=== PATIENT | female | born 1950 | race Caucasian/White ===

== ENCOUNTER 2017-12-08 17:03 | Inpatient (IN) ==
[2017-12-08] MEDS ORDERED: *HR* Labetalol 20 MG/4 ML SYRINGE IVP ONE (17:34)
--- NOTE | 2017-12-08 17:38 | Emergency Department Note ---
Disposition Clinical Impression: Hypertensive urgency, Anasarca, Acute kidney injury, Elevated troponin CHF exacerbation Qualifiers: Congestive heart failure type: unspecified Qualified Code(s): I50.9 - Heart failure, unspecified Disposition: Admitted As Inpatient Condition: Good General Adult HPI - General Chief complaint: ED Extremity Problem,Nontraumatic Stated complaint: abd & peripheral swelling Time Seen by Provider: 12/08/17 17:08 Source: patient, family Mode of arrival: private vehicle Limitations: altered mental status, physical limitation Nursing Notes Reviewed: Yes Vital Signs Reviewed: Yes - History of Present Illness HPI Narrative: 67-year-old female history of dementia, poorly controlled hypertension and diabetes who presents to the ER from urgent care due to concern for abdominal swelling. Patient is a poor historian and has baseline dementia which the family reports is currently at her baseline. They report yesterday they noticed some swelling to her lower abdomen on the right. Denies any trauma. States that she used to weigh over 400 pounds and lost the weight on her own and has a lot of extra tissue but the swelling has worsened since yesterday. Also states that they noticed her lower extremities were swollen. They state today she felt short of breath. She has had no headaches, chest pain, nausea vomiting or diarrhea. She was seen at urgent care and sent here for evaluation. She is noted to be hypertensive upon arrival. States this is higher than what she usually runs. No other complaints. Pt Subjective Complaint: Abdominal and peripheral swelling Onset (ago): day(s) Location: abdomen Pain Scale: 0 Improves with: nothing Worsens with: nothing Associated symptoms: Reports: shortness of breath. Denies: confusion, chest pain, fever/chills, headaches, nausea/vomiting Treatments Prior to Arrival: none - Related Data Previous Rx's Medication Instructions Recorded Aspirin 81 mg PO DAILY #90 tab.chew 07/31/16 Atorvastatin [Lipitor] 40 mg PO HS #30 tablet 07/31/16 Isosorbide MONOnitrate (24 HR) 60 mg PO DAILY #60 tab.er.24h 07/31/16 [Imdur] Metformin HCl [Metformin HCl ER] 500 mg PO DAILY #30 [id number] 07/31/16 Metoprolol [Lopressor] 12.5 mg PO BID #60 tablet 07/31/16 Nicotine Patch [Nicoderm] 21 mg TD DAILY #30 patch.td24 07/31/16 Nitroglycerin 0.4 mg SL Q5MIN PRN #15 tab.subl 07/31/16 OxyCODONE Immed Rel [Roxicodone 5 5 mg PO Q4HR PRN #30 tablet 07/31/16 MG] hydrALAZINE [HydrALAZINE] 25 mg PO Q6HR #90 tablet 07/31/16 Allergies Allergy/AdvReac Type Severity Reaction Status Date / Time No Known Allergies Allergy Verified 12/08/17 17:05 All systems ED: reviewed and negative except as stated. Constitutional: Denies: fever Cardiovascular: Denies: chest pain Respiratory: Reports: cough, dyspnea Gastrointestinal: Reports: abdominal pain. Denies: nausea, vomiting, diarrhea Musculoskeletal: Denies: back pain Neurological: Denies: headache Past Medical History - Past Medical History Attestation: Yes The following information was validated with the patient. Source: patient Medical history: Reports: aortic aneurysm, dementia, diabetes, GERD, hypertension, osteoporosis, other Surgical history: Reports: cholecystectomy Psychiatric history: Reports: no psych history - Social History Smoking Status: Never smoker Smokeless Tobacco Status: No Alcohol use: Reports: unknown Drug use: Reports: unknown Physical Exam - General Limitations: altered mental status, physical limitation General appearance: alert, in no apparent distress - Head Head exam: atraumatic, normocephalic - Eye Eye exam: Present: normal appearance - ENT ENT exam: normal exam - Neck Neck exam: Present: normal inspection, full ROM - Chest Chest inspection: Present: normal inspection, symmetric chest wall rise - Respiratory Respiratory exam: Present: normal lung sounds bilaterally - Cardiovascular Cardiovascular exam: Present: regular rate, normal rhythm, normal heart sounds - Abdominal Exam Abdominal exam: Present: soft, tenderness (Patient has mild right lower quadrant tenderness without distention guarding or rigidity), other (Patient has redundant tissue in the lower abdomen.) - Extremities Exam Extremities exam: Present: normal inspection, full ROM - Expanded Upper Extremity Exam Shoulder exam: Present: normal inspection, full ROM Arm exam: Present: normal inspection, full ROM Elbow exam: Present: normal inspection, full ROM Forearm/Wrist exam: Present: normal inspection, full ROM Hand exam: Present: normal inspection, full ROM - Expanded Lower Extremity Exam Hip/Pelvis exam: Present: normal inspection, full ROM Upper leg exam: Present: normal inspection, full ROM Knee exam: Present: normal inspection, full ROM Lower leg exam: Present: normal inspection, full ROM, swelling (Scant lower extremity pitting edema) Ankle exam: Present: normal inspection, full ROM Foot/toe exam: Present: normal inspection, full ROM - Neurological Exam Neurological exam: Present: alert, other (Family reports she is at her baseline. Answers questions appropriate but is confused.) - Skin Skin exam: Present: warm, dry, intact Course Course Narrative: Patient seen and examined. Family hypertensive here. There is documentation of a prior aortic aneurysm however there are no images to review. Given her hypertension we will pursue a CT scan of her head as well as a scan of her abdomen and pelvis. Should this show any abnormality or aneurysm we will likely need to repeat with angiogram. We will also get an EKG, chest x-ray as well as labs including troponin. - Reevaluation(s) Reevaluation #1: Discussed results of imaging and labs with patient. Her blood pressure had improved after 1 dose of labetalol. She is noted to have a BNP over 2000 in the setting of a mild kidney injury. She is also noted to have anasarca on her abdominal CT. We will give her a dose of IV Lasix, Nitropaste and aspirin and admit. Vital Signs Temperature 97.3 F L 12/08/17 17:05 Pulse Rate 96 12/08/17 17:05 Respiratory Rate 18 12/08/17 17:05 Blood Pressure 213/142 12/08/17 17:05 O2 Sat by Pulse Oximetry 97 12/08/17 17:05 Temperature 98.9 F 12/08/17 21:41 Pulse Rate 77 12/08/17 21:01 Respiratory Rate 18 12/08/17 21:41 Blood Pressure 178/101 12/08/17 21:41 O2 Sat by Pulse Oximetry 96 12/08/17 19:29 Oxygen Delivery Oxygen Delivery Room Air Medical Decision Making - MDM Narrative Medical decision making narrative: 67-year-old female presents to the ER due to abdominal swelling as well as hypertension. She has poorly controlled hypertension at baseline. Family reporting she is at her usual mental status baseline. She is alert and answers questions appropriately but is confused intermittently. Noted to have lower extremity edema. EKG without ischemic features. Chest x-ray with cardiomegaly and pulmonary vascular congestion. CT of the head with no acute abnormalities. CT of the abdomen and pelvis with anasarca without acute findings. She is noted to have an elevated BNP, troponin. Patient given 10 mg of labetalol for hypertension with improvement. Also given an aspirin, Nitropaste and 40 mg IV Lasix. Admitted to the hospitalist service for hypertensive urgency, acute CHF exacerbation. - Lab Data Lab results reviewed: Yes I reviewed the patient's lab results. Result diagrams: 12/08/17 17:48 12/08/17 17:48 Lab Results 12/08/17 12/08/17 12/08/17 Range/Units 17:48 17:48 17:48 WBC 7.0 (4.3-11.1) K/mcL RBC 4.87 (3.82-4.97) M/mcL Hgb 13.9 (11.5-15.4) g/dL Hct 41.8 (35.3-44.9) % MCV 85.8 (83.0-100.0) fL MCH 28.5 (28.0-33.3) pg MCHC 33.3 (31.6-35.5) g/dL RDW 14.5 (11.5-14.5) % Plt Count 178 (140-400) K/mcL MPV 10.4 (9.4-12.4) fL Immature Gran % 0.1 (0-4) % Seg Neutrophils % 75.8 % Lymphocytes % 14.8 % Monocytes % 7.3 % Eosinophils % 1.6 % Basophils % 0.4 % Neutrophils # 5.3 (1.6-8.9) K/mcL Lymphocytes # 1.0 (0.6-4.6) K/mcL Monocytes # 0.5 (0.0-1.3) K/mcL Eosinophils # 0.1 (0.0-0.6) K/mcL Basophils # 0.0 (0.0-0.2) K/mcL PT (9.4-12.1) Seconds INR APTT (26.0-36.0) Seconds Sodium 135 L (136-145) mEq/L Potassium 3.7 (3.5-5.1) mEq/L Chloride 106 (98-107) mEq/L Carbon Dioxide 20 L (23-29) mEq/L BUN 27 H (8-23) mg/dL Creatinine 1.47 H (0.60-1.20) mg/dL Est GFR ( Amer) 43 L (> 60) Est GFR (Non-Af Amer) 35 L (> 60) BUN/Creatinine Ratio 18 (6-26) Glucose 271 H (70-105) mg/dL Calculated Osmolality 295 (280-300) Calcium 8.5 L (8.6-10.3) mg/dL Total Bilirubin TNP Direct Bilirubin 0.1 (0.0-0.2) mg/dL Indirect Bilirubin TNP AST 21 (13-39) Units/L ALT 16 (7-52) Units/L Alkaline Phosphatase 101 (34-104) Units/L Troponin I 0.05 H* (< 0.04) ng/mL B-Natriuretic Peptide (Less than 100) pg/mL Serum Total Protein 5.8 L (6.4-8.9) g/dL Albumin 3.2 L (3.5-5.7) g/dL Globulin 2.6 (2.4-3.5) g/dL Albumin/Globulin Ratio 1.2 (1.1-2.2) Lipase 17 (11-82) Units/L Urine Color (Yellow) Urine Clarity (Clear) Urine pH (5.0-8.0) pH Units Ur Specific [place] (1.010-1.025) Urine Protein (Neg-Trace) mg/dL Urine Glucose (UA) (Normal) mg/dL Urine Ketones (Negative) mg/dL Urine Blood (Negative) Urine Nitrite (Negative) Urine Bilirubin (Negative) Urine Urobilinogen (Normal) mg/dL Ur Leukocyte Esterase (Negative) Urine Microscopic RBC (0-3) per hpf Urine Microscopic WBC (0-3) per hpf Ur Squamous Epith Cells (None-Few) per lpf Urine Bacteria (None-Few) per hpf Hyaline Casts (None-Few) per lpf 12/08/17 12/08/17 12/08/17 Range/Units 17:48 17:48 18:12 WBC (4.3-11.1) K/mcL RBC (3.82-4.97) M/mcL Hgb (11.5-15.4) g/dL Hct (35.3-44.9) % MCV (83.0-100.0) fL MCH (28.0-33.3) pg MCHC (31.6-35.5) g/dL RDW (11.5-14.5) % Plt Count (140-400) K/mcL MPV (9.4-12.4) fL Immature Gran % (0-4) % Seg Neutrophils % % Lymphocytes % % Monocytes % % Eosinophils % % Basophils % % Neutrophils # (1.6-8.9) K/mcL Lymphocytes # (0.6-4.6) K/mcL Monocytes # (0.0-1.3) K/mcL Eosinophils # (0.0-0.6) K/mcL Basophils # (0.0-0.2) K/mcL PT 10.2 (9.4-12.1) Seconds INR 1.0 APTT 31.8 (26.0-36.0) Seconds Sodium (136-145) mEq/L Potassium (3.5-5.1) mEq/L Chloride (98-107) mEq/L Carbon Dioxide (23-29) mEq/L BUN (8-23) mg/dL Creatinine (0.60-1.20) mg/dL Est GFR ( Amer) (> 60) Est GFR (Non-Af Amer) (> 60) BUN/Creatinine Ratio (6-26) Glucose (70-105) mg/dL Calculated Osmolality (280-300) Calcium (8.6-10.3) mg/dL Total Bilirubin Direct Bilirubin (0.0-0.2) mg/dL Indirect Bilirubin AST (13-39) Units/L ALT (7-52) Units/L Alkaline Phosphatase (34-104) Units/L Troponin I (< 0.04) ng/mL B-Natriuretic Peptide 2154 H (Less than 100) pg/mL Serum Total Protein (6.4-8.9) g/dL Albumin (3.5-5.7) g/dL Globulin (2.4-3.5) g/dL Albumin/Globulin Ratio (1.1-2.2) Lipase (11-82) Units/L Urine Color Yellow (Yellow) Urine Clarity Clear (Clear) Urine pH 6.5 (5.0-8.0) pH Units Ur Specific [place] 1.021 (1.010-1.025) Urine Protein >=1000 H (Neg-Trace) mg/dL Urine Glucose (UA) 500 H (Normal) mg/dL Urine Ketones Negative (Negative) mg/dL Urine Blood Moderate H (Negative) Urine Nitrite Negative (Negative) Urine Bilirubin Negative (Negative) Urine Urobilinogen Normal (Normal) mg/dL Ur Leukocyte Esterase Negative (Negative) Urine Microscopic RBC 5-15 H (0-3) per hpf Urine Microscopic WBC 0-3 (0-3) per hpf Ur Squamous Epith Cells Many H (None-Few) per lpf Urine Bacteria None Seen (None-Few) per hpf Hyaline Casts Few (None-Few) per lpf - Radiology Data Radiology results reviewed: Yes I reviewed the patient's radiology results. Chest X-Ray 12/08/17 17:33 IMPRESSION: Suspected pulmonary vascular congestion. Bibasilar airspace disease could represent edema. Pneumonia and/or atelectasis could also have this appearance. Correlation is recommended. D/ / Priscilla Beckwith Cha, MD / Priscilla Beckwith Cha, MD Interpreting Provider: Priscilla Beckwith Cha, MD Abdomen/Pelvis CT 12/08/17 17:34 IMPRESSION: No acute abnormality of the abdomen or pelvis. The appendix is not distinctly visualized but no secondary evidence of appendicitis. Moderate to large bilateral pleural effusions, with adjacent compressive atelectasis. Small pericardial effusion. Large amount of body wall edema in the subcutaneous fat. D/ / Carlyle Vega MD / Carlyle Vega MD Interpreting Provider: Carlyle Vega MD Head CT 12/08/17 17:34 IMPRESSION: No acute intracranial abnormality. Wax occludes the external auditory canals, [id number]. D/ / Johnny Balderrama MD / Johnny Balderrama MD Interpreting Provider: Johnny Balderrama MD - EKG Data EKG #1 EKG attestation: Yes I reviewed and interpreted this EKG. EKG results narrative: EKG demonstrates sinus rhythm with PVCs with a rate of 91 bpm. Left axis deviation. Normal intervals. Poor R-wave progression. No gross ST elevations or depressions. No acute ischemic findings. Roxie - Roxie Situation: Demographics, MOA Background: Presenting Complaint, Relevant PMH, Meds, & Allergies Assessment: Vital Signs, Course and respsone to treatment, Exam Concerns, Patient/Family Expectation, Pertinant Lab Results Recommendation: Barrier(s) to disposition, Recommendation based on pending studies, treatments, or consults Roxie Report Given to: Dr. Guillermo Faustin Repor Time: 21:25 Attestation Statement - Attestation Attestation: I examined this patient and my medical decision-making was reviewed with the Resident Physician, Dr. Lopez. I agree with the documented findings, disposition and treatment plan as described except to the extent set forth below. Is a 67-year-old elderly white female with a history of diabetes, hypertension, medication noncompliance, and dementia. Patient's family are here that brought her out of concern for recent history of gradually worsening shortness of breath and abdominal swelling. Patient was seen initially at the urgent care and was reported to have elevated blood pressure as well as ankle and abdominal wall edema and was sent here for further evaluation. Patient denies any form of chest pain pressure or heaviness, no palpitations, does complain of some mild shortness of breath but is having no symptoms of respiratory distress on arrival. Patient denies any history of falls or trauma. Patient denies any abdominal pain by history. No other associated symptoms. She denies any headaches, visual changes, focal neurologic deficits. I agree with patient's physical exam findings as documented. Patient quite hypertensive on arrival. Daughter at bedside states she has been dispensing her medications in that she has been taking her meds as directed and tolerating them well. Patient's EKG does not show any acute ischemia and his sinus rhythm. Patient's chest x-ray shows evidence of congestive heart failure with pleural effusions. Patient's CT of the abdomen and pelvis shows generalized abdominal wall edema as well as pleural effusions in the bases. No other acute abdominal findings were seen. Patient's laboratory values show a KI, with a mild elevated troponin as well as an elevated BNP. Patient was administered aspirin and Lasix and nitroglycerin as well as a dose of labetalol for elevated blood pressure. Patient's mean arterial pressure responded nicely with approximately a 20% drop will hold any further additional medication at this time. Patient will be admitted for CHF, a KI, elevated troponin, an elevated blood pressure. Case was discussed with hospitalist except patient for admission for further evaluation and management.
[2017-12-08 18:01] LABS: Basophils % 0.4 %; Eosinophils # 0.1 K/mcL (0.0-0.6); Eosinophils % 1.6 %; Hematocrit 41.8 % (35.3-44.9); Hemoglobin 13.9 g/dL (11.5-15.4); Immature Granulocytes % 0.1 % (0-4); Lymphocytes % 14.8 %; Mean Corpuscular HGB Conc 33.3 g/dL (31.6-35.5); Mean Corpuscular Hemoglobin 28.5 pg (28.0-33.3); Mean Corpuscular Volume 85.8 fL (83.0-100.0); Mean Platelet Volume 10.4 fL (9.4-12.4); Monocytes # 0.5 K/mcL (0.0-1.3); Monocytes % 7.3 %; Neutrophils # 5.3 K/mcL (1.6-8.9); Platelet Count 178 K/mcL (140-400); Red Blood Count 4.87 M/mcL (3.82-4.97); Red Cell Distribution Width 14.5 % (11.5-14.5); Segmented Neutrophils % 75.8 %
[2017-12-08 18:05] LABS: Prothrombin Time 10.2 Seconds (9.4-12.1)
[2017-12-08 18:08] LABS: Activated Partial Thrombo Time 31.8 Seconds (26.0-36.0)
[2017-12-08 18:23] LABS: Bilirubin,Urine Negative (Negative); Blood,Urine Moderate (Negative); Clarity,Urine Clear (Clear); Color,Urine Yellow (Yellow); Glucose,Urine (UA) 500 mg/dL (Normal); Ketones,Urine Negative (Negative); Leukocyte Esterase,Urine Negative (Negative); Nitrite,Urine Negative (Negative); PH,Urine 6.5 pH Units (5.0-8.0); Protein,Urine >=1000 mg/dL (Neg-Trace); Specific Gravity,Urine 1.021 (1.010-1.025); Urobilinogen,Urine Normal (Normal)
[2017-12-08 18:23] LABS: Lipase 17 Units/L (11-82)
[2017-12-08 18:26] LABS: Bacteria,Urine None Seen per hpf (None-Few); Hyaline Casts,Urine Few per lpf (None-Few); Squamous Epithelial Cell,Urine Many per lpf (None-Few); WBC,Urine 0-3 per hpf (0-3)
[2017-12-08 19:35] LABS: Alanine Aminotransferase 16 Units/L (7-52); Albumin 3.2 g/dL (3.5-5.7); Albumin/Globulin Ratio 1.2 (1.1-2.2); Alkaline Phosphatase 101 Units/L (34-104); Aspartate Amino Transferase 21 Units/L (13-39); BUN/Creatinine Ratio 18 (6-26); Bilirubin,Direct 0.1 mg/dL (0.0-0.2); Blood Urea Nitrogen 27 mg/dL (8-23); Calcium 8.5 mg/dL (8.6-10.3); Carbon Dioxide 20 mEq/L (23-29); Chloride 106 mEq/L (98-107); Globulin 2.6 g/dL (2.4-3.5); Glucose 271 mg/dL (70-105); Osmolality,Calculated 295 (280-300); Potassium 3.7 mEq/L (3.5-5.1); Sodium 135 mEq/L (136-145); Total Protein 5.8 g/dL (6.4-8.9); eGFR For African Americans 43 (> 60); eGFR For Non-African Americans 35 (> 60)
[2017-12-08] MEDS ORDERED: Furosemide 40 MG/4 ML VIAL IVP ONE (20:46)
[2017-12-08] MEDS ORDERED: Nitroglycerin 1 INCH/GM PACKET TP ONE (20:46)
[2017-12-08] MEDS ORDERED: Aspirin 325 MG TABLET PO ONE (20:46)
[2017-12-08] MEDS ORDERED: Dextrose Gel 15 GM/37.5 ML TUBE PO PRN ×2 (21:35)
[2017-12-08] MEDS ORDERED: D5% in Water 1,000 ML IVC PRN (21:35)
[2017-12-08] MEDS ORDERED: *HR* Dextrose 50 % in Water (Syg) 50 ML SYRINGE IVP PRN (21:35)
[2017-12-08] MEDS ORDERED: Naloxone 0.4 MG/ML INJ IVP PRN (21:36)
--- NOTE | 2017-12-08 21:47 | Internal Med History&Physical ---
Date of Encounter: 12/08/17 Time of Encounter: 21:46 Assessment and Plan (1) CHF exacerbation Current visit: Yes Status: Acute check TTE lasix BID check TFT pulse ox monitoring I&Os control BP Qualifiers: Congestive heart failure type: systolic Qualified Code(s): I50.23 - Acute on chronic systolic (congestive) heart failure (2) Hypertensive urgency Current visit: Yes Status: Acute improved with IV prn in the ED. Will try to use IV prn. Try to avoid gtt therapy for now pending BP, may need to adjust home PO med q3h BP overnight to get better trend for now (3) CKD (chronic kidney disease) Current visit: Yes Status: Acute Qualifiers: Chronic kidney disease stage: stage 3 (moderate) Qualified Code(s): N18.3 - Chronic kidney disease, stage 3 (moderate) (4) DMII (diabetes mellitus, type 2) Current visit: Yes Status: Acute hold metformin, ISS for now Qualifiers: Diabetes mellitus complication status: without complication Qualified Code( s): E11.9 - Type 2 diabetes mellitus without complications; Z79.4 - correction ( current) use of insulin; Z79.4 - local company intermodal truck driver (current) use of insulin; Z79.4 - local company intermodal truck driver (current) use of insulin; Z79.4 - local company intermodal truck driver (current) use of insulin (5) HLD (hyperlipidemia) Current visit: Yes Status: Acute Qualifiers: Hyperlipidemia type: mixed hyperlipidemia Qualified Code(s): E78.2 - Mixed hyperlipidemia (6) Dementia Current visit: No Status: Chronic moderate severe fall, wandering risk - RN communication ordered Qualifiers: Dementia type: Alzheimer's disease Dementia behavioral disturbance: without behavioral disturbance Qualified Code(s): G30.8 - Other Alzheimer's disease; F02.80 - Dementia in other diseases classified elsewhere without behavioral disturbance Internal Medicine - H&P: HPI Chief complaint: b/l LE and belly swelling History of present illness: Ms. Decker is a 67 year old female who presents with b/l LE and belly swelling. Found HTN urgency and suspicious for new CHF. Less certain this is HTN crisis. Presents with worsening LE swelling and belly swelling since yesterday per family but suspect this has been ongoing for the last few weeks at least now. Family suspect she has gained 15 lbs since a few months ago. No improving factors. High fall and wandering risk She is moderate-severe dementia and lives with dtr hector [phone]. At baseline she is 1 assist walking for safety and although independent of toileting, feeding, family is cautious to have her kept an eye on. She has a hx of HTB, HLD ,DMII but no known CHF or CAD. Dtr requested full code for now EKG info rate 91 bpm, NSR, PVC CT/CT head/brain wo con IMPRESSION: No acute intracranial abnormality. Wax occludes the external auditory canals, [id number]. CT/CT abd pelvis wo no iv no oral IMPRESSION: No acute abnormality of the abdomen or pelvis. The appendix is not distinctly visualized but no secondary evidence of appendicitis. Moderate to large bilateral pleural effusions, with adjacent compressive atelectasis. Small pericardial effusion. Large amount of body wall edema in the subcutaneous fat. XR/XR chest 1V portable IMPRESSION: Suspected pulmonary vascular congestion. Bibasilar airspace disease could represent edema. Pneumonia and/or atelectasis could also have this appearance. Correlation is recommended. Past Med Surg Social Fam HX - Past Medical History Medical history: aortic aneurysm, dementia, diabetes, GERD, hypertension, osteoporosis, other Psychiatric history: no psych history - Past Surgical History Surgical History: cholecystectomy - Social History Smoking Status: Never smoker Smokeless Tobacco Status: No Alcohol use: unknown Drug use: unknown - Additional Family History Additional family history: HTN Internal Medicine - H&P: Meds Aspirin 81 mg PO DAILY #90 tab.chew 07/31/16 [Rx] Atorvastatin [Lipitor] 40 mg PO HS #30 tablet 07/31/16 [Rx] Isosorbide MONOnitrate (24 HR) [Imdur] 60 mg PO DAILY #60 tab.er.24h 07/31/16 [ Rx] Metformin HCl [Metformin HCl ER] 500 mg PO DAILY #30 [id number] 07/31/16 [Rx] Metoprolol [Lopressor] 12.5 mg PO BID #60 tablet 07/31/16 [Rx] Nicotine Patch [Nicoderm] 21 mg TD DAILY #30 patch.td24 07/31/16 [Rx] Nitroglycerin 0.4 mg SL Q5MIN PRN #15 tab.subl 07/31/16 [Rx] OxyCODONE Immed Rel [Roxicodone 5 MG] 5 mg PO Q4HR PRN #30 tablet 07/31/16 [Rx] hydrALAZINE [HydrALAZINE] 25 mg PO Q6HR #90 tablet 07/31/16 [Rx] 3 Allergy/AdvReac Type Severity Reaction Status Date / Time No Known Allergies Allergy Verified 12/08/17 17:05 All Systems PM: A 10-system review of systems was performed and is negative for pertinent findings except as documented above in the HPI. Review of systems: ROS 14 point review of systems reviewed as best as possible given presentation. Pertinent positive or negative as per HPI or otherwise reviewed as negative - Constitutional Vitals: Temp Pulse Resp BP Pulse Ox 98.9 F 77 18 178/101 96 12/08/17 21:41 12/08/17 21:01 12/08/17 21:41 12/08/17 21:41 12/08/17 19:29 Exam: General - AA x 2 Psych - Appropriate affect/speech. No agitation Eyes - JERRI. Eye lids intact. No scleral icterus Neuro - No gross peripheral or central neuro deficits on inspection Heart - Sinus. RRR. S1 and S2 present. No added HS/murmurs appreciated. No elevated JVD appreciated. Lung - Adequate air entry b/l, No crackles/wheezes appreciated GI - Soft, non-tender. No hepatosplenomegaly/ascites. BS+ - No CVA/suprapubic tenderness or palpable bladder distension Skin - Intact. No rash/petechiae/ecchymosis. +1 b/l edema MSK - Joints with normal ROM. No joint swellings Internal Med - H&P Results - Labs CBC & Chem 7: 12/08/17 17:48 12/08/17 17:48
[2017-12-08] MEDS: Isosorbide MONOnitrate (24 HR) 60 MG TAB.ER.24H PO SCH (22:14)
[2017-12-08] MEDS: hydrALAZINE 25 MG TABLET PO SCH (23:02)
[2017-12-08] MEDS: Insulin LISPRO 300 UNITS/3 ML VIAL SQ SCH (23:02)
[2017-12-09] MEDS: hydrALAZINE 25 MG TABLET PO SCH ×4 (05:50→23:45)
[2017-12-09] MEDS: *HR* Enoxaparin 30 MG/0.3 ML SYRINGE SQ SCH (05:50)
[2017-12-09 06:35] LABS: Basophils % 0.5 %; Eosinophils # 0.2 K/mcL (0.0-0.6); Hematocrit 37.6 % (35.3-44.9); Hemoglobin 12.2 g/dL (11.5-15.4); Immature Granulocytes % 0.4 % (0-4); Lymphocytes # 1.5 K/mcL (0.6-4.6); Lymphocytes % 25.8 %; Mean Corpuscular HGB Conc 32.4 g/dL (31.6-35.5); Mean Corpuscular Hemoglobin 28.4 pg (28.0-33.3); Mean Corpuscular Volume 87.4 fL (83.0-100.0); Mean Platelet Volume 10.5 fL (9.4-12.4); Monocytes # 0.5 K/mcL (0.0-1.3); Monocytes % 9.5 %; Neutrophils # 3.5 K/mcL (1.6-8.9); Platelet Count 186 K/mcL (140-400); Red Cell Distribution Width 14.6 % (11.5-14.5); Segmented Neutrophils % 60.8 %
[2017-12-09 06:54] LABS: Calcium 8.1 mg/dL (8.6-10.3); Magnesium 1.8 mg/dL (1.6-2.6); Potassium 2.9 mEq/L (3.5-5.1)
[2017-12-09 07:12] LABS: Thyroid Stimulating Hormone 5.857 mcIU/mL (0.340-5.600)
[2017-12-09] MEDS: Isosorbide MONOnitrate (24 HR) 60 MG TAB.ER.24H PO SCH (07:48)
[2017-12-09] MEDS: *HR* OxyCODONE Immed Rel 5 MG TABLET PO PRN ×3 (07:49→23:45)
[2017-12-09] MEDS: Furosemide 40 MG/4 ML VIAL IVP SCH ×2 (09:28→17:15)
[2017-12-09] MEDS: Potassium Chloride Elixir 20 MEQ/15 ML UDC PO SCH ×2 (09:28→13:23)
[2017-12-09] MEDS: Insulin LISPRO 300 UNITS/3 ML VIAL SQ SCH ×4 (09:28→21:10)
[2017-12-09] MEDS: Aspirin 81 MG TAB.CHEW PO SCH (09:28)
--- NOTE | 2017-12-09 15:44 | Internal Med Progress Note ---
Date of Encounter: 12/09/17 Time of Encounter: 09:00 - Assessment and plan (1) CHF exacerbation Current Visit: Yes Status: Acute Assessment and plan: Echocardiogram from 2016 showed preserved ejection fraction, mild left ventricular diastolic dysfunction. Current admission with dyspnea, CT abdomen showing anasarca and bilateral pleural effusions. Continue IV Lasix, fluid restriction, urine output monitoring. Check transthoracic echocardiogram. Continue telemetry monitoring , nitrates and beta natalie. Supportive care and supplemental oxygen. Mild troponin leak due to uncontrolled hypertension and acute CHF. Qualifiers: Congestive heart failure type: diastolic Qualified Code(s): I50.33 - Acute on chronic diastolic (congestive) heart failure (2) Hypertensive urgency Current Visit: Yes Status: Acute Assessment and plan: Noted to have uncontrolled hypertension as an outpatient. Blood pressure currently improving. Continue home medication regimen including beta natalie, hydralazine, nitrate. (3) Dementia Current Visit: Yes Status: Chronic Assessment and plan: Fall precautions and supportive care. Qualifiers: Dementia type: Alzheimer's disease Alzheimer's disease onset: unspecified onset Dementia behavioral disturbance: without behavioral disturbance Qualified Code(s): G30.9 - Alzheimer's disease, unspecified; F02.80 - Dementia in other diseases classified elsewhere without behavioral disturbance; F02.80 - Dementia in other diseases classified elsewhere without behavioral disturbance; F02.80 - Dementia in other diseases classified elsewhere without behavioral disturbance (4) Anasarca Current Visit: Yes Status: Acute Assessment and plan: Plan as above. (5) CKD (chronic kidney disease) Current Visit: Yes Status: Chronic Assessment and plan: Serum creatinine likely at baseline. Continue to monitor closely. Qualifiers: Chronic kidney disease stage: stage 3 (moderate) Qualified Code(s): N18.3 - Chronic kidney disease, stage 3 (moderate) (6) DMII (diabetes mellitus, type 2) Current Visit: Yes Status: Chronic Assessment and plan: Continue Accu-Chek blood glucose monitoring with sliding scale insulin. Diabetic diet. Qualifiers: Diabetes mellitus complication status: with kidney complications Diabetes mellitus complication detail: with chronic kidney disease Diabetes mellitus retirement insulin use: without retirement use Chronic kidney disease stage: stage 3 (moderate) Qualified Code(s): E11.22 - Type 2 diabetes mellitus with diabetic chronic kidney disease; N18.3 - Chronic kidney disease, stage 3 ( moderate); N18.3 - Chronic kidney disease, stage 3 (moderate) (7) HLD (hyperlipidemia) Current Visit: Yes Status: Chronic Qualifiers: Hyperlipidemia type: unspecified Qualified Code(s): E78.5 - Hyperlipidemia , unspecified (8) Hypokalemia Current Visit: Yes Status: Acute Assessment and plan: Due to the use of diuretics. Supplement with oral and IV potassium chloride, monitor potassium and magnesium closely. - Subjective Interval history: Patient denies complaints of chest pain or shortness of breath. Cannot provide any history due to memory loss and dementia. Not in distress. - Constitutional Vitals: Temp Pulse Resp BP Pulse Ox 98.0 F 71 16 131/74 96 12/09/17 11:16 12/09/17 11:16 12/09/17 11:16 12/09/17 11:16 12/09/17 11:16 General appearance: Present: A&O X 1. Absent: answers questions appropriately - Respiratory Respiratory exam: Present: decreased breath sounds (at right base), CTAB. Absent: accessory muscle use, rales, rhonchi, wheezes - Cardiovascular Cardiovascular exam: Present: RRR, +S1, +S2. Absent: diastolic murmur, gallop, rubs, systolic murmur - GI/Abdominal GI/Abdominal exam: Present: normal bowel sounds, soft, no peritoneal signs. Absent: distended, tenderness - Extremities Exam Extremities exam: Present: pedal edema, warm, radial pulses palpable and symmetrical. Absent: calf tenderness, cyanotic - Neurological Exam Neurological exam: Present: altered, CN II-XII intact, no focal deficits. Absent: pronater drift, facial droop, speech deficit Internal Medicine: Result - Labs CBC & Chem 7: 12/09/17 05:44 12/09/17 05:44 Labs: Short CBC 12/09/17 Range/Units 05:44 WBC 5.7 (4.3-11.1) K/mcL Hgb 12.2 D (11.5-15.4) g/dL Hct 37.6 (35.3-44.9) % Plt Count 186 (140-400) K/mcL Neutrophils # 3.5 (1.6-8.9) K/mcL BMP 12/09/17 05:44 Sodium 138 Potassium 2.9 L Chloride 106 Carbon Dioxide 26 BUN 26 H Creatinine 1.44 H Glucose 136 H Calcium 8.1 L Cardiac Enzymes 12/09/17 12/09/17 Range/Units 05:44 11:58 Troponin I 0.05 H* 0.04 H* (< 0.04) ng/mL - ABG Interpretation ABG results: PT/INR, D-dimer PT 10.2 Seconds (9.4-12.1) 12/08/17 17:48 Consult Discharge Plan - Plan Referrals: Carol Odom [Primary Care Provider] -
[2017-12-09] MEDS ORDERED: Insulin LISPRO 300 UNITS/3 ML VIAL SQ SCH (21:00)
[2017-12-10 03:42] LABS: Basophils % 0.6 %; Eosinophils # 0.1 K/mcL (0.0-0.6); Eosinophils % 1.8 %; Hematocrit 35.5 % (35.3-44.9); Hemoglobin 11.7 g/dL (11.5-15.4); Immature Granulocytes % 0.3 % (0-4); Lymphocytes # 1.5 K/mcL (0.6-4.6); Lymphocytes % 21.2 %; Mean Corpuscular Hemoglobin 28.5 pg (28.0-33.3); Mean Corpuscular Volume 86.4 fL (83.0-100.0); Mean Platelet Volume 10.4 fL (9.4-12.4); Monocytes # 0.7 K/mcL (0.0-1.3); Neutrophils # 4.7 K/mcL (1.6-8.9); Platelet Count 193 K/mcL (140-400); Red Blood Count 4.11 M/mcL (3.82-4.97); Red Cell Distribution Width 14.7 % (11.5-14.5); Segmented Neutrophils % 66.1 %
[2017-12-10] MEDS: *HR* Enoxaparin 30 MG/0.3 ML SYRINGE SQ SCH (05:39)
[2017-12-10] MEDS: hydrALAZINE 25 MG TABLET PO SCH ×4 (05:39→21:41)
[2017-12-10] MEDS: Isosorbide MONOnitrate (24 HR) 60 MG TAB.ER.24H PO SCH (08:36)
[2017-12-10] MEDS: Aspirin 81 MG TAB.CHEW PO SCH (08:36)
[2017-12-10] MEDS: Furosemide 40 MG/4 ML VIAL IVP SCH (08:36)
[2017-12-10] MEDS: Insulin LISPRO 300 UNITS/3 ML VIAL SQ SCH ×4 (08:36→21:46)
[2017-12-10 10:57] LABS: Magnesium 1.8 mg/dL (1.6-2.6); Potassium 3.7 mEq/L (3.5-5.1)
[2017-12-10] MEDS: *HR* OxyCODONE Immed Rel 5 MG TABLET PO PRN ×2 (12:13→19:02)
--- NOTE | 2017-12-10 16:21 | Internal Med Progress Note ---
Date of Encounter: 12/10/17 Time of Encounter: 11:45 - Assessment and plan (1) CHF exacerbation Current Visit: Yes Status: Acute Assessment and plan: Echocardiogram from 2016 showed preserved ejection fraction, mild left ventricular diastolic dysfunction. Echo currently shows decreased EF at 25-30%, diastolic dysfunction, mild AR, mild-moderate MR; Will change Lasix to PO form due to renal dysfunction, continue fluid restriction, urine output monitoring. Continue telemetry monitoring, nitrates and beta natalie. Supportive care and supplemental oxygen. Mild troponin leak due to uncontrolled hypertension and acute CHF. Will consult Cardiology due to new finding of reduced EF; Qualifiers: Congestive heart failure type: diastolic Qualified Code(s): I50.33 - Acute on chronic diastolic (congestive) heart failure (2) Hypertensive urgency Current Visit: Yes Status: Resolved Assessment and plan: Blood pressure currently is much better controlled. Continue home medications. (3) Dementia Current Visit: Yes Status: Chronic Assessment and plan: Fall precautions and supportive care. Qualifiers: Dementia type: Alzheimer's disease Alzheimer's disease onset: unspecified onset Dementia behavioral disturbance: without behavioral disturbance Qualified Code(s): G30.9 - Alzheimer's disease, unspecified; F02.80 - Dementia in other diseases classified elsewhere without behavioral disturbance; F02.80 - Dementia in other diseases classified elsewhere without behavioral disturbance; F02.80 - Dementia in other diseases classified elsewhere without behavioral disturbance (4) Anasarca Current Visit: Yes Status: Acute Assessment and plan: Plan as above. (5) CKD (chronic kidney disease) Current Visit: Yes Status: Chronic Assessment and plan: Serum creatinine noted to be worsening, likely due to the use of IV Lasix. Will change Lasix to oral form, continue to monitor serum creatinine closely. Qualifiers: Chronic kidney disease stage: stage 3 (moderate) Qualified Code(s): N18.3 - Chronic kidney disease, stage 3 (moderate) (6) DMII (diabetes mellitus, type 2) Current Visit: Yes Status: Chronic Assessment and plan: Continue Accu-Chek blood glucose monitoring with sliding scale insulin. Diabetic diet. Qualifiers: Diabetes mellitus complication status: with kidney complications Diabetes mellitus complication detail: with chronic kidney disease Diabetes mellitus supervisor intermediates insulin use: without intermediate use Chronic kidney disease stage: stage 3 (moderate) Qualified Code(s): E11.22 - Type 2 diabetes mellitus with diabetic chronic kidney disease; N18.3 - Chronic kidney disease, stage 3 ( moderate); N18.3 - Chronic kidney disease, stage 3 (moderate) (7) HLD (hyperlipidemia) Current Visit: Yes Status: Chronic Qualifiers: Hyperlipidemia type: unspecified Qualified Code(s): E78.5 - Hyperlipidemia , unspecified (8) Hypokalemia Current Visit: Yes Status: Resolved - Subjective Interval history: Patient reports not feeling well today, however could not elaborate or speak coherently; confused; Cannot provide any history due to memory loss and dementia. Not in distress. - Constitutional Vitals: Temp Pulse Resp BP Pulse Ox 97.9 F 71 18 151/83 97 12/10/17 11:43 12/10/17 11:43 12/10/17 11:43 12/10/17 11:43 12/10/17 11:43 General appearance: Present: A&O X 1. Absent: answers questions appropriately - Respiratory Respiratory exam: Present: CTAB. Absent: accessory muscle use, rales, rhonchi, wheezes - Cardiovascular Cardiovascular exam: Present: RRR, +S1, +S2. Absent: diastolic murmur, gallop, rubs, systolic murmur - GI/Abdominal GI/Abdominal exam: Present: normal bowel sounds, soft, no peritoneal signs. Absent: distended, tenderness - Extremities Exam Extremities exam: Present: pedal edema, warm, radial pulses palpable and symmetrical. Absent: calf tenderness, cyanotic Internal Medicine: Result - Labs CBC & Chem 7: 12/10/17 03:25 12/10/17 03:25 Labs: Short CBC 12/10/17 Range/Units 03:25 WBC 7.1 (4.3-11.1) K/mcL Hgb 11.7 (11.5-15.4) g/dL Hct 35.5 (35.3-44.9) % Plt Count 193 (140-400) K/mcL Neutrophils # 4.7 (1.6-8.9) K/mcL BMP 12/10/17 03:25 Sodium 133 L Potassium 3.7 D Chloride 103 Carbon Dioxide 24 BUN 32 H Creatinine 1.80 H Glucose 229 H Calcium 8.0 L - ABG Interpretation ABG results: PT/INR, D-dimer PT 10.2 Seconds (9.4-12.1) 12/08/17 17:48 - Impressions Impressions Echocardiogram 12/09/17 13:30 Impressions: LVEF 25-30%. Diastolic dysfunction with elevated filling pressures. Normal right ventricular size with low normal function. Mild aortic regurgitation. Mild-moderate mitral regurgitation. No pulmonary hypertension. Mild pulmonic regurgitation. There is a trivial pericardial effusion present. There is no echocardiographic evidence of tamponade. A pleural effusion is present. Since prior study, 07/26/2016, LV systolic function has declined. Left Ventricular Wall Motion: Rest Echo Findings The apex, apical inferior, mid inferior, basal inferior, apical anterior, mid anterior, basal anterior, apical septal, mid inferior septal, basal inferior septal, apical lateral, mid anterior lateral, basal anterior lateral, mid anterior septal, mid inferior lateral, basal anterior septal and basal inferior lateral oleary were hypokinetic. Findings: Study Quality * Technically adequate exam. ECG Findings * Sinus rhythm with BBB. Left Ventricle * LVEF 25-30%. * Diastolic dysfunction with elevated filling pressures. * Normal LV size and wall thickness. Right Ventricle * Normal right ventricular size with low normal function. Left Atrium * Severely dilated left atrium. Right Atrium * Normal right atrial size. Aortic Valve * No aortic stenosis. * Trileaflet aortic valve. * Mild aortic regurgitation. Mitral Valve * Normal mitral valve structure. * No mitral stenosis. * Mild-moderate mitral regurgitation. Tricuspid Valve * Tricuspid valve not well visualized. * No tricuspid regurgitation. * Estimated RA pressure is 3 mmHg. * Estimated RVSP is 21 mmHg. * No pulmonary hypertension. Pulmonic Valve * Pulmonic valve is not well visualized. * No pulmonic stenosis. * Mild pulmonic regurgitation. Pulmonary Artery * Pulmonary artery not well visualized. Aorta * Ascending aorta not well visualized. * Normally sized aortic root. Pericardium * There is a trivial pericardial effusion present. * There is no echocardiographic evidence of tamponade. Pleural Effusion * A pleural effusion is present. Interatrial Septum * No evidence of PFO by color Doppler. IVC * Normal IVC dimensions and inspiratory collapse. Consult Discharge Plan - Plan Referrals: Carol Odom [Primary Care Provider] -
[2017-12-10] MEDS: Furosemide 40 MG TABLET PO SCH (16:57)
[2017-12-10] MEDS: Insulin DETEMIR 100 UNIT/ML X5UNITS SQ SCH (21:41)
[2017-12-11] MEDS: *HR* Enoxaparin 30 MG/0.3 ML SYRINGE SQ SCH (05:46)
[2017-12-11 07:34] LABS: Calcium 8.2 mg/dL (8.6-10.3); Magnesium 1.9 mg/dL (1.6-2.6); Potassium 3.4 mEq/L (3.5-5.1)
[2017-12-11] MEDS: Furosemide 40 MG TABLET PO SCH ×2 (08:27→16:49)
[2017-12-11] MEDS: Aspirin 81 MG TAB.CHEW PO SCH (08:27)
[2017-12-11] MEDS: Isosorbide MONOnitrate (24 HR) 60 MG TAB.ER.24H PO SCH (08:27)
[2017-12-11] MEDS: hydrALAZINE 25 MG TABLET PO SCH ×4 (08:27→22:17)
[2017-12-11] MEDS: Insulin LISPRO 300 UNITS/3 ML VIAL SQ SCH ×4 (08:27→22:20)
[2017-12-11] MEDS: Insulin DETEMIR 100 UNIT/ML X5UNITS SQ SCH ×2 (08:27→22:20)
[2017-12-11] MEDS: *HR* OxyCODONE Immed Rel 5 MG TABLET PO PRN ×2 (08:30→22:19)
--- NOTE | 2017-12-11 08:48 | Internal Med Progress Note ---
<Elvia Lopez - Last Filed: 12/11/17 13:48> Date of Encounter: 12/11/17 Time of Encounter: 08:35 - Assessment and plan (1) CHF exacerbation Current Visit: Yes Status: Acute Assessment and plan: Echocardiogram from 2016 showed preserved ejection fraction, mild left ventricular diastolic dysfunction. Echo currently shows decreased EF at 25-30%, diastolic dysfunction, mild AR, mild-moderate MR; BNP admission [address] showed b/l pleural effusion cardiology spoke with patient about [facility] but since she is not with full capacity to understand due to dementia this was not scheduled. Will have to speak with her daughter. plan continue Lasix PO continue fluid restriction 2L daily urine output monitoring Continue telemetry monitoring continue BB and imdur Cardiology consulted due to new finding of reduced EF start kelly inhibitor at d/c Qualifiers: Congestive heart failure type: combined Qualified Code(s): I50.43 - Acute on chronic combined systolic (congestive) and diastolic (congestive) heart failure (2) Cardiomyopathy Current Visit: Yes Status: Acute Assessment and plan: Echo currently shows decreased EF at 25-30%, diastolic dysfunction, mild AR, mild-moderate MR; Echocardiogram from 2016 showed preserved ejection fraction, mild left ventricular diastolic dysfunction. Cardiology consultation and following, recommendations are appreciated see plan above Qualifiers: Cardiomyopathy type: unspecified Qualified Code(s): I42.9 - Cardiomyopathy , unspecified (3) Hypertensive urgency Current Visit: Yes Status: Resolved Assessment and plan: Resolved. Blood pressure stable Continue home medications. (4) Dementia Current Visit: Yes Status: Chronic Assessment and plan: Currently lives at home with daughter Fall precautions and supportive care. Consult social work patient may need to go to [facility] for [id number] care due to dementia will talk with daughter when she is present Qualifiers: Dementia type: Alzheimer's disease Alzheimer's disease onset: unspecified onset Dementia behavioral disturbance: without behavioral disturbance Qualified Code(s): G30.9 - Alzheimer's disease, unspecified; F02.80 - Dementia in other diseases classified elsewhere without behavioral disturbance; F02.80 - Dementia in other diseases classified elsewhere without behavioral disturbance; F02.80 - Dementia in other diseases classified elsewhere without behavioral disturbance (5) Anasarca Current Visit: Yes Status: Acute Assessment and plan: Resolved Plan as above. (6) CKD (chronic kidney disease) Current Visit: Yes Status: Chronic Assessment and plan: Serum creatinine improving since change of Lasix from IV to PO continue to monitor serum creatinine closely avoid nephrotoxic agents Qualifiers: Chronic kidney disease stage: stage 3 (moderate) Qualified Code(s): N18.3 - Chronic kidney disease, stage 3 (moderate) (7) DMII (diabetes mellitus, type 2) Current Visit: Yes Status: Chronic Assessment and plan: History of diabetes glucose improving Continue Accu-Check sliding scale insulin. Diabetic diet. Qualifiers: Diabetes mellitus complication status: with kidney complications Diabetes mellitus complication detail: with chronic kidney disease Diabetes mellitus bed bug exterminator insulin use: without bed bug exterminator use Chronic kidney disease stage: stage 3 (moderate) Qualified Code(s): E11.22 - Type 2 diabetes mellitus with diabetic chronic kidney disease; N18.3 - Chronic kidney disease, stage 3 ( moderate); N18.3 - Chronic kidney disease, stage 3 (moderate) (8) HLD (hyperlipidemia) Current Visit: Yes Status: Chronic Assessment and plan: Continuous Statin Qualifiers: Hyperlipidemia type: unspecified Qualified Code(s): E78.5 - Hyperlipidemia , unspecified (9) Hypokalemia Current Visit: Yes Status: Resolved Assessment and plan: Improved. Likely due to the use of diuretics. Supplement as needed monitor potassium and magnesium closely. - Subjective Interval history: Sitting comfortably in bed eating breakfast. She was alert and oriented to person only. She reports continued shortness of breath. She has no other complaints - Constitutional Vitals: Temp Pulse Resp BP Pulse Ox 98.0 F 84 16 178/98 97 12/11/17 07:37 12/11/17 07:37 12/11/17 07:37 12/11/17 07:37 12/11/17 07:37 General appearance: Present: A&O X 1. Absent: answers questions appropriately Exam: Gen.: Vitals noted. No acute distress. AAOx1 (person) HEENT: oropharynx clear, Normocephalic, atraumatic Neck: Supple. No adenopathy. Cardiac: RRR, no murmur, +S1/S2 Pulmonary: decreased breath sounds bilateral bases + rales, no wheezes, rhonchi , equal chest expansion Abdomen: soft, nontender, Bowel sounds noted, no guarding MSK: ROM intact, no joint swelling noted Extremities: + nonpittting BLE edema, nontender calf, no cyanosis or clubbing Neuro: A&Ox1, moves all extremities, no focal deficits Psych: Appropriate mood and behavior Internal Medicine: Result - Labs CBC & Chem 7: 12/10/17 03:25 12/11/17 06:00 Labs: BMP 12/10/17 12/11/17 03:25 06:00 Sodium 133 L 135 L Potassium 3.7 D 3.4 L Chloride 103 101 Carbon Dioxide 24 28 BUN 32 H 32 H Creatinine 1.80 H 1.57 H Glucose 229 H 131 H Calcium 8.0 L 8.2 L - ABG Interpretation ABG results: PT/INR, D-dimer PT 10.2 Seconds (9.4-12.1) 12/08/17 17:48 - Impressions Impressions Echocardiogram 12/09/17 13:30 Impressions: LVEF 25-30%. Diastolic dysfunction with elevated filling pressures. Normal right ventricular size with low normal function. Mild aortic regurgitation. Mild-moderate mitral regurgitation. No pulmonary hypertension. Mild pulmonic regurgitation. There is a trivial pericardial effusion present. There is no echocardiographic evidence of tamponade. A pleural effusion is present. Since prior study, 07/26/2016, LV systolic function has declined. Left Ventricular Wall Motion: Rest Echo Findings The apex, apical inferior, mid inferior, basal inferior, apical anterior, mid anterior, basal anterior, apical septal, mid inferior septal, basal inferior septal, apical lateral, mid anterior lateral, basal anterior lateral, mid anterior septal, mid inferior lateral, basal anterior septal and basal inferior lateral oleary were hypokinetic. Findings: Study Quality * Technically adequate exam. ECG Findings * Sinus rhythm with BBB. Left Ventricle * LVEF 25-30%. * Diastolic dysfunction with elevated filling pressures. * Normal LV size and wall thickness. Right Ventricle * Normal right ventricular size with low normal function. Left Atrium * Severely dilated left atrium. Right Atrium * Normal right atrial size. Aortic Valve * No aortic stenosis. * Trileaflet aortic valve. * Mild aortic regurgitation. Mitral Valve * Normal mitral valve structure. * No mitral stenosis. * Mild-moderate mitral regurgitation. Tricuspid Valve * Tricuspid valve not well visualized. * No tricuspid regurgitation. * Estimated RA pressure is 3 mmHg. * Estimated RVSP is 21 mmHg. * No pulmonary hypertension. Pulmonic Valve * Pulmonic valve is not well visualized. * No pulmonic stenosis. * Mild pulmonic regurgitation. Pulmonary Artery * Pulmonary artery not well visualized. Aorta * Ascending aorta not well visualized. * Normally sized aortic root. Pericardium * There is a trivial pericardial effusion present. * There is no echocardiographic evidence of tamponade. Pleural Effusion * A pleural effusion is present. Interatrial Septum * No evidence of PFO by color Doppler. IVC * Normal IVC dimensions and inspiratory collapse. Consult Discharge Plan - Plan Referrals: Carol Odom [Primary Care Provider] - <Yeiosn Gomez - Last Filed: 12/11/17 15:18> Date of Encounter: 12/11/17 - Constitutional Vitals: Temp Pulse Resp BP Pulse Ox 98.0 F 74 16 150/82 97 12/11/17 11:39 12/11/17 11:39 12/11/17 11:39 12/11/17 11:39 12/11/17 11:39 Internal Medicine: Result - Labs CBC & Chem 7: 12/10/17 03:25 12/11/17 06:00 Labs: BMP 12/11/17 06:00 Sodium 135 L Potassium 3.4 L Chloride 101 Carbon Dioxide 28 BUN 32 H Creatinine 1.57 H Glucose 131 H Calcium 8.2 L - ABG Interpretation ABG results: PT/INR, D-dimer PT 10.2 Seconds (9.4-12.1) 12/08/17 17:48 - Attending Attestation Continue Lasix Cardiology recommendations appreciated regarding possible cardiac catheterization Hypokalemia, replete as needed I examined this patient and my medical decision-making was reviewed with the Resident Physician. I agree with the documented findings, disposition and treatment plan as described except to the extent set forth below.
--- NOTE | 2017-12-11 09:17 | Cardiology Consult Note ---
Date of Encounter: 12/11/17 Time of Encounter: 09:15 Assessment and Plan (1) Cardiomyopathy Current Visit: Yes Status: Acute EF newly reduced--25-30%, global. EF previously 60% 07/2016. ICMP vs NICMP. EKG with mild nonspecific changes. Currently being treated for CHF exacerbation with IV Lasix. On BB--will switch from Lopressor to Toprol XL. No ACEi currently due to diuresis and CKD. Recommend ACEi at d/c if renal function will tolerate. No hx of CAD. Pt with significant dementia, so C was discussed, but pt unable to voice understanding or wishes. Will need to have family discussion regarding goals of care and how aggressive they wish to be, then determine plan. Qualifiers: Cardiomyopathy type: unspecified Qualified Code(s): I42.9 - Cardiomyopathy , unspecified (2) CHF exacerbation Current Visit: Yes Status: Acute As above, EF newly reduced to 25-30% (previously 60%). Diastolic dysfunction as well. Mild-moderate MR. BNP on admission 2153, then 1933. Presented with symptoms of dyspnea, LE and abdominal swelling, reportedly weight increase of 15 lbs. CXR with vascular congestion. ABD CT shows anasarca and moderate-large bilateral pleural effusions. Agree with IV diuresis, IV Lasix 40mg BID. K 3.4--replace. Of note, TSH 5.875--recommend addressing per primary team. Recommend Strict I/Os, Na and fluid restriction, daily weights. Qualifiers: Congestive heart failure type: combined Qualified Code(s): I50.43 - Acute on chronic combined systolic (congestive) and diastolic (congestive) heart failure (3) Elevated troponin Current Visit: Yes Status: Acute Borderline troponins 0.05, 0.05, 0.04 in setting of CHF exacerbation. Suspect demand ischemia. Do not suspect ACS. ASA, Statin, BB. Echo EF reduced 25-30%. (4) Poorly-controlled hypertension Current Visit: Yes Status: Acute Hypertensive urgency on admission--BP 213/142. BP has been fluctuating--170s systolic this AM prior to receiving meds. Continue to monitor and adjust antihypertensives as necessary. Discussion w patient/family: The assessment and plan as outlined above was discussed with the patient and/or family members who expressed understanding and agreement. All questions were answered. Thank you for involving us in the care of your patient. Please call with any questions. I will discuss all the above with Dr. Ornelas and make changes as necessary. History of Present Illness Consult date: 12/11/17 Requesting physician: Elizabeth Higginbotham Consult reason: CHF Chief complaint: edema History of present illness: Ms. Decker is a 67 year old female with PMH of dementia, HTN, HLD, Type 2DM that presented with b/l LE and abdominal swelling. Found to have HTN urgency with BP 213/142 on presentation and symptoms of CHF. Pt has significant dementia , only oriented to person. No family at bedside, but per H&P, family suspected symptoms have been ongoing for the last few weeks. Family suspected she has gained 15 lbs since a few months ago. Pt lives with her daughter Annamaria. BNP was 2154 on admission, 1933 today. Troponins 0.05, 0.05, 0.04. CXR with vascular congestion. CT of abdomen showed anasarca, moderate-large bilateral pleural effusions, small pericardial effusion. Echo resulted--EF was previously 60% 2015, now 25-30%, global hypokinesis, diastolic dysfunction, mild AR, mild- moderate MR, trivial pericardial effusion without evidence of tamponade. Pt denies chest pain, but again is confused and difficult to obtain information. Past Med Surg Social Fam HX - Past Medical History Medical history: aortic aneurysm, dementia, diabetes, GERD, hypertension, osteoporosis, other Psychiatric history: no psych history - Past Surgical History Surgical History: cholecystectomy - Social History Smoking Status: Never smoker Smokeless Tobacco Status: No Alcohol use: unknown Drug use: unknown Medications and Allergies Aspirin 81 mg PO DAILY #90 tab.chew 07/31/16 [Rx] Atorvastatin [Lipitor] 40 mg PO HS #30 tablet 07/31/16 [Rx] Isosorbide MONOnitrate (24 HR) [Imdur] 60 mg PO DAILY #60 tab.er.24h 07/31/16 [ Rx] Metformin HCl [Metformin HCl ER] 500 mg PO DAILY #30 [id number] 07/31/16 [Rx] Metoprolol [Lopressor] 12.5 mg PO BID #60 tablet 07/31/16 [Rx] Nicotine Patch [Nicoderm] 21 mg TD DAILY #30 patch.td24 07/31/16 [Rx] Nitroglycerin 0.4 mg SL Q5MIN PRN #15 tab.subl 07/31/16 [Rx] OxyCODONE Immed Rel [Roxicodone 5 MG] 5 mg PO Q4HR PRN #30 tablet 07/31/16 [Rx] hydrALAZINE [HydrALAZINE] 25 mg PO Q6HR #90 tablet 07/31/16 [Rx] 3 Allergy/AdvReac Type Severity Reaction Status Date / Time No Known Allergies Allergy Verified 12/09/17 13:31 ROS unobtainable: due to mental status All Systems Review: A 10-system review of systems was performed and is negative for pertinent findings except as documented above in the HPI. Physical Examination Vital Signs, Last 4 Hours Temp Pulse Resp BP Pulse Ox 12/11/17 07:37 98.0 F 84 16 178/98 97 Vital Signs Temp Pulse Resp BP Pulse Ox 12/11/17 07:37 98.0 F 84 16 178/98 97 12/11/17 03:31 98.1 F 75 18 156/87 95 12/11/17 00:17 98.0 F 74 18 146/81 96 12/10/17 20:08 98.5 F 87 18 166/98 94 12/10/17 17:11 98 F 77 18 145/84 97 12/10/17 11:43 97.9 F 71 18 151/83 97 Intake and Output 12/10/17 12/11/17 12/11/17 23:59 07:59 15:59 Intake Total 240 / 240 240 / 240 Output Total 200 / 200 800 / 800 0 / 0 Balance 40 / 40 -800 / -800 240 / 240 Intake: Oral 240 / 240 240 / 240 Output: Urine 200 / 200 800 / 800 0 / 0 Other: Meal Dinner Breakfast Percent of Meal Consumed 100% 100% Blood Glucose* 217 141 General: Conversant, No Apparent Distress HEENT: Atraumatic, Normocephaly, Mucus Membranes Moist Neck: Normal carotid pulses Cardiac: Reg Rate and Rhythm, Normal S1 and S2, No Murmur Lungs: Other (diminished) Neuro: Alert and responsive, Other (confused) Abdomen: Soft Skin: No rashes noted on visualized skin Musculoskeletal: No Chest Wall Tenderness Extremities: No Clubbing, No Cyanosis, No Edema, Normal Pulses Results 12/10/17 03:25 12/11/17 06:00 Lab Results 12/10/17 12/11/17 03:25 06:00 Sodium 133 L 135 L Potassium 3.7 D 3.4 L Chloride 103 101 Carbon Dioxide 24 28 BUN 32 H 32 H Creatinine 1.80 H 1.57 H Glucose 229 H 131 H Calcium 8.0 L 8.2 L Magnesium 1.8 1.9 BMP 12/11/17 12/10/17 Range/Units 06:00 03:25 Sodium 135 L 133 L (136-145) mEq/L Potassium 3.4 L 3.7 D (3.5-5.1) mEq/L Chloride 101 103 (98-107) mEq/L Carbon Dioxide 28 24 (23-29) mEq/L BUN 32 H 32 H (8-23) mg/dL Creatinine 1.57 H 1.80 H (0.60-1.20) mg/dL Glucose 131 H 229 H (70-105) mg/dL Calcium 8.2 L 8.0 L (8.6-10.3) mg/dL Active Medications Aspirin (Aspirin) 81 mg PO DAILY ADDIE Stop: 06/10/18 09:01 Last Admin: 12/11/17 08:27 Dose: 81 mg Atorvastatin Calcium (Lipitor) 40 mg PO HS ADDIE Stop: 06/10/18 21:01 Last Admin: 12/10/17 21:40 Dose: 40 mg Dextrose/Water (Dextrose 50% (Syg)) 25 ml IVP AD PRN PRN Reason: Hypoglycemia Stop: 06/09/18 21:36 Enoxaparin Sodium (Lovenox) 30 mg SQ 0600 ADDIE PRN Reason: Protocol Stop: 06/10/18 06:01 Last Admin: 12/11/17 05:46 Dose: 30 mg Furosemide (Lasix) 40 mg PO BIDDIURETIC ADDIE Stop: 06/11/18 17:01 Last Admin: 12/11/17 08:27 Dose: 40 mg Glucagon (Glucagen) 1 mg IM ONCE PRN PRN Reason: Hypoglycemia Stop: 06/09/18 21:36 Glucose (Gluctose) 15 gm PO ONCE PRN PRN Reason: Hypoglycemia Stop: 06/09/18 21:36 Glucose (Gluctose) 30 gm PO ONCE PRN PRN Reason: Hypoglycemia Stop: 06/09/18 21:36 Hydralazine HCl (Hydralazine) 10 mg IVP Q4H PRN PRN Reason: Hypertension Stop: 06/09/18 21:41 Hydralazine HCl (Hydralazine) 25 mg PO QID [facility] Stop: 06/11/18 13:01 Last Admin: 12/11/17 08:27 Dose: 25 mg Dextrose (Dextrose 5%) 1,000 mls @ 100 mls/hr IVC .Q10H PRN PRN Reason: HYPOGLYCEMIA Stop: 06/09/18 21:36 Insulin Detemir (Levemir) 10 unit SQ BID [facility] Stop: 06/11/18 21:01 Last Admin: 12/11/17 08:27 Dose: 10 unit Insulin Human Lispro (Humalog) 0 units SQ TIDAC ADDIE PRN Reason: Protocol Stop: 06/10/18 07:31 Last Admin: 12/11/17 08:27 Dose: 2 units Insulin Human Lispro (Humalog) 0 units SQ HS [facility] PRN Reason: Protocol Stop: 06/09/18 22:43 Last Admin: 12/10/17 21:46 Dose: 2 units Isosorbide Mononitrate (Imdur) 60 mg PO DAILY [facility] Stop: 06/09/18 21:46 Last Admin: 12/11/17 08:27 Dose: 60 mg Metoprolol Tartrate (Lopressor) 12.5 mg PO BID [facility] Stop: 06/10/18 09:01 Last Admin: 12/11/17 08:27 Dose: 12.5 mg Naloxone HCl (Narcan) 0.4 mg IVP Q2MIN PRN PRN Reason: Opioid Reversal Stop: 06/09/18 21:37 Oxycodone HCl (Roxicodone) 5 mg PO Q4HR PRN PRN Reason: Moderate to Severe Pain Stop: 06/09/18 21:36 Last Admin: 12/11/17 08:30 Dose: 5 mg - Imaging and Cardiology Echo: report reviewed - EKG Interpretation EKG results cardiology: personally reviewed, other (12 hr tele AVG HR 77, SR, no significant pauses or arrhythmias.) Consult Discharge Plan - Plan Referrals: Carol Odom [Primary Care Provider] -
[2017-12-11] MEDS ORDERED: Potassium Chloride Elixir 20 MEQ/15 ML UDC PO ONE (10:21)
--- NOTE | 2017-12-11 12:58 | Event Note ---
Date of Encounter: 12/11/17 Time of Encounter: 12:45 Please consider this an attestation to the consultation performed by Keyshawn Denny CNP earlier today. [employer] would not allow me to enter attestation within that consultation. I have personally performed a face to face evaluation on this patient. I have reviewed and agree with the care plan. History and Exam by me shows: Pleasantly demented 67 y/o female. History of dementia, HTN, HLD, and DM II. Admitted with bilateral LE edema, abdominal swelling. CXR with vascular congestion. TTE performed, demonstrated a new CMP, LVEF 25-30%. Unclear if ischemic or non- ischemic. Risk factors for CAD noted. Minimal troponin elevation noted. Agree with goal directed medical therapy, including: BB - changed to Toprol XL. ACEi - being held for now. Cr being monitored. Continue aspirin/statin therapy. Continue lasix. Monitor Cr, daily weights, strict I/Os, 2 L daily fluid restriction, monitor Cr. Called daughter to discuss ischemic evaluation. No answer. Thanks, Aneudy Ornelas DO, FACC
--- NOTE | 2017-12-11 17:14 | Electrocardiograph Report ---
[address] [place], [place] [address] Test Date: 2017-12-08 Pat Name: [facility] Department: [id number] Room: 2A Gender: F Display Coordinator: : 1950 Requested By: Anton Lopez Order Number: [id number] Reading MD: Hari Mendez Measurements Intervals [place] Rate: 91 P: 27 [place]: 151 QRS: -3 QRSD: 97 T: 143 QT: 374 QTc: 423 Interpretive Statements SINUS RHYTHM WITH OCCASIONAL VENTRICULAR PREMATURE COMPLEXES POSSIBLE LEFT ATRIAL ENLARGEMENT ST DEVIATION AND MODERATE T-WAVE ABNORMALITY, CONSIDER LATERAL ISCHEMIA Electronically Signed On 12-11-2017 17:12:42 EST by Hari Mendez
[2017-12-12 04:40] LABS: Calcium 8.2 mg/dL (8.6-10.3); Potassium 3.3 mEq/L (3.5-5.1)
[2017-12-12] MEDS: *HR* Enoxaparin 30 MG/0.3 ML SYRINGE SQ SCH (06:45)
[2017-12-12] MEDS: Aspirin 81 MG TAB.CHEW PO SCH (10:00)
[2017-12-12] MEDS: Metoprolol XL (24 HR) Succ 25 MG TAB.ER.24H PO SCH (10:01)
[2017-12-12] MEDS: Insulin LISPRO 300 UNITS/3 ML VIAL SQ SCH ×4 (10:01→21:37)
[2017-12-12] MEDS: hydrALAZINE 25 MG TABLET PO SCH ×4 (10:01→21:37)
[2017-12-12] MEDS: Furosemide 40 MG TABLET PO SCH (10:01)
[2017-12-12] MEDS: Isosorbide MONOnitrate (24 HR) 60 MG TAB.ER.24H PO SCH (10:01)
[2017-12-12] MEDS: Insulin DETEMIR 100 UNIT/ML X5UNITS SQ SCH ×2 (10:58→21:36)
--- NOTE | 2017-12-12 11:23 | Internal Med Progress Note ---
<Elvia Lopez - Last Filed: 12/12/17 11:20> Date of Encounter: 12/12/17 Time of Encounter: 08:15 - Assessment and plan (1) Cardiomyopathy Current Visit: Yes Status: Acute Assessment and plan: Echo currently shows decreased EF at 25-30%, diastolic dysfunction, mild AR, mild-moderate MR; Echocardiogram from 2016 showed preserved ejection fraction, mild left ventricular diastolic dysfunction. cardiology spoke with patient about [facility] but since she is not with full capacity to understand due to dementia this was not scheduled. Will have to speak with her daughter. Cardiology is currently medically managing new cardiomyopathy. plan continue Lasix PO continue fluid restriction 2L daily urine output monitoring Continue telemetry monitoring continue BB and imdur Cardiology consulted due to new finding of reduced EF start kelly inhibitor at d/c Qualifiers: Cardiomyopathy type: unspecified Qualified Code(s): I42.9 - Cardiomyopathy , unspecified (2) CHF exacerbation Current Visit: Yes Status: Acute Assessment and plan: Echocardiogram from 2016 showed preserved ejection fraction, mild left ventricular diastolic dysfunction. Echo currently shows decreased EF at 25-30%, diastolic dysfunction, mild AR, mild-moderate MR; BNP admission [address] showed b/l pleural effusion plan continue Lasix PO continue fluid restriction 2L daily urine output monitoring Continue telemetry monitoring continue BB and imdur Cardiology consulted due to new finding of reduced EF start kelly inhibitor at d/c Qualifiers: Congestive heart failure type: combined Qualified Code(s): I50.43 - Acute on chronic combined systolic (congestive) and diastolic (congestive) heart failure (3) Hypertensive urgency Current Visit: Yes Status: Resolved Assessment and plan: Resolved. Blood pressure stable Continue home medications. (4) Dementia Current Visit: Yes Status: Chronic Assessment and plan: Currently lives at home with daughter and according to family she has around-the -clock fci Fall precautions and supportive care. will talk with daughter when she is present Qualifiers: Dementia type: Alzheimer's disease Alzheimer's disease onset: unspecified onset Dementia behavioral disturbance: without behavioral disturbance Qualified Code(s): G30.9 - Alzheimer's disease, unspecified; F02.80 - Dementia in other diseases classified elsewhere without behavioral disturbance; F02.80 - Dementia in other diseases classified elsewhere without behavioral disturbance; F02.80 - Dementia in other diseases classified elsewhere without behavioral disturbance (5) Anasarca Current Visit: Yes Status: Acute Assessment and plan: Resolved Plan as above. (6) CKD (chronic kidney disease) Current Visit: Yes Status: Chronic Assessment and plan: Serum creatinine improving since change of Lasix from IV to PO continue to monitor serum creatinine closely avoid nephrotoxic agents monitor DANDY Qualifiers: Chronic kidney disease stage: stage 3 (moderate) Qualified Code(s): N18.3 - Chronic kidney disease, stage 3 (moderate) (7) DMII (diabetes mellitus, type 2) Current Visit: Yes Status: Chronic Assessment and plan: History of diabetes glucose improving Continue Accu-Check sliding scale insulin. Diabetic diet. Qualifiers: Diabetes mellitus complication status: with kidney complications Diabetes mellitus complication detail: with chronic kidney disease Diabetes mellitus half-way insulin use: without regional intermodal truck driver use Chronic kidney disease stage: stage 3 (moderate) Qualified Code(s): E11.22 - Type 2 diabetes mellitus with diabetic chronic kidney disease; N18.3 - Chronic kidney disease, stage 3 ( moderate); N18.3 - Chronic kidney disease, stage 3 (moderate) (8) HLD (hyperlipidemia) Current Visit: Yes Status: Chronic Assessment and plan: Continuous Statin Qualifiers: Hyperlipidemia type: unspecified Qualified Code(s): E78.5 - Hyperlipidemia , unspecified (9) Hypokalemia Current Visit: Yes Status: Resolved Assessment and plan: Improved. Likely due to the use of diuretics. Potassium 3.3 today will supplement Supplement as needed monitor potassium and magnesium closely. (10) DVT prophylaxis Current Visit: Yes Status: Acute Assessment and plan: Lovenox sq - Subjective Interval history: Laying down comfortably in bed. She was alert and oriented to person only. She denies chest pain, shortness of breath, fever, chills. She has no other complaints - Constitutional Vitals: Temp Pulse Resp BP Pulse Ox 97.6 F 77 16 170/86 96 12/12/17 08:01 12/12/17 08:01 12/12/17 08:01 12/12/17 08:01 12/12/17 08:01 General appearance: Present: A&O X 1. Absent: answers questions appropriately Exam: Gen.: Vitals noted. No acute distress. AAOx1 HEENT: oropharynx clear, Normocephalic, atraumatic Neck: Supple. No adenopathy. Cardiac: RRR, no murmur, +S1/S2 Pulmonary: CTA bilaterally, no wheezes, rales or rhonchi, equal chest expansion Abdomen: soft, nontender, Bowel sounds noted, no guarding MSK: ROM intact, no joint swelling noted Extremities: no BLE edema, nontender calf, no cyanosis or clubbing Neuro: A&Ox1, moves all extremities, no focal deficits Psych: Appropriate mood and behavior Internal Medicine: Result - Labs CBC & Chem 7: 12/10/17 03:25 12/12/17 03:05 Labs: BMP 12/12/17 03:05 Sodium 137 Potassium 3.3 L Chloride 101 Carbon Dioxide 30 H BUN 33 H Creatinine 1.61 H Glucose 128 H Calcium 8.2 L - ABG Interpretation ABG results: PT/INR, D-dimer PT 10.2 Seconds (9.4-12.1) 12/08/17 17:48 Consult Discharge Plan - Plan Referrals: Carol Odom [Primary Care Provider] - <Yeison Gomez H - Last Filed: 12/12/17 14:09> Date of Encounter: 12/12/17 - Constitutional Vitals: Temp Pulse Resp BP Pulse Ox 97.8 F 77 16 169/85 96 12/12/17 11:52 12/12/17 11:52 12/12/17 11:52 12/12/17 11:52 12/12/17 11:52 Internal Medicine: Result - Labs CBC & Chem 7: 12/10/17 03:25 12/12/17 03:05 Labs: BMP 12/12/17 03:05 Sodium 137 Potassium 3.3 L Chloride 101 Carbon Dioxide 30 H BUN 33 H Creatinine 1.61 H Glucose 128 H Calcium 8.2 L - ABG Interpretation ABG results: PT/INR, D-dimer PT 10.2 Seconds (9.4-12.1) 12/08/17 17:48 - Attending Attestation Cardiac catheterization in the morning per cardiology I examined this patient and my medical decision-making was reviewed with the Resident Physician. I agree with the documented findings, disposition and treatment plan as described except to the extent set forth below.
--- NOTE | 2017-12-12 13:11 | Cardiology Progress Note ---
Date of Encounter: 12/12/17 Time of Encounter: 13:09 Assessment and Plan (1) Cardiomyopathy Current Visit: Yes Status: Acute EF newly reduced--25-30%, global. EF previously 60% 07/2016. ICMP vs NICMP. EKG with mild nonspecific changes. Was treated with IV Lasix for CHF exacerbation, now on PO Lasix. On BB--switched from Lopressor to Toprol XL. No ACEi currently due to diuresis and CKD. Recommend ACEi at d/c if renal function will tolerate. No hx of CAD. Pt with significant dementia, so LHC was discussed, but pt unable to voice understanding or wishes. Dr. Ornelas had full discussion with daughter Annamaria today, whom pt lives with regarding wishes. They wish to proceed with LHC. R/B/A discussed. Will obtain consent from daughter. Creatinine 1.61 today. Will hold Lasix and plan for LHC tomorrow AM if renal function allows. Qualifiers: Cardiomyopathy type: unspecified Qualified Code(s): I42.9 - Cardiomyopathy , unspecified (2) CHF exacerbation Current Visit: Yes Status: Acute As above, EF newly reduced to 25-30% (previously 60%). Diastolic dysfunction as well. Mild-moderate MR. BNP on admission 2153, then 1933. Presented with symptoms of dyspnea, LE and abdominal swelling, reportedly weight increase of 15 lbs. CXR with vascular congestion. ABD CT shows anasarca and moderate-large bilateral pleural effusions. Now on PO Lasix, appears near euvolemic on exam. Creatinine 1.61 today--hold for possible LHC tomorrow. K 3.3--replace. Of note, TSH 5.875--recommend addressing per primary team. Recommend Strict I/Os, Na and fluid restriction, daily weights. Qualifiers: Congestive heart failure type: combined Qualified Code(s): I50.43 - Acute on chronic combined systolic (congestive) and diastolic (congestive) heart failure (3) Elevated troponin Current Visit: Yes Status: Acute Borderline troponins 0.05, 0.05, 0.04 in setting of CHF exacerbation. Suspect demand ischemia. Do not suspect ACS. ASA, Statin, BB. Echo EF reduced 25-30%. (4) Poorly-controlled hypertension Current Visit: Yes Status: Acute Hypertensive urgency on admission--BP 213/142. BP has been fluctuating--160s systolic at lunch. Will increase Hydralazine. Discussion w patient/family: The assessment and plan as outlined above was discussed with the patient and/or family members who expressed understanding and agreement. All questions were answered. Thank you for involving us in the care of your patient. Please call with any questions. I will discuss all the above with Dr. Ornelas and make changes as necessary. Subjective Principal diagnosis: CMP Interval history: Pt remains alert and oriented to person only. Denies chest pain or dyspnea. Creatinine increased from yesterday--yesterday 1.57, today 1.61. K 3.3, already replaced. Daughter at bedside today. Objective Vital Signs, Last 4 Hours Temp Pulse Resp BP Pulse Ox 12/12/17 11:52 97.8 F 77 16 169/85 96 Vital Signs Temp Pulse Resp BP Pulse Ox 12/12/17 11:52 97.8 F 77 16 169/85 96 12/12/17 08:01 97.6 F 77 16 170/86 96 12/12/17 05:15 97.5 F L 71 16 172/83 96 12/12/17 00:20 98.2 F 68 16 143/80 96 12/11/17 18:54 98.0 F 84 16 160/84 92 12/11/17 16:02 98.0 F 70 16 150/79 97 Intake and Output 12/11/17 12/12/17 12/12/17 23:59 07:59 15:59 Intake Total 0 / 0 Output Total 0 / 0 Balance 0 / 0 Intake: Oral 0 / 0 Output: Urine 0 / 0 Other: Meal NPO Percent of Meal Consumed 0% # Voids 1 Weight 66.315 kg Blood Glucose* 228 99 Patient Weight 12/12/17 23:59 Weight 66.315 kg General: Conversant, No Apparent Distress HEENT: Atraumatic, Normocephaly, Mucus Membranes Moist Neck: No JVD, Normal carotid pulses Cardiac: Reg Rate and Rhythm, Normal S1 and S2, No Murmur Lungs: Normal Breath Sounds, No Wheeze, Rales, Rhonchi Neuro: Alert and responsive, Other (confused) Abdomen: Soft, Non-Tender Skin: No rashes noted on visualized skin Musculoskeletal: No Chest Wall Tenderness Extremities: No Clubbing, No Cyanosis, No Edema, Normal Pulses Results 12/10/17 03:25 12/12/17 03:05 Lab Results 12/12/17 03:05 Sodium 137 Potassium 3.3 L Chloride 101 Carbon Dioxide 30 H BUN 33 H Creatinine 1.61 H Glucose 128 H Calcium 8.2 L BMP 12/12/17 Range/Units 03:05 Sodium 137 (136-145) mEq/L Potassium 3.3 L (3.5-5.1) mEq/L Chloride 101 (98-107) mEq/L Carbon Dioxide 30 H (23-29) mEq/L BUN 33 H (8-23) mg/dL Creatinine 1.61 H (0.60-1.20) mg/dL Glucose 128 H (70-105) mg/dL Calcium 8.2 L (8.6-10.3) mg/dL Active Medications Acetaminophen (Tylenol) 650 mg PO Q6HR PRN PRN Reason: Headache Stop: 06/13/18 12:58 Aspirin (Aspirin) 81 mg PO DAILY ADDIE Stop: 06/10/18 09:01 Last Admin: 12/12/17 10:00 Dose: 81 mg Atorvastatin Calcium (Lipitor) 40 mg PO HS ADDIE Stop: 06/10/18 21:01 Last Admin: 12/11/17 22:17 Dose: 40 mg Dextrose/Water (Dextrose 50% (Syg)) 25 ml IVP AD PRN PRN Reason: Hypoglycemia Stop: 06/09/18 21:36 Enoxaparin Sodium (Lovenox) 30 mg SQ 0600 ADDIE PRN Reason: Protocol Stop: 06/10/18 06:01 Last Admin: 12/12/17 06:45 Dose: 30 mg Furosemide (Lasix) 40 mg PO BIDDIURETIC ADDIE Stop: 06/11/18 17:01 Last Admin: 12/12/17 10:01 Dose: 40 mg Glucagon (Glucagen) 1 mg IM ONCE PRN PRN Reason: Hypoglycemia Stop: 06/09/18 21:36 Glucose (Gluctose) 15 gm PO ONCE PRN PRN Reason: Hypoglycemia Stop: 06/09/18 21:36 Glucose (Gluctose) 30 gm PO ONCE PRN PRN Reason: Hypoglycemia Stop: 06/09/18 21:36 Hydralazine HCl (Hydralazine) 10 mg IVP Q4H PRN PRN Reason: Hypertension Stop: 06/09/18 21:41 Hydralazine HCl (Hydralazine) 25 mg PO QID [facility] Stop: 06/11/18 13:01 Last Admin: 12/12/17 10:01 Dose: 25 mg Dextrose (Dextrose 5%) 1,000 mls @ 100 mls/hr IVC .Q10H PRN PRN Reason: HYPOGLYCEMIA Stop: 06/09/18 21:36 Insulin Detemir (Levemir) 10 unit SQ BID [facility] Stop: 06/11/18 21:01 Last Admin: 12/12/17 10:58 Dose: 10 unit Insulin Human Lispro (Humalog) 0 units SQ TIDAC ADDIE PRN Reason: Protocol Stop: 06/10/18 07:31 Last Admin: 12/12/17 12:15 Dose: Not Given Insulin Human Lispro (Humalog) 0 units SQ HS ADDIE PRN Reason: Protocol Stop: 06/09/18 22:43 Last Admin: 12/11/17 22:20 Dose: 3 units Isosorbide Mononitrate (Imdur) 60 mg PO DAILY [facility] Stop: 06/09/18 21:46 Last Admin: 12/12/17 10:01 Dose: 60 mg Metoprolol Succinate (Toprol Xl) 25 mg PO DAILY [facility] Stop: 06/13/18 09:01 Last Admin: 12/12/17 10:01 Dose: 25 mg Naloxone HCl (Narcan) 0.4 mg IVP Q2MIN PRN PRN Reason: Opioid Reversal Stop: 06/09/18 21:37 Oxycodone HCl (Roxicodone) 5 mg PO Q4HR PRN PRN Reason: Moderate to Severe Pain Stop: 06/09/18 21:36 Last Admin: 12/11/17 22:19 Dose: 5 mg Potassium Chloride (Potassium Chloride) 10 meq PO DAILY [facility] Stop: 06/13/18 09:01 Last Admin: 12/12/17 10:01 Dose: 10 meq - Imaging and Cardiology Echo: report reviewed - EKG Interpretation EKG results cardiology: other (12 hr tele AVG HR 85, SR) Consult Discharge Plan - Plan Referrals: Carol Odom [Primary Care Provider] -
[2017-12-12] MEDS: Acetaminophen 325 MG TABLET PO PRN ×2 (13:23→21:37)
[2017-12-12] MEDS: 0.9 % Sodium Chloride 1,000 ML IVC SCH (17:43)
[2017-12-13] MEDS: *HR* OxyCODONE Immed Rel 5 MG TABLET PO PRN (00:29)
[2017-12-13 03:50] LABS: Basophils % 0.6 %; Eosinophils # 0.1 K/mcL (0.0-0.6); Eosinophils % 1.4 %; Hematocrit 39.3 % (35.3-44.9); Immature Granulocytes % 0.1 % (0-4); Lymphocytes # 1.5 K/mcL (0.6-4.6); Mean Corpuscular HGB Conc 33.1 g/dL (31.6-35.5); Mean Corpuscular Volume 87.5 fL (83.0-100.0); Mean Platelet Volume 10.3 fL (9.4-12.4); Monocytes # 0.8 K/mcL (0.0-1.3); Monocytes % 11.1 %; Neutrophils # 4.6 K/mcL (1.6-8.9); Platelet Count 221 K/mcL (140-400); Red Blood Count 4.49 M/mcL (3.82-4.97); Red Cell Distribution Width 14.9 % (11.5-14.5); Segmented Neutrophils % 65.8 %
[2017-12-13 04:15] LABS: Calcium 8.2 mg/dL (8.6-10.3); Potassium 3.8 mEq/L (3.5-5.1)
[2017-12-13] MEDS: *HR* Enoxaparin 30 MG/0.3 ML SYRINGE SQ SCH (06:04)
[2017-12-13] MEDS: Insulin LISPRO 300 UNITS/3 ML VIAL SQ SCH ×4 (07:32→22:10)
--- NOTE | 2017-12-13 07:54 | Internal Med Progress Note ---
<Elvia Lopez - Last Filed: 12/13/17 08:55> Date of Encounter: 12/13/17 Time of Encounter: 07:51 - Assessment and plan (1) Cardiomyopathy Current Visit: Yes Status: Acute Assessment and plan: New cardiomyopathy Echo currently shows decreased EF at 25-30%, diastolic dysfunction, mild AR, mild-moderate MR; Echocardiogram from 2016 showed preserved ejection fraction, mild left ventricular diastolic dysfunction. Cardiology spoke with patient about LHC but since she is not with full capacity to understand due to dementia they spoke with her daughter who consented for LHC. LHC today plan hold Lasix, until after LHC continue fluid restriction 2L daily urine output monitoring Continue telemetry monitoring continue BB and imdur Cardiology consulted, recommendations appreciated start kelly inhibitor at d/c Qualifiers: Cardiomyopathy type: unspecified Qualified Code(s): I42.9 - Cardiomyopathy , unspecified (2) CHF exacerbation Current Visit: Yes Status: Acute Assessment and plan: Echocardiogram from 2016 showed preserved ejection fraction, mild left ventricular diastolic dysfunction. Echo currently shows decreased EF at 25-30%, diastolic dysfunction, mild AR, mild-moderate MR; BNP admission [address] showed b/l pleural effusion plan hold Lasix until after LHC continue fluid restriction 2L daily urine output monitoring Continue telemetry monitoring continue BB and imdur Cardiology consulted due to new finding of reduced EF start kelly inhibitor at d/c Qualifiers: Congestive heart failure type: combined Qualified Code(s): I50.43 - Acute on chronic combined systolic (congestive) and diastolic (congestive) heart failure (3) Hypertensive urgency Current Visit: Yes Status: Resolved Assessment and plan: Resolved. Blood pressure stable Continue home medications. (4) Dementia Current Visit: Yes Status: Chronic Assessment and plan: Currently lives at home with daughter and according to family she has around-the -clock [facility] precautions and supportive care. will talk with daughter when she is present Qualifiers: Dementia type: Alzheimer's disease Alzheimer's disease onset: unspecified onset Dementia behavioral disturbance: without behavioral disturbance Qualified Code(s): G30.9 - Alzheimer's disease, unspecified; F02.80 - Dementia in other diseases classified elsewhere without behavioral disturbance; F02.80 - Dementia in other diseases classified elsewhere without behavioral disturbance; F02.80 - Dementia in other diseases classified elsewhere without behavioral disturbance (5) Anasarca Current Visit: Yes Status: Acute Assessment and plan: Resolved Plan as above. (6) CKD (chronic kidney disease) Current Visit: Yes Status: Chronic Assessment and plan: Serum creatinine improving since change of Lasix from IV to PO continue to monitor serum creatinine closely avoid nephrotoxic agents monitor DANDY Qualifiers: Chronic kidney disease stage: stage 3 (moderate) Qualified Code(s): N18.3 - Chronic kidney disease, stage 3 (moderate) (7) DMII (diabetes mellitus, type 2) Current Visit: Yes Status: Chronic Assessment and plan: History of diabetes glucose improving Continue Accu-Check sliding scale insulin. Diabetic diet. Qualifiers: Diabetes mellitus complication status: with kidney complications Diabetes mellitus complication detail: with chronic kidney disease Diabetes mellitus care home insulin use: without salvage determiner use Chronic kidney disease stage: stage 3 (moderate) Qualified Code(s): E11.22 - Type 2 diabetes mellitus with diabetic chronic kidney disease; N18.3 - Chronic kidney disease, stage 3 ( moderate); N18.3 - Chronic kidney disease, stage 3 (moderate) (8) HLD (hyperlipidemia) Current Visit: Yes Status: Chronic Assessment and plan: Continuous Statin Qualifiers: Hyperlipidemia type: unspecified Qualified Code(s): E78.5 - Hyperlipidemia , unspecified (9) Hypokalemia Current Visit: Yes Status: Resolved Assessment and plan: Improved. Likely due to the use of diuretics. Potassium 3.8 today Supplement as needed monitor potassium and magnesium closely. (10) DVT prophylaxis Current Visit: Yes Status: Acute Assessment and plan: Lovenox sq (11) Hypothyroidism Current Visit: Yes Status: Acute Assessment and plan: Elevated TSH 5.8 order levothyroxine 25 mg Qualifiers: Hypothyroidism type: unspecified Qualified Code(s): E03.9 - Hypothyroidism , unspecified - Subjective Interval history: Laying down comfortably in bed. She was alert and oriented to person only. She denies shortness of breath, fever, chills, nausea, vomiting. She has no other complaints - Constitutional Vitals: Temp Pulse Resp BP Pulse Ox 98.0 F 77 17 164/79 94 12/13/17 06:32 12/13/17 06:32 12/13/17 06:32 12/13/17 06:32 12/13/17 06:32 General appearance: Present: A&O X 1. Absent: answers questions appropriately Exam: Gen.: Vitals noted. No acute distress. AAOx1 HEENT: oropharynx clear, Normocephalic, atraumatic Neck: Supple. No adenopathy. Cardiac: RRR, no murmur, +S1/S2 Pulmonary: CTA bilaterally, no wheezes, rales or rhonchi, equal chest expansion Abdomen: soft, nontender, Bowel sounds noted, no guarding Extremities: no BLE edema, nontender calf, no cyanosis or clubbing Neuro: A&Ox1, moves all extremities, no focal deficits Internal Medicine: Result - Labs CBC & Chem 7: 12/13/17 03:35 12/13/17 03:35 Labs: Short CBC 12/13/17 Range/Units 03:35 WBC 7.0 (4.3-11.1) K/mcL Hgb 13.0 (11.5-15.4) g/dL Hct 39.3 (35.3-44.9) % Plt Count 221 (140-400) K/mcL Neutrophils # 4.6 (1.6-8.9) K/mcL BMP 12/13/17 03:35 Sodium 137 Potassium 3.8 Chloride 104 Carbon Dioxide 25 BUN 31 H Creatinine 1.51 H Glucose 89 Calcium 8.2 L - ABG Interpretation ABG results: PT/INR, D-dimer PT 10.2 Seconds (9.4-12.1) 12/08/17 17:48 Consult Discharge Plan - Plan Referrals: Carol Odom [Primary Care Provider] - <Yeison Gomez H - Last Filed: 12/13/17 10:34> Date of Encounter: 12/13/17 - Constitutional Vitals: Temp Pulse Resp BP Pulse Ox 98.0 F 77 17 164/79 94 12/13/17 06:32 12/13/17 06:32 12/13/17 06:32 12/13/17 06:32 12/13/17 06:32 Internal Medicine: Result - Labs CBC & Chem 7: 12/13/17 03:35 12/13/17 03:35 Labs: Short CBC 12/13/17 Range/Units 03:35 WBC 7.0 (4.3-11.1) K/mcL Hgb 13.0 (11.5-15.4) g/dL Hct 39.3 (35.3-44.9) % Plt Count 221 (140-400) K/mcL Neutrophils # 4.6 (1.6-8.9) K/mcL BMP 12/13/17 03:35 Sodium 137 Potassium 3.8 Chloride 104 Carbon Dioxide 25 BUN 31 H Creatinine 1.51 H Glucose 89 Calcium 8.2 L - ABG Interpretation ABG results: PT/INR, D-dimer PT 10.5 Seconds (9.4-12.1) 12/13/17 09:40 - Attending Attestation cardiac catheterization recommended by cardiology PT/OT I examined this patient and my medical decision-making was reviewed with the Resident Physician. I agree with the documented findings, disposition and treatment plan as described except to the extent set forth below.
[2017-12-13 10:09] LABS: Prothrombin Time 10.5 Seconds (9.4-12.1)
[2017-12-13] MEDS ORDERED: 0.9 % Sodium Chloride 1,000 ML ONE (10:28)
[2017-12-13] MEDS ORDERED: *HR* Heparin 10,000 UNIT/10 ML VIAL ONE (10:28)
[2017-12-13] MEDS ORDERED: Heparin 1,000 UNITS/500 mL 500 ML ONE (10:28)
--- NOTE | 2017-12-13 10:32 | Event Note ---
Date of Encounter: 12/13/17 Time of Encounter: 10:00 - Cardiology Event Note Seen and examined. Signed consent (daughter--POA) completed yesterday 12/12/17 for [facility] with possible PCI. SCr 1.51 today, improved from yesterday. Baseline appears to be 1.4-1.5. IVF at 60 mL/hr. Patient is alert to self only upon exam. Further recommendations to follow.
[2017-12-13] MEDS ORDERED: Nitroglycerin 1,000 MCG/10 ML VIAL IV ONE (12:11)
--- NOTE | 2017-12-13 12:19 | Pre-Sedation Evaluation ---
Pre-sedation evaluation - Pre-sedation checklist Date of procedure: 12/13/17 Procedure: left heart cath Recent Vitals: Last Vital Signs Temp 98.0 F 12/13/17 06:32 Pulse 77 12/13/17 06:32 Resp 17 12/13/17 06:32 BP 164/79 12/13/17 06:32 Pulse Ox 94 12/13/17 06:32 H&P (including ROS) documented in medical record: Yes Previous reaction to sedatives/anesthetics: No Dietary Status: NPO after Midnight Airway Assessment: Patient can open mouth completely, TMJ function normal Dentition: No loose teeth or bridges Possible difficult airway: No ASA Classification *see protocol: CLASS III-Severe systemic disease Plan of Care: Pt appropriate candidate for procedure/moderate/conscious sedation , Risks/benefits of procedure/sedation discussed w/ patient/family, If not NPO; Risk of intake outweiged by necessity to perform procedure
[2017-12-13] MEDS ORDERED: *HR* Midazolam HCl 2 MG/2 ML VIAL ONE (12:25)
[2017-12-13] MEDS ORDERED: ISOVUE-370 200 ML INFUS..BTL IV ONE ×2 (12:30→13:02)
[2017-12-13] MEDS ORDERED: *HR* Bivalirudin 250 MG VIAL IVC ONE (12:45)
[2017-12-13] MEDS: hydrALAZINE 25 MG TABLET PO SCH ×4 (12:53→22:14)
[2017-12-13] MEDS: Insulin DETEMIR 100 UNIT/ML X5UNITS SQ SCH ×2 (12:57→22:15)
[2017-12-13] MEDS ORDERED: *HR* Ticagrelor 90 MG TABLET ONE (13:22)
[2017-12-13] MEDS ORDERED: *HR* Morphine 2 MG/ML SYRINGE ONE (15:32)
[2017-12-13] MEDS: 0.9 % Sodium Chloride 1,000 ML IVC SCH ×2 (16:10→16:55)
[2017-12-13] MEDS: Aspirin 81 MG TAB.CHEW PO SCH (16:48)
[2017-12-13] MEDS: Isosorbide MONOnitrate (24 HR) 60 MG TAB.ER.24H PO SCH (16:48)
[2017-12-13] MEDS: Metoprolol XL (24 HR) Succ 25 MG TAB.ER.24H PO SCH (16:48)
--- NOTE | 2017-12-13 16:52 | Invasive Diagnostic Lab Proc ---
Name: Rosi Decker Date of Study: 12/13/2017 Date: 1950 Ht: 61.8in Medical Record#: [id number] Age: 67 Wt: 150.36lb Gender: Female BSA: 1.69 Order #: [id number] BMI: 27.67 Physicians Procedure Physician: Corbin Bonilla DO Referring MD: Referring MD: Staff Name Position Time In Francisco Whitehead RT (R) Monitor 10:44 AM VenturaYulissa RT (R) Scrub 10:44 AM Angy Fish RN Summer Intern 10:44 AM Clarita Rae RT (R) Monitor 12:25 PM Anthony Haas RN Summer Intern 12:26 PM Daisha Valencia RT Scrub 12:26 PM Indications Indication Cardiomyopathy Procedures Performed Procedure L HRT ARTERY/VENTRICLE ANGIO PRQ CARD LORI STENT W/ANGIO 1 VSL PRQ CARD STENT W/ANGIO ADDL Pre-Procedure Checklist Informed consent is complete signed and on chart. H&P is on chart. ID band is on and ID verified with patient. Patient NPO for procedure The procedure was described for the patient and questions were answered. ECG is on chart. Plan of Care Patient will tolerate the procedure without complications. Adequate level of comfort will be maintained. Hemodynamics will remain stable Patient will recover from procedure without complications. Respiratory function will be maintained. Cardiac rhythm will remain stable. Patient temperature will be maintained. Patient and/or family have verbalized understanding of the procedure. Patient Education Chief Complaint/Reason for Test: Cardiac Cath Developmental Category: Geriatric (65+ years) Developmentally Appropriate for Age: Yes Learning Barriers: None Education Needs: Procedure Education Method: Verbal Information Taught: Cardiac Cath Educational Evaluation: Able to repeat information Intravenous Access Time IV Size Location DC'd Fluid/Drip Rate Units RN 10:48 AM 22g 1" Patent On Arrival Lt Arm 0.9NaCl 25 ml/hr Angy Fish RN Allergies No Known Allergies Vital Signs Time BP (mmHg) HR (bpm) O2 Sat. RR (bpm) LOC 10:47 AM / % 5 = Fully awake and oriented or at pre-proc level 12:30 PM / % 5 = Fully awake and oriented or at pre-proc level 12:30 PM / % 4 = Oriented but drowsy 12:24 PM 178 / 107 85 97 % 19 12:29 PM 174 / 105 87 96 % 19 12:34 PM 170 / 99 73 100 % 17 12:39 PM 157 / 98 74 100 % 18 12:43 PM 170 / 96 80 100 % 22 12:49 PM 170 / 96 77 100 % 17 12:54 PM 174 / 102 79 100 % 12:59 PM 158 / 97 82 99 % 01:04 PM 177 / 104 81 100 % 01:09 PM 168 / 95 79 99 % 01:14 PM 182 / 106 84 100 % 20 01:45 PM 185 / 107 85 97 % 16 5 = Fully awake and oriented or at pre-proc level 02:00 PM 186 / 106 84 98 % 16 5 = Fully awake and oriented or at pre-proc level 02:15 PM 187 / 111 85 98 % 16 5 = Fully awake and oriented or at pre-proc level 02:30 PM 186 / 108 84 97 % 16 5 = Fully awake and oriented or at pre-proc level 03:15 PM 181 / 104 % 5 = Fully awake and oriented or at pre-proc level 03:20 PM 195 / 115 % 5 = Fully awake and oriented or at pre-proc level 03:25 PM 185 / 163 % 5 = Fully awake and oriented or at pre-proc level 03:43 PM 141 / 88 90 % 5 = Fully awake and oriented or at pre-proc level 03:50 PM 133 / 83 85 % 5 = Fully awake and oriented or at pre-proc level 03:52 PM 141 / 89 88 % 5 = Fully awake and oriented or at pre-proc level 03:54 PM 151 / 100 85 98 % 5 = Fully awake and oriented or at pre-proc level 04:00 PM 145 / 82 79 % 5 = Fully awake and oriented or at pre-proc level 04:06 PM 149 / 89 79 % 5 = Fully awake and oriented or at pre-proc level 04:13 PM 139 / 97 81 98 % 5 = Fully awake and oriented or at pre-proc level 04:28 PM 161 / 93 78 99 % 5 = Fully awake and oriented or at pre-proc level Procedural Medications Time Medication Dose Units Method Given By 12:27 PM Versed 1 mg Intravenous Clarita Rae RT (R) 12:28 PM Oxygen 2 L/min nasal cannula Anthony Haas RN 12:30 PM Lidocaine 2% 10 ml Subcutaneous Corbin Bonilla DO 12:47 PM Angiomax 0.75mg/kg bolus: 10.5 ml Intravenous Anthony Haas RN 12:47 PM Angiomax 1.75mg/kg/hr: 24.5 ml Intravenous Anhtony Haas RN 12:56 PM Nitroglycerin 200 mcg Intracoronary Corbin Bonilla DO 01:05 PM Nitroglycerin 200 mcg Intracoronary Corbin Bonilla DO 01:12 PM Brilinta 180 mg Orally Anthony Haas RN 01:12 PM Angiomax 1.75mg/kg/hr: ml Dc'd Anthony Haas RN 03:38 PM Morphine 2 mg Intravenous Amber Garcia RN ASA Classification: CLASS III- Severe systemic disease (i.e. prior AMI, diabetes with vascular complications, morbid obesity) Gerardo Score Preprocedure Postprocedure Activity 2- Moves 4 extremities sustained head lift Activity Circulation 2- SBP +/= 20 points of pre-anesthetic level Circulation Consciousness 2- Awake and alert oriented x 3 Consciousness O2 Saturation 2- Able to maintain O2 satruation of 92% on room air O2 Saturation Respiratory 2- Able to deep breathe and cough well Respiratory Total Score 10 Total Score Contrast Agent: Isovue Diagnostic Contrast: 205 ml Total Contrast: 205 ml Fluoro Dose: 1279 mGy Procedure Log Time Note Enter By 10:44 AM Francisco Whitehead RT (R) Position: Monitor Time in: 10:44 [email or web address] 10:44 AM Yulissa Whitehead RT (R) Position: Scrub Time in: 10:44 [email or web address] 10:44 AM Angy Fish RN Position: Summer Intern Time in: 10:44 [email or web address] 10:44 AM Patient charges- Angio tray pack, Navilyst 3mm J, Pulse Oximetry and ACIST tubing and transducer [email or web address] 10:47 AM Pt arrived to labor standards director 2 at 10:47 [email or web address] 10:47 AM Case Delayed No [email or web address] 10:47 AM Time: 10:47 Patient comfortable and pain free: Yes [email or web address] 10:47 AM Time: 10:47LOC: 5 = Fully awake and oriented or at pre-proc level [email or web address] 10:51 AM Physician arrived 10:51 [email or web address] 10:51 AM Meet and greet completed [email or web address] 10:51 AM Sign in performed according to hospital policy. [email or web address] 10:51 AM CathStat 10:51 AM Procedure start 10:51 [email or web address] 10:51 AM ASA Class CLASS III- Severe systemic disease (i.e. prior AMI, diabetes with vascular complications, morbid obesity) [email or web address] 10:52 AM Pt removed from the table for a STEMI from the ED [facility] PM Vitals capture started with the following parameters, Patient=Adult, Interval=5 min, Initial Fqlewtfh=582 mmHg, Deflation Rate=5 mmHg, Cuff placed on Right Arm 12:24 PM HR=85 bpm, UDMS=405/107 mmhg, SpO2=97.0 %, Resp=19 B/min, Comment=NSR 12:25 PM Pt brought back to labor standards director 2 at 12:25 [facility] 12: PM Clarita Rae RT (R) Position: Monitor Time in: 12:[place] 12: PM Anthony Haas RN Position: Summer Intern Time in: 12:[facility] 12: PM Daisha Valencia Position: Scrub Time in: 12:[facility] 12: PM Case Delayed Prior emergency case [facility] 12: PM Time: 12: Versed 1 mg Intravenous Given by Clarita Rae RT (R) [facility] 12: PM Time: 12:28 Oxygen on at 2 L/min per nasal cannula by Anthony Haas RN [facility] 12:29 PM HR=87 bpm, DWWY=699/105 mmhg, SpO2=96.0 %, Resp=19 B/min, Comment=NSR 12:29 PM Time out performed according to hospital policy [facility] 12:30 PM Time: 12:30 10 ml Lidocaine 2% to right groin Subcutaneous Given by Corbin Bonilla DO [facility] 12:30 PM Time: 12:30 Patient comfortable and pain free: Yes [facility] 12:30 PM Time: 12:30LOC: 5 = Fully awake and oriented or at pre-proc level [facility] 12:32 PM Clinical Presentation: Unstable angina [facility] 12:33 PM Pressure channel 1 zeroed. 12:34 PM HR=73 bpm, WYMH=173/99 mmhg, BzZ7=644.0 %, Resp=17 B/min, Comment=NSR 12:35 PM Micro-Introducer Kit utilized for sheath placement [facility] 12:36 PM unable to advance wire successfully [facility] 12:36 PM Access obtained by percutaneous puncture. 6Fr 10cm Terumo Wheeler sheath placed in right Femoral artery. [id number] dspellman 12:37 PM 5Fr FR 4 catheter inserted over the wire DNC dspellman 12:37 PM 0.035 145cm Navilyst 3mmJ wire [id number] dspellman 12:37 PM RCA angiography performed in multiple views. [email or web address] 12:38 PM Recorded Pressure: Ao, HR=73, Condition=Condition 1 (Aorta) Ao 172/85/120 12:38 PM Recorded Pressure: Ao, HR=76, Condition=Condition 1 (Aorta) Ao 158/77/112 12:38 PM Recorded Pressure: LV, HR=77, Condition=Condition 1 (Left Ventricle) LV 167/6/10 12:39 PM HR=74 bpm, CIMO=190/98 mmhg, IvR7=283.0 %, Resp=18 B/min, Comment=NSR 12:39 PM Recorded Pressure: LV, Ao, HR=75, Condition=Condition 1 (Left Ventricle) LV 169/4/12, (Aorta) Ao 175/82/120 12:39 PM Catheter removed dspell 12:39 PM Catheter selectively placed in left ventricle dspellman 12:39 PM Bolus angiogram of left Ventricle complete: 10 ml/sec for a total of 12 mls dspellman 12:40 PM 5Fr FL 4 catheter inserted over the wire [facility] dspell 12:40 PM LCA angiography performed in multiple views. [email or web address] 12:40 PM Recorded Pressure: Ao, HR=77, Condition=Condition 1 (Aorta) Ao 163/78/116 12:41 PM Recorded Pressure: Ao, HR=75, Condition=Condition 1 (Aorta) Ao 165/78/112 12:42 PM Recorded Pressure: Ao, HR=77, Condition=Condition 1 (Aorta) Ao 173/81/119 12:43 PM Catheter removed dspell 12:43 PM HR=80 bpm, FCUM=062/96 mmhg, OvR1=349.0 %, Resp=22 B/min, Comment=NSR 12:44 PM PCI Status Urgent dspell 12:44 PM PCI Indication: PCI for high risk Non-STEMI or unstable angina dspellman 12:45 PM Time: 12:30LOC: 4 = Oriented but drowsy dspellman 12:45 PM Time: 12:30 Patient comfortable and pain free: No [email or web address] 12:45 PM PCI lesion in Mid LAD. Pre Stenosis: 80 Pre ARMAAN Flow: 3: Complete and Brisk Flow/Perfusion dspellman 12:47 PM Mid/Distal Left Anterior Descending Coronary Artery and diagonal branches with 90% stenosis. If graft is supplying this area, 0 % stenosis dspell 12:47 PM Time: 12:47 Angiomax 0.75mg/kg bolus: 10.5 ml Intravenous Given by Anthony Haas RN Dominguez pump [email or web address] 12:48 PM Time: 12:47 Angiomax 1.75mg/kg/hr: 24.5 ml Intravenous Given by Anthony Haas RN Dominguez pump dspellman 12:48 PM 6Fr XB LAD 3.5 Cordis guide catheter was used to cannulate the PCI vessel successfully. reused? No dspellman 12:48 PM .014 ChoICE PT Extra Support 300cm guide wire across target lesion- successful. reused? No DIAG dspellman 12:49 PM HR=77 bpm, ZCZV=499/96 mmhg, EjB9=636.0 %, Resp=17 B/min, Comment=NSR 12:49 PM Inflation device was opened. dspellman 12:50 PM .014 ChoICE PT Extra Support 300cm guide wire across target lesion- successful. reused? No LAD dspellman 12:53 PM Lesion found in 1st Diagonal. Pre Stenosis: 90 Pre ARMAAN Flow: 2: Partial Flow/Perfusion (> 1 but < 3) dspellman 12:54 PM HR=79 bpm, PQYG=135/102 mmhg, CqO8=644.0 %, Comment=NSR 12:54 PM 3.0mm x 24mm Synergy drug-eluting stent across target lesion- successful Lot #[id number] dspellman 12:55 PM Stent deployed @ 14 diamond for 18 seconds dspellman 12:55 PM Stent delivery system removed intact. dspell 12:56 PM Time: 12:56 Nitroglycerin 200 mcg Intracoronary Given by Corbin Bonilla DO dspellman 12:56 PM Recorded Pressure: Ao, HR=81, Condition=Condition 1 (Aorta) Ao 178/89/126 12:57 PM PCI lesion in 1st Diagonal. [email or web address] 12:58 PM 2.25mm x 8mm Synergy drug-eluting stent across target lesion- successful Lot #[id number] [email or web address] gap 12:59 PM HR=82 bpm, IQBY=529/97 mmhg, SpO2=99.0 %, Comment=NSR 01:00 PM Stent deployed @ 18 diamond for 16 seconds dspell 01:03 PM 3.0 mm x 15 mm Emerge Monorail balloon across target lesion- successful. reused? No LAD dspell 01:04 PM Balloon inflated @ 3 diamond for 12 seconds LAD dspell 01:04 PM Stent balloon reinflated @ 3 diamond for 12 seconds DIAG dspell 01:04 PM HR=81 bpm, LJLY=261/104 mmhg, LeC1=441.0 %, Comment=NSR 01:05 PM Stent delivery system removed intact. dspell 01:05 PM Balloon catheter removed intact. ell 01:05 PM Time: 13:05 Nitroglycerin 200 mcg Intracoronary Given by Corbin Bonilla DO dspell 01:06 PM Recorded Pressure: Ao, HR=84, Condition=Condition 1 (Aorta) Ao 164/83/117 01:06 PM Guide wires removed intact. dspell 01:07 PM Bolus angiogram of right Femoral complete: 4 ml/sec for a total of 7 mls dspell 01:08 PM Procedure completed at 13:08 dspell 01:09 PM HR=79 bpm, OQRE=976/95 mmhg, SpO2=99.0 %, Comment=NSR 01:12 PM Time: 13:12 Brilinta 180 mg Orally Given by Anthony Haas RN [facility] 01:13 PM Time: 13:12 Angiomax 1.75mg/kg/hr: ml Dc'd Given by Anthony Haas RN Dominguez pump dspell 01:14 PM HR=84 bpm, QVTG=028/106 mmhg, BvF1=205.0 %, Resp=20 B/min, Comment=NSR 01:17 PM Did you address ARMAAN flow and Dominance? Yes [facility] PM Sign out completed: Radiation Dose 1279.14 mGy Fluoro Time: 8.0 Isovue 370 - 200ml contrast 205 ml given by Corbin Bonilla DO. Complications: NoneCardiac Rehab Consult needed: NoConfirmed administered medications: Yes [facility] PM Isovue 370 - 200ml,2 Bottle(s) used. dspell:18 PM Sheath left in place to be pulled on floor/holding areaV+Pad dsp 01:18 PM Estimated Blood Loss: less than 20cc dsp:18 PM Post ECG NSR dsp:18 PM Post Blood Pressure 168/95 dsp 01:18 PM Vitals capture stopped. 01:19 PM 13:19 Post Pulses Bilateral DP & PT 1+ dsp:19 PM Information taught Cardiac Cath and PCI ell:20 PM Education needs Procedure, Disease Process, and Responsibilities of Patient in Care dsp:20 PM Learning barriers :Cognitive dsp:20 PM Education Methods Verbal dsp:20 PM Education evaluation Able to repeat information dsp:21 PM Site status No bleeding/hematoma - Rt Groin as reported by Corbin Bonilla DO at 13:21 dsp:21 PM Opsite applied dsp:21 PM Report given to Norah SAUNDERS Pt taken to Holding room Room #3. 13:21 dsp:24 PM Delay to floor Bed availability dsp:24 PM Patient out of room: 13:24 dsp 01:24 PM Family placed in consult room. dsp:24 PM Complications: None :24 PM Fluoro Time: 8 :24 PM Isovue 370 - 200ml contrast 205 ml given by Corbin Bonilla DO. 01:24 PM Radiation Dose 1279.14 mGy 02:34 PM lópez catheter inserted tsites 03:29 PM Arterial sheath pulled using manual compression and V+ Pad for 18 minutes by Daisha Valencia RT [email or web address] 03:29 PM Site status No bleeding/hematoma - Rt Groin as reported by Daisha Valencia RT at 15:29 [email or web address] 03:29 PM Opsite applied [email or web address] 03:38 PM Time: 15:38 Morphine 2 mg Intravenous Given by Amber Garcia RNoatecynthia 03:38 PM pt having significant back pain, 2mg morphine ordered by scoatecynthia 03:43 PM Report given to Karissa SAUNDERS Pt taken to 2A Room #33. 15:42 [email or web address] 03:45 PM before moving patient to , Yulissa Sites checked the site one more time and found a very large hematoma. scoates 03:45 PM before moving patient to 2a, Yulissa Sites checked the site one more time and found a very large hematoma. scoates 03:55 PM fem stop applied at 20 above patients systolic blood pressure scoates 04:[address] Bonilla aware of hematma scoates 04:01 PM fem stop applied scoates 04:11 PM fem stop gradually being decreased, scoates 04:17 PM continuing to remove air from fem stop scoates 04:25 PM at bedside assessing patient and the site scoates 04:29 PM pt taken to 2A, site is good, no hematoma at this time. fem stop removed scoates Complications Complication None None Hemodynamics Pressures Site Systolic/A Wave Diastolic/V Wave Mean AO 172 85 120 AO 158 77 112 LV 167 6 10 LV 169 4 12 AO 175 82 120 AO 163 78 116 AO 165 78 112 AO 173 81 119 AO 178 89 126 AO 164 83 117 Post Procedure Information Blood Pressure: 168/95 mmHg Rhythm: NSR Post procedural instructions were given Closure Device Time Device Success/Fail 12/13/2017 3:37:00 PM Manual Compression Successful Site Checks Time Location Status Staff Sheath In? Note 01:21 PM Rt Groin No bleeding/hematoma Corbin Bonilla DO Yes 01:45 PM Rt Groin No bleeding/ No Hematoma Sites, Yulissa RT (R) Yes 02:00 PM Rt Groin No bleeding/ No Hematoma Sites, Yulissa RT (R) Yes 02:15 PM Rt Groin No bleeding/ No Hematoma Sites, Yulissa RT (R) Yes 02:30 PM Rt Groin No bleeding/ No Hematoma Sites, Yulissa RT (R) Yes 03:29 PM Rt Groin No bleeding/hematoma Daisha Valencia RT 03:40 PM Rt Groin No bleeding/ No Hematoma RadhaAmber RN 03:45 PM Rt Groin Hematoma Romeo, Amber SAUNDERS 04:00 PM Rt Groin Hematoma Radha, Amber SAUNDERS fem stop in place 04:15 PM Rt Groin No bleeding/ No Hematoma Radha, Amber SAUNDERS fem stop in place 04:08 PM Pulses Time Site Pre-Procedure Post-Procedure Note 12/13/2017 10:48:00 AM Bilateral DP & PT 1+ 1:19:00 PM Bilateral DP & PT 1+ 12/13/2017 1:45:00 PM Bilateral DP & PT 1+ 12/13/2017 2:00:00 PM Bilateral DP & PT 1+ 12/13/2017 2:15:00 PM Bilateral DP & PT 1+ 12/13/2017 2:30:00 PM Bilateral DP & PT 1+ 12/13/2017 3:43:00 PM Bilateral DP & PT 1+ 12/13/2017 4:00:00 PM Bilateral DP & PT 1+ 12/13/2017 4:06:00 PM Bilateral DP & PT 1+ 12/13/2017 4:10:00 PM Bilateral DP & PT 1+ 12/13/2017 4:16:00 PM Bilateral DP & PT 1+ 12/13/2017 4:20:00 PM Bilateral DP & PT 1+ 12/13/2017 4:25:00 PM Bilateral DP & PT 1+ Updated by Anthony Haas RN on 12/13/2017 4:43:21 PM electronically signed on 12/13/2017 4:43:51 PM with status of Final
[2017-12-14] MEDS: 0.9 % Sodium Chloride 1,000 ML IVC SCH (03:08)
[2017-12-14] MEDS: *HR* Enoxaparin 30 MG/0.3 ML SYRINGE SQ SCH (05:51)
[2017-12-14] MEDS ORDERED: Levothyroxine 25 MCG TABLET PO SCH (06:30)
[2017-12-14] MEDS: Insulin LISPRO 300 UNITS/3 ML VIAL SQ SCH ×2 (08:10→14:23)
[2017-12-14 08:40] LABS: Calcium 7.9 mg/dL (8.6-10.3)
--- NOTE | 2017-12-14 08:45 | Discharge Summary ---
<Elvia Lopez - Last Filed: 12/14/17 08:35> Date of Encounter: 12/14/17 Time of Encounter: 08:35 - Discharge Diagnosis (1) CHF exacerbation Priority: Primary Status: Acute Qualifiers: Congestive heart failure type: combined Qualified Code(s): I50.43 - Acute on chronic combined systolic (congestive) and diastolic (congestive) heart failure (2) Cardiomyopathy Priority: Secondary Status: Acute Qualifiers: Cardiomyopathy type: unspecified Qualified Code(s): I42.9 - Cardiomyopathy , unspecified (3) Hypertensive urgency Priority: Secondary Status: Resolved (4) Dementia Priority: Secondary Status: Chronic Qualifiers: Dementia type: Alzheimer's disease Alzheimer's disease onset: unspecified onset Dementia behavioral disturbance: without behavioral disturbance Qualified Code(s): G30.9 - Alzheimer's disease, unspecified; F02.80 - Dementia in other diseases classified elsewhere without behavioral disturbance; F02.80 - Dementia in other diseases classified elsewhere without behavioral disturbance; F02.80 - Dementia in other diseases classified elsewhere without behavioral disturbance (5) Anasarca Priority: Secondary Status: Acute (6) CKD (chronic kidney disease) Priority: Secondary Status: Chronic Qualifiers: Chronic kidney disease stage: stage 3 (moderate) Qualified Code(s): N18.3 - Chronic kidney disease, stage 3 (moderate) (7) DMII (diabetes mellitus, type 2) Priority: Secondary Status: Chronic Qualifiers: Diabetes mellitus complication status: with kidney complications Diabetes mellitus complication detail: with chronic kidney disease Diabetes mellitus fci insulin use: without fci use Chronic kidney disease stage: stage 3 (moderate) Qualified Code(s): E11.22 - Type 2 diabetes mellitus with diabetic chronic kidney disease; N18.3 - Chronic kidney disease, stage 3 ( moderate); N18.3 - Chronic kidney disease, stage 3 (moderate) (8) HLD (hyperlipidemia) Priority: Secondary Status: Chronic Qualifiers: Hyperlipidemia type: unspecified Qualified Code(s): E78.5 - Hyperlipidemia , unspecified (9) Hypokalemia Priority: Secondary Status: Resolved (10) DVT prophylaxis Priority: Secondary Status: Acute (11) Hypothyroidism Priority: Secondary Status: Acute Qualifiers: Hypothyroidism type: unspecified Qualified Code(s): E03.9 - Hypothyroidism , unspecified - Discharge Medications Prescriptions: Clopidogrel [Plavix] 75 mg PO DAILY #30 tablet Furosemide [Lasix] 20 mg PO DAILY #30 tablet Levothyroxine [Synthroid] 25 mcg PO DAILY@0630 #30 tablet Lisinopril [Zestril] 5 mg PO DAILY #30 tablet Metoprolol XL (24 HR) Succ [Toprol Xl] 25 mg PO DAILY #30 tab.er.24h Home Medications: Aspirin 81 mg PO DAILY #90 tab.chew 07/31/16 [Rx] Atorvastatin [Lipitor] 40 mg PO HS #30 tablet 07/31/16 [Rx] Isosorbide MONOnitrate (24 HR) [Imdur] 60 mg PO DAILY #60 tab.er.24h 07/31/16 [ Rx] Metformin HCl [Metformin HCl ER] 500 mg PO DAILY #30 [id number] 07/31/16 [Rx] Nicotine Patch [Nicoderm] 21 mg TD DAILY #30 patch.td24 07/31/16 [Rx] Nitroglycerin 0.4 mg SL Q5MIN PRN #15 tab.subl 07/31/16 [Rx] OxyCODONE Immed Rel [Roxicodone 5 MG] 5 mg PO Q4HR PRN #30 tablet 07/31/16 [Rx] hydrALAZINE [HydrALAZINE] 25 mg PO Q6HR #90 tablet 07/31/16 [Rx] Clopidogrel [Plavix] 75 mg PO DAILY #30 tablet 12/14/17 [Rx] Furosemide [Lasix] 20 mg PO DAILY #30 tablet 12/14/17 [Rx] Levothyroxine [Synthroid] 25 mcg PO DAILY@0630 #30 tablet 12/14/17 [Rx] Lisinopril [Zestril] 5 mg PO DAILY #30 tablet 12/14/17 [Rx] Metoprolol XL (24 HR) Succ [Toprol Xl] 25 mg PO DAILY #30 tab.er.24h 12/14/17 [ Rx] Allergies/Adverse Reactions: 3 Allergy/AdvReac Type Severity Reaction Status Date / Time No Known Allergies Allergy Verified 12/09/17 13:31 Procedures/tests Complete & Pending: Procedures Performed prior 72 hours Category Date Time Status CL Cardiac Catheterization [CL] Routine Charge Master Specialist 12/13/17 10:25 Completed Date of admission: 12/08/17 21:45 Primary care physician: Carol Ely Consults: 12/10/17 16:41 Consult to Cardiology [CONS] Routine Comment: Consulting Provider: Bong Corrales Reason for Consult: Acute CHF, Echo shows new decrease in EF 25-30% Call Completed: Yes 12/13/17 10:32 Consult to Occupational Therapy [CONS] Routine Comment: Evaluate, develop and implement POC Reason for Consult: eval Consult to Physical Therapy [CONS] Routine Comment: Evaluate, develop and implement POC Reason for Consult: eval Consult to Director Medical Surgical [CONS] Routine Reason for SW Consult: eval Discharging clinician: Yeison Gomez Anticipated date of discharge: 12/14/17 - Patient Status Disposition: Home, Self-Care Condition: Good Functional capacity at discharge: uses cane/walker Overall status at discharge: patient is back to baseline - Discharge Instructions Instructions: Metoprolol (By mouth), Lisinopril (By mouth), Furosemide (By mouth), Levothyroxine (By mouth), Clopidogrel (By mouth), Heart Failure (DC), Chronic Hypertension (DC) Follow Up With: Keyshawn Denny, [employer] [Advanced Practice Nurse] - (Cardiology will call patient.) Carol Odom [Primary Care Provider] - 12/24/17 10:15 am Additional Instructions: start taking plavix along with other home meds. Take toprol instead of lopressor. Start lisinipril follow up with cardiology and PCP in a week or 2 follow up with PCP on hypothyroidism and we started levothyroxine for you to continue home return should she develop chest pain, SOB, fever, chill - Diet and Activity Activity: ambulate only with your walker, as per physical therapy, resume usual activities as tolerated Diet: diabetic diet Hospital course: Ms. Decker is a 67 year old female with PMH of HTB, HLD ,DMII but no known CHF or CAD who presents with b/l LE and belly swelling. Found HTN urgency and suspicious for new CHF. Less certain this is HTN crisis. Presents with worsening LE swelling and belly swelling since yesterday per family but suspect this has been ongoing for the last few weeks at least now. Family suspect she has gained 15 lbs since a few months ago. No improving factors. High fall and wandering risk. She is moderate-severe dementia and lives with dtr hector [phone]. At baseline she is 1 assist walking for safety and although independent of toileting, feeding, family is cautious to have her kept an eye on. EKG without ischemic features. Chest x-ray with cardiomegaly and pulmonary vascular congestion. CT of the head with no acute abnormalities. CT of the abdomen and pelvis with anasarca without acute findings. She is noted to have an elevated BNP, troponin. She was then admitted and home medications continued along with IV lasix. Echo currently shows decreased EF at 25-30%, diastolic dysfunction, mild AR, mild-moderate MR. Echocardiogram from 2016 showed preserved ejection fraction, mild left ventricular diastolic dysfunction. Due to new cardiomyopathy Cardiology was consulted and received consent from POA who is daughter due to patient's dementia for [facility]. LHC demonstrated severe 2 vessel CAD , moderate-severe EF 30% that was resolved with drug eluting stent. She was started on plavix and toprol. Daughter insisted on patient to go home with her since she is a former home health aid and will provide 04/06 care to patient. Upon d/c she denied chest pain, shortness of breathe, fever, chills. She is to follow up with cardiology outpatient. - Time Spent with Patient Total time spent providing and/or coordinating discharge services: Greater than 30 minutes - Constitutional Vitals: Temp Pulse Resp BP Pulse Ox 97.8 F 74 16 158/79 97 12/14/17 06:29 12/14/17 06:29 12/14/17 06:29 12/14/17 06:29 12/14/17 06:29 General appearance: Present: A&O X 1. Absent: answers questions appropriately Exam: Gen.: Vitals noted. No acute distress. AAOx1 HEENT:, oropharynx clear, Normocephalic, atraumatic Neck: Supple. No adenopathy. Cardiac: RRR, no murmur, +S1/S2 Pulmonary: CTA bilaterally, no wheezes, rales or rhonchi, equal chest expansion Abdomen: soft, nontender, Bowel sounds noted, no guarding Extremities: no BLE edema, nontender calf, no cyanosis or clubbing Neuro: A&Ox1, moves all extremities, no focal deficits <Yeison Gomez - Last Filed: 12/14/17 10:12> Date of Encounter: 12/14/17 Procedures/tests Complete & Pending: Procedures Performed prior 72 hours Category Date Time Status CL Cardiac Catheterization [CL] Routine Charge Master Specialist 12/13/17 10:25 Completed Date of admission: 12/08/17 21:45 Primary care physician: Carol Ely Consults: 12/10/17 16:41 Consult to Cardiology [CONS] Routine Comment: Consulting Provider: Cardiology [place] Reason for Consult: Acute CHF, Echo shows new decrease in EF 25-30% Call Completed: Yes 12/13/17 10:32 Consult to Occupational Therapy [CONS] Routine Comment: Evaluate, develop and implement POC Reason for Consult: eval Consult to Physical Therapy [CONS] Routine Comment: Evaluate, develop and implement POC Reason for Consult: eval Consult to Director Medical Surgical [CONS] Routine Reason for SW Consult: eval Hospital course: Ms. Decker is a 67 year old female - Time Spent with Patient Total time spent providing and/or coordinating discharge services: - Constitutional Vitals: Temp Pulse Resp BP Pulse Ox 97.5 F L 76 18 161/78 95 12/14/17 10:08 12/14/17 10:08 12/14/17 10:08 12/14/17 10:08 12/14/17 10:08 - Attending Attestation Acute combined systolic and diastolic CHF exacerbation/ischemic cardiomyopathy 2 vessel CAD EF newly reduced--25-30%, [facility] 12/13/17: s/p successful PTCA/LORI to mLAD and prox diag 1, otherwise no significant occlusive CAD. Time spent on this discharge 40 minutes I examined this patient and my medical decision-making was reviewed with the Resident Physician. I agree with the documented findings, disposition and treatment plan as described except to the extent set forth below.
--- NOTE | 2017-12-14 08:58 | Physician Discharge Referral ---
Home Health/Hosp Referral Info Transfer to: Home Health Provider in Charge Post Discharge: PCP - Diagnosis (1) CHF exacerbation Status: Acute (2) Cardiomyopathy Status: Acute (3) Hypertensive urgency Status: Resolved (4) Dementia Status: Chronic (5) Anasarca Status: Acute (6) CKD (chronic kidney disease) Status: Chronic (7) DMII (diabetes mellitus, type 2) Status: Chronic (8) HLD (hyperlipidemia) Status: Chronic (9) Hypokalemia Status: Resolved (10) DVT prophylaxis Status: Acute (11) Hypothyroidism Status: Acute - Respiratory Orders None Smoking Cessation: Smoking cessation has been advised. For more information, call the [place] Tobacco Quit Line at 5-976-XBSE-NOW. - Diet/Nutrition Diet/Nutrition Orders: Regular - Activity Activity Orders: Walker - Services Needed Following services are medically necessary services: Physical Therapy, Occupational Therapy - Transfer Medications Prescriptions: Clopidogrel [Plavix] 75 mg PO DAILY #30 tablet Levothyroxine [Synthroid] 25 mcg PO DAILY@0630 #30 tablet Lisinopril [Zestril] 5 mg PO DAILY #30 tablet Metoprolol XL (24 HR) Succ [Toprol Xl] 25 mg PO DAILY #30 tab.er.24h Home Medications: Aspirin 81 mg PO DAILY #90 tab.chew 07/31/16 [Rx] Atorvastatin [Lipitor] 40 mg PO HS #30 tablet 07/31/16 [Rx] Isosorbide MONOnitrate (24 HR) [Imdur] 60 mg PO DAILY #60 tab.er.24h 07/31/16 [ Rx] Metformin HCl [Metformin HCl ER] 500 mg PO DAILY #30 [id number] 07/31/16 [Rx] Nicotine Patch [Nicoderm] 21 mg TD DAILY #30 patch.td24 07/31/16 [Rx] Nitroglycerin 0.4 mg SL Q5MIN PRN #15 tab.subl 07/31/16 [Rx] OxyCODONE Immed Rel [Roxicodone 5 MG] 5 mg PO Q4HR PRN #30 tablet 07/31/16 [Rx] hydrALAZINE [HydrALAZINE] 25 mg PO Q6HR #90 tablet 07/31/16 [Rx] Clopidogrel [Plavix] 75 mg PO DAILY #30 tablet 12/14/17 [Rx] Levothyroxine [Synthroid] 25 mcg PO DAILY@0630 #30 tablet 12/14/17 [Rx] Lisinopril [Zestril] 5 mg PO DAILY #30 tablet 12/14/17 [Rx] Metoprolol XL (24 HR) Succ [Toprol Xl] 25 mg PO DAILY #30 tab.er.24h 12/14/17 [ Rx] Allergies/Adverse Reactions: 3 Allergy/AdvReac Type Severity Reaction Status Date / Time No Known Allergies Allergy Verified 12/09/17 13:31 Certification: Further, I certify that my clinical findings support that this patient is homebound (i.e. absences from home require considerable and taxing effort and are for medical reasons or confucianist services or infrequently or short duration when for other reasons) because: she requires assistance in movement. Homebound Reason: Patient requires assistance of a person or device to safely leave home Attestation: My signature below is to certify that this patient is under my care and that I, or nurse practitioner, or a physician's assignment desk assistant working with me, has a face-to -face encounter with this patient. Dr. Lopez
--- NOTE | 2017-12-14 09:37 | Cardiology Progress Note ---
Date of Encounter: 12/14/17 Time of Encounter: 08:30 Assessment and Plan (1) Cardiomyopathy Current Visit: Yes Status: Acute EF newly reduced--25-30%, global. EF previously 60% 07/2016. Suspect ischemic in etiology. EKG with mild nonspecific changes. Was treated with IV Lasix for CHF exacerbation, now on PO Lasix. [facility] 12/13/17: s/p successful PTCA/LORI to mLAD and prox diag 1, otherwise no significant occlusive CAD. Post PCI discharge instruction discussed. Recommend uninterrupted DAPT (asa + plavix) for at least 1 year. Continue statin, betablocker, nitrates. Recommend ACEi at d/c if renal function will tolerate. Cardiac rehab consult. No further inpt. recommendations, Cardiology will sign-off, will coordinate appt in the outpatient setting. Qualifiers: Cardiomyopathy type: ischemic Qualified Code(s): I25.5 - Ischemic cardiomyopathy (2) CHF exacerbation Current Visit: Yes Status: Acute As above, EF newly reduced to 25-30% (previously 60%). Diastolic dysfunction as well. Mild-moderate MR. BNP on admission 2153, then 1933. Presented with symptoms of dyspnea, LE and abdominal swelling, reportedly weight increase of 15 lbs. CXR with vascular congestion. ABD CT shows anasarca and moderate-large bilateral pleural effusions. Now on PO Lasix, appears near euvolemic on exam. SCr stable s/p [facility]. Of note, TSH 5.875--recommend addressing per primary team. CHF teaching provided, will need emphasized given dementia. Na/fluid restriction diet. Daily weights, strict I&Os. Qualifiers: Congestive heart failure type: combined Qualified Code(s): I50.43 - Acute on chronic combined systolic (congestive) and diastolic (congestive) heart failure (3) Elevated troponin Current Visit: Yes Status: Acute Borderline troponins 0.05, 0.05, 0.04 in setting of CHF exacerbation. Suspect demand ischemia. Do not suspect ACS. ASA, Statin, BB. Echo EF reduced 25-30%. s/p PCI to mLAD and diag. (4) Poorly-controlled hypertension Current Visit: Yes Status: Acute Hypertensive urgency on admission--BP 213/142. BP stable. Discussion w patient/family: The assessment and plan as outlined above was discussed with the patient and/or family members who expressed understanding and agreement. All questions were answered. Thank you for involving us in the care of your patient. Please call with any questions. The patient was discussed and reviewed with Dr. Hari Mendez, Cardiology will sign-off. Subjective Principal diagnosis: CMP Interval history: Seen and examined. Alert to self only (baseline). Complaints of right groin tenderness, otherwise no other symptoms. Objective Vital Signs, Last 4 Hours Temp Pulse Resp BP Pulse Ox 12/14/17 06:29 97.8 F 74 16 158/79 97 General: Conversant, Other (alert to self only. ) HEENT: Atraumatic, Normocephaly Cardiac: Reg Rate and Rhythm, Normal S1 and S2 Lungs: Normal Breath Sounds Neuro: Alert and responsive (to self only. ) Abdomen: Soft Skin: No rashes noted on visualized skin Musculoskeletal: No Chest Wall Tenderness Extremities: Other (mild BLE edema. ) Other: right groin: dressing clean, dry and intact. Large amount of (soft) ecchymosis at site. +2 DP/PT pulses. Results 12/13/17 03:35 12/14/17 07:10 Lab Results 12/13/17 12/14/17 09:40 07:10 INR 1.0 Sodium 135 L Potassium 4.0 Chloride 105 Carbon Dioxide 23 BUN 27 H Creatinine 1.32 H Glucose 65 L Calcium 7.9 L Active Medications Acetaminophen (Tylenol) 650 mg PO Q6HR PRN PRN Reason: Headache Stop: 06/13/18 12:58 Last Admin: 12/12/17 21:37 Dose: 650 mg Aspirin (Aspirin) 81 mg PO DAILY ADDIE Stop: 06/10/18 09:01 Last Admin: 12/14/17 09:42 Dose: 81 mg Atorvastatin Calcium (Lipitor) 40 mg PO HS ADDIE Stop: 06/10/18 21:01 Last Admin: 12/13/17 22:15 Dose: 40 mg Clopidogrel Bisulfate (Plavix) 75 mg PO DAILY ADDIE Stop: 06/16/18 09:01 Dextrose/Water (Dextrose 50% (Syg)) 25 ml IVP AD PRN PRN Reason: Hypoglycemia Stop: 06/09/18 21:36 Enoxaparin Sodium (Lovenox) 30 mg SQ 0600 ADDIE PRN Reason: Protocol Stop: 06/10/18 06:01 Last Admin: 12/14/17 05:51 Dose: 30 mg Furosemide (Lasix) 40 mg PO BIDDIURETIC [facility] Stop: 06/11/18 17:01 Last Admin: 12/12/17 10:01 Dose: 40 mg Glucagon (Glucagen) 1 mg IM ONCE PRN PRN Reason: Hypoglycemia Stop: 06/09/18 21:36 Glucose (Gluctose) 15 gm PO ONCE PRN PRN Reason: Hypoglycemia Stop: 06/09/18 21:36 Glucose (Gluctose) 30 gm PO ONCE PRN PRN Reason: Hypoglycemia Stop: 06/09/18 21:36 Hydralazine HCl (Hydralazine) 10 mg IVP Q4H PRN PRN Reason: Hypertension Stop: 06/09/18 21:41 Hydralazine HCl (Hydralazine) 50 mg PO QID [facility] Stop: 06/13/18 17:01 Last Admin: 12/14/17 09:41 Dose: 50 mg Dextrose (Dextrose 5%) 1,000 mls @ 100 mls/hr IVC .Q10H PRN PRN Reason: HYPOGLYCEMIA Stop: 06/09/18 21:36 Insulin Detemir (Levemir) 10 unit SQ BID [facility] Stop: 06/11/18 21:01 Last Admin: 12/14/17 09:41 Dose: 10 unit Insulin Human Lispro (Humalog) 0 units SQ TIDAC [facility] PRN Reason: Protocol Stop: 06/10/18 07:31 Last Admin: 12/14/17 08:10 Dose: Not Given Insulin Human Lispro (Humalog) 0 units SQ HS [facility] PRN Reason: Protocol Stop: 06/09/18 22:43 Last Admin: 12/13/17 22:10 Dose: Not Given Isosorbide Mononitrate (Imdur) 60 mg PO DAILY [facility] Stop: 06/09/18 21:46 Last Admin: 12/14/17 09:42 Dose: 60 mg Levothyroxine Sodium (Synthroid) 25 mcg PO DAILY@0630 [facility] Stop: 06/15/18 06:31 Last Admin: 12/14/17 05:51 Dose: 25 mcg Metoprolol Succinate (Toprol Xl) 25 mg PO DAILY [facility] Stop: 06/13/18 09:01 Last Admin: 12/14/17 09:42 Dose: 25 mg Naloxone HCl (Narcan) 0.4 mg IVP Q2MIN PRN PRN Reason: Opioid Reversal Stop: 06/09/18 21:37 Oxycodone HCl (Roxicodone) 5 mg PO Q4HR PRN PRN Reason: Moderate to Severe Pain Stop: 06/09/18 21:36 Last Admin: 12/13/17 00:29 Dose: 5 mg Potassium Chloride (Potassium Chloride) 10 meq PO DAILY ADDIE Stop: 06/13/18 09:01 Last Admin: 12/14/17 09:42 Dose: 10 meq - Imaging and Cardiology Echo: report reviewed Cardiac cath: report reviewed Other Results: 12 hour tele: avg HR=75 - EKG Interpretation EKG results cardiology: personally reviewed Consult Discharge Plan - Plan Instructions: Metoprolol (By mouth), Lisinopril (By mouth), Furosemide (By mouth), Levothyroxine (By mouth), Clopidogrel (By mouth), Heart Failure (DC), Chronic Hypertension (DC) Additional Instructions: start taking plavix along with other home meds. Take toprol instead of lopressor. Start lisinipril follow up with cardiology and PCP in a week or 2 follow up with PCP on hypothyroidism and we started levothyroxine for you to continue home return should she develop chest pain, SOB, fever, chill Referrals: Keyshawn Denny, BUILDING ADMIN [Advanced Practice Nurse] - (Cardiology will call patient.) Carol Odom [Primary Care Provider] - 12/24/17 10:15 am Prescriptions: Clopidogrel [Plavix] 75 mg PO DAILY #30 tablet Furosemide [Lasix] 20 mg PO DAILY #30 tablet Levothyroxine [Synthroid] 25 mcg PO DAILY@0630 #30 tablet Lisinopril [Zestril] 5 mg PO DAILY #30 tablet Metoprolol XL (24 HR) Succ [Toprol Xl] 25 mg PO DAILY #30 tab.er.24h
[2017-12-14] MEDS: Insulin DETEMIR 100 UNIT/ML X5UNITS SQ SCH (09:41)
[2017-12-14] MEDS: hydrALAZINE 25 MG TABLET PO SCH ×2 (09:41→14:29)
[2017-12-14] MEDS: Isosorbide MONOnitrate (24 HR) 60 MG TAB.ER.24H PO SCH (09:42)
[2017-12-14] MEDS: Metoprolol XL (24 HR) Succ 25 MG TAB.ER.24H PO SCH (09:42)
[2017-12-14] MEDS: Aspirin 81 MG TAB.CHEW PO SCH (09:42)
[2017-12-14 10:10] VITALS: BP 161/78
== END 2017-12-14 15:29 | disposition home or self-care (01) | DRG 246 ==
LOC: 2ANU 17:03 → EMEROO 17:03 → 2ANU 21:45 → SUATTDRO 21:45
PROVIDERS: ADMIT Internal Medicine Hematology & Oncology; ATTEND Internal Medicine

== ENCOUNTER 2018-03-05 14:21 | Inpatient (IN) ==
--- NOTE | 2018-03-05 14:49 | Emergency Department Note ---
Disposition Clinical Impression: JEREMIE (acute kidney injury), Elevated troponin I measurement, Poorly controlled type 2 diabetes mellitus, Acute kidney injury superimposed on CKD CHF exacerbation Qualifiers: Heart failure type: diastolic Qualified Code(s): I50.33 - Acute on chronic diastolic (congestive) heart failure Disposition: Admitted As Inpatient Condition: Good Time of Disposition: 16:00 General Adult HPI - General Chief complaint: ED Weakness Stated complaint: CRUZ, cough Time Seen by Provider: 03/05/18 14:35 Source: patient, family Limitations: altered mental status Nursing Notes Reviewed: Yes Vital Signs Reviewed: Yes - History of Present Illness HPI Narrative: Mr. Decker is a very pleasant 67-year-old female with a past history of dementia , hypertension, hyperlipidemia, ischemic cardiomyopathy, diastolic congestive heart failure, hypothyroidism, aortic aneurysm and type 2 diabetes presents to the [facility] emergency department with a chief complaint of nonpresent cough and shortness of breath for 4 days duration. Patient is currently living with her daughter is taking care of all her medications and ADLs at this time. Patient is very hard of hearing and is a poor historian. Much of this history of present illness was developed from EMR and the daughter present. Her daughter states that she has been progressively more confused the last several days and has refused to ambulate, eat and drink any fluids. Patient is taking all her medications at this time. She is complaining of worsening lower extremity swelling as well as "belly swelling ". Patient has no tobacco or alcohol abuse. Her shortness of breath is not exertional. Patient was last seen here at the [facility] back in late November to early December after she was having hypertensive urgency, CHF exacerbation and new cardiomyopathy. Patient had echocardiogram at that time demonstrating diastolic dysfunction with an EF of 20-25%. Patient underwent successful drug-eluting stent to the mid LAD as well as proximal diagonal. She denies any active chest pain, palpitations, fevers, abdominal pain, nausea, vomiting. No other complaints at this time. Pain Scale: 0 - Related Data Home Medications Medication Instructions Recorded Confirmed Levothyroxine [Synthroid] 25 mcg PO 0630 03/05/18 03/05/18 Previous Rx's Medication Instructions Recorded Aspirin 81 mg PO DAILY #90 tab.chew 07/31/16 Atorvastatin [Lipitor] 40 mg PO HS #30 tablet 07/31/16 Isosorbide MONOnitrate (24 HR) 60 mg PO DAILY #60 tab.er.24h 07/31/16 [Imdur] Metformin HCl [Metformin HCl ER] 500 mg PO DAILY #30 [id number] 07/31/16 Nitroglycerin 0.4 mg SL Q5MIN PRN #15 tab.subl 07/31/16 hydrALAZINE [HydrALAZINE] 25 mg PO Q6HR #90 tablet 07/31/16 Clopidogrel [Plavix] 75 mg PO DAILY #30 tablet 12/14/17 Furosemide [Lasix] 20 mg PO DAILY #30 tablet 12/14/17 Lisinopril [Zestril] 5 mg PO DAILY #30 tablet 12/14/17 Metoprolol XL (24 HR) Succ [Toprol 25 mg PO DAILY #30 tab.er.24h 12/14/17 Xl] Allergies Allergy/AdvReac Type Severity Reaction Status Date / Time No Known Allergies Allergy Verified 03/05/18 16:07 Review of Systems: As Per HPI Past Medical History - Past Medical History Medical history: Reports: aortic aneurysm, dementia, diabetes, GERD, hypertension, osteoporosis, other Surgical history: Reports: cholecystectomy Psychiatric history: Reports: no psych history - Social History Smoking Status: Never smoker Smokeless Tobacco Status: No Alcohol use: Reports: unknown Drug use: Reports: unknown Physical Exam CONSTITUTIONAL: Very hard of hearing, oriented X3 in no apparent distress HEAD: Normocephalic; atraumatic. EYES: EOMI, no scleral icterus, no drainage, no conjunctival injection Oropharynx: pink/moist RESP: NRD without use of accessory musculature, bibasilar rales CARD: Regular rhythm, without murmurs, rubs, or gallop ABD: Anasarca present SKIN: normal appearance, no pallor/diaphoresis,mottling,jaundice,cyanosis EXT: DP/Rad pulses 2+ and symmetrical; 1+ pitting edema to the left lower extremity; no tenderness to palpation PSYCH: appropriate mood/affect - General Limitations: altered mental status General appearance: alert, in no apparent distress Course Course Narrative: Patient was seen and examined at bedside with daughter present. Vital signs were reviewed and demonstrated elevated blood pressure of 186/101 as well as tachycardia with 109. Physical examination demonstrates left lower extremity 1 + edema, bibasilar rales as well as the presence of anasarca. EMR reviewed demonstrates a 25-30 pound weight gain since discharge in early December. We will begin workup with urinalysis, CBC, BMP, coags, 2 view chest x-ray, 12-lead EKG, troponin, BNP. Disposition pending. 1546: There are no new EKG findings compared to previous. Patient denies any active chest pain. Troponin came back 0.13, creatinine 2.33, BNP greater than 4000. CBC demonstrated mild leukocytosis of 12.1. Chest x-ray demonstrates diffuse interstitial prominence suggestive of alveolar edema in the setting of congestive heart failure as well as central predominant airspace opacities of which pneumonia cannot be ruled out. Patient appears comfortable and hemodynamically stable at this time. She is satting above 96% on room air. Patient is ambulatory to the bathroom. Will start patient on 1 dose of Zithromax, rocephin, Lasix, Nitropaste and heparin drip. Recommend hospital admission for CHF exacerbation, elevated troponin and acute kidney injury. Hospitalist will be paged. 1600: Spoke with hospitalist, Dr. Kothari, who accepted patient for admission. No further recommendations per the hospitalist team. This disposition and plan were discussed with patient and family members who understand and agree to this plan. All questions and concerns were addressed. Vital Signs Temperature 97.4 F L 03/05/18 14:27 Pulse Rate 109 03/05/18 14:27 Respiratory Rate 18 03/05/18 14:27 Blood Pressure 186/101 03/05/18 14:27 O2 Sat by Pulse Oximetry 99 03/05/18 14:27 Temperature 97.4 F L 03/05/18 14:27 Pulse Rate 97 03/05/18 17:22 Respiratory Rate 16 03/05/18 17:22 Blood Pressure 163/76 03/05/18 17:22 O2 Sat by Pulse Oximetry 97 03/05/18 17:22 Oxygen Delivery Oxygen Delivery Room Air Medical Decision Making - Medical Records Medical records reviewed: Yes I reviewed the patient's medical records. - Lab Data Lab results reviewed: Yes I reviewed the patient's lab results. Result diagrams: 03/05/18 14:50 03/05/18 14:50 Lab Results 03/05/18 03/05/18 03/05/18 Range/Units 14:50 14:50 14:50 WBC 12.1 H (4.3-11.1) K/mcL RBC 5.31 H (3.82-4.97) M/mcL Hgb 15.5 H (11.5-15.4) g/dL Hct 44.8 (35.3-44.9) % MCV 84.4 (83.0-100.0) fL MCH 29.2 (28.0-33.3) pg MCHC 34.6 (31.6-35.5) g/dL RDW 13.9 (11.5-14.5) % Plt Count 270 (140-400) K/mcL MPV 10.1 (9.4-12.4) fL Immature Gran % 0.5 (0-4) % Seg Neutrophils % 92.3 % Lymphocytes % 3.6 % Monocytes % 3.4 % Eosinophils % 0.0 % Basophils % 0.2 % Neutrophils # 11.2 H (1.6-8.9) K/mcL Lymphocytes # 0.4 L (0.6-4.6) K/mcL Monocytes # 0.4 (0.0-1.3) K/mcL Eosinophils # 0.0 (0.0-0.6) K/mcL Basophils # 0.0 (0.0-0.2) K/mcL Nucleated RBCs/100 WBC 0.2 H (0) /100 WBC Platelet Estimate Normal (Normal) PT 10.5 (9.4-12.1) Seconds INR 1.0 APTT 29.9 (26.0-36.0) Seconds Sodium 127 L (136-145) mEq/L Potassium 3.4 L (3.5-5.1) mEq/L Chloride 95 L (98-107) mEq/L Carbon Dioxide 20 L (23-29) mEq/L BUN 40 H (8-23) mg/dL Creatinine 2.33 H (0.60-1.20) mg/dL Est GFR ( Amer) 25 L (> 60) Est GFR (Non-Af Amer) 21 L (> 60) BUN/Creatinine Ratio 17 (6-26) Glucose 454 H (70-105) mg/dL Calculated Osmolality 294 (280-300) Calcium 8.3 L (8.6-10.3) mg/dL Troponin I 0.13 H* (< 0.04) ng/mL B-Natriuretic Peptide (Less than 100) pg/mL Urine Color (Yellow) Urine Clarity (Clear) Urine pH (5.0-8.0) pH Units Ur Specific [place] (1.010-1.025) Urine Protein (Neg-Trace) mg/dL Urine Glucose (UA) (Normal) mg/dL Urine Ketones (Negative) mg/dL Urine Blood (Negative) Urine Nitrite (Negative) Urine Bilirubin (Negative) Urine Urobilinogen (Normal) mg/dL Ur Leukocyte Esterase (Negative) Urine Microscopic RBC (0-3) per hpf Urine Microscopic WBC (0-3) per hpf Ur Squamous Epith Cells (None-Few) per lpf Urine Bacteria (None-Few) per hpf Hyaline Casts (None-Few) per lpf Ur Culture Indicated? (NO) 03/05/18 03/05/18 Range/Units 14:50 15:37 WBC (4.3-11.1) K/mcL RBC (3.82-4.97) M/mcL Hgb (11.5-15.4) g/dL Hct (35.3-44.9) % MCV (83.0-100.0) fL MCH (28.0-33.3) pg MCHC (31.6-35.5) g/dL RDW (11.5-14.5) % Plt Count (140-400) K/mcL MPV (9.4-12.4) fL Immature Gran % (0-4) % Seg Neutrophils % % Lymphocytes % % Monocytes % % Eosinophils % % Basophils % % Neutrophils # (1.6-8.9) K/mcL Lymphocytes # (0.6-4.6) K/mcL Monocytes # (0.0-1.3) K/mcL Eosinophils # (0.0-0.6) K/mcL Basophils # (0.0-0.2) K/mcL Nucleated RBCs/100 WBC (0) /100 WBC Platelet Estimate (Normal) PT (9.4-12.1) Seconds INR APTT (26.0-36.0) Seconds Sodium (136-145) mEq/L Potassium (3.5-5.1) mEq/L Chloride (98-107) mEq/L Carbon Dioxide (23-29) mEq/L BUN (8-23) mg/dL Creatinine (0.60-1.20) mg/dL Est GFR ( Amer) (> 60) Est GFR (Non-Af Amer) (> 60) BUN/Creatinine Ratio (6-26) Glucose (70-105) mg/dL Calculated Osmolality (280-300) Calcium (8.6-10.3) mg/dL Troponin I (< 0.04) ng/mL B-Natriuretic Peptide 4015 H (Less than 100) pg/mL Urine Color Yellow (Yellow) Urine Clarity Clear (Clear) Urine pH 6.0 (5.0-8.0) pH Units Ur Specific [place] > 1.030 H (1.010-1.025) Urine Protein >=1000 H (Neg-Trace) mg/dL Urine Glucose (UA) >=1000 H (Normal) mg/dL Urine Ketones Trace H (Negative) mg/dL Urine Blood Moderate H (Negative) Urine Nitrite Negative (Negative) Urine Bilirubin Negative (Negative) Urine Urobilinogen Normal (Normal) mg/dL Ur Leukocyte Esterase Negative (Negative) Urine Microscopic RBC 5-15 H (0-3) per hpf Urine Microscopic WBC 15-30 H (0-3) per hpf Ur Squamous Epith Cells Many H (None-Few) per lpf Urine Bacteria None Seen (None-Few) per hpf Hyaline Casts None Seen (None-Few) per lpf Ur Culture Indicated? NO (NO) - Radiology Data Radiology results reviewed: Yes I reviewed the patient's radiology results. Chest X-Ray 03/05/18 14:50 IMPRESSION: 1. Diffuse interstitial prominence with central predominant airspace opacities, suggestive of interstitial and alveolar edema in the setting of congestive heart failure given mild cardiomegaly. However, pneumonia could appear similar. 2. Minimal appears airspace opacities, likely atelectasis. 3. Trace bilateral pleural effusions. D/ / Bill Barreto MD / Bill Barreto MD Interpreting Provider: Bill Barreto MD - EKG Data EKG #1 EKG attestation: Yes I reviewed and interpreted this EKG. EKG results narrative: 03/05/2018 1502 - heart rate 106, ND 166, QRS 101, QTC 4:30 consistent with sinus tachycardia. There are no new ST elevations, depressions or T-wave abnormalities. This EKG was compared to previous that was performed on 2017 Attestation Statement - Attestation Attestation: I examined this patient and my medical decision-making was reviewed with the Resident Physician, Dr. Jeter. I agree with the documented findings, disposition and treatment plan as described except to the extent set forth below. Patient is a 67-year-old female with ischemic cardiomyopathy and history of congestive heart failure who presents to the emergency room today with a four- day history of gradually worsening cough as well as generalized failure to thrive with decreased appetite and decreased activity at home that have the daughter concerned for her welfare. Patient arrives awake alert and oriented with a GCS 15 with no signs of respiratory distress with coarse sounding productive cough at bedside. Patient also has some bilateral lower extremity edema and reported weight gain over the past few days. Patient denies any form of chest pain pressure or heaviness, no shortness of breath no posttussive emesis, nausea vomiting or any other associated symptoms at this time patient denies fevers chills or body aches. I agree with patient's physical exam findings as documented. Vital signs are stable on arrival with the exception of an elevated blood pressure. Patient received aspirin and underwent lab evaluation, EKG chest x-ray. Laboratory values showed a mild elevation in white count with a left shift, hyperglycemia with mild acidosis, elevated troponin in the setting of acute kidney injury on chronic kidney disease, elevated be ran with pulmonary edema on chest x-ray. Radiology mention the cannot rule out underlying infection as right side appears slightly worse than the left superimposed with the pulmonary edema. Patient will be covered with antibiotics, will receive nitroglycerin and Lasix for pulmonary edema and received aspirin on arrival for her elevated troponin. Patient has remained pain-free throughout her ED course. We will admit the patient for further evaluation and management, case was discussed with hospitalist who accepted patient for admission.
[2018-03-05 15:15] LABS: Basophils % 0.2 %; Hematocrit 44.8 % (35.3-44.9); Hemoglobin 15.5 g/dL (11.5-15.4); Immature Granulocytes % 0.5 % (0-4); Lymphocytes # 0.4 K/mcL (0.6-4.6); Lymphocytes % 3.6 %; Mean Corpuscular HGB Conc 34.6 g/dL (31.6-35.5); Mean Corpuscular Hemoglobin 29.2 pg (28.0-33.3); Mean Corpuscular Volume 84.4 fL (83.0-100.0); Mean Platelet Volume 10.1 fL (9.4-12.4); Monocytes # 0.4 K/mcL (0.0-1.3); Monocytes % 3.4 %; Neutrophils # 11.2 K/mcL (1.6-8.9); Nucleated Red Blood Cells 0.2 /100 WBC (0); Platelet Count 270 K/mcL (140-400); Red Blood Count 5.31 M/mcL (3.82-4.97); Red Cell Distribution Width 13.9 % (11.5-14.5); Segmented Neutrophils % 92.3 %
[2018-03-05 15:20] LABS: Prothrombin Time 10.5 Seconds (9.4-12.1)
[2018-03-05 15:23] LABS: Activated Partial Thrombo Time 29.9 Seconds (26.0-36.0)
[2018-03-05 15:36] LABS: Calcium 8.3 mg/dL (8.6-10.3); Potassium 3.4 mEq/L (3.5-5.1)
[2018-03-05 15:38] LABS: Troponin I 0.13 ng/mL (< 0.04)
[2018-03-05] MEDS ORDERED: *HR* Heparin 5,000 UNIT/ML VIAL IVP ONE (15:42)
[2018-03-05] MEDS ORDERED: *HR* Heparin 5,000 UNIT/ML VIAL IVP PRN (15:42)
[2018-03-05] MEDS ORDERED: Nitroglycerin 1 INCH/GM PACKET TP ONE (15:42)
[2018-03-05] MEDS ORDERED: Furosemide 40 MG/4 ML VIAL IVP ONE (15:43)
[2018-03-05] MEDS ORDERED: Azithromycin 500 MG in D5% in Water 250 ML IVPB ONE (15:50)
[2018-03-05] MEDS ORDERED: cefTRIAXone 1,000 MG in Water for inj. (sterile) 20 ML 10 ML IVP ONE (15:50)
[2018-03-05 15:51] LABS: Bilirubin,Urine Negative (Negative); Blood,Urine Moderate (Negative); Clarity,Urine Clear (Clear); Color,Urine Yellow (Yellow); Glucose,Urine (UA) >=1000 mg/dL (Normal); Ketones,Urine Trace mg/dL (Negative); Leukocyte Esterase,Urine Negative (Negative); Nitrite,Urine Negative (Negative); Protein,Urine >=1000 mg/dL (Neg-Trace); Specific Gravity,Urine > 1.030 (1.010-1.025); Urobilinogen,Urine Normal (Normal)
[2018-03-05 15:54] LABS: Bacteria,Urine None Seen per hpf (None-Few); Hyaline Casts,Urine None Seen per lpf (None-Few); Squamous Epithelial Cell,Urine Many per lpf (None-Few); WBC,Urine 15-30 per hpf (0-3)
[2018-03-05] MEDS: Heparin 25,000 UNIT/500 ML D5W 25,000 UNIT/500 ML BAG IVC SCH (16:06)
[2018-03-05 16:20] LABS: Platelet Estimate Normal (Normal)
[2018-03-05] MEDS ORDERED: Nitroglycerin 0.4 MG TAB.SUBL SL PRN (20:41)
[2018-03-05] MEDS ORDERED: Naloxone 0.4 MG/ML INJ IVP PRN ×2 (20:45→20:47)
[2018-03-05] MEDS ORDERED: Nitroglycerin 25 MG/250 ML INFUS..BTL IVC SCH (20:45)
--- NOTE | 2018-03-05 20:54 | Internal Med History&Physical ---
<Kat Pacheco - Last Filed: 03/05/18 22:41> Date of Encounter: 03/05/18 Time of Encounter: 20:52 Internal Medicine - H&P: HPI Admitted From: Home Plans for Post Hospital Care: Home History of present illness: Mr. Decker is a very pleasant 67-year-old female with a past history of dementia , hypertension, hyperlipidemia, ischemic cardiomyopathy, diastolic congestive heart failure, hypothyroidism, aortic aneurysm and type 2 diabetes presents to the [facility] emergency department with a chief complaint of nonpresent cough and shortness of breath for 4 days duration. Patient is currently living with her daughter is taking care of all her medications and ADLs at this time. Patient is very hard of hearing and is a poor historian. Much of this history of present illness was developed from EMR and the daughter present. Her daughter states that she has been progressively more confused the last several days and has refused to ambulate, eat and drink any fluids. Patient is taking all her medications at this time. She is complaining of worsening lower extremity swelling as well as "belly swelling ". Patient has no tobacco or alcohol abuse. Her shortness of breath is not exertional. Patient was last seen here at the [facility] back in late November to early December after she was having hypertensive urgency, CHF exacerbation and new cardiomyopathy. Patient had echocardiogram at that time demonstrating diastolic dysfunction with an EF of 20-25%. Patient underwent successful drug-eluting stent to the mid LAD as well as proximal diagonal. She denies any active chest pain, palpitations, fevers, abdominal pain, nausea, vomiting. No other complaints at this time. Past Med Surg Social Fam HX - Past Medical History Medical history: aortic aneurysm, dementia, diabetes, GERD, hypertension, osteoporosis, other Psychiatric history: no psych history - Past Surgical History Surgical History: cholecystectomy - Social History Smoking Status: Never smoker Smokeless Tobacco Status: No Alcohol use: unknown Drug use: unknown - Family History Father History Unknown: Yes Internal Medicine - H&P: Meds Aspirin 81 mg PO DAILY #90 tab.chew 07/31/16 [Rx] Atorvastatin [Lipitor] 40 mg PO HS #30 tablet 07/31/16 [Rx] Isosorbide MONOnitrate (24 HR) [Imdur] 60 mg PO DAILY #60 tab.er.24h 07/31/16 [ Rx] Metformin HCl [Metformin HCl ER] 500 mg PO DAILY #30 [id number] 07/31/16 [Rx] Nitroglycerin 0.4 mg SL Q5MIN PRN #15 tab.subl 07/31/16 [Rx] hydrALAZINE [HydrALAZINE] 25 mg PO Q6HR #90 tablet 07/31/16 [Rx] Clopidogrel [Plavix] 75 mg PO DAILY #30 tablet 12/14/17 [Rx] Furosemide [Lasix] 20 mg PO DAILY #30 tablet 12/14/17 [Rx] Lisinopril [Zestril] 5 mg PO DAILY #30 tablet 12/14/17 [Rx] Metoprolol XL (24 HR) Succ [Toprol Xl] 25 mg PO DAILY #30 tab.er.24h 12/14/17 [ Rx] Levothyroxine [Synthroid] 25 mcg PO 0630 03/05/18 [History] 3 Allergy/AdvReac Type Severity Reaction Status Date / Time No Known Allergies Allergy Verified 03/05/18 16:07 All Systems PM: A 10-system review of systems was performed and is negative for pertinent findings except as documented above in the HPI. Review of systems: REVIEW OF SYSTEMS: CONSTITUTIONAL: No weight loss, fever, chills, weakness or fatigue. HEENT: Eyes: No visual loss, blurred vision, double vision or yellow sclerae. Ears, Nose, Throat: No hearing loss, sneezing, congestion, runny nose or sore throat. SKIN: No rash or itching. CARDIOVASCULAR: see HPI. RESPIRATORY: No shortness of breath, cough or sputum. GASTROINTESTINAL: No anorexia, nausea, vomiting or diarrhea. No abdominal pain or blood. GENITOURINARY: No dysuria, urgency, or frequency. NEUROLOGICAL: No headache, dizziness, syncope, paralysis, ataxia, numbness or tingling in the extremities. No change in bowel or bladder control. MUSCULOSKELETAL: No muscle, back pain, joint pain or stiffness. HEMATOLOGIC: No anemia, bleeding or bruising. LYMPHATICS: No enlarged nodes. No history of splenectomy. PSYCHIATRIC: No history of depression or anxiety. ENDOCRINOLOGIC: No reports of sweating, cold or heat intolerance. No polyuria or polydipsia. - Constitutional Vitals: Temp Pulse Resp BP Pulse Ox 97.9 F 106 18 179/114 98 03/05/18 17:56 03/05/18 18:19 03/05/18 18:19 03/05/18 18:19 03/05/18 18:19 General appearance: Present: A&O X 2 Exam: PHYSICAL EXAMINATION: GENERAL APPEARANCE: The patient is alert, oriented and in no acute distress. HEENT: Head is normocephalic. The sinuses are nontender. Pupils are equal and reactive. The nares are patent. Oropharynx clear without lesions. NECK: Supple without lymphadenopathy. HEART: Regular rate and rhythm. LUNGS: crackles are heard bilaterally. ABDOMEN: Soft, nontender, nondistended with good bowel sounds heard. Inguinal area is normal. EXTREMITIES: Without cyanosis, clubbing or edema. NEUROLOGICAL: Gross nonfocal. SKIN: Warm and dry without any rash. Internal Med - H&P Results - Labs CBC & Chem 7: 03/05/18 14:50 03/05/18 14:50 - Assessment and plan (1) Elevated troponin Current Visit: Yes Status: Acute Assessment and plan: - slightly elevated above baseline. In the setting of CHF and the CKD, etiology undetermined. EKG showed in no acute ST-T change. Will cycle troponin. - Given history of CAD and CHF, we will empirically treated as NSTEMI. Heparin drip started at ED, due to severely elevated BP and possible NM, we will started nitroglycerin drip, titrate to control SBP less than 140. -Oral BP medicine needs to be titrated to wean off nitro drip tomorrow. - Consult cardiology in the morning. (2) Hypertensive urgency Current Visit: Yes Status: Acute Assessment and plan: - Nitro drip started, we will titrate oral BP meds in the morning to wean off nitro drip. (3) CHF exacerbation Current Visit: Yes Status: Acute Assessment and plan: - Combined systolic and a diastolic heart failure, on standard treatment regiment. Volume overloaded on physical exam, chest x-ray revealed diffuse interstitial edema. - Received 40 mg Lasix IV at ED, will give another 20 mg IV tonight, also metolazone 5 mg by mouth once tonight. - We will increase home a Lasix dose to 20 mg IV twice a day, starting tomorrow. - Start patient on Aldactone due to poorly controlled volume status. - Primary care to decide whether repeat echocardiogram is needed or not in the morning. Qualifiers: Heart failure type: combined systolic and diastolic Qualified Code(s): I50.43 - Acute on chronic combined systolic (congestive) and diastolic ( congestive) heart failure (4) Acute on chronic renal failure Current Visit: Yes Status: Acute Assessment and plan: - Ending elevated above baseline, in the setting of acute exacerbation of CHF, etiology likely renal congestion due to systemic volume overload. - Aggressive diuresis. - Repeat AFP in the morning. Qualifiers: Chronic kidney disease stage: stage 3 (moderate) Qualified Code(s): N17.9 - Acute kidney failure, unspecified; N18.3 - Chronic kidney disease, stage 3 ( moderate); N18.3 - Chronic kidney disease, stage 3 (moderate) (5) DMII (diabetes mellitus, type 2) Current Visit: No Status: Chronic Assessment and plan: - Hold home oral medications, started on insulin sliding scale. Qualifiers: Diabetes mellitus intermediate insulin use: without intermediate use Diabetes mellitus complication status: with kidney complications Diabetes mellitus complication detail: with chronic kidney disease Chronic kidney disease stage : stage 3 (moderate) Qualified Code(s): E11.22 - Type 2 diabetes mellitus with diabetic chronic kidney disease; N18.3 - Chronic kidney disease, stage 3 ( moderate); N18.3 - Chronic kidney disease, stage 3 (moderate) (6) HLD (hyperlipidemia) Current Visit: No Status: Chronic Assessment and plan: - Continue home medications. Qualifiers: Hyperlipidemia type: unspecified Qualified Code(s): E78.5 - Hyperlipidemia , unspecified (7) Hypokalemia Current Visit: Yes Status: Acute (8) Hypothyroidism Current Visit: No Status: Chronic Assessment and plan: - Replaced, repeat BMP in the morning. Qualifiers: Hypothyroidism type: unspecified Qualified Code(s): E03.9 - Hypothyroidism , unspecified (9) UTI (urinary tract infection) Current Visit: Yes Status: Suspected Assessment and plan: - Change antibiotics to IV Levaquin, dose was adjusted based on renal function. - Levaquin also cover possible pneumonia, which revealed on chest x-ray. Qualifiers: Urinary tract infection type: acute cystitis Hematuria presence: without hematuria Qualified Code(s): N30.00 - Acute cystitis without hematuria - Time Spent With Patient Total time spent is greater than 50% in coordination of care (as documented) at patient's floor/unit and/or counseling patient: Greater than 35 minutes <Nikunj Navarrete - Last Filed: 03/05/18 23:46> Date of Encounter: 03/05/18 Internal Medicine - H&P: HPI History of present illness: Ms. Decker is a 67 year old female All Systems PM: A 10-system review of systems was performed and is negative for pertinent findings except as documented above in the HPI. - Constitutional Vitals: Temp Pulse Resp BP Pulse Ox 97.8 F 106 16 179/110 96 03/05/18 21:55 03/05/18 23:10 03/05/18 23:10 03/05/18 23:10 03/05/18 23:10 Internal Med - H&P Results - Labs CBC & Chem 7: 03/05/18 14:50 03/05/18 14:50 Labs: Cardiac Enzymes 03/05/18 Range/Units 21:06 Troponin I 0.12 H* (< 0.04) ng/mL - Time Spent With Patient Total time spent is greater than 50% in coordination of care (as documented) at patient's floor/unit and/or counseling patient:
[2018-03-05] MEDS ORDERED: D5% in Water 1,000 ML IVC PRN (20:57)
[2018-03-05] MEDS ORDERED: *HR* Dextrose 50 % in Water (Syg) 50 ML SYRINGE IVP PRN (20:57)
[2018-03-05] MEDS ORDERED: Dextrose Gel 15 GM/37.5 ML TUBE PO PRN ×2 (20:57)
[2018-03-05] MEDS ORDERED: metOLazone 5 MG TABLET PO ONE (21:00)
[2018-03-05] MEDS ORDERED: Levofloxacin 500 MG/100 ML 500 MG/100 ML BAG IVPB SCH (22:00)
[2018-03-05] MEDS: Insulin LISPRO 300 UNITS/3 ML VIAL SQ SCH (22:02)
[2018-03-05] MEDS: Furosemide 20 MG/2 ML VIAL IVP SCH (22:02)
[2018-03-05] MEDS: hydrALAZINE 25 MG TABLET PO SCH (23:55)
[2018-03-06] MEDS ORDERED: *HR* HYDROcodone/Acet 5/325 mg TABLET PO ONE (02:23)
[2018-03-06 05:04] LABS: Basophils % 0.2 %; Hematocrit 37.1 % (35.3-44.9); Immature Granulocytes % 0.6 % (0-4); Lymphocytes # 0.8 K/mcL (0.6-4.6); Lymphocytes % 7.1 %; Mean Corpuscular Hemoglobin 29.6 pg (28.0-33.3); Mean Corpuscular Volume 84.5 fL (83.0-100.0); Mean Platelet Volume 10.1 fL (9.4-12.4); Monocytes # 0.7 K/mcL (0.0-1.3); Monocytes % 5.6 %; Neutrophils # 10.1 K/mcL (1.6-8.9); Platelet Count 278 K/mcL (140-400); Red Blood Count 4.39 M/mcL (3.82-4.97); Red Cell Distribution Width 13.9 % (11.5-14.5); Segmented Neutrophils % 86.5 %
[2018-03-06 05:21] LABS: Albumin 2.2 g/dL (3.5-5.7); Albumin/Globulin Ratio 0.8 (1.1-2.2); Bilirubin,Total 0.3 mg/dL (0.3-1.0); Calcium 7.8 mg/dL (8.6-10.3); Globulin 2.8 g/dL (2.4-3.5); Potassium 3.4 mEq/L (3.5-5.1)
[2018-03-06] MEDS: Levothyroxine 25 MCG TABLET PO SCH (06:27)
[2018-03-06] MEDS: hydrALAZINE 25 MG TABLET PO SCH ×4 (06:27→23:24)
[2018-03-06] MEDS: *HR* Heparin 5,000 UNIT/ML VIAL IVP PRN ×2 (06:28→23:21)
[2018-03-06] MEDS ORDERED: Spironolactone 25 MG TABLET PO SCH (09:00)
[2018-03-06] MEDS: Aspirin 81 MG TAB.CHEW PO SCH (09:20)
[2018-03-06] MEDS: Isosorbide MONOnitrate (24 HR) 60 MG TAB.ER.24H PO SCH (09:20)
[2018-03-06] MEDS: Metoprolol XL (24 HR) Succ 25 MG TAB.ER.24H PO SCH (09:20)
[2018-03-06] MEDS: Furosemide 20 MG/2 ML VIAL IVP SCH ×2 (09:21→17:15)
[2018-03-06] MEDS: Insulin LISPRO 300 UNITS/3 ML VIAL SQ SCH ×4 (09:26→23:20)
--- NOTE | 2018-03-06 09:28 | Internal Med Progress Note ---
<Jonathan Brito - Last Filed: 03/06/18 09:53> Date of Encounter: 03/06/18 Time of Encounter: 09:26 - Assessment and plan (1) Elevated troponin Current Visit: Yes Status: Acute Assessment and plan: Trops since admission 0.12, 0.13, 0.18. Baseline elevation in trops ~0.04. Most likely demand ischemia from CHF exacerbation, but will empirically treat as NSTEMI. EKG reordered due to irregular rate on physical exam, EKG showed abnormalities and possible block. Consulted cardiology. - Ordered another trop at 10:30 AM, if continues to increase will consult cardiology - Patient had cardiac diet orders for this AM, will put on NPO until next trop comes back - continue heparin drip, nitroglycerin goal SBP <160 in the first 24 hours. currently at goal will attempt to wean off of drip. - continue home BP meds. - Cardiology consulted; appreciate their input (2) CHF exacerbation Current Visit: Yes Status: Acute Assessment and plan: Patient has known HFrEF, with LVEF of 20-25%, last echo 11/2817. Patient has symptoms of SOB at rest, orthopnea, but denies PND or leg swelling. CXR in ED was consistent with CHF and cardiomegaly. BNP 4015. Patient today is symptomatically improved. - holding ACEI and spirinolactone due to JEREMIE - continuing lasix 20 mg IV and metolazone 5 mg PO due for CHF exacerbation. Cr has slight improvement yesterday - fluid restriction 1.5L, and Na 2g. will restart cardiac diet once evaluated by cardiology Qualifiers: Heart failure type: combined systolic and diastolic Qualified Code(s): I50.43 - Acute on chronic combined systolic (congestive) and diastolic ( congestive) heart failure (3) Hypertensive urgency Current Visit: Yes Status: Acute Assessment and plan: see above (4) DMII (diabetes mellitus, type 2) Current Visit: Yes Status: Chronic Assessment and plan: continue SSI medium. BG has been uncontrolled since hospitalization, most likely in the setting of UTI. Will closely follow and if continues to increase will increase dose. Qualifiers: Diabetes mellitus terminal worker insulin use: without usp use Diabetes mellitus complication status: with kidney complications Diabetes mellitus complication detail: with chronic kidney disease Chronic kidney disease stage : stage 3 (moderate) Qualified Code(s): E11.22 - Type 2 diabetes mellitus with diabetic chronic kidney disease; N18.3 - Chronic kidney disease, stage 3 ( moderate); N18.3 - Chronic kidney disease, stage 3 (moderate) (5) HLD (hyperlipidemia) Current Visit: Yes Status: Chronic Assessment and plan: - Continue home medications. Qualifiers: Hyperlipidemia type: unspecified Qualified Code(s): E78.5 - Hyperlipidemia , unspecified (6) Hypokalemia Current Visit: Yes Status: Acute Assessment and plan: mildly decreased at 3.4. remains stable today. will treat if patient becomes symptomatic or declines (7) Hypothyroidism Current Visit: Yes Status: Chronic Assessment and plan: TSH ordered Qualifiers: Hypothyroidism type: unspecified Qualified Code(s): E03.9 - Hypothyroidism , unspecified (8) Acute on chronic renal failure Current Visit: Yes Status: Acute Assessment and plan: Cr on Admission 2.33, baseline is ~1.5. Today Cr is slightly improved. - avoid nephrotoxins - renally dose levaquin - stopped acei, and aldactone - strict I/O - will continue to closely monitor renal function, if worsens will bring nephro on board. Qualifiers: Chronic kidney disease stage: stage 3 (moderate) Qualified Code(s): N17.9 - Acute kidney failure, unspecified; N18.3 - Chronic kidney disease, stage 3 ( moderate); N18.3 - Chronic kidney disease, stage 3 (moderate) (9) UTI (urinary tract infection) Current Visit: Yes Status: Suspected Assessment and plan: PAtient was given 1 dose of azithromycin and rocephin in ED, and then was switched to Levaquin. Patient is currently in JEREMIE, will not change abx until cultures return. U/A nit and leuk positive. - Cx pending - discussed with pharmacist about renal dosing of levaquin Qualifiers: Urinary tract infection type: acute cystitis Hematuria presence: without hematuria Qualified Code(s): N30.00 - Acute cystitis without hematuria (10) DVT prophylaxis Current Visit: Yes Status: Acute Assessment and plan: mechanical (11) Irregular heart rate Current Visit: Yes Status: Acute Assessment and plan: Patient was tachy this AM. On exam HR and pulse were irregular. Ordered EKG which confirmed irregular rate, and possible block. Consulted Cardio. see above for further management. - Time Spent With Patient Total time spent is greater than 50% in coordination of care (as documented) at patient's floor/unit and/or counseling patient: - Subjective Interval history: Ms Decker is a 67 yo F w/ pmh of dementia, htn, hld, ischemic cardiomyopathy, CHF, hypothyroid, aoritc aneurysm, T2DM presented with SOB and cough. Patient answers questions but is unclear if she comprehends. Patient is a poor historian. Patient is seen and examined this morning eating breakfast. Patient denies current SOB. Patient prior to hospitalization does report Orthopnea but denied PND. Patient denies fluttering in her chest, chest pain, difficulty breathing today, swelling, nausea, vomiting. - Constitutional Vitals: Temp Pulse Resp BP Pulse Ox 97.5 F L 103 20 159/98 99 03/06/18 07:04 03/06/18 07:04 03/06/18 07:04 03/06/18 07:04 03/06/18 07:04 General appearance: Present: cooperative, A&O X 2, pleasant, no acute distress - Head Head exam: Present: atraumatic, normocephalic - Eye Eye exam: Present: PERRL, conjuntiva pink, sclera anicteric Pupils: Present: PERRL - Neck Neck exam general surgery: Present: supple, trachea midline. Absent: lymphadenopathy - Respiratory Respiratory exam: Present: decreased breath sounds (at base of lungs). Absent: rales, respiratory distress, wheezes - Cardiovascular Cardiovascular exam: Present: irregular rhythm, tachycardia. Absent: JVD - GI/Abdominal GI/Abdominal exam: Present: normal bowel sounds, soft, no peritoneal signs. Absent: distended, tenderness - Extremities Exam Extremities exam: Present: warm, radial pulses palpable and symmetrical. Absent : cyanotic, pedal edema, tenderness - Neurological Exam Neurological exam: Present: CN II-XII intact, oriented X3, no focal deficits. Absent: pronater drift, facial droop, speech deficit - Psychiatric Psychiatric exam: Present: normal affect, normal mood Internal Medicine: Result - Labs CBC & Chem 7: 03/06/18 04:23 03/06/18 04:23 Labs: Short CBC 03/06/18 Range/Units 04:23 WBC 11.6 H (4.3-11.1) K/mcL Hgb 13.0 D (11.5-15.4) g/dL Hct 37.1 (35.3-44.9) % Plt Count 278 (140-400) K/mcL Neutrophils # 10.1 H (1.6-8.9) K/mcL BMP 03/06/18 04:23 Sodium 128 L Potassium 3.4 L Chloride 98 Carbon Dioxide 22 L BUN 39 H Creatinine 2.25 H Glucose 297 H Calcium 7.8 L Cardiac Enzymes 03/05/18 03/06/18 Range/Units 21:06 04:23 Troponin I 0.12 H* 0.18 H* (< 0.04) ng/mL Liver Function 03/06/18 Range/Units 04:23 Total Bilirubin 0.3 (0.3-1.0) mg/dL AST 16 (13-39) Units/L ALT 15 (7-52) Units/L Alkaline Phosphatase 111 H (34-104) Units/L Albumin 2.2 L (3.5-5.7) g/dL - ABG Interpretation ABG results: PT/INR, D-dimer PT 10.5 Seconds (9.4-12.1) 03/05/18 14:50 Consult Discharge Plan - Plan Referrals: Carol Odom [Primary Care Provider] - <Yeison Gomez H - Last Filed: 03/06/18 14:03> Date of Encounter: 03/06/18 - Assessment and plan (1) Elevated troponin Current Visit: Yes Status: Acute (2) Hypertensive urgency Current Visit: Yes Status: Acute (3) CHF exacerbation Current Visit: Yes Status: Acute Qualifiers: Heart failure type: combined systolic and diastolic Qualified Code(s): I50.43 - Acute on chronic combined systolic (congestive) and diastolic ( congestive) heart failure (4) DMII (diabetes mellitus, type 2) Current Visit: Yes Status: Chronic Qualifiers: Diabetes mellitus terminal worker insulin use: without usp use Diabetes mellitus complication status: with kidney complications Diabetes mellitus complication detail: with chronic kidney disease Chronic kidney disease stage : stage 3 (moderate) Qualified Code(s): E11.22 - Type 2 diabetes mellitus with diabetic chronic kidney disease; N18.3 - Chronic kidney disease, stage 3 ( moderate); N18.3 - Chronic kidney disease, stage 3 (moderate) (5) HLD (hyperlipidemia) Current Visit: Yes Status: Chronic Qualifiers: Hyperlipidemia type: unspecified Qualified Code(s): E78.5 - Hyperlipidemia , unspecified (6) Hypokalemia Current Visit: Yes Status: Acute (7) DVT prophylaxis Current Visit: Yes Status: Acute (8) Hypothyroidism Current Visit: Yes Status: Chronic Qualifiers: Hypothyroidism type: unspecified Qualified Code(s): E03.9 - Hypothyroidism , unspecified (9) Acute on chronic renal failure Current Visit: Yes Status: Acute Qualifiers: Chronic kidney disease stage: stage 3 (moderate) Qualified Code(s): N17.9 - Acute kidney failure, unspecified; N18.3 - Chronic kidney disease, stage 3 ( moderate); N18.3 - Chronic kidney disease, stage 3 (moderate) (10) UTI (urinary tract infection) Current Visit: Yes Status: Suspected Qualifiers: Urinary tract infection type: acute cystitis Hematuria presence: without hematuria Qualified Code(s): N30.00 - Acute cystitis without hematuria (11) Irregular heart rate Current Visit: Yes Status: Acute - Time Spent With Patient Total time spent is greater than 50% in coordination of care (as documented) at patient's floor/unit and/or counseling patient: - Constitutional Vitals: Temp Pulse Resp BP Pulse Ox 97.5 F L 89 15 127/89 97 03/06/18 11:22 03/06/18 11:22 03/06/18 11:22 03/06/18 11:22 03/06/18 11:22 Internal Medicine: Result - Labs CBC & Chem 7: 03/06/18 04:23 03/06/18 04:23 Labs: Short CBC 03/06/18 Range/Units 04:23 WBC 11.6 H (4.3-11.1) K/mcL Hgb 13.0 D (11.5-15.4) g/dL Hct 37.1 (35.3-44.9) % Plt Count 278 (140-400) K/mcL Neutrophils # 10.1 H (1.6-8.9) K/mcL BMP 03/06/18 04:23 Sodium 128 L Potassium 3.4 L Chloride 98 Carbon Dioxide 22 L BUN 39 H Creatinine 2.25 H Glucose 297 H Calcium 7.8 L Cardiac Enzymes 03/05/18 03/06/18 03/06/18 Range/Units 21:06 04:23 10:21 Troponin I 0.12 H* 0.18 H* 0.11 H* (< 0.04) ng/mL Liver Function 03/06/18 Range/Units 04:23 Total Bilirubin 0.3 (0.3-1.0) mg/dL AST 16 (13-39) Units/L ALT 15 (7-52) Units/L Alkaline Phosphatase 111 H (34-104) Units/L Albumin 2.2 L (3.5-5.7) g/dL Urine 03/06/18 Range/Units 09:45 Urine Color Yellow (Yellow) Urine Clarity Cloudy A (Clear) Urine pH 5.5 (5.0-8.0) pH Units Ur Specific [place] 1.021 (1.010-1.025) Urine Protein >=300 H (Neg-Trace) mg/dL Urine Glucose (UA) 250 H (Normal) mg/dL - ABG Interpretation ABG results: PT/INR, D-dimer PT 10.5 Seconds (9.4-12.1) 03/05/18 14:50 - Attending Attestation Acute systolic CHF exacerbation with an ejection fraction of 20-25% BNP is 4015 Continue Lasix Irregular rhythm, consider possible AV block, cartilage recommendations appreciated Hypokalemia, replete potassium Acute chronic renal failure with history of chronic kidney disease stage III Elevated troponins likely secondary to demand ischemia I examined this patient and my medical decision-making was reviewed with the Resident Physician. I agree with the documented findings, disposition and treatment plan as described except to the extent set forth below.
[2018-03-06 09:57] LABS: Bilirubin,Urine Negative (Negative); Blood,Urine Negative (Negative); Clarity,Urine Cloudy (Clear); Color,Urine Yellow (Yellow); Glucose,Urine (UA) 250 mg/dL (Normal); Ketones,Urine Negative (Negative); Leukocyte Esterase,Urine Negative (Negative); Nitrite,Urine Negative (Negative); PH,Urine 5.5 pH Units (5.0-8.0); Protein,Urine >=300 mg/dL (Neg-Trace); Specific Gravity,Urine 1.021 (1.010-1.025); Urobilinogen,Urine Normal (Normal)
[2018-03-06 10:00] LABS: Bacteria,Urine None Seen per hpf (None-Few); Hyaline Casts,Urine None Seen per lpf (None-Few); Squamous Epithelial Cell,Urine Many per lpf (None-Few)
[2018-03-06 11:04] LABS: Troponin I 0.11 ng/mL (< 0.04)
[2018-03-06 11:15] LABS: Thyroid Stimulating Hormone 8.202 mcIU/mL (0.340-5.600)
[2018-03-06 11:42] LABS: Heparin anti-factor XA UFH 0.57 IU/mL (0.30-0.70)
--- NOTE | 2018-03-06 15:21 | Cardiology Consult Note ---
<Merrill Tuttle - Last Filed: 03/06/18 16:02> Date of Encounter: 03/06/18 Time of Encounter: 14:30 Assessment and Plan (1) Elevated troponin Current Visit: Yes Status: Acute Mild troponin elevation up to 0.13. Now trending down. EKG without acute ST changes. Likely demand ischemia in the setting of CHF, JEREMIE. Check TTE. S/p Recent [facility] 12/2017 with PCI to the pDX and mLAD. Reports compliance with medications. Continue heparin gtt for now. Asa, plavix, statin, and bb. (2) Congestive heart failure (CHF) Current Visit: Yes Status: Acute Acute on chronic CHF. TTE 11/2017 showed EF 20-25%. Diastolic dysfunction with elevated filling pressures. Normal right ventricular size with low normal function. Mild aortic regurgitation. Mild-moderate mitral regurgitation. No pulmonary hypertension. Mild pulmonic regurgitation. There is a trivial pericardial effusion present. There is no echocardiographic evidence of tamponade. A pleural effusion is present. Since prior study, 07/26/2016, LV systolic function has declined. [facility] 12/1017 S/p PTCA and LORI to the proximal first diagonal and and mid LAD. Bnp 4,000, CXR with findings consistent with CHF. Agree with IV diuresis. Stop metolazone and increase lasix IV to 40 mg daily. No indication for NTG GTT at this time. This can be discontinued. Strict I&O and daily weights. Monitor Scr-improved with diuresis. Low sodium diet. Qualifiers: Heart failure type: systolic Heart failure chronicity: acute on chronic Qualified Code(s): I50.23 - Acute on chronic systolic (congestive) heart failure Discussion w patient/family: The assessment and plan as outlined above was discussed with the patient and/or family members who expressed understanding and agreement. All questions were answered. Thank you for involving us in the care of your patient. Please call with any questions. History of Present Illness Consult date: 03/06/18 Requesting physician: Nikunj Navarrete Consult reason: Elevated troponin Chief complaint: weakness, increased AMS, lack of appetite, Cough, SOB History of present illness: Ms. Decker is a 67 year old female with past medical history of recently diagnosed ischemic cardiomyoapthy, CAD s/p PCI, and dementia who presents from home with multiple complaints. Patient has dementia and is confused. Family at bedside for information. Daughter states that she noticed her mother was not eating and doing her usual activity for the past four days. She also developed persistent moist cough, BLE edema, and SOB. In the ED she was found to have JEREMIE and CHF. Cardiology consulted for troponin elevation. Past Med Surg Social Fam HX - Past Medical History Medical history: aortic aneurysm, dementia, diabetes, GERD, hypertension, osteoporosis, other Psychiatric history: no psych history - Past Surgical History Surgical History: cholecystectomy - Social History Smoking Status: Never smoker Smokeless Tobacco Status: No Alcohol use: unknown Drug use: unknown - Family History Father History Unknown: Yes Medications and Allergies Aspirin 81 mg PO DAILY #90 tab.chew 07/31/16 [Rx] Atorvastatin [Lipitor] 40 mg PO HS #30 tablet 07/31/16 [Rx] Isosorbide MONOnitrate (24 HR) [Imdur] 60 mg PO DAILY #60 tab.er.24h 07/31/16 [ Rx] Metformin HCl [Metformin HCl ER] 500 mg PO DAILY #30 [id number] 07/31/16 [Rx] Nitroglycerin 0.4 mg SL Q5MIN PRN #15 tab.subl 07/31/16 [Rx] hydrALAZINE [HydrALAZINE] 25 mg PO Q6HR #90 tablet 07/31/16 [Rx] Clopidogrel [Plavix] 75 mg PO DAILY #30 tablet 12/14/17 [Rx] Furosemide [Lasix] 20 mg PO DAILY #30 tablet 12/14/17 [Rx] Lisinopril [Zestril] 5 mg PO DAILY #30 tablet 12/14/17 [Rx] Metoprolol XL (24 HR) Succ [Toprol Xl] 25 mg PO DAILY #30 tab.er.24h 12/14/17 [ Rx] Levothyroxine [Synthroid] 25 mcg PO 0630 03/05/18 [History] 3 Allergy/AdvReac Type Severity Reaction Status Date / Time No Known Allergies Allergy Verified 03/05/18 16:07 All Systems Review: The remainder of the systems were reviewed and are negative Physical Examination Vital Signs, Last 4 Hours Temp Pulse Resp BP Pulse Ox 03/06/18 11:22 97.5 F L 89 15 127/89 97 General: Conversant, No Apparent Distress, Other (Confused) HEENT: Atraumatic, Normocephaly, Mucus Membranes Moist Neck: No JVD, Normal carotid pulses Cardiac: Reg Rate and Rhythm, Normal S1 and S2, No Murmur Lungs: Normal Breath Sounds, No Wheeze, Rales, Rhonchi, Other (diminished bases) Neuro: Alert and responsive, No focal deficits noted Abdomen: Soft, Non-Tender Skin: No rashes noted on visualized skin Musculoskeletal: No Chest Wall Tenderness Extremities: No Clubbing, No Cyanosis, Normal Pulses, Other (1+ pitting edema bilateral ankles) Results 03/06/18 04:23 03/06/18 04:23 Lab Results 03/05/18 03/05/18 03/06/18 21:06 22:04 04:23 WBC 11.6 H Hgb 13.0 D Hct 37.1 Plt Count 278 APTT 68.5 H D Sodium Potassium Chloride Carbon Dioxide BUN Creatinine Glucose Calcium Magnesium Total Bilirubin AST ALT Alkaline Phosphatase Troponin I 0.12 H* TSH 03/06/18 03/06/18 03/06/18 04:23 04:23 04:23 WBC Hgb Hct Plt Count APTT 52.5 H Sodium 128 L Potassium 3.4 L Chloride 98 Carbon Dioxide 22 L BUN 39 H Creatinine 2.25 H Glucose 297 H Calcium 7.8 L Magnesium 2.0 Total Bilirubin 0.3 AST 16 ALT 15 Alkaline Phosphatase 111 H Troponin I 0.18 H* TSH 03/06/18 03/06/18 10:21 10:22 WBC Hgb Hct Plt Count APTT 124.0 H* D Sodium Potassium Chloride Carbon Dioxide BUN Creatinine Glucose Calcium Magnesium Total Bilirubin AST ALT Alkaline Phosphatase Troponin I 0.11 H* TSH 8.202 H Chest X-Ray 03/05/18 14:50 IMPRESSION: 1. Diffuse interstitial prominence with central predominant airspace opacities, suggestive of interstitial and alveolar edema in the setting of congestive heart failure given mild cardiomegaly. However, pneumonia could appear similar. 2. Minimal appears airspace opacities, likely atelectasis. 3. Trace bilateral pleural effusions. D/ / Bill Barreto MD / Bill Barreto MD Interpreting Provider: Bill Barreto MD - Imaging and Cardiology Echo: report reviewed Cardiac cath: report reviewed - EKG Interpretation EKG results cardiology: personally reviewed Consult Discharge Plan - Plan Referrals: Carol Odom [Primary Care Provider] - <Corbin Bonilla - Last Filed: 03/07/18 13:59> Date of Encounter: 03/06/18 Time of Encounter: 20:40 - Attending Attestation I have personally performed a face to face evaluation on this patient. I have reviewed and agree with the care plan. History and Exam by me shows: CC: not acting right Pt presented to the ER with her daughter, who is her primary caregiver, with the observation pt had decreased appetite, less active, with more of a cough than normal. She also noted increased lower extremity edema. She had not complained of chest pain, pressure or shortness of breath. Pt is demented, not a reliable historian, hx from medical records. PMHX: reviewed, recent diagnosis of ischemic cardiomyopathy PE: pt examined, agree with findings as documeted. IMP:/Plan 1. Acute on chronic diasotlic heart failure, responding to rapid diuresis, continue lasix tonight and tomorrowl 2. Dementia, pt is pleasant, but only orientated x 2 3. Elevated troponin: minimal, consistent with demand perfusion mismatch, decreased renal clearance with JEREMIE, will continue to trend overnight Assessment and Plan Discussion w patient/family: The assessment and plan as outlined above was discussed with the patient and/or family members who expressed understanding and agreement. All questions were answered. Thank you for involving us in the care of your patient. Please call with any questions. History of Present Illness History of present illness: Ms. Decker is a 67 year old female All Systems Review: The remainder of the systems were reviewed and are negative Results 03/07/18 05:10 03/07/18 05:10 Lab Results 03/06/18 03/07/18 03/07/18 18:32 05:10 05:10 WBC 11.8 H Hgb 13.0 Hct 37.3 Plt Count 296 APTT 50.6 H D Sodium 129 L Potassium 3.2 L Chloride 99 Carbon Dioxide 22 L BUN 40 H Creatinine 2.35 H Glucose 177 H Calcium 7.9 L 03/07/18 03/07/18 05:10 12:23 WBC Hgb Hct Plt Count APTT 60.3 H 67.2 H Sodium Potassium Chloride Carbon Dioxide BUN Creatinine Glucose Calcium
[2018-03-06] MEDS: Heparin 25,000 UNIT/500 ML D5W 25,000 UNIT/500 ML BAG IVC SCH (17:15)
[2018-03-06] MEDS: Levofloxacin 250 MG/50 ML 250 MG/50 ML BAG IVPB SCH (23:21)
[2018-03-07 05:36] LABS: Basophils % 0.1 %; Eosinophils % 0.2 %; Hematocrit 37.3 % (35.3-44.9); Immature Granulocytes % 0.8 % (0-4); Lymphocytes # 1.1 K/mcL (0.6-4.6); Lymphocytes % 9.4 %; Mean Corpuscular HGB Conc 34.9 g/dL (31.6-35.5); Mean Corpuscular Hemoglobin 29.3 pg (28.0-33.3); Mean Corpuscular Volume 84.2 fL (83.0-100.0); Monocytes # 0.7 K/mcL (0.0-1.3); Monocytes % 5.9 %; Neutrophils # 9.9 K/mcL (1.6-8.9); Platelet Count 296 K/mcL (140-400); Red Blood Count 4.43 M/mcL (3.82-4.97); Red Cell Distribution Width 13.9 % (11.5-14.5); Segmented Neutrophils % 83.6 %
[2018-03-07 05:55] LABS: Calcium 7.9 mg/dL (8.6-10.3); Potassium 3.2 mEq/L (3.5-5.1)
[2018-03-07] MEDS: Levothyroxine 25 MCG TABLET PO SCH (06:22)
[2018-03-07] MEDS: hydrALAZINE 25 MG TABLET PO SCH ×3 (06:22→18:20)
[2018-03-07] MEDS: Furosemide 20 MG/2 ML VIAL IVP SCH (10:15)
[2018-03-07] MEDS: Metoprolol XL (24 HR) Succ 25 MG TAB.ER.24H PO SCH (10:15)
[2018-03-07] MEDS: Isosorbide MONOnitrate (24 HR) 60 MG TAB.ER.24H PO SCH (10:15)
[2018-03-07] MEDS: Aspirin 81 MG TAB.CHEW PO SCH (10:15)
[2018-03-07] MEDS: Insulin LISPRO 300 UNITS/3 ML VIAL SQ SCH ×4 (10:16→20:44)
--- NOTE | 2018-03-07 11:13 | Internal Med Progress Note ---
<Jonathan Brito - Last Filed: 03/07/18 14:25> Date of Encounter: 03/07/18 Time of Encounter: 11:13 - Assessment and plan (1) Elevated troponin Current Visit: Yes Status: Acute Assessment and plan: Trops since admission 0.12, 0.13, 0.18, 0.11. Baseline elevation in trops ~ 0.04. Most likely demand ischemia from CHF exacerbation, but will empirically treat as NSTEMI. EKG reordered due to irregular rate on physical exam, EKG showed abnormalities and possible block. Consulted cardiology. recent [facility] 2017 w/ PCI to pDX and LAD. - continue heparin drip, nitroglycerin goal SBP <160 in the first 24 hours. currently at goal will attempt to wean off of drip. - continue home BP meds. - Cardiology consulted; appreciate their input. continue ASA, plavix, statin, bb - stress test and echo results pending - cardiatc diet (2) CHF exacerbation Current Visit: Yes Status: Acute Assessment and plan: Patient has known HFrEF, with LVEF of 20-25%, last echo 11/2817. Patient has symptoms of SOB at rest, orthopnea, but denies PND or leg swelling. CXR in ED was consistent with CHF and cardiomegaly. BNP 4015. Patient today is symptomatically improved. - holding ACEI and spirinolactone due to JEREMIE - continuing lasix 20 mg IV and metolazone 5 mg PO due for CHF exacerbation, per agreement with cardio. Cr mild bump today but stable at this time. - fluid restriction 1.5L, and Na 2g. will restart cardiac diet once evaluated by cardiology - strict I/O and weights Qualifiers: Heart failure type: combined systolic and diastolic Qualified Code(s): I50.43 - Acute on chronic combined systolic (congestive) and diastolic ( congestive) heart failure (3) Hypertensive urgency Current Visit: Yes Status: Acute Assessment and plan: see above (4) DMII (diabetes mellitus, type 2) Current Visit: Yes Status: Chronic Assessment and plan: continue SSI medium. BG has been uncontrolled since hospitalization, most likely in the setting of UTI. Will closely follow and if continues to increase will increase dose. Qualifiers: Diabetes mellitus longterm insulin use: without ad terminal makeup operator use Diabetes mellitus complication status: with kidney complications Diabetes mellitus complication detail: with chronic kidney disease Chronic kidney disease stage : stage 3 (moderate) Qualified Code(s): E11.22 - Type 2 diabetes mellitus with diabetic chronic kidney disease; N18.3 - Chronic kidney disease, stage 3 ( moderate); N18.3 - Chronic kidney disease, stage 3 (moderate) (5) HLD (hyperlipidemia) Current Visit: Yes Status: Chronic Assessment and plan: - Continue home medications. Qualifiers: Hyperlipidemia type: unspecified Qualified Code(s): E78.5 - Hyperlipidemia , unspecified (6) Hypokalemia Current Visit: Yes Status: Acute Assessment and plan: K+ continued to decline today, will replenish orally. (7) Hypothyroidism Current Visit: Yes Status: Chronic Assessment and plan: TSH elevated 8.202. - continue levo 25 po home dose, will discuss with pharmacy about adjusting - ordered t3, t4 Qualifiers: Hypothyroidism type: unspecified Qualified Code(s): E03.9 - Hypothyroidism , unspecified (8) Acute on chronic renal failure Current Visit: Yes Status: Acute Assessment and plan: Cr on Admission 2.33, baseline is ~1.5. Today Cr is slightly worsened, but mostly stable - avoid nephrotoxins - renally dose levaquin - stopped acei, and aldactone - strict I/O - renal + cardiac diet - will continue to closely monitor renal function, if worsens will bring nephro on board. Qualifiers: Chronic kidney disease stage: stage 3 (moderate) Qualified Code(s): N17.9 - Acute kidney failure, unspecified; N18.3 - Chronic kidney disease, stage 3 ( moderate); N18.3 - Chronic kidney disease, stage 3 (moderate) (9) UTI (urinary tract infection) Current Visit: Yes Status: Suspected Assessment and plan: PAtient was given 1 dose of azithromycin and rocephin in ED, and then was switched to Levaquin. Patient is currently in JEREMIE, will not change abx until cultures return. U/A nit and leuk positive. - Cx pending - continue renal dosed levaquin Qualifiers: Urinary tract infection type: acute cystitis Hematuria presence: without hematuria Qualified Code(s): N30.00 - Acute cystitis without hematuria (10) DVT prophylaxis Current Visit: Yes Status: Acute Assessment and plan: mechanical (11) Irregular heart rate Current Visit: Yes Status: Acute Assessment and plan: Patient was tachy on this admission. On exam HR and pulse were irregular. Ordered EKG which confirmed irregular rate, and possible block. Consulted Cardio. see above for further management. - Time Spent With Patient Total time spent is greater than 50% in coordination of care (as documented) at patient's floor/unit and/or counseling patient: - Subjective Interval history: Ms Decker is a 67 yo F w/ pmh of dementia, htn, hld, ischemic cardiomyopathy, CHF, hypothyroid, aoritc aneurysm, T2DM presented with SOB and cough. Patient answers questions but is unclear if she comprehends. Patient is a poor historian. Patient is seen and examined this morning eating breakfast. Patient denies current SOB. Patient prior to hospitalization does report Orthopnea but denied PND. Patient denies fluttering in her chest, chest pain, difficulty breathing today, swelling, nausea, vomiting. - Constitutional Vitals: Temp Pulse Resp BP Pulse Ox 97.6 F 89 18 147/91 99 03/07/18 06:46 03/07/18 06:46 03/07/18 06:46 03/07/18 06:46 03/07/18 06:46 General appearance: Present: cooperative, A&O X 2, pleasant, no acute distress Internal Medicine: Result - Labs CBC & Chem 7: 03/07/18 05:10 03/07/18 05:10 Labs: Short CBC 03/07/18 Range/Units 05:10 WBC 11.8 H (4.3-11.1) K/mcL Hgb 13.0 (11.5-15.4) g/dL Hct 37.3 (35.3-44.9) % Plt Count 296 (140-400) K/mcL Neutrophils # 9.9 H (1.6-8.9) K/mcL BMP 03/07/18 05:10 Sodium 129 L Potassium 3.2 L Chloride 99 Carbon Dioxide 22 L BUN 40 H Creatinine 2.35 H Glucose 177 H Calcium 7.9 L - ABG Interpretation ABG results: PT/INR, D-dimer PT 10.5 Seconds (9.4-12.1) 03/05/18 14:50 Consult Discharge Plan - Plan Referrals: Carol Odom [Primary Care Provider] - <Yeison Gomez H - Last Filed: 03/07/18 15:55> Date of Encounter: 03/07/18 - Assessment and plan (1) Elevated troponin Current Visit: Yes Status: Acute (2) Hypertensive urgency Current Visit: Yes Status: Acute (3) CHF exacerbation Current Visit: Yes Status: Acute Qualifiers: Heart failure type: combined systolic and diastolic Qualified Code(s): I50.43 - Acute on chronic combined systolic (congestive) and diastolic ( congestive) heart failure (4) DMII (diabetes mellitus, type 2) Current Visit: Yes Status: Chronic Qualifiers: Diabetes mellitus ad terminal makeup operator insulin use: without ad terminal makeup operator use Diabetes mellitus complication status: with kidney complications Diabetes mellitus complication detail: with chronic kidney disease Chronic kidney disease stage : stage 3 (moderate) Qualified Code(s): E11.22 - Type 2 diabetes mellitus with diabetic chronic kidney disease; N18.3 - Chronic kidney disease, stage 3 ( moderate); N18.3 - Chronic kidney disease, stage 3 (moderate) (5) HLD (hyperlipidemia) Current Visit: Yes Status: Chronic Qualifiers: Hyperlipidemia type: unspecified Qualified Code(s): E78.5 - Hyperlipidemia , unspecified (6) Hypokalemia Current Visit: Yes Status: Acute (7) DVT prophylaxis Current Visit: Yes Status: Acute (8) Hypothyroidism Current Visit: Yes Status: Chronic Qualifiers: Hypothyroidism type: unspecified Qualified Code(s): E03.9 - Hypothyroidism , unspecified (9) Acute on chronic renal failure Current Visit: Yes Status: Acute Qualifiers: Chronic kidney disease stage: stage 3 (moderate) Qualified Code(s): N17.9 - Acute kidney failure, unspecified; N18.3 - Chronic kidney disease, stage 3 ( moderate); N18.3 - Chronic kidney disease, stage 3 (moderate) (10) UTI (urinary tract infection) Current Visit: Yes Status: Suspected Qualifiers: Urinary tract infection type: acute cystitis Hematuria presence: without hematuria Qualified Code(s): N30.00 - Acute cystitis without hematuria (11) Irregular heart rate Current Visit: Yes Status: Acute - Time Spent With Patient Total time spent is greater than 50% in coordination of care (as documented) at patient's floor/unit and/or counseling patient: - Constitutional Vitals: Temp Pulse Resp BP Pulse Ox 97.6 F 89 18 147/91 99 03/07/18 06:46 03/07/18 06:46 03/07/18 06:46 03/07/18 06:46 03/07/18 06:46 Internal Medicine: Result - Labs CBC & Chem 7: 03/07/18 05:10 03/07/18 05:10 Labs: Short CBC 03/07/18 Range/Units 05:10 WBC 11.8 H (4.3-11.1) K/mcL Hgb 13.0 (11.5-15.4) g/dL Hct 37.3 (35.3-44.9) % Plt Count 296 (140-400) K/mcL Neutrophils # 9.9 H (1.6-8.9) K/mcL BMP 03/07/18 05:10 Sodium 129 L Potassium 3.2 L Chloride 99 Carbon Dioxide 22 L BUN 40 H Creatinine 2.35 H Glucose 177 H Calcium 7.9 L - ABG Interpretation ABG results: PT/INR, D-dimer PT 10.5 Seconds (9.4-12.1) 03/05/18 14:50 - Impressions Impressions Echocardiogram Limited Views 03/06/18 16:41 Impressions: LVEF 30-35%. Mildly dilated left ventricle. Global left ventricular systolic dysfunction. Left Ventricular Wall Motion: Rest Echo Findings The apex, apical inferior, mid inferior, basal inferior, apical anterior, mid anterior, basal anterior, apical septal, mid inferior septal, basal inferior septal, apical lateral, mid anterior lateral, basal anterior lateral, mid anterior septal, mid inferior lateral, basal anterior septal and basal inferior lateral oleary were hypokinetic. Findings: Study Quality * Technically adequate exam. ECG Findings * Normal sinus rhythm. Left Ventricle * LVEF 30-35%. * Mildly dilated left ventricle. * Global left ventricular systolic dysfunction. Right Ventricle * Normal right ventricular structure and function. Aorta * Normally sized aortic root. Pericardium * There is a trivial pericardial effusion present. - Attending Attestation Acute systolic CHF exacerbation with an ejection fraction of 20-25% BNP is 4015 Continue Lasix Irregular rhythm, consider possible AV block?, cartilage recommendations appreciated Hypokalemia, replete potassium Acute chronic renal failure with history of chronic kidney disease stage III Elevated troponins likely secondary to demand ischemia I examined this patient and my medical decision-making was reviewed with the Resident Physician. I agree with the documented findings, disposition and treatment plan as described except to the extent set forth below.
--- NOTE | 2018-03-07 14:12 | Cardiology Progress Note ---
Date of Encounter: 03/07/18 Time of Encounter: 12:45 Assessment and Plan (1) Elevated troponin Current Visit: Yes Status: Acute Per cardiology: -Mild troponin elevation up to 0.18, in the setting of CHF, JEREMIE Now trending down. -EKG without acute ST changes, frequent PACs noted. -Likely demand ischemia in the setting of CHF, JEREMIE. -S/p Recent [facility] 12/2017 with PCI to the pDX and mLAD. Reports compliance with medications. -TTE with LVEF 30-35%, global hypokinesis. EF improved from previous. -On heparin drip, Asa, plavix, statin, and bb. -DO not suspect NSTEMI, suspect demand ischemia related to above. NO cardiac rehab consult warranted. -Will discontinue heparin drip. (2) Congestive heart failure (CHF) Current Visit: Yes Status: Acute Per cardiology: -Acute on chronic CHF. [facility] 11/2017 showed EF 20-25%. Diastolic dysfunction with elevated filling pressures. Normal right ventricular size with low normal function. Mild aortic regurgitation. Mild-moderate mitral regurgitation. No pulmonary hypertension. Mild pulmonic regurgitation. There is a trivial pericardial effusion present. There is no echocardiographic evidence of tamponade. A pleural effusion is present. -TTE this admission with LVEF 30-35%, improved from previous. -[facility] 12/1017 S/p PTCA and LORI to the proximal first diagonal and and mid LAD. -Bnp 4,000, CXR with findings consistent with CHF. -On lasix IV. -Net negative 1700ml. -Reports shortness of breath improved. Euvolemic on exam. -Strict i/os, fluid restriction, daily weights. -Will switch lasix to oral. -CHF education reinforced with pateint. -Cardiology will sign off and will follow in outpatient setting. -Follow up set. Qualifiers: Heart failure type: systolic Heart failure chronicity: acute on chronic Qualified Code(s): I50.23 - Acute on chronic systolic (congestive) heart failure Discussion w patient/family: The assessment and plan as outlined above was discussed with the patient who expressed understanding and agreement. All questions were answered. Thank you for involving us in the care of your patient. Please call with any questions. Discussed and reviewed with Dr.John Mendez. Subjective Principal diagnosis: CHF, JEREMIE Interval history: Patient reports breathing is better today. Objective Vital Signs Temperature 97.6 F 03/07/18 06:46 Pulse Rate 89 03/07/18 06:46 Respiratory Rate 18 03/07/18 06:46 Blood Pressure 147/91 03/07/18 06:46 O2 Sat by Pulse Oximetry 99 03/07/18 06:46 Oxygen Delivery Oxygen Delivery Room Air General: Conversant, No Apparent Distress HEENT: Atraumatic, Normocephaly, Mucus Membranes Moist Neck: No JVD, Normal carotid pulses Cardiac: Reg Rate and Rhythm, Normal S1 and S2, No Murmur Lungs: Normal Breath Sounds, No Wheeze, Rales, Rhonchi Neuro: Alert and responsive, No focal deficits noted Abdomen: Soft, Non-Tender Skin: No rashes noted on visualized skin Musculoskeletal: No Chest Wall Tenderness Extremities: No Clubbing, No Cyanosis, No Edema, Normal Pulses Results 03/07/18 05:10 03/07/18 05:10 Lab Results Impressions Echocardiogram Limited Views 03/06/18 16:41 Impressions: LVEF 30-35%. Mildly dilated left ventricle. Global left ventricular systolic dysfunction. Left Ventricular Wall Motion: Rest Echo Findings The apex, apical inferior, mid inferior, basal inferior, apical anterior, mid anterior, basal anterior, apical septal, mid inferior septal, basal inferior septal, apical lateral, mid anterior lateral, basal anterior lateral, mid anterior septal, mid inferior lateral, basal anterior septal and basal inferior lateral oleary were hypokinetic. Findings: Study Quality * Technically adequate exam. ECG Findings * Normal sinus rhythm. Left Ventricle * LVEF 30-35%. * Mildly dilated left ventricle. * Global left ventricular systolic dysfunction. Right Ventricle * Normal right ventricular structure and function. Aorta * Normally sized aortic root. Pericardium * There is a trivial pericardial effusion present. Active Medications Aspirin (Aspirin) 81 mg PO DAILY ADDIE Stop: 09/05/18 09:01 Last Admin: 03/07/18 10:15 Dose: 81 mg Atorvastatin Calcium (Lipitor) 40 mg PO HS ADDIE Stop: 09/04/18 21:01 Last Admin: 03/06/18 23:21 Dose: 40 mg Clopidogrel Bisulfate (Plavix) 75 mg PO DAILY ADDIE Stop: 09/05/18 09:01 Last Admin: 03/07/18 10:16 Dose: 75 mg Dextrose/Water (Dextrose 50% (Syg)) 25 ml IVP AD PRN PRN Reason: Hypoglycemia Stop: 09/04/18 20:58 Furosemide (Lasix) 20 mg IVP BIDDIURETIC ADDIE Stop: 09/04/18 21:01 Last Admin: 03/07/18 10:15 Dose: 20 mg Glucagon (Glucagen) 1 mg IM ONCE PRN PRN Reason: Hypoglycemia Stop: 09/04/18 20:58 Glucose (Gluctose) 15 gm PO ONCE PRN PRN Reason: Hypoglycemia Stop: 09/04/18 20:58 Glucose (Gluctose) 30 gm PO ONCE PRN PRN Reason: Hypoglycemia Stop: 09/04/18 20:58 Heparin Sodium (Porcine) (Heparin) 4,000 unit IVP Q6HR PRN PRN Reason: SEE COMMENTS Stop: 09/04/18 15:43 Heparin Sodium (Porcine) (Heparin) 2,000 unit IVP Q6H PRN PRN Reason: SEE COMMENTS Stop: 09/04/18 15:43 Last Admin: 03/06/18 23:21 Dose: 2,000 unit Hydralazine HCl (Hydralazine) 25 mg PO Q6HR ADDIE Stop: 09/05/18 00:01 Last Admin: 03/07/18 10:15 Dose: 25 mg Heparin Sodium/Dextrose (Heparin 25,000 Unit/500 Ml D5w) 25,000 unit in 500 mls @ 19.595 mls/hr IVC .Q24H ADDIE; 12 UNIT/KG/HR PRN Reason: Protocol Stop: 09/04/18 15:46 Last Titration: 03/07/18 06:25 Dose: 12.9 unit/kg/hr, 21.065 mls/hr Dextrose (Dextrose 5%) 1,000 mls @ 100 mls/hr IVC .Q10H PRN PRN Reason: HYPOGLYCEMIA Stop: 09/04/18 20:58 Levofloxacin/Dextrose (Levaquin Premix 250 Mg/50 Ml) 250 mg in 50 mls @ 50 mls/ hr IVPB HS ADDIE PRN Reason: Protocol Stop: 09/05/18 21:01 Last Admin: 03/06/18 23:21 Dose: 50 mls/hr Insulin Human Lispro (Humalog) 0 units SQ HS ADDIE PRN Reason: Protocol Stop: 09/04/18 21:01 Last Admin: 03/06/18 23:20 Dose: 4 units Insulin Human Lispro (Humalog) 0 units SQ TIDAC ADDIE PRN Reason: Protocol Stop: 09/05/18 07:31 Last Admin: 03/07/18 13:31 Dose: 8 units Isosorbide Mononitrate (Imdur) 60 mg PO DAILY [facility] Stop: 09/05/18 09:01 Last Admin: 03/07/18 10:15 Dose: 60 mg Levothyroxine Sodium (Synthroid) 50 mcg PO 0630 [facility] Stop: 09/07/18 06:31 Metoprolol Succinate (Toprol Xl) 25 mg PO DAILY [facility] Stop: 09/05/18 09:01 Last Admin: 03/07/18 10:15 Dose: 25 mg Naloxone HCl (Narcan) 0.4 mg IVP Q2MIN PRN PRN Reason: SEE COMMENTS Stop: 09/04/18 20:46 Nitroglycerin (Nitroglycerin) 0.4 mg SL Q5MIN PRN PRN Reason: Chest Pain Stop: 09/04/18 20:42 Laboratory Tests 03/05/18 03/05/18 03/06/18 14:50 21:06 04:23 WBC Hgb Potassium Creatinine Troponin I 0.13 H* 0.12 H* 0.18 H* 03/06/18 03/07/18 03/07/18 10:21 05:10 05:10 WBC 11.8 H Hgb 13.0 Potassium 3.2 L Creatinine 2.35 H Troponin I 0.11 H* - Imaging and Cardiology Chest Xray: report reviewed Echo: report reviewed Cardiac cath: report reviewed - EKG Interpretation EKG results cardiology: personally reviewed (ECG with SR, HR 98. Frequent PACs, PVC noted.), other (Telemetry reviewed with average HR previous 12 hours noted to be 93, SR. Frequent PACs noted.) Consult Discharge Plan - Plan Referrals: Carol Odom [Primary Care Provider] -
[2018-03-07] MEDS: Furosemide 20 MG TABLET PO SCH (18:20)
[2018-03-07] MEDS: Levofloxacin 250 MG/50 ML 250 MG/50 ML BAG IVPB SCH (20:27)
[2018-03-08] MEDS: hydrALAZINE 25 MG TABLET PO SCH ×4 (00:56→17:15)
[2018-03-08 05:26] LABS: Basophils % 0.1 %; Eosinophils % 0.2 %; Hematocrit 34.4 % (35.3-44.9); Hemoglobin 11.9 g/dL (11.5-15.4); Immature Granulocytes % 0.5 % (0-4); Lymphocytes % 10.4 %; Mean Corpuscular HGB Conc 34.6 g/dL (31.6-35.5); Mean Corpuscular Hemoglobin 29.2 pg (28.0-33.3); Mean Corpuscular Volume 84.5 fL (83.0-100.0); Mean Platelet Volume 9.7 fL (9.4-12.4); Monocytes # 0.8 K/mcL (0.0-1.3); Neutrophils # 7.6 K/mcL (1.6-8.9); Platelet Count 246 K/mcL (140-400); Red Blood Count 4.07 M/mcL (3.82-4.97); Red Cell Distribution Width 14.1 % (11.5-14.5); Segmented Neutrophils % 80.8 %
[2018-03-08 05:44] LABS: Calcium 7.4 mg/dL (8.6-10.3); Potassium 3.2 mEq/L (3.5-5.1)
[2018-03-08] MEDS: Aspirin 81 MG TAB.CHEW PO SCH (08:30)
[2018-03-08] MEDS: Isosorbide MONOnitrate (24 HR) 60 MG TAB.ER.24H PO SCH (08:30)
[2018-03-08] MEDS: Metoprolol XL (24 HR) Succ 25 MG TAB.ER.24H PO SCH (08:30)
[2018-03-08] MEDS: Furosemide 20 MG TABLET PO SCH (08:30)
[2018-03-08] MEDS: Insulin LISPRO 300 UNITS/3 ML VIAL SQ SCH ×4 (08:31→22:15)
--- NOTE | 2018-03-08 11:15 | Discharge Summary ---
Orders not resulted at time of discharge: Pending orders 03/08/18 04:00 Culture,Urine [RM] AM 04003/08/18 10:59 XR chest 2V [XR] Routine 03/09/18 04:00 BMP [Basic Metabolic Panel] AM 0400 CBC [Complete Blood Count] [HEME] AM 04003/10/18 04:00 BMP [Basic Metabolic Panel] AM 0400 CBC [Complete Blood Count] [HEME] AM 04003/11/18 04:00 BMP [Basic Metabolic Panel] AM 0400 CBC [Complete Blood Count] [HEME] AM 04003/12/18 04:00 BMP [Basic Metabolic Panel] AM 0400 CBC [Complete Blood Count] [HEME] AM 040 Date of Encounter: 03/08/18 Time of Encounter: 11:00 - Discharge Diagnosis (1) Elevated troponin Priority: Primary Status: Acute (2) CHF exacerbation Priority: Secondary Status: Acute Qualifiers: Heart failure type: combined systolic and diastolic Qualified Code(s): I50.43 - Acute on chronic combined systolic (congestive) and diastolic ( congestive) heart failure (3) Hypertensive urgency Priority: Secondary Status: Acute (4) DMII (diabetes mellitus, type 2) Priority: Secondary Status: Chronic Qualifiers: Diabetes mellitus custodial insulin use: without custodial use Diabetes mellitus complication status: with kidney complications Diabetes mellitus complication detail: with chronic kidney disease Chronic kidney disease stage : stage 3 (moderate) Qualified Code(s): E11.22 - Type 2 diabetes mellitus with diabetic chronic kidney disease; N18.3 - Chronic kidney disease, stage 3 ( moderate); N18.3 - Chronic kidney disease, stage 3 (moderate) (5) HLD (hyperlipidemia) Priority: Secondary Status: Chronic Qualifiers: Hyperlipidemia type: unspecified Qualified Code(s): E78.5 - Hyperlipidemia , unspecified (6) Hypokalemia Priority: Secondary Status: Acute (7) Hypothyroidism Priority: Secondary Status: Chronic Qualifiers: Hypothyroidism type: unspecified Qualified Code(s): E03.9 - Hypothyroidism , unspecified (8) Acute on chronic renal failure Priority: Secondary Status: Acute Qualifiers: Chronic kidney disease stage: stage 3 (moderate) Qualified Code(s): N17.9 - Acute kidney failure, unspecified; N18.3 - Chronic kidney disease, stage 3 ( moderate); N18.3 - Chronic kidney disease, stage 3 (moderate) (9) UTI (urinary tract infection) Priority: Secondary Status: Suspected Qualifiers: Urinary tract infection type: acute cystitis Hematuria presence: without hematuria Qualified Code(s): N30.00 - Acute cystitis without hematuria (10) Irregular heart rate Priority: Secondary Status: Acute (11) DVT prophylaxis Priority: Secondary Status: Acute Hospital course: Ms. Decker is a 67 year old female presented with SOB, nonproductive cough and lower extremity swelling. In ED patient was found to have elevated trops of 0.12, 0.13, 0.18 with baseline trops of 0.04, and BNP of >4000. CXR showed diffuse interstitial prominence with central predominant airspace opacities, suggestive of interstitial and alveolar edema in the setting of congestive heart failure. EKG showed irregular rate and possible signs of heart block. Patient was started on heparin drip, ASA, plavix, statin and BB, and Cardiology was consulted at this time. Echo was performed an LVEF was 30-35%. Patient was determined to be in CHF exacerbation, and Trops most likely due to demand ischemia. Patient was treated with Lasix during hospitalization. Patient is on beta natalie for cardiomyopathy but ACEI were not given due to poor renal function During hospitalization patient was noted to have a UTI, she was given azithromycin and rocephin in the ED, and switched to Levaquin. JEREMIE on CKD Discharge discussed with: patient - Time Spent with Patient Total time spent providing and/or coordinating discharge services: 40 minutes Greater than 30 minutes - Discharge Medications Home Medications: Aspirin 81 mg PO DAILY #90 tab.chew 07/31/16 [Rx] Atorvastatin [Lipitor] 40 mg PO HS #30 tablet 07/31/16 [Rx] Isosorbide MONOnitrate (24 HR) [Imdur] 60 mg PO DAILY #60 tab.er.24h 07/31/16 [ Rx] Metformin HCl [Metformin HCl ER] 500 mg PO DAILY #30 [id number] 07/31/16 [Rx] Nitroglycerin 0.4 mg SL Q5MIN PRN #15 tab.subl 07/31/16 [Rx] hydrALAZINE [HydrALAZINE] 25 mg PO Q6HR #90 tablet 07/31/16 [Rx] Clopidogrel [Plavix] 75 mg PO DAILY #30 tablet 12/14/17 [Rx] Furosemide [Lasix] 20 mg PO DAILY #30 tablet 12/14/17 [Rx] Lisinopril [Zestril] 5 mg PO DAILY #30 tablet 12/14/17 [Rx] Metoprolol XL (24 HR) Succ [Toprol Xl] 25 mg PO DAILY #30 tab.er.24h 12/14/17 [ Rx] Levothyroxine [Synthroid] 25 mcg PO 0630 03/05/18 [History] Allergies/Adverse Reactions: 3 Allergy/AdvReac Type Severity Reaction Status Date / Time No Known Allergies Allergy Verified 03/05/18 16:07 Date of admission: 03/05/18 20:45 Primary care physician: Carol Ely Consults: 03/06/18 09:37 Consult to Invasive Line Access Team [CONS] Routine Reason for Consult: limited access Line Type: EPIV 03/06/18 09:45 Consult to Cardiology [CONS] Routine Comment: Consulting Provider: Cardiology [place] Reason for Consult: abnormal ekg, hfref Call Completed: Yes 03/06/18 16:34 Consult to Occupational Therapy [CONS] Routine Comment: Evaluate, develop and implement POC Reason for Consult: home with daughter Does patient have active BEDREST order?: No Is patient medically & hemodynamically stable?: Yes Patient assessed for mobility or mobilized this visit?: No Consult to Physical Therapy [CONS] Routine Comment: Evaluate, develop and implement POC Reason for Consult: home with daughter Does patient have active BEDREST order?: No Is patient medically & hemodynamically stable?: Yes Patient assessed for mobility or mobilized this visit?: Yes Discharging clinician: Jonathan Brito Anticipated date of discharge: 03/08/18 - Constitutional Vitals: Temp Pulse Resp BP Pulse Ox 97.3 F L 92 18 143/74 95 03/08/18 07:18 03/08/18 07:18 03/08/18 07:18 03/08/18 07:18 03/08/18 07:18 General appearance: Present: cooperative, A&O X 2, pleasant, no acute distress - Patient Status Condition: Good - Discharge Instructions Follow Up With: Carol Odom [Primary Care Provider] -
--- NOTE | 2018-03-08 13:12 | Internal Med Progress Note ---
<Jonathan Brito - Last Filed: 03/08/18 13:24> Date of Encounter: 03/08/18 Time of Encounter: 10:00 - Assessment and plan (1) Acute on chronic renal failure Current Visit: Yes Status: Acute Assessment and plan: Cr on Admission 2.33, baseline is ~1.5. Today Cr continued to worsen today. Patient has BUN of 42, patient has no signs of bleeding but hgb did drop from 13.0 to 11.9 and patient feels weaker today. - avoid nephrotoxins; held lasix today - ordered Urine Cr and BUN - renally dose levaquin - stopped acei, and aldactone - strict I/O - renal + cardiac diet - will continue to closely monitor renal function, if worsens will bring nephro on board. Qualifiers: Chronic kidney disease stage: stage 3 (moderate) (2) Elevated troponin Current Visit: Yes Status: Acute Assessment and plan: Trops since admission 0.12, 0.13, 0.18, 0.11. Baseline elevation in trops ~ 0.04. Most likely demand ischemia from CHF exacerbation, but will empirically treat as NSTEMI. EKG reordered due to irregular rate on physical exam, EKG showed abnormalities and possible block. Consulted cardiology. recent [facility] 2017 w/ PCI to pDX and LAD. Cardio does not suspect NSTEMI. they recommended d /c of heparin drip. echo LVEF 30-35%, which is improvement from last echo. - continue home BP meds. - Cardiology consulted; appreciate their input. continue ASA, plavix, statin, bb - cardiac diet (3) CHF exacerbation Current Visit: Yes Status: Acute Assessment and plan: Patient has known HFrEF, with LVEF of 20-25%, last echo 11/2817. Patient has symptoms of SOB at rest, orthopnea, but denies PND or leg swelling. CXR in ED was consistent with CHF and cardiomegaly. BNP 4015. Patient today continues to report cough, but her breathing symptoms are better. she does note of chest congestion today. - ordered follow up CXR - holding ACEI and spirinolactone due to JEREMIE - holding lasix for now due to worsening kidney funciton - fluid restriction 1.5L, and Na 2g. - strict I/O and weights Qualifiers: Heart failure type: combined systolic and diastolic Qualified Code(s): I50.43 - Acute on chronic combined systolic (congestive) and diastolic ( congestive) heart failure (4) Hypertensive urgency Current Visit: Yes Status: Acute Assessment and plan: see above (5) DMII (diabetes mellitus, type 2) Current Visit: Yes Status: Chronic Assessment and plan: continue SSI medium. BG has been uncontrolled since hospitalization, most likely in the setting of UTI. Will closely follow and if continues to increase will increase dose. Qualifiers: Diabetes mellitus termite helper insulin use: without senior living use Diabetes mellitus complication status: with kidney complications Diabetes mellitus complication detail: with chronic kidney disease Chronic kidney disease stage : stage 3 (moderate) Qualified Code(s): E11.22 - Type 2 diabetes mellitus with diabetic chronic kidney disease; N18.3 - Chronic kidney disease, stage 3 ( moderate); N18.3 - Chronic kidney disease, stage 3 (moderate) (6) HLD (hyperlipidemia) Current Visit: Yes Status: Chronic Assessment and plan: - Continue home medications. Qualifiers: Hyperlipidemia type: unspecified Qualified Code(s): E78.5 - Hyperlipidemia , unspecified (7) Hypokalemia Current Visit: Yes Status: Acute Assessment and plan: K+ continued to decline today, will replenish orally. (8) Hypothyroidism Current Visit: Yes Status: Chronic Assessment and plan: TSH elevated 8.202. - levothyroxine increased to 50 on this admission. Qualifiers: Hypothyroidism type: unspecified Qualified Code(s): E03.9 - Hypothyroidism , unspecified (9) UTI (urinary tract infection) Current Visit: Yes Status: Suspected Assessment and plan: PAtient was given 1 dose of azithromycin and rocephin in ED, and then was switched to Levaquin. Patient is currently in JEREMIE, will not change abx until cultures return. U/A nit and leuk positive. - Cx pending - continue renal dosed levaquin Qualifiers: Urinary tract infection type: acute cystitis Hematuria presence: without hematuria Qualified Code(s): N30.00 - Acute cystitis without hematuria (10) DVT prophylaxis Current Visit: Yes Status: Acute Assessment and plan: mechanical (11) Irregular heart rate Current Visit: Yes Status: Acute Assessment and plan: Patient was tachy on this admission. On exam HR and pulse were irregular. Ordered EKG which confirmed irregular rate, and possible block. Consulted Cardio. see above for further management. - Time Spent With Patient Total time spent is greater than 50% in coordination of care (as documented) at patient's floor/unit and/or counseling patient: - Subjective Interval history: Ms Decker is a 67 yo F w/ pmh of dementia, htn, hld, ischemic cardiomyopathy, CHF, hypothyroid, aoritc aneurysm, T2DM presented with SOB and cough. Patient states today she is having trouble speaking because of all the congestion in her chest. She also reports feeling weak in general today. Patient denies fluttering in her chest, chest pain, difficulty breathing today, swelling, nausea, vomiting. - Constitutional Vitals: Temp Pulse Resp BP Pulse Ox 97.6 F 80 18 140/86 96 03/08/18 11:25 03/08/18 11:25 03/08/18 11:25 03/08/18 11:25 03/08/18 11:25 General appearance: Present: cooperative, A&O X 2, pleasant, no acute distress Exam: more tired appearing today - Head Head exam: Present: atraumatic, normocephalic - Eye Eye exam: Present: PERRL, conjuntiva pink, sclera anicteric Pupils: Present: PERRL - Neck Neck exam general surgery: Present: supple, trachea midline. Absent: lymphadenopathy - Respiratory Respiratory exam: Present: CTAB. Absent: accessory muscle use, rales, rhonchi, wheezes - Cardiovascular Cardiovascular exam: Present: RRR, +S1, +S2. Absent: diastolic murmur, gallop, rubs, systolic murmur - GI/Abdominal GI/Abdominal exam: Present: normal bowel sounds, soft, no peritoneal signs. Absent: distended, tenderness - Extremities Exam Extremities exam: Present: warm, radial pulses palpable and symmetrical. Absent : calf tenderness, cyanotic, pedal edema - Neurological Exam Neurological exam: Present: alert, CN II-XII intact, no focal deficits. Absent : pronater drift, facial droop, speech deficit Internal Medicine: Result - Labs CBC & Chem 7: 03/08/18 05:11 03/08/18 05:11 Labs: Short CBC 03/08/18 Range/Units 05:11 WBC 9.4 (4.3-11.1) K/mcL Hgb 11.9 (11.5-15.4) g/dL Hct 34.4 L (35.3-44.9) % Plt Count 246 (140-400) K/mcL Neutrophils # 7.6 (1.6-8.9) K/mcL BMP 03/08/18 05:11 Sodium 131 L Potassium 3.2 L Chloride 99 Carbon Dioxide 24 BUN 42 H Creatinine 2.68 H Glucose 144 H Calcium 7.4 L - ABG Interpretation ABG results: PT/INR, D-dimer PT 10.5 Seconds (9.4-12.1) 03/05/18 14:50 - Impressions Impressions Echocardiogram Limited Views 03/06/18 16:41 Impressions: LVEF 30-35%. Mildly dilated left ventricle. Global left ventricular systolic dysfunction. Left Ventricular Wall Motion: Rest Echo Findings The apex, apical inferior, mid inferior, basal inferior, apical anterior, mid anterior, basal anterior, apical septal, mid inferior septal, basal inferior septal, apical lateral, mid anterior lateral, basal anterior lateral, mid anterior septal, mid inferior lateral, basal anterior septal and basal inferior lateral oleary were hypokinetic. Findings: Study Quality * Technically adequate exam. ECG Findings * Normal sinus rhythm. Left Ventricle * LVEF 30-35%. * Mildly dilated left ventricle. * Global left ventricular systolic dysfunction. Right Ventricle * Normal right ventricular structure and function. Aorta * Normally sized aortic root. Pericardium * There is a trivial pericardial effusion present. Consult Discharge Plan - Plan Referrals: Carol Odom [Primary Care Provider] - <Yeison Gomez - Last Filed: 03/08/18 13:51> Date of Encounter: 03/08/18 - Assessment and plan (1) Elevated troponin Current Visit: Yes Status: Acute (2) Hypertensive urgency Current Visit: Yes Status: Acute (3) CHF exacerbation Current Visit: Yes Status: Acute Qualifiers: Heart failure type: combined systolic and diastolic Qualified Code(s): I50.43 - Acute on chronic combined systolic (congestive) and diastolic ( congestive) heart failure (4) DMII (diabetes mellitus, type 2) Current Visit: Yes Status: Chronic Qualifiers: Diabetes mellitus termite helper insulin use: without senior living use Diabetes mellitus complication status: with kidney complications Diabetes mellitus complication detail: with chronic kidney disease Chronic kidney disease stage : stage 3 (moderate) Qualified Code(s): E11.22 - Type 2 diabetes mellitus with diabetic chronic kidney disease; N18.3 - Chronic kidney disease, stage 3 ( moderate); N18.3 - Chronic kidney disease, stage 3 (moderate) (5) HLD (hyperlipidemia) Current Visit: Yes Status: Chronic Qualifiers: Hyperlipidemia type: unspecified Qualified Code(s): E78.5 - Hyperlipidemia , unspecified (6) Hypokalemia Current Visit: Yes Status: Acute (7) DVT prophylaxis Current Visit: Yes Status: Acute (8) Hypothyroidism Current Visit: Yes Status: Chronic Qualifiers: Hypothyroidism type: unspecified Qualified Code(s): E03.9 - Hypothyroidism , unspecified (9) Acute on chronic renal failure Current Visit: Yes Status: Acute Qualifiers: Chronic kidney disease stage: stage 3 (moderate) (10) UTI (urinary tract infection) Current Visit: Yes Status: Suspected Qualifiers: Urinary tract infection type: acute cystitis Hematuria presence: without hematuria Qualified Code(s): N30.00 - Acute cystitis without hematuria (11) Irregular heart rate Current Visit: Yes Status: Acute - Time Spent With Patient Total time spent is greater than 50% in coordination of care (as documented) at patient's floor/unit and/or counseling patient: - Constitutional Vitals: Temp Pulse Resp BP Pulse Ox 97.6 F 80 18 140/86 96 03/08/18 11:25 03/08/18 11:25 03/08/18 11:25 03/08/18 11:25 03/08/18 11:25 Internal Medicine: Result - Labs CBC & Chem 7: 03/08/18 05:11 03/08/18 05:11 Labs: Short CBC 03/08/18 Range/Units 05:11 WBC 9.4 (4.3-11.1) K/mcL Hgb 11.9 (11.5-15.4) g/dL Hct 34.4 L (35.3-44.9) % Plt Count 246 (140-400) K/mcL Neutrophils # 7.6 (1.6-8.9) K/mcL BMP 03/08/18 05:11 Sodium 131 L Potassium 3.2 L Chloride 99 Carbon Dioxide 24 BUN 42 H Creatinine 2.68 H Glucose 144 H Calcium 7.4 L - ABG Interpretation ABG results: PT/INR, D-dimer PT 10.5 Seconds (9.4-12.1) 03/05/18 14:50 - Attending Attestation Acute systolic CHF exacerbation with an ejection fraction of 20-25% BNP is 4015 Discontinue Lasix due to worsening creatinine Irregular rhythm cardiology recommendations appreciated Hypokalemia, replete potassium Acute on chronic renal failure with history of chronic kidney disease stage III Elevated troponins likely secondary to demand ischemia I examined this patient and my medical decision-making was reviewed with the Resident Physician. I agree with the documented findings, disposition and treatment plan as described except to the extent set forth below.
[2018-03-08] MEDS: *HR* Heparin 5,000 UNIT/ML VIAL SQ SCH (17:15)
[2018-03-08] MEDS: 0.9 % Sodium Chloride 1,000 ML IVC SCH (17:38)
--- NOTE | 2018-03-08 18:23 | Electrocardiograph Report ---
[address] [place], [place] [address] Test Date: 2018-03-05 Pat Name: [facility] Department: [facility] Room: [facility] Gender: F Corporate Intern: Concha : 1950 Requested By: Harshil Jeter Order Number: [id number] Reading MD: Dyan Mendez Measurements Intervals [place] Rate: 106 P: 69 OK: 166 QRS: 0 QRSD: 101 T: 126 QT: 368 QTc: 430 Interpretive Statements SINUS TACHYCARDIA WITH OCCASIONAL SUPRAVENTRICULAR PREMATURE COMPLEXES NONSPECIFIC T-WAVE ABNORMALITY Electronically Signed On 03-08-2018 18:21:40 EDT by Dyan Mendez
--- NOTE | 2018-03-08 19:37 | Electrocardiograph Report ---
[address] [place], [place] [address] Test Date: 2018-03-06 Pat Name: [facility] Department: [facility] Room: [facility] Gender: F Director Of Materials: : 1950 Requested By: Jonathan Brito Order Number: [id number] Reading MD: Dyan Mendez Measurements Intervals [place] Rate: 98 P: 59 SC: 158 QRS: 1 QRSD: 93 T: 137 QT: 374 QTc: 430 Interpretive Statements SINUS RHYTHM WITH OCCASIONAL VENTRICULAR PREMATURE COMPLEXES WITH FREQUENT SUPRAVENTRICULAR PREMATURE COMPLEXES NONSPECIFIC T-WAVE ABNORMALITY Electronically Signed On 03-08-2018 19:35:59 EDT by Dyan Mendez
[2018-03-08] MEDS: levoFLOXacin 250 MG TABLET PO SCH (22:25)
[2018-03-08 23:18] LABS: Creatinine,Urine 56 mg/dL
[2018-03-09] MEDS: hydrALAZINE 25 MG TABLET PO SCH ×5 (02:07→23:55)
[2018-03-09 04:03] LABS: Basophils % 0.1 %; Eosinophils % 0.2 %; Hematocrit 32.9 % (35.3-44.9); Hemoglobin 11.2 g/dL (11.5-15.4); Immature Granulocytes % 0.5 % (0-4); Lymphocytes # 0.8 K/mcL (0.6-4.6); Lymphocytes % 9.9 %; Mean Corpuscular Volume 85.2 fL (83.0-100.0); Mean Platelet Volume 9.7 fL (9.4-12.4); Monocytes # 0.7 K/mcL (0.0-1.3); Neutrophils # 6.6 K/mcL (1.6-8.9); Platelet Count 249 K/mcL (140-400); Red Blood Count 3.86 M/mcL (3.82-4.97); Red Cell Distribution Width 14.1 % (11.5-14.5); Segmented Neutrophils % 81.3 %
[2018-03-09 04:26] LABS: Calcium 7.5 mg/dL (8.6-10.3); Potassium 3.5 mEq/L (3.5-5.1)
[2018-03-09] MEDS: *HR* Heparin 5,000 UNIT/ML VIAL SQ SCH ×2 (06:08→17:03)
[2018-03-09] MEDS: Metoprolol XL (24 HR) Succ 25 MG TAB.ER.24H PO SCH (08:37)
[2018-03-09] MEDS: Aspirin 81 MG TAB.CHEW PO SCH (08:37)
[2018-03-09] MEDS: Insulin LISPRO 300 UNITS/3 ML VIAL SQ SCH ×4 (08:37→21:38)
[2018-03-09] MEDS: Isosorbide MONOnitrate (24 HR) 60 MG TAB.ER.24H PO SCH (08:37)
--- NOTE | 2018-03-09 14:24 | Internal Med Progress Note ---
<Jose Marsh - Last Filed: 03/09/18 14:07> Date of Encounter: 03/09/18 Time of Encounter: 14:07 - Assessment and plan (1) CHF exacerbation Current Visit: Yes Status: Acute Assessment and plan: Euvolemic today in no respiratory distress. Gently hydrating for JEREMIE and holding lasix for same reason. Patient has known HFrEF, with LVEF of 20-25%, last echo 11/2817. Patient has symptoms of SOB at rest, orthopnea, but denies PND or leg swelling. CXR in ED was consistent with CHF and cardiomegaly. BNP 4015. Patient today continues to report cough, but her breathing symptoms are better. she does note of chest congestion today. - ordered follow up CXR - holding ACEI and spirinolactone due to JEREMIE - holding lasix for now due to worsening kidney funciton - fluid restriction 1.5L, and Na 2g. - strict I/O and weights Qualifiers: Heart failure type: combined systolic and diastolic Qualified Code(s): I50.43 - Acute on chronic combined systolic (congestive) and diastolic ( congestive) heart failure (2) Acute on chronic renal failure Current Visit: Yes Status: Acute Assessment and plan: Creat 2.8 today which is worse than prior; cont gentle hydration and recheck in AM. May consult nephro if continues to worsen despite this. Holding Lasix for now. Cr on Admission 2.33, baseline is ~1.5. Today Cr continued to worsen today. Patient has BUN of 42, patient has no signs of bleeding but hgb did drop from 13.0 to 11.9 and patient feels weaker today. - avoid nephrotoxins; held lasix today - ordered Urine Cr and BUN - renally dose levaquin - stopped acei, and aldactone - strict I/O - renal + cardiac diet - will continue to closely monitor renal function, if worsens will bring nephro on board. Qualifiers: Chronic kidney disease stage: stage 3 (moderate) Qualified Code(s): N17.9 - Acute kidney failure, unspecified; N18.3 - Chronic kidney disease, stage 3 ( moderate); N18.3 - Chronic kidney disease, stage 3 (moderate) (3) UTI (urinary tract infection) Current Visit: Yes Status: Suspected Assessment and plan: PAtient was given 1 dose of azithromycin and rocephin in ED, and then was switched to Levaquin. Patient is currently in JEREMIE, will not change abx until cultures return. U/A nit and leuk positive. - Cx pending - continue renal dosed levaquin Qualifiers: Urinary tract infection type: acute cystitis Hematuria presence: without hematuria Qualified Code(s): N30.00 - Acute cystitis without hematuria (4) Elevated troponin Current Visit: Yes Status: Acute Assessment and plan: Trops since admission 0.12, 0.13, 0.18, 0.11. Baseline elevation in trops ~ 0.04. Most likely demand ischemia from CHF exacerbation, but will empirically treat as NSTEMI. EKG reordered due to irregular rate on physical exam, EKG showed abnormalities and possible block. Consulted cardiology. recent [facility] 2017 w/ PCI to pDX and LAD. Cardio does not suspect NSTEMI. they recommended d /c of heparin drip. echo LVEF 30-35%, which is improvement from last echo. - continue home BP meds. - Cardiology consulted; appreciate their input. continue ASA, plavix, statin, bb - cardiac diet (5) Hypertensive urgency Current Visit: Yes Status: Acute Assessment and plan: BPs controlled (6) DMII (diabetes mellitus, type 2) Current Visit: Yes Status: Chronic Assessment and plan: Added 5u Detemir to be given in AM daily continue SSI medium. BG has been uncontrolled since hospitalization, most likely in the setting of UTI. Will closely follow and if continues to increase will increase dose. Qualifiers: Diabetes mellitus termite control technician insulin use: without senior living use Diabetes mellitus complication status: with kidney complications Diabetes mellitus complication detail: with chronic kidney disease Chronic kidney disease stage : stage 3 (moderate) Qualified Code(s): E11.22 - Type 2 diabetes mellitus with diabetic chronic kidney disease; N18.3 - Chronic kidney disease, stage 3 ( moderate); N18.3 - Chronic kidney disease, stage 3 (moderate) (7) HLD (hyperlipidemia) Current Visit: Yes Status: Chronic Assessment and plan: - Continue home medications. Qualifiers: Hyperlipidemia type: unspecified Qualified Code(s): E78.5 - Hyperlipidemia , unspecified (8) Hypokalemia Current Visit: Yes Status: Acute Assessment and plan: low end of normal; check in AM and replete as needed. (9) Hypothyroidism Current Visit: Yes Status: Chronic Assessment and plan: TSH elevated 8.202. - levothyroxine increased to 50 on this admission. Qualifiers: Hypothyroidism type: unspecified Qualified Code(s): E03.9 - Hypothyroidism , unspecified (10) DVT prophylaxis Current Visit: Yes Status: Acute Assessment and plan: mechanical (11) Irregular heart rate Current Visit: Yes Status: Acute - Time Spent With Patient Total time spent is greater than 50% in coordination of care (as documented) at patient's floor/unit and/or counseling patient: - Subjective Interval history: Pt without any complaints this AM. Renal function worse since prior. Stable respiratory status saturating well on room air. Calm and restful. - Constitutional Vitals: Temp Pulse Resp BP Pulse Ox 98.8 F 78 16 135/60 96 03/09/18 11:06 03/09/18 11:06 03/09/18 11:06 03/09/18 11:06 03/09/18 03:11 CONSTITUTIONAL: restful and no acute distress, denies any acute complaints HEAD: Normocephalic; atraumatic. EYES: PER, no scleral icterus, no drainage, no conjunctival injection NOSE: The nose is normal in appearance without rhinorrhea, no nasal cannula in place Oropharynx: pink/moist RESP: NRD without use of accessory musculature, CTA b/l with no wheezes/rales/ rhonchi CARD: Regular rhythm, without murmurs, rubs, or gallop ABD: grossly normal, soft, non-tender SKIN: normal appearance, no pallor/diaphoresis,mottling,jaundice,cyanosis EXT: Rad pulses 2+ and symmetrical; no pedal edema PSYCH: appropriate mood/affect General appearance: Present: cooperative, A&O X 2, pleasant, no acute distress Internal Medicine: Result - Labs CBC & Chem 7: 03/09/18 03:12 03/09/18 03:12 Labs: Short CBC 03/09/18 Range/Units 03:12 WBC 8.2 (4.3-11.1) K/mcL Hgb 11.2 L (11.5-15.4) g/dL Hct 32.9 L (35.3-44.9) % Plt Count 249 (140-400) K/mcL Neutrophils # 6.6 (1.6-8.9) K/mcL BMP 03/09/18 03:12 Sodium 133 L Potassium 3.5 Chloride 101 Carbon Dioxide 23 BUN 43 H Creatinine 2.80 H Glucose 151 H Calcium 7.5 L - ABG Interpretation ABG results: PT/INR, D-dimer PT 10.5 Seconds (9.4-12.1) 03/05/18 14:50 Consult Discharge Plan - Plan Referrals: Carol Odom [Primary Care Provider] - <Yeison Gomez H - Last Filed: 03/09/18 14:45> Date of Encounter: 03/09/18 - Assessment and plan (1) Elevated troponin Current Visit: Yes Status: Acute (2) Hypertensive urgency Current Visit: Yes Status: Acute (3) CHF exacerbation Current Visit: Yes Status: Acute Qualifiers: Heart failure type: combined systolic and diastolic Qualified Code(s): I50.43 - Acute on chronic combined systolic (congestive) and diastolic ( congestive) heart failure (4) DMII (diabetes mellitus, type 2) Current Visit: Yes Status: Chronic Qualifiers: Diabetes mellitus senior living insulin use: without termite control technician use Diabetes mellitus complication status: with kidney complications Diabetes mellitus complication detail: with chronic kidney disease Chronic kidney disease stage : stage 3 (moderate) Qualified Code(s): E11.22 - Type 2 diabetes mellitus with diabetic chronic kidney disease; N18.3 - Chronic kidney disease, stage 3 ( moderate); N18.3 - Chronic kidney disease, stage 3 (moderate) (5) HLD (hyperlipidemia) Current Visit: Yes Status: Chronic Qualifiers: Hyperlipidemia type: unspecified Qualified Code(s): E78.5 - Hyperlipidemia , unspecified (6) Hypokalemia Current Visit: Yes Status: Acute (7) DVT prophylaxis Current Visit: Yes Status: Acute (8) Hypothyroidism Current Visit: Yes Status: Chronic Qualifiers: Hypothyroidism type: unspecified Qualified Code(s): E03.9 - Hypothyroidism , unspecified (9) Acute on chronic renal failure Current Visit: Yes Status: Acute Qualifiers: Chronic kidney disease stage: stage 3 (moderate) Qualified Code(s): N17.9 - Acute kidney failure, unspecified; N18.3 - Chronic kidney disease, stage 3 ( moderate); N18.3 - Chronic kidney disease, stage 3 (moderate) (10) UTI (urinary tract infection) Current Visit: Yes Status: Suspected Qualifiers: Urinary tract infection type: acute cystitis Hematuria presence: without hematuria Qualified Code(s): N30.00 - Acute cystitis without hematuria (11) Irregular heart rate Current Visit: Yes Status: Acute - Time Spent With Patient Total time spent is greater than 50% in coordination of care (as documented) at patient's floor/unit and/or counseling patient: - Constitutional Vitals: Temp Pulse Resp BP Pulse Ox 98.8 F 78 16 135/60 96 03/09/18 11:06 03/09/18 11:06 03/09/18 11:06 03/09/18 11:06 03/09/18 03:11 Internal Medicine: Result - Labs CBC & Chem 7: 03/09/18 03:12 03/09/18 03:12 Labs: Short CBC 03/09/18 Range/Units 03:12 WBC 8.2 (4.3-11.1) K/mcL Hgb 11.2 L (11.5-15.4) g/dL Hct 32.9 L (35.3-44.9) % Plt Count 249 (140-400) K/mcL Neutrophils # 6.6 (1.6-8.9) K/mcL BMP 03/09/18 03:12 Sodium 133 L Potassium 3.5 Chloride 101 Carbon Dioxide 23 BUN 43 H Creatinine 2.80 H Glucose 151 H Calcium 7.5 L - ABG Interpretation ABG results: PT/INR, D-dimer PT 10.5 Seconds (9.4-12.1) 03/05/18 14:50 - Attending Attestation Acute on chronic renal failure with history of chronic kidney disease stage III mild hydration nephrology consult Acute systolic CHF exacerbation with an ejection fraction of 20-25% BNP was 4015 Discontinued Lasix due to worsening creatinine Irregular rhythm cardiology recommendations appreciated Hypokalemia, repleted potassium Elevated troponins likely secondary to demand ischemia I examined this patient and my medical decision-making was reviewed with the Resident Physician. I agree with the documented findings, disposition and treatment plan as described except to the extent set forth below.
[2018-03-09] MEDS: Insulin DETEMIR 100 UNIT/ML X5UNITS SQ SCH (17:03)
[2018-03-09] MEDS: levoFLOXacin 250 MG TABLET PO SCH (21:38)
[2018-03-10] MEDS: 0.9 % Sodium Chloride 1,000 ML IVC SCH (03:30)
[2018-03-10 03:50] LABS: Basophils % 0.1 %; Eosinophils # 0.1 K/mcL (0.0-0.6); Eosinophils % 0.7 %; Hematocrit 33.4 % (35.3-44.9); Hemoglobin 11.1 g/dL (11.5-15.4); Immature Granulocytes % 0.4 % (0-4); Lymphocytes # 1.1 K/mcL (0.6-4.6); Lymphocytes % 11.5 %; Mean Corpuscular HGB Conc 33.2 g/dL (31.6-35.5); Mean Corpuscular Hemoglobin 28.8 pg (28.0-33.3); Mean Corpuscular Volume 86.5 fL (83.0-100.0); Mean Platelet Volume 9.5 fL (9.4-12.4); Monocytes # 0.7 K/mcL (0.0-1.3); Monocytes % 7.2 %; Neutrophils # 7.3 K/mcL (1.6-8.9); Platelet Count 238 K/mcL (140-400); Red Blood Count 3.86 M/mcL (3.82-4.97); Segmented Neutrophils % 80.1 %
[2018-03-10 04:26] LABS: Calcium 7.3 mg/dL (8.6-10.3); Potassium 3.4 mEq/L (3.5-5.1)
[2018-03-10] MEDS: hydrALAZINE 25 MG TABLET PO SCH ×3 (06:30→16:30)
[2018-03-10] MEDS: *HR* Heparin 5,000 UNIT/ML VIAL SQ SCH ×2 (06:30→16:30)
[2018-03-10 07:30] LABS: Estimated Average Glucose 283 mg/dl; Hemoglobin A1C 11.5 %
[2018-03-10] MEDS ORDERED: Potassium Chloride Elixir 20 MEQ/15 ML UDC PO ONE (07:48)
--- NOTE | 2018-03-10 09:08 | Internal Med Progress Note ---
<Jose Marsh - Last Filed: 03/10/18 09:02> Date of Encounter: 03/10/18 Time of Encounter: 08:45 - Assessment and plan (1) CHF exacerbation Current Visit: Yes Status: Acute Assessment and plan: Associated elevated troponin, irregular heart rate, & hyperlipidemia. Has also been hypokalemia. Admitted with hypertensive urgency, BPs currently within reasonable control. Euvolemic today in no respiratory distress. Gently hydrating for JEREMIE and holding lasix for same reason. Patient has known HFrEF, with LVEF of 20-25%, last echo 11/2817. Patient has symptoms of SOB at rest, orthopnea, but denies PND or leg swelling. CXR in ED was consistent with CHF and cardiomegaly. BNP 4015. Patient today continues to report cough, but her breathing symptoms are better. she does note of chest congestion today. - ordered follow up CXR - holding ACEI and spirinolactone due to JEREMIE - holding lasix for now due to worsening kidney funciton - fluid restriction 1.5L, and Na 2g. - strict I/O and weights Qualifiers: Heart failure type: combined systolic and diastolic Qualified Code(s): I50.43 - Acute on chronic combined systolic (congestive) and diastolic ( congestive) heart failure (2) Acute on chronic renal failure Current Visit: Yes Status: Acute Qualifiers: Chronic kidney disease stage: stage 3 (moderate) Qualified Code(s): N17.9 - Acute kidney failure, unspecified; N18.3 - Chronic kidney disease, stage 3 ( moderate); N18.3 - Chronic kidney disease, stage 3 (moderate) (3) DMII (diabetes mellitus, type 2) Current Visit: Yes Status: Chronic Assessment and plan: Added 5u Detemir to be given in AM daily continue SSI medium. BG has been uncontrolled since hospitalization, most likely in the setting of UTI. Will closely follow and if continues to increase will increase dose. Qualifiers: Diabetes mellitus snf insulin use: without master tax advisor use Diabetes mellitus complication status: with kidney complications Diabetes mellitus complication detail: with chronic kidney disease Chronic kidney disease stage : stage 3 (moderate) Qualified Code(s): E11.22 - Type 2 diabetes mellitus with diabetic chronic kidney disease; N18.3 - Chronic kidney disease, stage 3 ( moderate); N18.3 - Chronic kidney disease, stage 3 (moderate) (4) Hypokalemia Current Visit: Yes Status: Acute Assessment and plan: Slightly low, gave single-dose of 20 mEq PO this morning. Recheck tomorrow morning. (5) Hypothyroidism Current Visit: Yes Status: Chronic Assessment and plan: TSH elevated 8.202. Cont current Synthroid. Qualifiers: Hypothyroidism type: unspecified Qualified Code(s): E03.9 - Hypothyroidism , unspecified (6) DVT prophylaxis Current Visit: Yes Status: Acute Assessment and plan: mechanical (7) UTI (urinary tract infection) Current Visit: Yes Status: Suspected Qualifiers: Urinary tract infection type: acute cystitis Hematuria presence: without hematuria Qualified Code(s): N30.00 - Acute cystitis without hematuria - Time Spent With Patient Total time spent is greater than 50% in coordination of care (as documented) at patient's floor/unit and/or counseling patient: - Subjective Interval history: Pt without any complaints this AM. Patient removed her IV yesterday afternoon requiring replacement and use of a sitter. Patient has been calm in the interim and is currently restful. No new concerns per nursing. - Constitutional Vitals: Temp Pulse Resp BP Pulse Ox 98.4 F 92 16 136/79 98 03/10/18 07:37 03/10/18 07:37 03/10/18 07:37 03/10/18 07:37 03/10/18 07:37 CONSTITUTIONAL: restful and no acute distress, sitter present states uneventful morning, denies any acute complaints HEAD: Normocephalic; atraumatic. EYES: PER, no scleral icterus, no drainage, no conjunctival injection NOSE: The nose is normal in appearance without rhinorrhea, no nasal cannula in place Oropharynx: pink/moist RESP: NRD without use of accessory musculature, CTA b/l with no wheezes/rales/ rhonchi CARD: Regular rhythm, without murmurs, rubs, or gallop ABD: grossly normal, soft, non-tender SKIN: normal appearance, no pallor/diaphoresis,mottling,jaundice,cyanosis EXT: Rad pulses 2+ and symmetrical; no pedal edema PSYCH: appropriate mood/affect Internal Medicine: Result - Labs CBC & Chem 7: 03/10/18 03:36 03/10/18 03:36 Labs: Short CBC 04/29/18 Range/Units 03:36 WBC 9.2 (4.3-11.1) K/mcL Hgb 11.1 L (11.5-15.4) g/dL Hct 33.4 L (35.3-44.9) % Plt Count 238 (140-400) K/mcL Neutrophils # 7.3 (1.6-8.9) K/mcL BMP 03/10/18 03:36 Sodium 133 L Potassium 3.4 L Chloride 103 Carbon Dioxide 25 BUN 43 H Creatinine 2.54 H Glucose 154 H Calcium 7.3 L - ABG Interpretation ABG results: PT/INR, D-dimer PT 10.5 Seconds (9.4-12.1) 03/05/18 14:50 Consult Discharge Plan - Plan Referrals: Carol Odom [Primary Care Provider] - <Yeison Gomez - Last Filed: 03/10/18 11:59> Date of Encounter: 03/10/18 - Assessment and plan (1) CHF exacerbation Current Visit: Yes Status: Acute Qualifiers: Heart failure type: combined systolic and diastolic Qualified Code(s): I50.43 - Acute on chronic combined systolic (congestive) and diastolic ( congestive) heart failure (2) DMII (diabetes mellitus, type 2) Current Visit: Yes Status: Chronic Qualifiers: Diabetes mellitus snf insulin use: without snf use Diabetes mellitus complication status: with kidney complications Diabetes mellitus complication detail: with chronic kidney disease Chronic kidney disease stage : stage 3 (moderate) Qualified Code(s): E11.22 - Type 2 diabetes mellitus with diabetic chronic kidney disease; N18.3 - Chronic kidney disease, stage 3 ( moderate); N18.3 - Chronic kidney disease, stage 3 (moderate) (3) Hypokalemia Current Visit: Yes Status: Acute (4) DVT prophylaxis Current Visit: Yes Status: Acute (5) Hypothyroidism Current Visit: Yes Status: Chronic Qualifiers: Hypothyroidism type: unspecified Qualified Code(s): E03.9 - Hypothyroidism , unspecified (6) Acute on chronic renal failure Current Visit: Yes Status: Acute Qualifiers: Chronic kidney disease stage: stage 3 (moderate) Qualified Code(s): N17.9 - Acute kidney failure, unspecified; N18.3 - Chronic kidney disease, stage 3 ( moderate); N18.3 - Chronic kidney disease, stage 3 (moderate) (7) UTI (urinary tract infection) Current Visit: Yes Status: Suspected Qualifiers: Urinary tract infection type: acute cystitis Hematuria presence: without hematuria Qualified Code(s): N30.00 - Acute cystitis without hematuria - Time Spent With Patient Total time spent is greater than 50% in coordination of care (as documented) at patient's floor/unit and/or counseling patient: - Constitutional Vitals: Temp Pulse Resp BP Pulse Ox 97.9 F 78 16 134/72 98 03/10/18 11:27 03/10/18 11:27 03/10/18 11:27 03/10/18 11:27 03/10/18 11:27 Internal Medicine: Result - Labs CBC & Chem 7: 03/10/18 03:36 03/10/18 03:36 Labs: Short CBC 03/10/18 Range/Units 03:36 WBC 9.2 (4.3-11.1) K/mcL Hgb 11.1 L (11.5-15.4) g/dL Hct 33.4 L (35.3-44.9) % Plt Count 238 (140-400) K/mcL Neutrophils # 7.3 (1.6-8.9) K/mcL BMP 03/10/18 03:36 Sodium 133 L Potassium 3.4 L Chloride 103 Carbon Dioxide 25 BUN 43 H Creatinine 2.54 H Glucose 154 H Calcium 7.3 L - ABG Interpretation ABG results: PT/INR, D-dimer PT 10.5 Seconds (9.4-12.1) 03/05/18 14:50 - Attending Attestation Acute on chronic renal failure with history of chronic kidney disease stage III mild hydration nephrology consulted, recommendations appreciated IV fluids with potassium Acute systolic CHF exacerbation with an ejection fraction of 20-25% BNP was 4015 Discontinued Lasix due to worsening creatinine Irregular rhythm , cardiology signed off. Hypokalemia, replete potassium Elevated troponins likely secondary to demand ischemia I examined this patient and my medical decision-making was reviewed with the Resident Physician. I agree with the documented findings, disposition and treatment plan as described except to the extent set forth below.
[2018-03-10] MEDS: Metoprolol XL (24 HR) Succ 25 MG TAB.ER.24H PO SCH (09:31)
[2018-03-10] MEDS: Aspirin 81 MG TAB.CHEW PO SCH (09:31)
[2018-03-10] MEDS: Insulin LISPRO 300 UNITS/3 ML VIAL SQ SCH ×4 (09:31→20:40)
[2018-03-10] MEDS: Isosorbide MONOnitrate (24 HR) 60 MG TAB.ER.24H PO SCH (09:31)
[2018-03-10] MEDS: Insulin DETEMIR 100 UNIT/ML X5UNITS SQ SCH (09:33)
[2018-03-10] MEDS: levoFLOXacin 250 MG TABLET PO SCH (20:40)
[2018-03-10] MEDS: Acetaminophen 325 MG TABLET PO PRN (21:36)
[2018-03-11] MEDS: hydrALAZINE 25 MG TABLET PO SCH ×5 (00:13→23:21)
[2018-03-11 05:40] LABS: Basophils % 0.1 %; Eosinophils # 0.1 K/mcL (0.0-0.6); Eosinophils % 1.1 %; Hematocrit 33.4 % (35.3-44.9); Immature Granulocytes % 0.5 % (0-4); Lymphocytes # 1.1 K/mcL (0.6-4.6); Lymphocytes % 10.6 %; Mean Corpuscular HGB Conc 32.9 g/dL (31.6-35.5); Mean Corpuscular Hemoglobin 28.7 pg (28.0-33.3); Mean Corpuscular Volume 87.2 fL (83.0-100.0); Mean Platelet Volume 9.7 fL (9.4-12.4); Monocytes # 0.8 K/mcL (0.0-1.3); Monocytes % 7.6 %; Neutrophils # 8.4 K/mcL (1.6-8.9); Platelet Count 240 K/mcL (140-400); Red Blood Count 3.83 M/mcL (3.82-4.97); Red Cell Distribution Width 14.3 % (11.5-14.5); Segmented Neutrophils % 80.1 %
[2018-03-11 05:53] LABS: Calcium 7.3 mg/dL (8.6-10.3); Potassium 3.8 mEq/L (3.5-5.1)
[2018-03-11] MEDS: *HR* Heparin 5,000 UNIT/ML VIAL SQ SCH ×2 (06:22→17:00)
[2018-03-11] MEDS: Acetaminophen 325 MG TABLET PO PRN ×2 (06:23→12:57)
[2018-03-11] MEDS: Aspirin 81 MG TAB.CHEW PO SCH (08:12)
[2018-03-11] MEDS: Isosorbide MONOnitrate (24 HR) 60 MG TAB.ER.24H PO SCH (08:12)
[2018-03-11] MEDS: Metoprolol XL (24 HR) Succ 25 MG TAB.ER.24H PO SCH (08:12)
[2018-03-11] MEDS: Insulin DETEMIR 100 UNIT/ML X5UNITS SQ SCH (08:12)
[2018-03-11] MEDS: Insulin LISPRO 300 UNITS/3 ML VIAL SQ SCH ×4 (08:14→23:26)
--- NOTE | 2018-03-11 10:33 | Internal Med Progress Note ---
<Jose Marsh - Last Filed: 03/11/18 10:30> Date of Encounter: 03/11/18 Time of Encounter: 10:30 - Assessment and plan (1) CHF exacerbation Current Visit: Yes Status: Acute Assessment and plan: Associated elevated troponin, irregular heart rate, & hyperlipidemia. Has also been hypokalemic. Admitted with hypertensive urgency, BPs currently within reasonable control. Patient has known HFrEF, with LVEF of 20-25%, last echo 11/2817. Patient has symptoms of SOB at rest, orthopnea, but denies PND or leg swelling. CXR in ED was consistent with CHF and cardiomegaly. BNP 4015. Patient today continues to report cough, but her breathing symptoms are better. she does note of chest congestion today. Lungs clear without any signs of volume overload and no pedal edema today; stable euvolimic volume status. Had JEREMIE on CKD associated with diuresis. - Gently hydrating at this time - holding ACEI and spirinolactone due to JEREMIE - holding lasix for now due to worsening kidney funciton - strict I/O and weights - waiting nephrology input Qualifiers: Heart failure type: combined systolic and diastolic Qualified Code(s): I50.43 - Acute on chronic combined systolic (congestive) and diastolic ( congestive) heart failure (2) Acute on chronic renal failure Current Visit: Yes Status: Acute Assessment and plan: Cr on Admission 2.33, baseline is ~1.5. Creat 2.3 today which is worse than prior; cont gentle hydration and recheck in AM. All plans as above Qualifiers: Chronic kidney disease stage: stage 3 (moderate) Qualified Code(s): N17.9 - Acute kidney failure, unspecified; N18.3 - Chronic kidney disease, stage 3 ( moderate); N18.3 - Chronic kidney disease, stage 3 (moderate) (3) DMII (diabetes mellitus, type 2) Current Visit: Yes Status: Chronic Assessment and plan: Added 5u Detemir to be given in AM daily continue SSI medium. BG has been uncontrolled since hospitalization, most likely in the setting of UTI. Will closely follow and if continues to increase will increase dose. Qualifiers: Diabetes mellitus loom fixer insulin use: without prison use Diabetes mellitus complication status: with kidney complications Diabetes mellitus complication detail: with chronic kidney disease Chronic kidney disease stage : stage 3 (moderate) Qualified Code(s): E11.22 - Type 2 diabetes mellitus with diabetic chronic kidney disease; N18.3 - Chronic kidney disease, stage 3 ( moderate); N18.3 - Chronic kidney disease, stage 3 (moderate) (4) Hypokalemia Current Visit: Yes Status: Acute Assessment and plan: Intermittently low on daily checks. Changed IV regimen to include low repletion of potassium. (5) Hypothyroidism Current Visit: Yes Status: Chronic Assessment and plan: TSH elevated 8.202. Cont current Synthroid. Qualifiers: Hypothyroidism type: unspecified Qualified Code(s): E03.9 - Hypothyroidism , unspecified (6) DVT prophylaxis Current Visit: Yes Status: Acute Assessment and plan: mechanical (7) UTI (urinary tract infection) Current Visit: Yes Status: Suspected Assessment and plan: PAtient was given 1 dose of azithromycin and rocephin in ED, and then was switched to Levaquin. Patient is currently in JEREMIE, will not change abx until cultures return. U/A nit and leuk positive. - Cx negative - continue renal dosed levaquin - day 4 Qualifiers: Urinary tract infection type: acute cystitis Hematuria presence: without hematuria Qualified Code(s): N30.00 - Acute cystitis without hematuria - Time Spent With Patient Total time spent is greater than 50% in coordination of care (as documented) at patient's floor/unit and/or counseling patient: - Subjective Interval history: Patient wrestling presence of a sister. Sitter states patient did not sleep well at night. Patient has no acute complaints at this time. Explained to patient that we are watching her renal function. - Constitutional Vitals: Temp Pulse Resp BP Pulse Ox 98.8 F 80 17 142/79 97 03/11/18 04:56 03/11/18 06:35 03/11/18 06:35 03/11/18 06:35 03/11/18 06:35 stable exam from 03/10/18 CONSTITUTIONAL: restful and no acute distress, sitter present states uneventful morning, denies any acute complaints HEAD: Normocephalic; atraumatic. EYES: PER, no scleral icterus, no drainage, no conjunctival injection NOSE: The nose is normal in appearance without rhinorrhea, no nasal cannula in place Oropharynx: pink/moist RESP: NRD without use of accessory musculature, CTA b/l with no wheezes/rales/ rhonchi CARD: Regular rhythm, without murmurs, rubs, or gallop ABD: grossly normal, soft, non-tender SKIN: normal appearance, no pallor/diaphoresis,mottling,jaundice,cyanosis EXT: Rad pulses 2+ and symmetrical; no pedal edema PSYCH: appropriate mood/affect Internal Medicine: Result - Labs CBC & Chem 7: 03/11/18 05:07 03/11/18 05:07 Labs: Short CBC 03/11/18 Range/Units 05:07 WBC 10.5 (4.3-11.1) K/mcL Hgb 11.0 L (11.5-15.4) g/dL Hct 33.4 L (35.3-44.9) % Plt Count 240 (140-400) K/mcL Neutrophils # 8.4 (1.6-8.9) K/mcL BMP 03/11/18 05:07 Sodium 132 L Potassium 3.8 Chloride 104 Carbon Dioxide 22 L BUN 44 H Creatinine 2.30 H Glucose 180 H Calcium 7.3 L - ABG Interpretation ABG results: PT/INR, D-dimer PT 10.5 Seconds (9.4-12.1) 03/05/18 14:50 Consult Discharge Plan - Plan Referrals: Carol Odom [Primary Care Provider] - <Yeison Gomez - Last Filed: 03/11/18 10:40> Date of Encounter: 03/11/18 - Assessment and plan (1) CHF exacerbation Current Visit: Yes Status: Acute Qualifiers: Heart failure type: combined systolic and diastolic Qualified Code(s): I50.43 - Acute on chronic combined systolic (congestive) and diastolic ( congestive) heart failure (2) DMII (diabetes mellitus, type 2) Current Visit: Yes Status: Chronic Qualifiers: Diabetes mellitus prison insulin use: without loom fixer use Diabetes mellitus complication status: with kidney complications Diabetes mellitus complication detail: with chronic kidney disease Chronic kidney disease stage : stage 3 (moderate) Qualified Code(s): E11.22 - Type 2 diabetes mellitus with diabetic chronic kidney disease; N18.3 - Chronic kidney disease, stage 3 ( moderate); N18.3 - Chronic kidney disease, stage 3 (moderate) (3) Hypokalemia Current Visit: Yes Status: Acute (4) DVT prophylaxis Current Visit: Yes Status: Acute (5) Hypothyroidism Current Visit: Yes Status: Chronic Qualifiers: Hypothyroidism type: unspecified Qualified Code(s): E03.9 - Hypothyroidism , unspecified (6) Acute on chronic renal failure Current Visit: Yes Status: Acute Qualifiers: Chronic kidney disease stage: stage 3 (moderate) Qualified Code(s): N17.9 - Acute kidney failure, unspecified; N18.3 - Chronic kidney disease, stage 3 ( moderate); N18.3 - Chronic kidney disease, stage 3 (moderate) (7) UTI (urinary tract infection) Current Visit: Yes Status: Suspected Qualifiers: Urinary tract infection type: acute cystitis Hematuria presence: without hematuria Qualified Code(s): N30.00 - Acute cystitis without hematuria - Time Spent With Patient Total time spent is greater than 50% in coordination of care (as documented) at patient's floor/unit and/or counseling patient: - Constitutional Vitals: Temp Pulse Resp BP Pulse Ox 98.8 F 80 17 142/79 97 03/11/18 04:56 03/11/18 06:35 03/11/18 06:35 03/11/18 06:35 03/11/18 06:35 Internal Medicine: Result - Labs CBC & Chem 7: 03/11/18 05:07 03/11/18 05:07 Labs: Short CBC 03/11/18 Range/Units 05:07 WBC 10.5 (4.3-11.1) K/mcL Hgb 11.0 L (11.5-15.4) g/dL Hct 33.4 L (35.3-44.9) % Plt Count 240 (140-400) K/mcL Neutrophils # 8.4 (1.6-8.9) K/mcL BMP 03/11/18 05:07 Sodium 132 L Potassium 3.8 Chloride 104 Carbon Dioxide 22 L BUN 44 H Creatinine 2.30 H Glucose 180 H Calcium 7.3 L - ABG Interpretation ABG results: PT/INR, D-dimer PT 10.5 Seconds (9.4-12.1) 03/05/18 14:50 - Attending Attestation Acute on chronic renal failure with history of chronic kidney disease stage III Continue mild hydration nephrology consulted, recommendations appreciated IV fluids with potassium Acute systolic CHF exacerbation with an ejection fraction of 20-25% BNP was 4015 Discontinued Lasix due to worsening creatinine Irregular rhythm , cardiology signed off. Hypokalemia, repleted potassium Elevated troponins likely secondary to demand ischemia I examined this patient and my medical decision-making was reviewed with the Resident Physician. I agree with the documented findings, disposition and treatment plan as described except to the extent set forth below.
--- NOTE | 2018-03-11 13:51 | Nephrology Consult Note ---
Date of Encounter: 03/11/18 Time of Encounter: 13:42 Assessment and Plan (1) JEREMIE (acute kidney injury) Current Visit: Yes Status: Acute Scr 2.3 today, 2.53 yesterday. Baseline Scr is 1.5. Continues to be hypokalemic, will trend. NS with 10 K changed to NS to avoid hyperkalemia. Avoid Nephrotoxins and renal dose all medications. Routine labs ordered for in the am. (2) Congestive heart failure (CHF) Current Visit: Yes Status: Acute Per primary team. EF 20-25%. Qualifiers: Heart failure type: systolic Heart failure chronicity: acute on chronic Qualified Code(s): I50.23 - Acute on chronic systolic (congestive) heart failure (3) Hypokalemia Current Visit: Yes Status: Acute Has resolved, replace potassium as needed. (4) Anemia Current Visit: Yes Status: Acute Hgb 10.5 up from 9.2. Iron studies, B12 and Folate ordered for anemia workup. Qualifiers: Qualified Code(s): D64.9 - Anemia, unspecified History of Present Illness - Reason for Consult Consult date: 03/11/18 Acute Kidney Injury, Chronic Kidney Disease (JEREMIE on CKD) - History of Present Illness Ms. Decker is a 67 year old female that has an JEREMIE in the setting of current hospitalization. Admitted 03/05/18 for cough and shortness of breath for 4 days. PMH: dementia, HTN, HLD, diastolic heart failure, DM2 and etc. Family at bedside to help with ROS and admitting questions. Has not seen a field crop harvest worker in the past. Denies chronic NSAID use. Denies any nausea/vomiting/diarrhea before or during hospitalization. Past Med Surg Social Fam HX - Past Medical History Medical history: aortic aneurysm, dementia, diabetes, GERD, hypertension, osteoporosis, other Psychiatric history: no psych history - Past Surgical History Surgical History: cholecystectomy - Social History Smoking Status: Never smoker Smokeless Tobacco Status: No Alcohol use: unknown Drug use: unknown - Family History Father History Unknown: Yes Medications and Allergies Aspirin 81 mg PO DAILY #90 tab.chew 07/31/16 [Rx] Atorvastatin [Lipitor] 40 mg PO HS #30 tablet 07/31/16 [Rx] Isosorbide MONOnitrate (24 HR) [Imdur] 60 mg PO DAILY #60 tab.er.24h 07/31/16 [ Rx] Metformin HCl [Metformin HCl ER] 500 mg PO DAILY #30 [id number] 07/31/16 [Rx] Nitroglycerin 0.4 mg SL Q5MIN PRN #15 tab.subl 07/31/16 [Rx] hydrALAZINE [HydrALAZINE] 25 mg PO Q6HR #90 tablet 07/31/16 [Rx] Clopidogrel [Plavix] 75 mg PO DAILY #30 tablet 12/14/17 [Rx] Furosemide [Lasix] 20 mg PO DAILY #30 tablet 12/14/17 [Rx] Lisinopril [Zestril] 5 mg PO DAILY #30 tablet 12/14/17 [Rx] Metoprolol XL (24 HR) Succ [Toprol Xl] 25 mg PO DAILY #30 tab.er.24h 12/14/17 [ Rx] Levothyroxine [Synthroid] 25 mcg PO 0630 03/05/18 [History] 3 Allergy/AdvReac Type Severity Reaction Status Date / Time No Known Allergies Allergy Verified 03/05/18 16:07 Review of Systems ROS unobtainable: due to mental status (Pt has dementia and has answered "no" to every question, family at bedside and an did answer ROS. ) Constitutional: no chills, no fever(s), no frequent falls Nose, mouth and throat: no neck pain Cardiovascular: dyspnea, no chest pain Respiratory: cough, no wheezing Gastrointestinal: no change in bowel habits Genitourinary Female: no flank pain, no urinary frequency, no urinary incontinence, no urinary urgency Exam - Vital Signs Vital signs: Initial Vital Signs Temp Pulse Resp BP Pulse Ox 97.4 F L 109 18 186/101 99 03/05/18 14:27 03/05/18 14:27 03/05/18 14:27 03/05/18 14:27 03/05/18 14:27 Vital Signs - Last 8 Hours Temp Pulse Resp BP Pulse Ox 03/11/18 11:29 97.9 F 80 16 135/72 03/11/18 06:35 80 17 142/79 97 Intake and Output 03/10/18 03/11/18 03/11/18 23:59 07:59 15:59 Intake Total 340 / 340 1005 / 1005 840 / 840 Output Total 200 / 200 300 / 300 200 / 200 Balance 140 / 140 705 / 705 640 / 640 Intake: IV Fluids 1005 / 1005 KCl 10 MEQ In 0.9 % Sodium 1005 / 1005 Chloride 1,000 ML @ 75 mls/hr IVC .[id number] [facility] Rx#:[id number] Oral 340 / 340 840 / 840 Output: Catheter 200 / 200 300 / 300 200 / 200 Other: Meal Dinner Lunch Percent of Meal Consumed 100% 100% Stool Size Moderate Stool Consistency formed Stool Characteristics Normal for Patient Stool Color Brown Weight 72.6 kg Blood Glucose* 141 174 193 Patient Weight 03/11/18 23:59 Weight 72.6 kg Results - Lab Results 03/11/18 05:07 03/11/18 05:07 Most recent lab results Calcium 7.3 mg/dL (8.6-10.3) L 03/11/18 05:07 Magnesium 2.0 mg/dL (1.6-2.6) 03/06/18 04:23 Urine Creatinine 56 mg/dL 03/08/18 22:50 Consult Discharge Plan - Plan Referrals: Carol Odom [Primary Care Provider] -
[2018-03-11] MEDS ORDERED: 0.9 % Sodium Chloride 1,000 ML IVC SCH (14:30)
[2018-03-11 16:06] LABS: Uric Acid 7.5 mg/dL (2.3-7.6)
[2018-03-11 19:31] LABS: Bilirubin,Urine Negative (Negative); Blood,Urine Small (Negative); Clarity,Urine Cloudy (Clear); Color,Urine Yellow (Yellow); Glucose,Urine (UA) 250 mg/dL (Normal); Ketones,Urine Negative (Negative); Leukocyte Esterase,Urine Trace (Negative); Nitrite,Urine Negative (Negative); PH,Urine 5.5 pH Units (5.0-8.0); Protein,Urine >=300 mg/dL (Neg-Trace); Specific Gravity,Urine 1.022 (1.010-1.025); Urobilinogen,Urine Normal (Normal)
[2018-03-11 19:35] LABS: Bacteria,Urine None Seen per hpf (None-Few); Hyaline Casts,Urine None Seen per lpf (None-Few); RBC,Urine 15-30 per hpf (0-3); Squamous Epithelial Cell,Urine Many per lpf (None-Few); WBC,Urine 50-100 per hpf (0-3)
[2018-03-11 20:07] LABS: Yeast,Urine Moderate per hpf (None Seen)
[2018-03-11 20:13] LABS: Protein/Creatinine Ratio,Urine 3.23 mg/mg (0.00-0.20); Sodium, Urine 42.3 mEq/L
[2018-03-11] MEDS: levoFLOXacin 250 MG TABLET PO SCH (23:21)
[2018-03-12 04:13] LABS: Basophils % 0.1 %; Eosinophils # 0.1 K/mcL (0.0-0.6); Eosinophils % 1.1 %; Hemoglobin 10.6 g/dL (11.5-15.4); Immature Granulocytes % 0.3 % (0-4); Lymphocytes % 8.6 %; Mean Corpuscular HGB Conc 33.1 g/dL (31.6-35.5); Mean Corpuscular Hemoglobin 28.8 pg (28.0-33.3); Mean Platelet Volume 9.6 fL (9.4-12.4); Monocytes # 0.8 K/mcL (0.0-1.3); Monocytes % 6.9 %; Neutrophils # 9.8 K/mcL (1.6-8.9); Platelet Count 241 K/mcL (140-400); Red Blood Count 3.68 M/mcL (3.82-4.97); Red Cell Distribution Width 14.2 % (11.5-14.5)
[2018-03-12 04:32] LABS: % Iron Saturation 33 % (15-50); Calcium 7.3 mg/dL (8.6-10.3); Iron 75 mcg/dL (50-170); Potassium 3.8 mEq/L (3.5-5.1); Transferrin 162 mg/dL (203-362)
[2018-03-12 04:58] LABS: Folate 10.5 ng/mL (3.0-16.0)
[2018-03-12] MEDS: Acetaminophen 325 MG TABLET PO PRN (05:02)
[2018-03-12] MEDS: *HR* Heparin 5,000 UNIT/ML VIAL SQ SCH ×2 (06:46→18:08)
[2018-03-12] MEDS: hydrALAZINE 25 MG TABLET PO SCH ×3 (06:46→18:08)
--- NOTE | 2018-03-12 07:45 | Internal Med Progress Note ---
<Jose Marsh - Last Filed: 03/12/18 11:01> Date of Encounter: 03/12/18 Time of Encounter: 07:45 - Assessment and plan (1) CHF exacerbation Current Visit: Yes Status: Acute Assessment and plan: Associated elevated troponin, irregular heart rate, & hyperlipidemia. Has also been hypokalemic. Admitted with hypertensive urgency, BPs currently within reasonable control. Patient has known HFrEF, with LVEF of 20-25%, last echo 11/2817. Patient has symptoms of SOB at rest, orthopnea, but denies PND or leg swelling. CXR in ED was consistent with CHF and cardiomegaly. BNP 4015. Patient today continues to report cough, but her breathing symptoms are better. she does note of chest congestion today. Lungs clear without any signs of volume overload and no pedal edema today; stable euvolimic volume status. Had JEREMIE on CKD associated with diuresis. - renal function unchanged from 03/11/18 - Gently hydrating at this time - holding ACEI and spirinolactone due to JEREMIE - holding lasix for now due to worsening kidney funciton - strict I/O and weights - undergoing nephrology-guided work up for persistent / slow-improving JEREMIE - has had intermittent hypokalemia that we are monitoring and correcting as needed daily Qualifiers: Heart failure type: combined systolic and diastolic Qualified Code(s): I50.43 - Acute on chronic combined systolic (congestive) and diastolic ( congestive) heart failure (2) Acute on chronic renal failure Current Visit: Yes Status: Acute Assessment and plan: Cr on Admission 2.30, baseline is ~1.5. All plans as above Qualifiers: Chronic kidney disease stage: stage 3 (moderate) (3) DMII (diabetes mellitus, type 2) Current Visit: Yes Status: Chronic Assessment and plan: Added 5u Detemir to be given in AM daily. Continue SSI medium. FSBG within reasonable control ranging 100s-230s. Qualifiers: Diabetes mellitus mcc insulin use: without mcc use Diabetes mellitus complication status: with kidney complications Diabetes mellitus complication detail: with chronic kidney disease Chronic kidney disease stage : stage 3 (moderate) Qualified Code(s): E11.22 - Type 2 diabetes mellitus with diabetic chronic kidney disease; N18.3 - Chronic kidney disease, stage 3 ( moderate); N18.3 - Chronic kidney disease, stage 3 (moderate) (4) Hypokalemia Current Visit: Yes Status: Acute Assessment and plan: watching daily (5) Hypothyroidism Current Visit: Yes Status: Chronic Assessment and plan: TSH elevated 8.202. Cont current Synthroid. Qualifiers: Hypothyroidism type: unspecified Qualified Code(s): E03.9 - Hypothyroidism , unspecified (6) DVT prophylaxis Current Visit: Yes Status: Acute Assessment and plan: mechanical (7) UTI (urinary tract infection) Current Visit: Yes Status: Suspected Assessment and plan: PAtient was given 1 dose of azithromycin and rocephin in ED, and then was switched to Levaquin. Patient is currently in JEREMIE, will not change abx until cultures return. U/A nit and leuk positive. - Cx negative - continue renal dosed levaquin - day 5 Qualifiers: Urinary tract infection type: acute cystitis Hematuria presence: without hematuria Qualified Code(s): N30.00 - Acute cystitis without hematuria - Time Spent With Patient Total time spent is greater than 50% in coordination of care (as documented) at patient's floor/unit and/or counseling patient: - Subjective Interval history: Pt restful with sitter present; pulls at IVs and López without sitter present. No acute complaints. No concerns today per RN/Sitter. Renal function slightly improved. Nephrology following. - Constitutional Vitals: Temp Pulse Resp BP Pulse Ox 98.5 F 88 18 141/74 97 03/12/18 05:04 03/12/18 05:04 03/12/18 05:04 03/12/18 05:04 03/12/18 05:04 stable exam from 03/11/18 CONSTITUTIONAL: restful and no acute distress, sitter present states uneventful morning, stable confusion HEAD: Normocephalic; atraumatic. EYES: PER, no scleral icterus, no drainage, no conjunctival injection NOSE: The nose is normal in appearance without rhinorrhea, no nasal cannula in place Oropharynx: pink/moist RESP: NRD without use of accessory musculature, CTA b/l with no wheezes/rales/ rhonchi, no signs of fluid overload CARD: Regular rhythm, without murmurs, rubs, or gallop ABD: grossly normal, soft, non-tender : lópez in place with clear yellow urine SKIN: normal appearance, no pallor/diaphoresis,mottling,jaundice,cyanosis EXT: Rad pulses 2+ and symmetrical; no pedal edema PSYCH: appropriate mood/affect Internal Medicine: Result - Labs CBC & Chem 7: 03/12/18 03:53 03/12/18 03:53 Labs: Short CBC 03/12/18 Range/Units 03:53 WBC 11.8 H (4.3-11.1) K/mcL Hgb 10.6 L (11.5-15.4) g/dL Hct 32.0 L (35.3-44.9) % Plt Count 241 (140-400) K/mcL Neutrophils # 9.8 H (1.6-8.9) K/mcL BMP 03/12/18 03:53 Sodium 134 L Potassium 3.8 Chloride 107 Carbon Dioxide 21 L BUN 44 H Creatinine 2.30 H Glucose 163 H Calcium 7.3 L Urine 03/11/18 Range/Units 19:14 Urine Color Yellow (Yellow) Urine Clarity Cloudy A (Clear) Urine pH 5.5 (5.0-8.0) pH Units Ur Specific [place] 1.022 (1.010-1.025) Urine Protein >=300 H (Neg-Trace) mg/dL Urine Glucose (UA) 250 H (Normal) mg/dL - ABG Interpretation ABG results: PT/INR, D-dimer PT 10.5 Seconds (9.4-12.1) 03/05/18 14:50 - Impressions Impressions Retroperitoneum Ultrasound 03/11/18 18:00 IMPRESSION: 1. No hydronephrosis. 2. In the lower pole of the right kidney, there is an 8.2 cm mildly complicated cyst. D/ / Pritesh Winter MD / Pritesh Winter MD Interpreting Provider: Pritesh Winter MD Consult Discharge Plan - Plan Referrals: Carol Odom [Primary Care Provider] - <Wilner Echols T - Last Filed: 03/12/18 16:32> Date of Encounter: 03/12/18 - Assessment and plan (1) CHF exacerbation Current Visit: Yes Status: Acute Qualifiers: Heart failure type: combined systolic and diastolic Qualified Code(s): I50.43 - Acute on chronic combined systolic (congestive) and diastolic ( congestive) heart failure (2) DMII (diabetes mellitus, type 2) Current Visit: Yes Status: Chronic Qualifiers: Diabetes mellitus mcc insulin use: without mcc use Diabetes mellitus complication status: with kidney complications Diabetes mellitus complication detail: with chronic kidney disease Chronic kidney disease stage : stage 3 (moderate) Qualified Code(s): E11.22 - Type 2 diabetes mellitus with diabetic chronic kidney disease; N18.3 - Chronic kidney disease, stage 3 ( moderate); N18.3 - Chronic kidney disease, stage 3 (moderate) (3) Hypokalemia Current Visit: Yes Status: Acute (4) DVT prophylaxis Current Visit: Yes Status: Acute (5) Hypothyroidism Current Visit: Yes Status: Chronic Qualifiers: Hypothyroidism type: unspecified Qualified Code(s): E03.9 - Hypothyroidism , unspecified (6) Acute on chronic renal failure Current Visit: Yes Status: Acute Qualifiers: Chronic kidney disease stage: stage 3 (moderate) (7) UTI (urinary tract infection) Current Visit: Yes Status: Suspected Qualifiers: Urinary tract infection type: acute cystitis Hematuria presence: without hematuria Qualified Code(s): N30.00 - Acute cystitis without hematuria - Time Spent With Patient Total time spent is greater than 50% in coordination of care (as documented) at patient's floor/unit and/or counseling patient: - Constitutional Vitals: Temp Pulse Resp BP Pulse Ox 97.9 F 79 18 133/73 98 03/12/18 15:52 03/12/18 15:52 03/12/18 15:52 03/12/18 15:52 03/12/18 15:52 Internal Medicine: Result - Labs CBC & Chem 7: 03/12/18 03:53 03/12/18 03:53 Labs: Short CBC 03/12/18 Range/Units 03:53 WBC 11.8 H (4.3-11.1) K/mcL Hgb 10.6 L (11.5-15.4) g/dL Hct 32.0 L (35.3-44.9) % Plt Count 241 (140-400) K/mcL Neutrophils # 9.8 H (1.6-8.9) K/mcL BMP 03/12/18 03:53 Sodium 134 L Potassium 3.8 Chloride 107 Carbon Dioxide 21 L BUN 44 H Creatinine 2.30 H Glucose 163 H Calcium 7.3 L Urine 03/11/18 Range/Units 19:14 Urine Color Yellow (Yellow) Urine Clarity Cloudy A (Clear) Urine pH 5.5 (5.0-8.0) pH Units Ur Specific [place] 1.022 (1.010-1.025) Urine Protein >=300 H (Neg-Trace) mg/dL Urine Glucose (UA) 250 H (Normal) mg/dL - ABG Interpretation ABG results: PT/INR, D-dimer PT 10.5 Seconds (9.4-12.1) 03/05/18 14:50 - Impressions Impressions Retroperitoneum Ultrasound 03/11/18 18:00 IMPRESSION: 1. No hydronephrosis. 2. In the lower pole of the right kidney, there is an 8.2 cm mildly complicated cyst. D/ / Pritesh Winter MD / Pritesh Winter MD Interpreting Provider: Pritesh Winter MD - Attending Attestation I examined this patient and my medical decision-making was reviewed with the Resident Physician. I agree with the documented findings, disposition and treatment plan as described except to the extent set forth below. 67-year-old female with dementia, currently confused, admitted for acute on chronic CHF with reduced ejection fraction, EF 20-25%, acute on chronic kidney disease due to aggressive diuresis, diabetes mellitus, and hypothyroidism. She is pleasantly confused during exam. She is euvolemic at this time. She is receiving gentle hydration , nephrology is following, Continue current care. Rest of details as in the resident physicians documentation.
[2018-03-12] MEDS: Metoprolol XL (24 HR) Succ 25 MG TAB.ER.24H PO SCH (09:44)
[2018-03-12] MEDS: Isosorbide MONOnitrate (24 HR) 60 MG TAB.ER.24H PO SCH (09:44)
[2018-03-12] MEDS: Aspirin 81 MG TAB.CHEW PO SCH (09:44)
[2018-03-12] MEDS: Insulin DETEMIR 100 UNIT/ML X5UNITS SQ SCH (09:47)
--- NOTE | 2018-03-12 09:48 | Nephrology Progress Note ---
Date of Encounter: 03/12/18 Time of Encounter: 09:44 - Assessment and Plan (1) JEREMIE (acute kidney injury) Current Visit: Yes Status: Acute Patient appears to be CKD 3b per old records. GFR is 32. Does not see a meeting facilitator. Scr 2.3 remains unchanged from yesterday. JEREMIE workup completed. NS infusing at 75/hr for 1 liter. Continue to renal dose and avoid nephrotoxins if possible. Hold Lasix. (2) Congestive heart failure (CHF) Current Visit: Yes Status: Acute Per primary team. Qualifiers: Heart failure type: systolic Heart failure chronicity: acute on chronic Qualified Code(s): I50.23 - Acute on chronic systolic (congestive) heart failure (3) Hypokalemia Current Visit: Yes Status: Acute Remains stable at 3.8. Replace K as needed. (4) Anemia Current Visit: Yes Status: Acute Hgb 10.6, stable. Iron 75 Tsat 162. Folate 10.5. Qualifiers: Qualified Code(s): D64.9 - Anemia, unspecified (5) Vitamin D deficiency Current Visit: Yes Status: Acute Ordered Ergocalciferol. Subjective Principal diagnosis: CHF, JEREMIE Interval history: Pt seen and examined. Denies any discomfort or pain. Sitter at bedside. Objective - Vital Signs Vital signs: Vital Signs Temp Pulse Resp BP Pulse Ox 03/12/18 07:45 97.4 F L 85 18 138/70 98 03/12/18 05:04 98.5 F 88 18 141/74 97 03/11/18 23:17 98 F 82 16 139/82 03/11/18 19:00 97.9 F 79 16 122/64 97 03/11/18 15:37 98.1 F 79 18 138/78 03/11/18 11:29 97.9 F 80 16 135/72 Intake and Output 03/11/18 03/12/18 03/12/18 23:59 07:59 15:59 Intake Total 1010 / 1010 120 / 120 120 / 120 Output Total 0 / 0 600 / 600 50 / 50 Balance 1010 / 1010 -480 / -480 70 / 70 Intake: IV Fluids 950 / 950 KCl 10 MEQ In 0.9 % Sodium 950 / 950 Chloride 1,000 ML @ 75 mls/hr IVC .[id number] [facility] Rx#:[id number] Oral 60 / 60 120 / 120 120 / 120 Output: Urine 0 / 0 0 / 0 Catheter 600 / 600 50 / 50 Other: Meal Dinner Breakfast Percent of Meal Consumed 95% 95% Stool Size Large Stool Consistency soft Stool Color Brown # Bowel Movements 1 Weight 77.3 kg Blood Glucose* 236 170 Patient Weight 03/12/18 23:59 Weight 77.3 kg - General Appearance General appearance: Present: obese, chronically ill, frail EENT: Present: ATNC, hearing intact, vision intact Neck: Present: supple Respiratory: Present: clear Cardiology: Present: no edema, normal S1, normal S2 Gastrointestinal: Present: normoactive bowel sounds, no tenderness, no guarding Integumentary: Present: warm and dry Neurologic: Present: confused Psychiatric: Present: mood/affect appropriate, cooperative - Lab 03/12/18 03:53 03/12/18 03:53 Most recent lab results Calcium 7.3 mg/dL (8.6-10.3) L 03/12/18 03:53 Magnesium 2.0 mg/dL (1.6-2.6) 03/06/18 04:23 Urine Creatinine 94 mg/dL 03/11/18 19:14 Urine Sodium 42.3 mEq/L 03/11/18 19:14 Urine Total Protein 304 mg/dL (1-14) H 03/11/18 19:14 Consult Discharge Plan - Plan Referrals: Carol Odom [Primary Care Provider] -
[2018-03-12] MEDS: Insulin LISPRO 300 UNITS/3 ML VIAL SQ SCH ×4 (11:57→21:24)
[2018-03-13] MEDS: hydrALAZINE 25 MG TABLET PO SCH ×3 (00:44→12:01)
[2018-03-13 05:21] LABS: Basophils % 0.2 %; Eosinophils # 0.1 K/mcL (0.0-0.6); Hematocrit 33.1 % (35.3-44.9); Immature Granulocytes % 0.4 % (0-4); Lymphocytes # 1.4 K/mcL (0.6-4.6); Lymphocytes % 12.6 %; Mean Corpuscular HGB Conc 33.2 g/dL (31.6-35.5); Mean Corpuscular Hemoglobin 28.9 pg (28.0-33.3); Mean Corpuscular Volume 87.1 fL (83.0-100.0); Mean Platelet Volume 9.5 fL (9.4-12.4); Monocytes # 0.8 K/mcL (0.0-1.3); Monocytes % 7.6 %; Neutrophils # 8.4 K/mcL (1.6-8.9); Platelet Count 275 K/mcL (140-400); Red Cell Distribution Width 14.2 % (11.5-14.5); Segmented Neutrophils % 78.2 %
[2018-03-13 05:37] LABS: Calcium 7.5 mg/dL (8.6-10.3); Potassium 4.1 mEq/L (3.5-5.1)
[2018-03-13] MEDS: *HR* Heparin 5,000 UNIT/ML VIAL SQ SCH (06:45)
[2018-03-13] MEDS: Isosorbide MONOnitrate (24 HR) 60 MG TAB.ER.24H PO SCH (09:54)
[2018-03-13] MEDS: Metoprolol XL (24 HR) Succ 25 MG TAB.ER.24H PO SCH (09:54)
[2018-03-13] MEDS: Insulin LISPRO 300 UNITS/3 ML VIAL SQ SCH ×4 (09:55→21:51)
[2018-03-13] MEDS: Aspirin 81 MG TAB.CHEW PO SCH (09:56)
[2018-03-13] MEDS: Insulin DETEMIR 100 UNIT/ML X5UNITS SQ SCH (10:04)
--- NOTE | 2018-03-13 10:29 | Nephrology Progress Note ---
Date of Encounter: 03/13/18 Time of Encounter: 10:29 - Assessment and Plan (1) JEREMIE (acute kidney injury) Current Visit: Yes Status: Acute JEREMIE improving, Scr 2.07 today down from 2.3. Did order a repeat urine culture yesterday after UA results were inconclusive. Urine output 1255 from yesterday and 510 today. NS x 1 liter completed. Continue to renal dose and avoid nephrotoxins if possible. Hold Lasix. (2) Congestive heart failure (CHF) Current Visit: Yes Status: Acute Per primary team. Qualifiers: Heart failure type: systolic Heart failure chronicity: acute on chronic Qualified Code(s): I50.23 - Acute on chronic systolic (congestive) heart failure (3) Hypokalemia Current Visit: Yes Status: Acute Remains stable at 4.1. (4) Anemia Current Visit: Yes Status: Acute Hgb 11, stable. Qualifiers: Qualified Code(s): D64.9 - Anemia, unspecified (5) Vitamin D deficiency Current Visit: Yes Status: Acute Ordered Ergocalciferol yesterday. Subjective Principal diagnosis: CHF, JEREMIE Interval history: Pt seen and examined, patient sitter at bedside. Objective - Vital Signs Vital signs: Vital Signs Temp Pulse Resp BP Pulse Ox 03/13/18 07:45 97.8 F 83 18 138/76 95 03/13/18 04:21 98.5 F 91 18 150/82 96 03/12/18 23:00 98.7 F 85 20 144/87 97 03/12/18 19:08 98.9 F 80 19 132/69 97 03/12/18 15:52 97.9 F 79 18 133/73 98 03/12/18 11:14 98.1 F 76 20 132/73 98 Intake and Output 03/12/18 03/13/18 03/13/18 23:59 07:59 15:59 Intake Total 200 / 200 240 / 240 Output Total 425 / 425 385 / 385 275 / 275 Balance -225 / -225 -385 / -385 -35 / -35 Intake: Oral 200 / 200 240 / 240 Output: Catheter 425 / 425 385 / 385 275 / 275 Other: Meal Dinner Breakfast Percent of Meal Consumed 40% 100% Blood Glucose* 150 133 - General Appearance General appearance: Present: chronically ill, frail EENT: Present: ATNC, hearing intact, vision intact Respiratory: Present: clear Cardiology: Present: no edema, normal S1, normal S2 Gastrointestinal: Present: hypoactive bowel sounds, no tenderness, no guarding Integumentary: Present: no rash, warm and dry Neurologic: Present: confused Psychiatric: Present: mood/affect appropriate, cooperative - Lab 03/13/18 04:55 03/13/18 04:55 Most recent lab results Calcium 7.5 mg/dL (8.6-10.3) L 03/13/18 04:55 Magnesium 2.0 mg/dL (1.6-2.6) 03/06/18 04:23 Urine Creatinine 94 mg/dL 03/11/18 19:14 Urine Sodium 42.3 mEq/L 03/11/18 19:14 Urine Total Protein 304 mg/dL (1-14) H 03/11/18 19:14 Consult Discharge Plan - Plan Referrals: Carol Odom [Primary Care Provider] -
--- NOTE | 2018-03-13 12:02 | Internal Med Progress Note ---
<Jose Marsh - Last Filed: 03/13/18 11:58> Date of Encounter: 03/13/18 Time of Encounter: 11:35 - Assessment and plan (1) CHF exacerbation Current Visit: Yes Status: Acute Assessment and plan: Associated elevated troponin, irregular heart rate, & hyperlipidemia. Has also been hypokalemic. Admitted with hypertensive urgency, BPs currently within reasonable control. Patient has known HFrEF, with LVEF of 20-25%, last echo 11/2817. Patient has symptoms of SOB at rest, orthopnea, but denies PND or leg swelling. CXR in ED was consistent with CHF and cardiomegaly. BNP 4015. Patient today continues to report cough, but her breathing symptoms are better. she does note of chest congestion today. Lungs clear without any signs of volume overload and no pedal edema today; stable euvolimic volume status. Had JEREMIE on CKD associated with diuresis. - renal function unchanged from 03/11/18 - Gently hydrating at this time - holding ACEI and spirinolactone due to JEREMIE - holding lasix for now due to worsening kidney funciton - strict I/O and weights - undergoing nephrology-guided work up for persistent / slow-improving JEREMIE - has had intermittent hypokalemia that we are monitoring and correcting as needed daily No new plan changes by hospital team Qualifiers: Heart failure type: combined systolic and diastolic Qualified Code(s): I50.43 - Acute on chronic combined systolic (congestive) and diastolic ( congestive) heart failure (2) Acute on chronic renal failure Current Visit: Yes Status: Acute Assessment and plan: Cr on Admission 2.30, baseline is ~1.5. All plans as above Qualifiers: Acute renal failure type: unspecified Chronic kidney disease stage: stage 3 (moderate) Qualified Code(s): N17.9 - Acute kidney failure, unspecified; N18.3 - Chronic kidney disease, stage 3 (moderate); N18.3 - Chronic kidney disease, stage 3 (moderate) (3) DMII (diabetes mellitus, type 2) Current Visit: Yes Status: Chronic Assessment and plan: Added 5u Detemir to be given in AM daily. Continue SSI medium. FSBG within reasonable control ranging 100s-230s. 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 Cont current Synthroid. Qualifiers: Hypothyroidism type: unspecified Qualified Code(s): E03.9 - Hypothyroidism , unspecified (6) DVT prophylaxis Current Visit: Yes Status: Acute Assessment and plan: mechanical (7) UTI (urinary tract infection) Current Visit: Yes Status: Suspected Assessment and plan: PAtient was given 1 dose of azithromycin and rocephin in ED, and then was switched to Levaquin. Patient is currently in JEREMIE, will not change abx until cultures return. U/A nit and leuk positive. - Cx negative - continue renal dosed levaquin - day 6 Qualifiers: Urinary tract infection type: acute cystitis Hematuria presence: without hematuria Qualified Code(s): N30.00 - Acute cystitis without hematuria - Time Spent With Patient Total time spent is greater than 50% in coordination of care (as documented) at patient's floor/unit and/or counseling patient: - Subjective Interval history: Pt restful with sitter present; pulls at IVs and López without sitter present. No acute complaints. No concerns today per RN/Sitter. Renal function slightly improved. - Constitutional Vitals: Temp Pulse Resp BP Pulse Ox 97.6 F 84 18 136/75 98 03/13/18 11:54 03/13/18 11:54 03/13/18 11:54 03/13/18 11:54 03/13/18 11:54 stable exam from 03/12/2018 CONSTITUTIONAL: restful and no acute distress, sitter present states uneventful morning, stable confusion HEAD: Normocephalic; atraumatic. EYES: PER, no scleral icterus, no drainage, no conjunctival injection NOSE: The nose is normal in appearance without rhinorrhea, no nasal cannula in place Oropharynx: pink/moist RESP: NRD without use of accessory musculature, CTA b/l with no wheezes/rales/ rhonchi, no signs of fluid overload CARD: Regular rhythm, without murmurs, rubs, or gallop ABD: grossly normal, soft, non-tender : lópez in place with clear yellow urine SKIN: normal appearance, no pallor/diaphoresis,mottling,jaundice,cyanosis EXT: Rad pulses 2+ and symmetrical; no pedal edema PSYCH: appropriate mood/affect Internal Medicine: Result - Labs CBC & Chem 7: 03/13/18 04:55 03/13/18 04:55 Labs: Short CBC 03/13/18 Range/Units 04:55 WBC 10.7 (4.3-11.1) K/mcL Hgb 11.0 L (11.5-15.4) g/dL Hct 33.1 L (35.3-44.9) % Plt Count 275 (140-400) K/mcL Neutrophils # 8.4 (1.6-8.9) K/mcL BMP 03/13/18 04:55 Sodium 136 Potassium 4.1 Chloride 109 H Carbon Dioxide 21 L BUN 43 H Creatinine 2.07 H Glucose 129 H Calcium 7.5 L - ABG Interpretation ABG results: PT/INR, D-dimer PT 10.5 Seconds (9.4-12.1) 03/05/18 14:50 Consult Discharge Plan - Plan Referrals: Carol Odom [Primary Care Provider] - <Wilner Echols - Last Filed: 03/13/18 16:04> Date of Encounter: 03/13/18 - Assessment and plan (1) CHF exacerbation Current Visit: Yes Status: Acute Qualifiers: Heart failure type: combined systolic and diastolic Qualified Code(s): I50.43 - Acute on chronic combined systolic (congestive) and diastolic ( congestive) heart failure (2) DMII (diabetes mellitus, type 2) Current Visit: Yes Status: Chronic Qualifiers: Diabetes mellitus custodial insulin use: without custodial use Diabetes mellitus complication status: with kidney complications Diabetes mellitus complication detail: with chronic kidney disease Chronic kidney disease stage : stage 3 (moderate) Qualified Code(s): E11.22 - Type 2 diabetes mellitus with diabetic chronic kidney disease; N18.3 - Chronic kidney disease, stage 3 ( moderate); N18.3 - Chronic kidney disease, stage 3 (moderate) (3) Hypokalemia Current Visit: Yes Status: Acute (4) DVT prophylaxis Current Visit: Yes Status: Acute (5) Hypothyroidism Current Visit: Yes Status: Chronic Qualifiers: Hypothyroidism type: unspecified Qualified Code(s): E03.9 - Hypothyroidism , unspecified (6) Acute on chronic renal failure Current Visit: Yes Status: Acute Qualifiers: Acute renal failure type: unspecified Chronic kidney disease stage: stage 3 (moderate) Qualified Code(s): N17.9 - Acute kidney failure, unspecified; N18.3 - Chronic kidney disease, stage 3 (moderate); N18.3 - Chronic kidney disease, stage 3 (moderate) (7) UTI (urinary tract infection) Current Visit: Yes Status: Suspected Qualifiers: Urinary tract infection type: acute cystitis Hematuria presence: without hematuria Qualified Code(s): N30.00 - Acute cystitis without hematuria - Time Spent With Patient Total time spent is greater than 50% in coordination of care (as documented) at patient's floor/unit and/or counseling patient: - Constitutional Vitals: Temp Pulse Resp BP Pulse Ox 98 F 80 18 133/74 96 03/13/18 15:53 03/13/18 15:53 03/13/18 15:53 03/13/18 15:53 03/13/18 15:53 Internal Medicine: Result - Labs CBC & Chem 7: 03/13/18 04:55 03/13/18 04:55 Labs: Short CBC 03/13/18 Range/Units 04:55 WBC 10.7 (4.3-11.1) K/mcL Hgb 11.0 L (11.5-15.4) g/dL Hct 33.1 L (35.3-44.9) % Plt Count 275 (140-400) K/mcL Neutrophils # 8.4 (1.6-8.9) K/mcL BMP 03/13/18 04:55 Sodium 136 Potassium 4.1 Chloride 109 H Carbon Dioxide 21 L BUN 43 H Creatinine 2.07 H Glucose 129 H Calcium 7.5 L - ABG Interpretation ABG results: PT/INR, D-dimer PT 10.5 Seconds (9.4-12.1) 03/05/18 14:50 - Attending Attestation I examined this patient and my medical decision-making was reviewed with the Resident Physician. I agree with the documented findings, disposition and treatment plan as described except to the extent set forth below. 67-year-old female with dementia, currently confused, admitted for acute on chronic CHF with reduced ejection fraction, EF 20-25%, acute on chronic kidney disease due to aggressive diuresis, diabetes mellitus, and hypothyroidism. She is pleasantly confused during exam. She is euvolemic at this time. Renal function has improved remarkably, hold IVF for now. Continue other management Rest of details as in the resident physicians documentation.
[2018-03-14] MEDS: *HR* Heparin 5,000 UNIT/ML VIAL SQ SCH ×3 (00:09→17:10)
[2018-03-14] MEDS: hydrALAZINE 25 MG TABLET PO SCH ×5 (00:09→17:10)
[2018-03-14] MEDS ORDERED: *HR* LORazepam 2 MG/ML VIAL IVP ONE (01:09)
[2018-03-14] MEDS ORDERED: *HR* LORazepam 2 MG/ML VIAL ONE (01:12)
[2018-03-14 04:39] LABS: Hematocrit 32.6 % (35.3-44.9); Hemoglobin 10.6 g/dL (11.5-15.4); Mean Corpuscular HGB Conc 32.5 g/dL (31.6-35.5); Mean Corpuscular Hemoglobin 28.6 pg (28.0-33.3); Mean Corpuscular Volume 88.1 fL (83.0-100.0); Mean Platelet Volume 9.1 fL (9.4-12.4); Platelet Count 258 K/mcL (140-400); Red Cell Distribution Width 14.3 % (11.5-14.5); Segmented Neutrophils % 79.7 %
[2018-03-14 04:40] LABS: Basophils % 0.2 %; Eosinophils # 0.1 K/mcL (0.0-0.6); Eosinophils % 0.9 %; Immature Granulocytes % 0.3 % (0-4); Lymphocytes # 1.1 K/mcL (0.6-4.6); Lymphocytes % 10.9 %; Monocytes # 0.8 K/mcL (0.0-1.3)
[2018-03-14 05:05] LABS: Calcium 7.6 mg/dL (8.6-10.3); Potassium 3.9 mEq/L (3.5-5.1)
[2018-03-14 07:29] LABS: Complement Component 3 96 mg/dL (88-201); Complement Component 4 11 mg/dL (10-40)
[2018-03-14] MEDS: Metoprolol XL (24 HR) Succ 25 MG TAB.ER.24H PO SCH (07:43)
[2018-03-14] MEDS: Aspirin 81 MG TAB.CHEW PO SCH (07:43)
[2018-03-14] MEDS: Isosorbide MONOnitrate (24 HR) 60 MG TAB.ER.24H PO SCH (07:43)
[2018-03-14] MEDS: Insulin LISPRO 300 UNITS/3 ML VIAL SQ SCH ×4 (07:43→22:07)
[2018-03-14] MEDS: Insulin DETEMIR 100 UNIT/ML X5UNITS SQ SCH (07:44)
--- NOTE | 2018-03-14 10:43 | Nephrology Progress Note ---
Date of Encounter: 03/14/18 Time of Encounter: 10:38 - Assessment and Plan (1) JEREMIE (acute kidney injury) Current Visit: Yes Status: Acute JEREMIE improving, Scr 1.94 GFR 26. Did order a repeat urine culture on 03/12/18 after UA results were inconclusive, still pending. Adequate urine output. Continue to renal dose and avoid nephrotoxins if possible. Hold Lasix. Will continue to follow during this stay. Will follow up with Dr. Saleh in 2-4 weeks, BMP 1 week after discharge. (2) Congestive heart failure (CHF) Current Visit: Yes Status: Acute Per primary team. Qualifiers: Heart failure type: systolic Heart failure chronicity: acute on chronic Qualified Code(s): I50.23 - Acute on chronic systolic (congestive) heart failure (3) Hypokalemia Current Visit: Yes Status: Acute Remains stable at 3.9 (4) Anemia Current Visit: Yes Status: Acute Hgb 10.6, stable. Qualifiers: Qualified Code(s): D64.9 - Anemia, unspecified (5) Vitamin D deficiency Current Visit: Yes Status: Acute Ergocalciferol ordered. Subjective Principal diagnosis: CHF, JEREMIE Interval history: Pt seen and examined, patient sitter at bedside. Objective - Vital Signs Vital signs: Vital Signs Temp Pulse Resp BP Pulse Ox 03/14/18 07:29 97.8 F 86 162/89 94 03/14/18 03:26 98.5 F 82 18 140/81 93 03/13/18 23:28 98.7 F 81 18 144/78 97 03/13/18 19:35 98.6 F 80 16 136/72 96 03/13/18 15:53 98 F 80 18 133/74 96 03/13/18 11:54 97.6 F 84 18 136/75 98 Intake and Output 03/13/18 03/14/18 03/14/18 23:59 07:59 15:59 Intake Total 100 / 100 480 / 480 Output Total 75 / 75 500 / 500 Balance 25 / 25 -500 / -500 480 / 480 Intake: Oral 100 / 100 480 / 480 Output: Catheter 75 / 75 500 / 500 Other: Meal Dinner Breakfast Percent of Meal Consumed 95% 100% Blood Glucose* 247 152 - General Appearance General appearance: Present: chronically ill, frail EENT: Present: ATNC, mucous membranes moist, hearing intact, vision intact Neck: Present: supple Respiratory: Present: clear Cardiology: Present: no edema, normal S1, normal S2 Gastrointestinal: Present: normoactive bowel sounds, no tenderness, no guarding Integumentary: Present: no rash, warm and dry Neurologic: Present: confused Psychiatric: Present: mood/affect appropriate, cooperative - Lab 03/14/18 04:30 03/14/18 04:30 Most recent lab results Calcium 7.6 mg/dL (8.6-10.3) L 03/14/18 04:30 Magnesium 2.0 mg/dL (1.6-2.6) 03/06/18 04:23 Urine Creatinine 94 mg/dL 03/11/18 19:14 Urine Sodium 42.3 mEq/L 03/11/18 19:14 Urine Total Protein 304 mg/dL (1-14) H 03/11/18 19:14 Consult Discharge Plan - Plan Referrals: Carol Odom [Primary Care Provider] -
--- NOTE | 2018-03-14 11:59 | Internal Med Progress Note ---
<Jose Marsh - Last Filed: 03/14/18 14:20> Date of Encounter: 03/14/18 Time of Encounter: 10:00 - Assessment and plan (1) CHF exacerbation Current Visit: Yes Status: Acute Assessment and plan: Associated elevated troponin, irregular heart rate, & hyperlipidemia. Has also been hypokalemic. Admitted with hypertensive urgency, BPs currently within reasonable control. Patient has known HFrEF, with LVEF of 20-25%, last echo 11/2817. Patient has symptoms of SOB at rest, orthopnea, but denies PND or leg swelling. CXR in ED was consistent with CHF and cardiomegaly. BNP 4015. Patient today continues to report cough, but her breathing symptoms are better. she does note of chest congestion today. Lungs clear without any signs of volume overload and no pedal edema today; stable euvolimic volume status. Has JEREMIE on CKD associated with diuresis. - renal function improving at creatinine of 1.94 today - holding Lasix, JOSE-i, and Spironolactone due to JEREMIE; will need to reinstate these prior to discharge - strict I/O and weights - attending to nephrology for further recommendations - has had intermittent hypokalemia that we are monitoring and correcting as needed daily Plan: - discontinue López & Sitter - plan is likely discharge to LTCF pending nephrology clearance Qualifiers: Heart failure type: combined systolic and diastolic Qualified Code(s): I50.43 - Acute on chronic combined systolic (congestive) and diastolic ( congestive) heart failure (2) Acute on chronic renal failure Current Visit: Yes Status: Acute Assessment and plan: Cr on Admission 2.30, baseline is ~1.5. All plans as above Qualifiers: Acute renal failure type: unspecified Chronic kidney disease stage: stage 3 (moderate) Qualified Code(s): N17.9 - Acute kidney failure, unspecified; N18.3 - Chronic kidney disease, stage 3 (moderate); N18.3 - Chronic kidney disease, stage 3 (moderate) (3) DMII (diabetes mellitus, type 2) Current Visit: Yes Status: Chronic Assessment and plan: Cont 5u Detemir to be given in AM daily. Continue SSI medium. FSBG between 133 -247. Restart home regimen on discharge. Qualifiers: Diabetes mellitus termite control service representative insulin use: without termite control service representative use Diabetes mellitus complication status: with kidney complications Diabetes mellitus complication detail: with chronic kidney disease Chronic kidney disease stage : stage 3 (moderate) Qualified Code(s): E11.22 - Type 2 diabetes mellitus with diabetic chronic kidney disease; N18.3 - Chronic kidney disease, stage 3 ( moderate); N18.3 - Chronic kidney disease, stage 3 (moderate) (4) Hypokalemia Current Visit: Yes Status: Acute Assessment and plan: watching daily (5) Hypothyroidism Current Visit: Yes Status: Chronic Assessment and plan: TSH elevated 8.202. Cont current Synthroid. Qualifiers: Hypothyroidism type: unspecified Qualified Code(s): E03.9 - Hypothyroidism , unspecified (6) DVT prophylaxis Current Visit: Yes Status: Acute Assessment and plan: SQH (7) UTI (urinary tract infection) Current Visit: Yes Status: Suspected Assessment and plan: PAtient was given 1 dose of azithromycin and rocephin in ED, and then was switched to Levaquin. Patient is currently in JEREMIE, will not change abx until cultures return. U/A nit and leuk positive. - new culture pending Qualifiers: Urinary tract infection type: acute cystitis Hematuria presence: without hematuria Qualified Code(s): N30.00 - Acute cystitis without hematuria - Time Spent With Patient Total time spent is greater than 50% in coordination of care (as documented) at patient's floor/unit and/or counseling patient: - Subjective Interval history: Pt restful with sitter present. VSS. Discontinued López & sitter. JEREMIE stabilizing & will likely be discharged tomorrow to LTCF pending clearance by nephrology. - Constitutional Vitals: Temp Pulse Resp BP Pulse Ox 98.0 F 80 18 141/80 94 03/14/18 11:04 03/14/18 11:04 03/14/18 03:26 03/14/18 11:04 03/14/18 11:04 stable exam from 03/13/2018 CONSTITUTIONAL: restful and no acute distress, sitter present states uneventful morning, stable confusion HEAD: Normocephalic; atraumatic. EYES: PER, no scleral icterus, no drainage, no conjunctival injection NOSE: The nose is normal in appearance without rhinorrhea, no nasal cannula in place Oropharynx: pink/moist RESP: NRD without use of accessory musculature, CTA b/l with no wheezes/rales/ rhonchi, no signs of fluid overload CARD: Regular rhythm, without murmurs, rubs, or gallop ABD: grossly normal, soft, non-tender : lópez in place with clear yellow urine; will be discontinued today SKIN: normal appearance, no pallor/diaphoresis,mottling,jaundice,cyanosis EXT: Rad pulses 2+ and symmetrical; no pedal edema PSYCH: appropriate mood/affect Internal Medicine: Result - Labs CBC & Chem 7: 03/14/18 04:30 03/14/18 04:30 Labs: Short CBC 03/14/18 Range/Units 04:30 WBC 10.0 (4.3-11.1) K/mcL Hgb 10.6 L (11.5-15.4) g/dL Hct 32.6 L (35.3-44.9) % Plt Count 258 (140-400) K/mcL Neutrophils # 8.0 (1.6-8.9) K/mcL BMP 03/14/18 04:30 Sodium 137 Potassium 3.9 Chloride 110 H Carbon Dioxide 21 L BUN 43 H Creatinine 1.94 H Glucose 174 H Calcium 7.6 L - ABG Interpretation ABG results: PT/INR, D-dimer PT 10.5 Seconds (9.4-12.1) 03/05/18 14:50 Consult Discharge Plan - Plan Referrals: Carol Odom [Primary Care Provider] - 03/20/18 1:00 pm (PCP is booked for the next month. Have to see Dr. Birch Daily. ) <Wilner Echols - Last Filed: 03/14/18 16:39> Date of Encounter: 03/14/18 - Assessment and plan (1) CHF exacerbation Current Visit: Yes Status: Acute Qualifiers: Heart failure type: combined systolic and diastolic Qualified Code(s): I50.43 - Acute on chronic combined systolic (congestive) and diastolic ( congestive) heart failure (2) DMII (diabetes mellitus, type 2) Current Visit: Yes Status: Chronic Qualifiers: Diabetes mellitus termite control service representative insulin use: without senior living use Diabetes mellitus complication status: with kidney complications Diabetes mellitus complication detail: with chronic kidney disease Chronic kidney disease stage : stage 3 (moderate) Qualified Code(s): E11.22 - Type 2 diabetes mellitus with diabetic chronic kidney disease; N18.3 - Chronic kidney disease, stage 3 ( moderate); N18.3 - Chronic kidney disease, stage 3 (moderate) (3) Hypokalemia Current Visit: Yes Status: Acute (4) DVT prophylaxis Current Visit: Yes Status: Acute (5) Hypothyroidism Current Visit: Yes Status: Chronic Qualifiers: Hypothyroidism type: unspecified Qualified Code(s): E03.9 - Hypothyroidism , unspecified (6) Acute on chronic renal failure Current Visit: Yes Status: Acute Qualifiers: Acute renal failure type: unspecified Chronic kidney disease stage: stage 3 (moderate) Qualified Code(s): N17.9 - Acute kidney failure, unspecified; N18.3 - Chronic kidney disease, stage 3 (moderate); N18.3 - Chronic kidney disease, stage 3 (moderate) (7) UTI (urinary tract infection) Current Visit: Yes Status: Suspected Qualifiers: Urinary tract infection type: acute cystitis Hematuria presence: without hematuria Qualified Code(s): N30.00 - Acute cystitis without hematuria - Time Spent With Patient Total time spent is greater than 50% in coordination of care (as documented) at patient's floor/unit and/or counseling patient: - Constitutional Vitals: Temp Pulse Resp BP Pulse Ox 98 F 84 15 154/88 96 03/14/18 16:25 03/14/18 16:25 03/14/18 16:25 03/14/18 16:25 03/14/18 16:25 Internal Medicine: Result - Labs CBC & Chem 7: 03/14/18 04:30 03/14/18 04:30 Labs: Short CBC 03/14/18 Range/Units 04:30 WBC 10.0 (4.3-11.1) K/mcL Hgb 10.6 L (11.5-15.4) g/dL Hct 32.6 L (35.3-44.9) % Plt Count 258 (140-400) K/mcL Neutrophils # 8.0 (1.6-8.9) K/mcL BMP 03/14/18 04:30 Sodium 137 Potassium 3.9 Chloride 110 H Carbon Dioxide 21 L BUN 43 H Creatinine 1.94 H Glucose 174 H Calcium 7.6 L - ABG Interpretation ABG results: PT/INR, D-dimer PT 10.5 Seconds (9.4-12.1) 04/24/18 14:50 - Attending Attestation I examined this patient and my medical decision-making was reviewed with the Resident Physician. I agree with the documented findings, disposition and treatment plan as described except to the extent set forth below. 67-year-old female with dementia, currently confused, admitted for acute on chronic CHF with reduced ejection fraction, EF 20-25%, acute on chronic kidney disease due to aggressive diuresis, diabetes mellitus, and hypothyroidism. She is pleasantly confused during exam. She is euvolemic at this time. Renal function has improved remarkably, Discontinue López and Sitter No indication for further IVF Continue other management Continue to hold lasix, Urine culture growing yeast patient is asymptomatic, continue to monitor Rest of details as in the resident physicians documentation.
[2018-03-14] MEDS: Acetaminophen 325 MG TABLET PO PRN (22:18)
[2018-03-15] MEDS: hydrALAZINE 25 MG TABLET PO SCH ×3 (00:45→11:39)
[2018-03-15 04:50] LABS: Basophils % 0.3 %; Eosinophils # 0.1 K/mcL (0.0-0.6); Hematocrit 31.3 % (35.3-44.9); Hemoglobin 10.3 g/dL (11.5-15.4); Immature Granulocytes % 0.2 % (0-4); Lymphocytes # 1.1 K/mcL (0.6-4.6); Mean Corpuscular HGB Conc 32.9 g/dL (31.6-35.5); Mean Corpuscular Volume 88.2 fL (83.0-100.0); Mean Platelet Volume 9.3 fL (9.4-12.4); Monocytes # 0.8 K/mcL (0.0-1.3); Monocytes % 9.1 %; Neutrophils # 6.9 K/mcL (1.6-8.9); Platelet Count 256 K/mcL (140-400); Red Blood Count 3.55 M/mcL (3.82-4.97); Red Cell Distribution Width 14.3 % (11.5-14.5); Segmented Neutrophils % 77.4 %
[2018-03-15 05:13] LABS: Calcium 7.6 mg/dL (8.6-10.3); Potassium 4.1 mEq/L (3.5-5.1)
[2018-03-15] MEDS: *HR* Heparin 5,000 UNIT/ML VIAL SQ SCH (06:01)
--- NOTE | 2018-03-15 07:51 | Event Note ---
Date of Encounter: 03/15/18 Time of Encounter: 07:50 Nephrology Chart Review Pt's SCr continues to improve. See Dr. Saleh's note yesterday regarding outpt Nephro follow up. Will sign-off. Thank you for having consulted the [facility] group.
[2018-03-15 07:56] VITALS: BP 152/99
[2018-03-15] MEDS: Insulin LISPRO 300 UNITS/3 ML VIAL SQ SCH ×2 (08:00→11:38)
[2018-03-15 08:34] LABS: ANA IgG by ELISA NONE DETECTED (None Detected); Myeloperoxidase Ab 0 AU/mL (0-19); Serine Protease-3 Antibody 0 AU/mL (0-19)
--- NOTE | 2018-03-15 10:38 | Discharge Summary ---
<Adolfo Tang - Last Filed: 03/15/18 15:39> Orders not resulted at time of discharge: Pending orders 03/12/18 03:53 Protein Electrophoresis AM 0400 03/12/18 16:45 Culture,Urine [RM] Routine Date of Encounter: 03/15/18 Time of Encounter: 10:36 - Discharge Diagnosis (1) CHF exacerbation Priority: Primary Status: Acute Assessment and Plan: Associated elevated troponin, irregular heart rate, & hyperlipidemia. Has also been hypokalemic. Admitted with hypertensive urgency, BPs currently within reasonable control. Patient has known HFrEF, with LVEF of 20-25%, last echo 11/2817. Patient has symptoms of SOB at rest, orthopnea, but denies PND or leg swelling. CXR in ED was consistent with CHF and cardiomegaly. BNP 4015. Patient today continues to report cough, but her breathing symptoms are better. Lungs clear without any signs of volume overload and no pedal edema today; stable euvolimic volume status. Has JEREMIE on CKD associated with diuresis. - renal function improving a - Resume Lasix, JOSE-i, and consider adding Spironolactone - strict I/O and weights - has had intermittent hypokalemia that we are monitoring and correcting as needed daily Plan: - discontinue Sheldon & Sitter - Discharge to LTCF Qualifiers: Heart failure type: combined systolic and diastolic Qualified Code(s): I50.43 - Acute on chronic combined systolic (congestive) and diastolic ( congestive) heart failure (2) DMII (diabetes mellitus, type 2) Priority: Secondary Status: Chronic Assessment and Plan: Cont 5u Detemir to be given in AM daily. Continue SSI medium. FSBG between 133 -247. Restart home regimen on discharge. Qualifiers: Diabetes mellitus intermediate card tender insulin use: without intermediate card tender use Diabetes mellitus complication status: with kidney complications Diabetes mellitus complication detail: with chronic kidney disease Chronic kidney disease stage : stage 3 (moderate) Qualified Code(s): E11.22 - Type 2 diabetes mellitus with diabetic chronic kidney disease; N18.3 - Chronic kidney disease, stage 3 ( moderate); N18.3 - Chronic kidney disease, stage 3 (moderate) (3) Hypokalemia Priority: Secondary Status: Acute Assessment and Plan: Monitor (4) Acute on chronic renal failure Priority: Secondary Status: Acute Assessment and Plan: Cr on Admission 2.30, baseline is ~1.5. All plans as above Qualifiers: Acute renal failure type: unspecified Chronic kidney disease stage: stage 3 (moderate) Qualified Code(s): N17.9 - Acute kidney failure, unspecified; N18.3 - Chronic kidney disease, stage 3 (moderate); N18.3 - Chronic kidney disease, stage 3 (moderate) (5) Hypothyroidism Priority: Secondary Status: Chronic Assessment and Plan: TSH elevated 8.202. Cont current Synthroid. Qualifiers: Hypothyroidism type: unspecified Qualified Code(s): E03.9 - Hypothyroidism , unspecified (6) DVT prophylaxis Priority: Secondary Status: Acute Assessment and Plan: SCDs (7) UTI (urinary tract infection) Priority: Secondary Status: Suspected Assessment and Plan: Patient was given 1 dose of azithromycin and rocephin in ED, and then was switched to Levaquin. Patient is currently in JEREMIE, will not change abx until cultures return. U/A nit and leuk positive. Culture shows yeast species < 100,000 cfu, no need for further antibiotics Qualifiers: Urinary tract infection type: acute cystitis Hematuria presence: without hematuria Qualified Code(s): N30.00 - Acute cystitis without hematuria Hospital course: Ms. Decker is a 67 year old female with CHFrEF, DM type 2, dementia, and hypothyroidism, who presented with SOB, nonproductive cough and lower extremity swelling. In the ED, patient was found to have elevated trops of 0.12, 0.13, 0.18 with baseline trops of 0.04, and BNP of >4000. CXR showed diffuse interstitial prominence with central predominant airspace opacities, suggestive of interstitial and alveolar edema in the setting of congestive heart failure. EKG showed irregular rate and possible signs of heart block. Patient was started on heparin drip, ASA, plavix, statin and BB. Cardiology was consulted at this time and determined tropsonin elevation most likely due to demand ischemia. Echo was performed an LVEF was EF 30-35%, Patient treated with Lasix during hospitalization for CHF exacerbation and developed JEREMIE. Nephrology was consulted and held diuretics. Patient is on beta natalie for cardiomyopathy but ACEI were not given due to poor renal function. During hospitalization patient was noted to have a UTI, she was given azithromycin and rocephin for possible PNA in the ED, and switched to Levaquin. JEREMIE resolved and patient was discharged back to LTCF once cleared by nephrology. Discharge discussed with: patient, nurse, social work, case management - Time Spent with Patient Total time spent providing and/or coordinating discharge services: - Discharge Medications Prescriptions: Levothyroxine [Synthroid] 50 mcg PO 0630 #60 tablet Home Medications: Aspirin 81 mg PO DAILY #90 tab.chew 07/31/16 [Rx] Atorvastatin [Lipitor] 40 mg PO HS #30 tablet 07/31/16 [Rx] Isosorbide MONOnitrate (24 HR) [Imdur] 60 mg PO DAILY #60 tab.er.24h 07/31/16 [ Rx] Metformin HCl [Metformin HCl ER] 500 mg PO DAILY #30 [id number] 07/31/16 [Rx] Nitroglycerin 0.4 mg SL Q5MIN PRN #15 tab.subl 07/31/16 [Rx] hydrALAZINE [HydrALAZINE] 25 mg PO Q6HR #90 tablet 07/31/16 [Rx] Clopidogrel [Plavix] 75 mg PO DAILY #30 tablet 12/14/17 [Rx] Furosemide [Lasix] 20 mg PO DAILY #30 tablet 12/14/17 [Rx] Lisinopril [Zestril] 5 mg PO DAILY #30 tablet 12/14/17 [Rx] Metoprolol XL (24 HR) Succ [Toprol Xl] 25 mg PO DAILY #30 tab.er.24h 12/14/17 [ Rx] Levothyroxine [Synthroid] 50 mcg PO 0630 #60 tablet 03/15/18 [Rx] Allergies/Adverse Reactions: 3 Allergy/AdvReac Type Severity Reaction Status Date / Time No Known Allergies Allergy Verified 03/05/18 16:07 Date of admission: 03/05/18 20:45 Primary care physician: Carol Ely Consults: 03/06/18 09:37 Consult to Invasive Line Access Team [CONS] Routine Reason for Consult: limited access Line Type: EPIV 03/06/18 09:45 Consult to Cardiology [CONS] Routine Comment: Consulting Provider: Cardiology [place] Reason for Consult: abnormal ekg, hfref Call Completed: Yes 03/06/18 16:34 Consult to Occupational Therapy [CONS] Routine Comment: Evaluate, develop and implement POC Reason for Consult: home with daughter Does patient have active BEDREST order?: No Is patient medically & hemodynamically stable?: Yes Patient assessed for mobility or mobilized this visit?: No Consult to Physical Therapy [CONS] Routine Comment: Evaluate, develop and implement POC Reason for Consult: home with daughter Does patient have active BEDREST order?: No Is patient medically & hemodynamically stable?: Yes Patient assessed for mobility or mobilized this visit?: Yes 03/09/18 15:24 Consult to Nephrology [CONS] Routine Consulting Provider: Jose Marsh Reason for Consult: JEREMIE on CKD; worsening despite gentle hydration and avoidance of nephrotoxins. Time Notified: 15:28 Call Completed: Yes Discharging clinician: Adolfo Tang Anticipated date of discharge: 03/15/18 - Constitutional Vitals: Temp Pulse Resp BP Pulse Ox 97.8 F 88 18 152/99 96 03/15/18 07:52 03/15/18 07:52 03/15/18 07:52 03/15/18 07:52 03/15/18 07:52 General appearance: Present: cooperative, A&O X 2, pleasant, no acute distress - Head Head exam: Present: atraumatic, normocephalic - Eye Eye exam: Present: PERRL, conjuntiva pink, sclera anicteric Pupils: Present: PERRL - ENT ENT exam: Present: mucous membranes dry, normal oropharynx - Neck Neck exam general surgery: Present: supple, trachea midline. Absent: lymphadenopathy - Respiratory Respiratory exam: Present: CTAB. Absent: accessory muscle use, rales, rhonchi, wheezes - Cardiovascular Cardiovascular exam: Present: RRR, +S1, +S2. Absent: diastolic murmur, gallop, rubs, systolic murmur - GI/Abdominal GI/Abdominal exam: Present: normal bowel sounds, soft, no peritoneal signs. Absent: distended, tenderness - Extremities Exam Extremities exam: Present: warm, radial pulses palpable and symmetrical. Absent : calf tenderness, cyanotic, pedal edema - Neurological Exam Neurological exam: Present: CN II-XII intact, oriented X3, no focal deficits. Absent: pronater drift, facial droop, speech deficit - Psychiatric Psychiatric exam: Present: normal affect, normal mood - Skin Skin exam: Present: dry, intact, warm - Patient Status Disposition: Transfer SNF Condition: Good Functional capacity at discharge: wheelchair bound Overall status at discharge: patient is not back to baseline - Discharge Instructions Follow Up With: Carol Odom [Primary Care Provider] - 03/20/18 1:00 pm (PCP is booked for the next month. Have to see Dr. Birch Daily. ) - Diet and Activity Activity: as per physical therapy Diet: other (Renal diet) <Wilner Echols - Last Filed: 03/15/18 17:56> Orders not resulted at time of discharge: Pending orders 03/12/18 03:53 Protein Electrophoresis AM 0400 03/12/18 16:45 Culture,Urine [RM] Routine Date of Encounter: 03/15/18 - Discharge Diagnosis (1) CHF exacerbation Status: Acute Qualifiers: Heart failure type: combined systolic and diastolic Qualified Code(s): I50.43 - Acute on chronic combined systolic (congestive) and diastolic ( congestive) heart failure (2) DMII (diabetes mellitus, type 2) Status: Chronic Qualifiers: Diabetes mellitus prison insulin use: without prison use Diabetes mellitus complication status: with kidney complications Diabetes mellitus complication detail: with chronic kidney disease Chronic kidney disease stage : stage 3 (moderate) Qualified Code(s): E11.22 - Type 2 diabetes mellitus with diabetic chronic kidney disease; N18.3 - Chronic kidney disease, stage 3 ( moderate); N18.3 - Chronic kidney disease, stage 3 (moderate) (3) Hypokalemia Status: Acute (4) DVT prophylaxis Status: Acute (5) Hypothyroidism Status: Chronic Qualifiers: Hypothyroidism type: unspecified Qualified Code(s): E03.9 - Hypothyroidism , unspecified (6) Acute on chronic renal failure Status: Acute Qualifiers: Acute renal failure type: unspecified Chronic kidney disease stage: stage 3 (moderate) Qualified Code(s): N17.9 - Acute kidney failure, unspecified; N18.3 - Chronic kidney disease, stage 3 (moderate); N18.3 - Chronic kidney disease, stage 3 (moderate) (7) UTI (urinary tract infection) Status: Suspected Qualifiers: Urinary tract infection type: acute cystitis Hematuria presence: without hematuria Qualified Code(s): N30.00 - Acute cystitis without hematuria Hospital course: Ms. Decker is a 67 year old female - Time Spent with Patient Total time spent providing and/or coordinating discharge services: Date of admission: 03/05/18 20:45 Primary care physician: Carol Ely Consults: 03/06/18 09:37 Consult to Invasive Line Access Team [CONS] Routine Reason for Consult: limited access Line Type: EPIV 03/06/18 09:45 Consult to Cardiology [CONS] Routine Comment: Consulting Provider: Bong Corrales Reason for Consult: abnormal ekg, hfref Call Completed: Yes 03/06/18 16:34 Consult to Occupational Therapy [CONS] Routine Comment: Evaluate, develop and implement POC Reason for Consult: home with daughter Does patient have active BEDREST order?: No Is patient medically & hemodynamically stable?: Yes Patient assessed for mobility or mobilized this visit?: No Consult to Physical Therapy [CONS] Routine Comment: Evaluate, develop and implement POC Reason for Consult: home with daughter Does patient have active BEDREST order?: No Is patient medically & hemodynamically stable?: Yes Patient assessed for mobility or mobilized this visit?: Yes 03/09/18 15:24 Consult to Nephrology [CONS] Routine Consulting Provider: Jose Marsh Reason for Consult: JEREMIE on CKD; worsening despite gentle hydration and avoidance of nephrotoxins. Time Notified: 15:28 Call Completed: Yes - Constitutional Vitals: Temp Pulse Resp BP Pulse Ox 97.8 F 88 18 152/99 96 03/15/18 07:52 03/15/18 07:52 03/15/18 07:52 03/15/18 07:52 03/15/18 07:52 - Attending Attestation I examined this patient 03/15, and my medical decision-making was reviewed with the Resident Physician. I agree with the documented findings, disposition and treatment plan as described except to the extent set forth below. Clinically stable to be discharged back to longterm facility with low-dose Lasix. Details as in the resident physicians documentation.
[2018-03-15] MEDS: Insulin DETEMIR 100 UNIT/ML X5UNITS SQ SCH (11:38)
[2018-03-15] MEDS: Isosorbide MONOnitrate (24 HR) 60 MG TAB.ER.24H PO SCH (11:39)
[2018-03-15] MEDS: Metoprolol XL (24 HR) Succ 25 MG TAB.ER.24H PO SCH (11:39)
[2018-03-15] MEDS: Aspirin 81 MG TAB.CHEW PO SCH (11:39)
--- NOTE | 2018-03-15 12:05 | Physician Discharge Referral ---
ExtendedCare Referral Info Transfer To: SNF Provider in Charge: Dr. Echols Provider in Charge after Transfer: PCP Institutional Level of Care: Skilled - Diagnosis (1) CHF exacerbation Priority: Primary Status: Acute (2) DMII (diabetes mellitus, type 2) Priority: Secondary Status: Chronic (3) Hypokalemia Priority: Secondary Status: Acute (4) Acute on chronic renal failure Priority: Secondary Status: Acute (5) Hypothyroidism Priority: Secondary Status: Chronic (6) UTI (urinary tract infection) Priority: Secondary Status: Suspected (7) DVT prophylaxis Priority: Secondary Status: Acute Prognosis: Good Aware of Diagnosis: Patient, Family Aware of Prognosis: Patient, Family - Transfer Medications Prescriptions: Levothyroxine [Synthroid] 50 mcg PO 0630 #60 tablet Home Medications: Aspirin 81 mg PO DAILY #90 tab.chew 07/31/16 [Rx] Atorvastatin [Lipitor] 40 mg PO HS #30 tablet 07/31/16 [Rx] Isosorbide MONOnitrate (24 HR) [Imdur] 60 mg PO DAILY #60 tab.er.24h 07/31/16 [ Rx] Metformin HCl [Metformin HCl ER] 500 mg PO DAILY #30 [id number] 07/31/16 [Rx] Nitroglycerin 0.4 mg SL Q5MIN PRN #15 tab.subl 07/31/16 [Rx] hydrALAZINE [HydrALAZINE] 25 mg PO Q6HR #90 tablet 07/31/16 [Rx] Clopidogrel [Plavix] 75 mg PO DAILY #30 tablet 12/14/17 [Rx] Furosemide [Lasix] 20 mg PO DAILY #30 tablet 12/14/17 [Rx] Lisinopril [Zestril] 5 mg PO DAILY #30 tablet 12/14/17 [Rx] Metoprolol XL (24 HR) Succ [Toprol Xl] 25 mg PO DAILY #30 tab.er.24h 12/14/17 [ Rx] Levothyroxine [Synthroid] 50 mcg PO 0630 #60 tablet 03/15/18 [Rx] Allergies/Adverse Reactions: 3 Allergy/AdvReac Type Severity Reaction Status Date / Time No Known Allergies Allergy Verified 03/05/18 16:07 - Respiratory Orders Smoking Cessation: Smoking cessation has been advised. For more information, call the [place] Tobacco Quit Line at 6-978-BFJV-NOW. - Ancillary Orders May use pressure relief devices daily prn - Advance Directives Code Status: Full Code - Mobility Orders Chair, Ambulate - Rehabiliation Orders Rehab Potential: Good Rehab Orders: ROM Exercises, Evaluation for Physical Therapy, Evaluation for Occupational Therapy - Treatments Skin tear care topically daily PRN per policy - Diet Orders Renal CERTIFICATION: I certify that the transfer of the above named patient to an Extended Care Facility is necessary for the continuing treatment of the diagnosis listed. The above information is true and accurate reflection of patient's current condition. Confidential - Redisclosure prohibited without a patient's written consent.
[2018-03-15 16:59] LABS: Alpha 2 Globulin (PEP) 0.89 g/dL (0.48-1.05); Beta Globulin (PEP) 0.56 g/dL (0.48-1.10)
[2018-03-18 09:25] LABS: IFE Reflexed IFE Done; Immunoglobulin A 178 mg/dL (68-408); Immunoglobulin G 628 mg/dL (768-1632); Immunoglobulin M 81 mg/dL (35-263)
== END 2018-03-15 16:36 | DRG 291 ==
LOC: EMEROO 14:21 → 2NENU 14:21 → SUATTDRO 20:45
PROVIDERS: ADMIT Pediatrics; ATTEND Internal Medicine

== ENCOUNTER 2018-06-15 18:09 | Observation (INO) ==
[2018-06-15] MEDS ORDERED: *HR* OxyCODONE Immed Rel 5 MG TABLET PO ONE (18:44)
--- NOTE | 2018-06-15 18:48 | Emergency Department Note ---
Disposition Clinical Impression: Tibial fracture Qualifiers: Encounter type: initial encounter Tibia location: proximal Fracture type: closed Fracture morphology: other fracture Laterality: left Qualified Code(s): S82.192A - Other fracture of upper end of left tibia, initial encounter for closed fracture Disposition: Admitted As Inpatient Condition: Good Referrals: Carol Odom [Primary Care Provider] - Forms: ED Satisfaction Letter, Work/School Release Lower Extremity Injury HPI - General Chief Complaint: ED Extremity Injury, Lower Stated Complaint: FALL L knee pain Time Seen by Provider: 06/15/18 18:36 Source: patient Mode of arrival: private vehicle Limitations: altered mental status Nursing Notes Reviewed: Yes Vital Signs Reviewed: Yes - History of Present Illness HPI Narrative: 68-year-old female history of coronary artery disease on Plavix, prior right knee replacement who presents to the ER status post fall. Family is at bedside and providing history as the patient has baseline dementia. Reports she was getting into their car whenever her left leg gave out on her. She fell to the ground with her left leg and flexing at the knee underneath her. The patient's family was able to catch herself and no head injury. No loss of consciousness. No prodromal symptoms. She was unable to stand without assistance after falling. She walks at baseline with a walker at home. No other injury sustained. No other complaints. Pt Subjective Complaint: knee injury, leg injury Onset (ago): [employer] Mechanism of Injury: hyperflexion Context: fall Place: home Pain Severity: severe Improves with: nothing Worsens with: movement Associated symptoms: Reports: unable to bear weight - Related Data Previous Rx's Medication Instructions Recorded Aspirin 81 mg PO DAILY #90 tab.chew 07/31/16 Atorvastatin [Lipitor] 40 mg PO HS #30 tablet 07/31/16 Isosorbide MONOnitrate (24 HR) 60 mg PO DAILY #60 tab.er.24h 07/31/16 [Imdur] Metformin HCl [Metformin HCl ER] 500 mg PO DAILY #30 [id number] 07/31/16 Nitroglycerin 0.4 mg SL Q5MIN PRN #15 tab.subl 07/31/16 hydrALAZINE [HydrALAZINE] 25 mg PO Q6HR #90 tablet 07/31/16 Clopidogrel [Plavix] 75 mg PO DAILY #30 tablet 12/14/17 Furosemide [Lasix] 20 mg PO DAILY #30 tablet 12/14/17 Lisinopril [Zestril] 5 mg PO DAILY #30 tablet 12/14/17 Metoprolol XL (24 HR) Succ [Toprol 25 mg PO DAILY #30 tab.er.24h 12/14/17 Xl] Levothyroxine [Synthroid] 50 mcg PO 0630 #60 tablet 03/15/18 Allergies Allergy/AdvReac Type Severity Reaction Status Date / Time No Known Allergies Allergy Verified 03/05/18 16:07 All systems ED: reviewed and negative except as stated. Musculoskeletal: Reports: other (Left leg pain) Neurological: Denies: weakness, numbness, paresthesias Past Medical History - Past Medical History Attestation: Yes The following information was validated with the patient. Source: obtained from family Medical history: Reports: aortic aneurysm, dementia, diabetes, GERD, hypertension, osteoporosis, other Surgical history: Reports: cholecystectomy Psychiatric history: Reports: no psych history - Social History Smoking Status: Never smoker Smokeless Tobacco Status: No Alcohol use: Reports: none Drug use: Reports: none Physical Exam - General Limitations: no limitations General appearance: alert, in no apparent distress - Head Head exam: atraumatic, normocephalic - Eye Eye exam: Present: normal appearance - ENT ENT exam: normal exam - Neck Neck exam: Present: normal inspection - Chest Chest inspection: Present: normal inspection, symmetric chest wall rise - Respiratory Respiratory exam: Present: normal lung sounds bilaterally - Cardiovascular Cardiovascular exam: Present: regular rate, normal rhythm, normal heart sounds - Extremities Exam Extremities exam: Present: normal inspection, full ROM - Expanded Upper Extremity Exam Shoulder exam: Present: normal inspection, full ROM Arm exam: Present: normal inspection, full ROM Elbow exam: Present: normal inspection, full ROM Forearm/Wrist exam: Present: normal inspection, full ROM Hand exam: Present: normal inspection, full ROM - Expanded Lower Extremity Exam Hip/Pelvis exam: Present: normal inspection, full ROM Upper leg exam: Present: normal inspection, full ROM 1 - There is significant swelling and ecchymosis just inferior to the left patella. Knee exam: Present: normal inspection Lower leg exam: Present: normal inspection, tenderness, swelling, ecchymosis Ankle exam: Present: normal inspection, full ROM Foot/toe exam: Present: normal inspection, full ROM Neurovascular/Tendon exam: Absent: motor deficit, sensory deficit - Neurological Exam Neurological exam: Present: alert, other (Baseline as per family. Moves all extremities with the exception of her left knee secondary to pain.) - Skin Skin exam: Present: warm, dry Course Course Narrative: Patient seen and examined. Vital signs reviewed. Plan for imaging of the left knee and tib-fib as well as pelvis x-ray. Oxycodone for pain here as the patient just had Tylenol 2 hours ago. - Reevaluation(s) Reevaluation #1: Discussed findings with family. Discussed we will need to splint her here and she will see the orthopedic surgeon in the morning. - Consultations Consultation #1: I spoke with the on-call orthopedic surgeon Dr. Dillon. Discussed the patient' s history exam imaging and concerns. Images were sent for his evaluation. Recommends a long-leg posterior splint and he will see the patient in the morning. Vital Signs Temperature 98.6 F 06/15/18 18:10 Pulse Rate 97 06/15/18 18:10 Respiratory Rate 22 06/15/18 18:10 Blood Pressure 171/79 06/15/18 18:10 O2 Sat by Pulse Oximetry 97 06/15/18 18:10 Temperature 98.6 F 06/15/18 18:20 Pulse Rate 83 06/15/18 21:30 Respiratory Rate 16 06/15/18 21:30 Blood Pressure 172/89 06/15/18 21:30 O2 Sat by Pulse Oximetry 99 06/15/18 21:30 Oxygen Delivery Oxygen Delivery Room Air Procedures - Orthopedic Splinting/Casting Injury #1 Side: left Upper Extremity Immobilizer: posterior splint Lower Extremity Injury Location: lower leg Lower Extremity Immobilizer: posterior splint Extremity Injury, Lower - MDM Narrative Medical decision making narrative: 68-year-old female with mechanical fall at home. She is noted to have a proximal tibial fracture with normal displacement. Neurovascularly intact. Case discussed with orthopedics. Splint applied. Admitted to the hospital service. - Lab Data Lab results reviewed: Yes I reviewed the patient's lab results. Result diagrams: 06/15/18 19:44 06/15/18 19:44 Lab Results 06/15/18 06/15/18 06/15/18 Range/Units 19:44 19:44 19:44 WBC 7.7 (4.3-11.1) K/mcL RBC 3.17 L (3.82-4.97) M/mcL Hgb 9.7 L (11.5-15.4) g/dL Hct 28.8 L (35.3-44.9) % MCV 90.9 (83.0-100.0) fL MCH 30.6 (28.0-33.3) pg MCHC 33.7 (31.6-35.5) g/dL RDW 15.9 H (11.5-14.5) % Plt Count 166 (140-400) K/mcL MPV 10.5 (9.4-12.4) fL Immature Gran % 0.3 (0-4) % Seg Neutrophils % 79.4 % Lymphocytes % 9.6 % Monocytes % 9.6 % Eosinophils % 0.8 % Basophils % 0.3 % Neutrophils # 6.2 (1.6-8.9) K/mcL Lymphocytes # 0.7 (0.6-4.6) K/mcL Monocytes # 0.7 (0.0-1.3) K/mcL Eosinophils # 0.1 (0.0-0.6) K/mcL Basophils # 0.0 (0.0-0.2) K/mcL PT 10.2 (9.4-12.1) Seconds INR 0.9 Sodium 132 L (136-145) mEq/L Potassium 4.7 (3.5-5.1) mEq/L Chloride 102 (98-107) mEq/L Carbon Dioxide 24 (23-29) mEq/L BUN 56 H (8-23) mg/dL Creatinine 1.80 H (0.60-1.20) mg/dL Est GFR ( Amer) 34 L (> 60) Est GFR (Non-Af Amer) 28 L (> 60) BUN/Creatinine Ratio 31 H (6-26) Glucose 271 H (70-105) mg/dL Calculated Osmolality 299 (280-300) Calcium 8.6 (8.6-10.3) mg/dL - Radiology Data Radiology results reviewed: Yes I reviewed the patient's radiology results. Knee X-Ray 06/15/18 18:43 IMPRESSION: Proximal tibial and fibular fractures. D/ / 06/15/2018 19:31:30 Gaudencio Cuellar MD / Kassandra Shaikh Interpreting Provider: Gaudencio Cuellar MD Pelvis X-Ray 06/15/18 18:43 IMPRESSION: 1. No acute fracture identified. 2. Mild osteoarthritis of the bilateral hips. D/ / Ricky Sapp MD / Ricky Sapp MD Interpreting Provider: Ricky Sapp MD Tibia/Fibula X-Ray 06/15/18 18:43 IMPRESSION: 1. Fracture of left proximal tibial diaphysis. 2. Subtle curvilinear lucency about the proximal fibula could be related to overlap versus subtle nondisplaced fracture as described above. D/ / 06/15/2018 19:32:35 Moises Perdomo MD / Kassandra Shaikh Interpreting Provider: Moises Perdomo MD S.B.A.[facility]. - S.B.A.[facility]. Situation: Demographics, MOA Background: Presenting Complaint, Relevant PMH, Meds, & Allergies Assessment: Course and respsone to treatment, Exam Concerns, Patient/Family Expectation, Pertinant Lab Results Recommendation: Barrier(s) to disposition, Recommendation based on pending studies, treatments, or consults S.B.A.R. Report Given to: Dr. Augustine
[2018-06-15 19:53] LABS: Basophils % 0.3 %; Eosinophils # 0.1 K/mcL (0.0-0.6); Eosinophils % 0.8 %; Hematocrit 28.8 % (35.3-44.9); Hemoglobin 9.7 g/dL (11.5-15.4); Immature Granulocytes % 0.3 % (0-4); Lymphocytes # 0.7 K/mcL (0.6-4.6); Lymphocytes % 9.6 %; Mean Corpuscular HGB Conc 33.7 g/dL (31.6-35.5); Mean Corpuscular Hemoglobin 30.6 pg (28.0-33.3); Mean Corpuscular Volume 90.9 fL (83.0-100.0); Mean Platelet Volume 10.5 fL (9.4-12.4); Monocytes # 0.7 K/mcL (0.0-1.3); Monocytes % 9.6 %; Neutrophils # 6.2 K/mcL (1.6-8.9); Platelet Count 166 K/mcL (140-400); Red Blood Count 3.17 M/mcL (3.82-4.97); Red Cell Distribution Width 15.9 % (11.5-14.5); Segmented Neutrophils % 79.4 %
[2018-06-15 19:58] LABS: INR 0.9; Prothrombin Time 10.2 Seconds (9.4-12.1)
[2018-06-15 20:14] LABS: Calcium 8.6 mg/dL (8.6-10.3); Potassium 4.7 mEq/L (3.5-5.1)
--- NOTE | 2018-06-15 20:35 | Emergency Department Note ---
Disposition Clinical Impression: Tibial fracture Qualifiers: Encounter type: initial encounter Tibia location: proximal Fracture type: closed Fracture morphology: other fracture Laterality: left Qualified Code(s): S82.192A - Other fracture of upper end of left tibia, initial encounter for closed fracture Disposition: Admitted As Inpatient Condition: Good General Adult HPI - General Chief complaint: ED Extremity Injury, Lower Stated complaint: FALL L knee pain Time Seen by Provider: 06/15/18 18:36 Source: patient Mode of arrival: private vehicle Limitations: no limitations Nursing Notes Reviewed: Yes Vital Signs Reviewed: Yes - History of Present Illness Pain Scale: 10 - Related Data Previous Rx's Medication Instructions Recorded Aspirin 81 mg PO DAILY #90 tab.chew 07/31/16 Atorvastatin [Lipitor] 40 mg PO HS #30 tablet 07/31/16 Isosorbide MONOnitrate (24 HR) 60 mg PO DAILY #60 tab.er.24h 07/31/16 [Imdur] Metformin HCl [Metformin HCl ER] 500 mg PO DAILY #30 [id number] 07/31/16 Nitroglycerin 0.4 mg SL Q5MIN PRN #15 tab.subl 07/31/16 hydrALAZINE [HydrALAZINE] 25 mg PO Q6HR #90 tablet 07/31/16 Clopidogrel [Plavix] 75 mg PO DAILY #30 tablet 12/14/17 Furosemide [Lasix] 20 mg PO DAILY #30 tablet 12/14/17 Lisinopril [Zestril] 5 mg PO DAILY #30 tablet 12/14/17 Metoprolol XL (24 HR) Succ [Toprol 25 mg PO DAILY #30 tab.er.24h 12/14/17 Xl] Levothyroxine [Synthroid] 50 mcg PO 0630 #60 tablet 03/15/18 Allergies Allergy/AdvReac Type Severity Reaction Status Date / Time No Known Allergies Allergy Verified 03/05/18 16:07 Musculoskeletal: Reports: other (Left leg pain) Neurological: Denies: weakness, numbness, paresthesias Past Medical History - Past Medical History Medical history: Reports: aortic aneurysm, dementia, diabetes, GERD, hypertension, osteoporosis, other Surgical history: Reports: cholecystectomy Psychiatric history: Reports: no psych history - Social History Smoking Status: Never smoker Smokeless Tobacco Status: No Alcohol use: Reports: none Drug use: Reports: none Physical Exam - General Limitations: no limitations General appearance: alert, in no apparent distress Course Vital Signs Temperature 98.6 F 06/15/18 18:10 Pulse Rate 97 06/15/18 18:10 Respiratory Rate 22 06/15/18 18:10 Blood Pressure 171/79 06/15/18 18:10 O2 Sat by Pulse Oximetry 97 06/15/18 18:10 Temperature 98.6 F 06/15/18 18:20 Pulse Rate 83 06/15/18 21:30 Respiratory Rate 16 06/15/18 21:30 Blood Pressure 172/89 06/15/18 21:30 O2 Sat by Pulse Oximetry 99 06/15/18 21:30 Oxygen Delivery Oxygen Delivery Room Air Medical Decision Making - Lab Data Lab results reviewed: Yes I reviewed the patient's lab results. Result diagrams: 06/15/18 19:44 06/15/18 19:44 Lab Results 06/15/18 06/15/18 06/15/18 Range/Units 19:44 19:44 19:44 WBC 7.7 (4.3-11.1) K/mcL RBC 3.17 L (3.82-4.97) M/mcL Hgb 9.7 L (11.5-15.4) g/dL Hct 28.8 L (35.3-44.9) % MCV 90.9 (83.0-100.0) fL MCH 30.6 (28.0-33.3) pg MCHC 33.7 (31.6-35.5) g/dL RDW 15.9 H (11.5-14.5) % Plt Count 166 (140-400) K/mcL MPV 10.5 (9.4-12.4) fL Immature Gran % 0.3 (0-4) % Seg Neutrophils % 79.4 % Lymphocytes % 9.6 % Monocytes % 9.6 % Eosinophils % 0.8 % Basophils % 0.3 % Neutrophils # 6.2 (1.6-8.9) K/mcL Lymphocytes # 0.7 (0.6-4.6) K/mcL Monocytes # 0.7 (0.0-1.3) K/mcL Eosinophils # 0.1 (0.0-0.6) K/mcL Basophils # 0.0 (0.0-0.2) K/mcL PT 10.2 (9.4-12.1) Seconds INR 0.9 Sodium 132 L (136-145) mEq/L Potassium 4.7 (3.5-5.1) mEq/L Chloride 102 (98-107) mEq/L Carbon Dioxide 24 (23-29) mEq/L BUN 56 H (8-23) mg/dL Creatinine 1.80 H (0.60-1.20) mg/dL Est GFR ( Amer) 34 L (> 60) Est GFR (Non-Af Amer) 28 L (> 60) BUN/Creatinine Ratio 31 H (6-26) Glucose 271 H (70-105) mg/dL Calculated Osmolality 299 (280-300) Calcium 8.6 (8.6-10.3) mg/dL - Radiology Data Radiology results reviewed: Yes I reviewed the patient's radiology results. Knee X-Ray 06/15/18 18:43 IMPRESSION: Proximal tibial and fibular fractures. D/ / 06/15/2018 19:31:30 Gaudencio Cuellar MD / Kassandra Shaikh Interpreting Provider: Gaudencio Cuellar MD Pelvis X-Ray 06/15/18 18:43 IMPRESSION: 1. No acute fracture identified. 2. Mild osteoarthritis of the bilateral hips. D/ / Ricky Sapp MD / Ricky Sapp MD Interpreting Provider: Ricky Sapp MD Tibia/Fibula X-Ray 06/15/18 18:43 IMPRESSION: 1. Fracture of left proximal tibial diaphysis. 2. Subtle curvilinear lucency about the proximal fibula could be related to overlap versus subtle nondisplaced fracture as described above. D/ / 06/15/2018 19:32:35 Moises Perdomo MD / Kassandra Shaikh Interpreting Provider: Moises Perdomo MD Attestation Statement - Attestation Attestation: I, Harpreet Ivey MD, personally evaluated this patient and discussed their management with the resident physician. I reviewed the resident's note and agree with the documented findings, medical decision making, and plan of care. 68-year-old female persisted emergency department with a complaint of left knee pain. Patient was using her walker and was walking to the car when her left knee just buckled causing her to fall. Family called her and she did not fall to the ground. She complains of severe pain in the left knee. No other pain or injury. Patient has severe dementia. She is awake and alert but oriented to person only. On examination patient is well-developed well-nourished elderly female in no acute distress. She is alert. She is hard of hearing. There is no cyanosis or diaphoresis. Breath sounds are clear and equal bilaterally. Heart regular rate and rhythm. Abdomen soft with present bowel sounds. There is some bruising and swelling of the left lower extremity just below the knee over the tibial plateau region. Neurovascular function intact distally. No deformity. Range of motion not tested. X-ray shows a minimally displaced fracture of the proximal tibia and also an apparent nondisplaced fracture of the proximal fibula. Dr. Lopez discussed the case with the orthopedist blue print control clerk, Dr. Dillon. He recommended admission by the hospitalist with a long-leg padded posterior splint and he will see the patient in the morning. The hospitalist, Dr. Augustine , was consulted and accepted admission of the patient.
[2018-06-15] MEDS ORDERED: Naloxone 0.4 MG/ML INJ IVP PRN (21:02)
[2018-06-15] MEDS ORDERED: hydrALAZINE 25 MG TABLET PO PRN (21:07)
--- NOTE | 2018-06-15 21:27 | Internal Med History&Physical ---
Date of Encounter: 06/16/18 Time of Encounter: 21:30 Internal Medicine - H&P: HPI Chief complaint: Left knee pain with tibial fracture History of present illness: Ms. Decker is a 68 year old female with pmh of dementia, diabetes, GERD, hypertension presenting with complaints of fall today with her knee buckling. Patient has dementia and history was provided by her daughter. She notes they were going to a birthday green party and patient was ambulating to the car in her driveway with her walker when she noticed her knee buckle and she fell forward. they were able to catch her before she fell but she started complain of severe left knee pain and afterwards and her daughter drover her straight to the ER. In the ER, tibia/fibula xray showed a fracture of the left proximal tibial diaphysis. Orthopedic surgery was consulted and she is being admitted for further managment Past Med Surg Social Fam HX - Past Medical History Medical history: aortic aneurysm, dementia, diabetes, GERD, hypertension, osteoporosis, other Psychiatric history: no psych history - Past Surgical History Surgical History: cholecystectomy - Social History Smoking Status: Never smoker Smokeless Tobacco Status: No Alcohol use: none Drug use: none Internal Medicine - H&P: Meds Aspirin 81 mg PO DAILY #90 tab.chew 07/31/16 [Rx] Atorvastatin [Lipitor] 40 mg PO HS #30 tablet 07/31/16 [Rx] Isosorbide MONOnitrate (24 HR) [Imdur] 60 mg PO DAILY #60 tab.er.24h 07/31/16 [ Rx] Metformin HCl [Metformin HCl ER] 500 mg PO DAILY #30 [id number] 07/31/16 [Rx] Nitroglycerin 0.4 mg SL Q5MIN PRN #15 tab.subl 07/31/16 [Rx] hydrALAZINE [HydrALAZINE] 25 mg PO Q6HR #90 tablet 07/31/16 [Rx] Clopidogrel [Plavix] 75 mg PO DAILY #30 tablet 12/14/17 [Rx] Furosemide [Lasix] 20 mg PO DAILY #30 tablet 12/14/17 [Rx] Lisinopril [Zestril] 5 mg PO DAILY #30 tablet 12/14/17 [Rx] Metoprolol XL (24 HR) Succ [Toprol Xl] 25 mg PO DAILY #30 tab.er.24h 12/14/17 [ Rx] Levothyroxine [Synthroid] 50 mcg PO 0630 #60 tablet 03/15/18 [Rx] 3 Allergy/AdvReac Type Severity Reaction Status Date / Time No Known Allergies Allergy Verified 03/05/18 16:07 All Systems PM: A 10-system review of systems was performed and is negative for pertinent findings except as documented above in the HPI. - Constitutional Constitutional: no chills, no fever(s), no night sweats - EENT Eyes: no change in vision, no discharge, no pain, no photophobia Ears: no ear discharge, no ear pain, no tinnitus Nose, mouth and throat: no dysphagia, no nasal discharge, no neck pain, no sore throat - Cardiovascular Cardiovascular ROS IM: no chest pain, no diaphoresis, no dyspnea, no lightheadedness, no palpitations, no syncope - Respiratory Respiratory: no cough, no dyspnea, no wheezing, no excessive phlegm production - Gastrointestinal Gastrointestinal: no abdominal pain, no diarrhea, no hematemesis, no hematochezia, no melena, no nausea, no vomiting - Genitourinary Genitourinary: no change in urinary stream, no dysuria, no flank pain, no hematuria - Musculoskeletal Musculoskeletal ROS IM: no numbness, no tingling Additional comments: severe knee and left leg pain - Integumentary Integumentary IM: no rash, no unusual bruising - Neurological Neurological ROS: no confusion, no convulsions, no focal weakness, no numbness, no tingling, no tremor(s) - Hematologic/Lymphatic Hematologic/Lymphatic: no easy bruising - Constitutional Vitals: Temp Pulse Resp BP Pulse Ox 98.6 F 97 22 171/79 97 06/15/18 18:20 06/15/18 18:20 06/15/18 18:20 06/15/18 18:20 06/15/18 18:20 - Head Head exam: Present: atraumatic, normocephalic - Eye Eye exam: Present: PERRL, conjuntiva pink, sclera anicteric Pupils: Present: PERRL - Neck Neck exam general surgery: Present: supple, trachea midline. Absent: lymphadenopathy - Respiratory Respiratory exam: Present: CTAB. Absent: accessory muscle use, rales, rhonchi, wheezes - Cardiovascular Cardiovascular exam: Present: RRR, +S1, +S2. Absent: diastolic murmur, gallop, rubs, systolic murmur - GI/Abdominal GI/Abdominal exam: Present: normal bowel sounds, soft, no peritoneal signs. Absent: distended, tenderness - Extremities Exam Extremities exam: Present: warm, radial pulses palpable and symmetrical. Absent : calf tenderness, cyanotic, pedal edema Additional comments: left knee in brace - Neurological Exam Neurological exam: Present: CN II-XII intact, oriented X3, no focal deficits. Absent: pronater drift, facial droop, speech deficit - Skin Skin exam: Present: dry, intact Internal Med - H&P Results - Labs CBC & Chem 7: 06/15/18 19:44 06/15/18 19:44 Labs: Short CBC 06/15/18 Range/Units 19:44 WBC 7.7 (4.3-11.1) K/mcL Hgb 9.7 L (11.5-15.4) g/dL Hct 28.8 L (35.3-44.9) % Plt Count 166 (140-400) K/mcL Neutrophils # 6.2 (1.6-8.9) K/mcL BMP 06/15/18 19:44 Sodium 132 L Potassium 4.7 Chloride 102 Carbon Dioxide 24 BUN 56 H Creatinine 1.80 H Glucose 271 H Calcium 8.6 - Impressions ITS Impressions Knee X-Ray 06/15/18 18:43 IMPRESSION: Proximal tibial and fibular fractures. D/ / 06/15/2018 19:31:30 Gaudencio Cuellar MD / Kassandra Shaikh Interpreting Provider: Gaudencio Cuellra MD Pelvis X-Ray 06/15/18 18:43 IMPRESSION: 1. No acute fracture identified. 2. Mild osteoarthritis of the bilateral hips. D/ / Ricky Sapp MD / Ricky Sapp MD Interpreting Provider: Ricky Sapp MD Tibia/Fibula X-Ray 06/15/18 18:43 IMPRESSION: 1. Fracture of left proximal tibial diaphysis. 2. Subtle curvilinear lucency about the proximal fibula could be related to overlap versus subtle nondisplaced fracture as described above. D/ / 06/15/2018 19:32:35 Moises Perdomo MD / Kassandra Shaikh Interpreting Provider: Moises Perdomo MD - Assessment and plan (1) Tibial fracture Current Visit: Yes Status: Acute Assessment and plan: Pt had knee buckling s/p fall today. Lower extremity xray showed left tibial fracture. Orthopedic surgery has been consulted, plan for sugery in am, NPO from midnight. Hold aspirin and plavix Qualifiers: Encounter type: initial encounter Tibia location: proximal Fracture type : closed Fracture morphology: other fracture Laterality: left Qualified Code(s): S82.192A - Other fracture of upper end of left tibia, initial encounter for closed fracture (2) CKD (chronic kidney disease) Current Visit: No Status: Chronic Assessment and plan: CKD stage 3, pt's creatinine is improved from last visit. Continue lasix Qualifiers: Chronic kidney disease stage: stage 3 (moderate) Qualified Code(s): N18.3 - Chronic kidney disease, stage 3 (moderate) (3) Diabetes mellitus Current Visit: Yes Status: Acute Assessment and plan: On insulin sliding scale Qualifiers: Qualified Code(s): E11.9 - Type 2 diabetes mellitus without complications (4) Hypothyroidism (acquired) Current Visit: No Status: Acute Assessment and plan: Continue levothyroxine (5) Hypertension Current Visit: Yes Status: Acute Assessment and plan: on lisinopril and beta blockers Qualifiers: Qualified Code(s): I10 - Essential (primary) hypertension (6) DVT prophylaxis Current Visit: Yes Status: Acute Assessment and plan: heparin sc (7) Dementia Current Visit: No Status: Chronic Assessment and plan: Stable. Monitor Qualifiers: Dementia type: Alzheimer's disease Alzheimer's disease onset: unspecified onset Dementia behavioral disturbance: without behavioral disturbance Qualified Code(s): G30.9 - Alzheimer's disease, unspecified; F02.80 - Dementia in other diseases classified elsewhere without behavioral disturbance; F02.80 - Dementia in other diseases classified elsewhere without behavioral disturbance; F02.80 - Dementia in other diseases classified elsewhere without behavioral disturbance (8) Systolic CHF Current Visit: Yes Status: Acute Assessment and plan: No acute exacerbation. TTE in showed EF of 20-25%. continue lasix, lisnopril and beta blockers Qualifiers: Heart failure chronicity: chronic Qualified Code(s): I50.22 - Chronic systolic (congestive) heart failure - Time Spent With Patient Total time spent is greater than 50% in coordination of care (as documented) at patient's floor/unit and/or counseling patient:
[2018-06-15] MEDS ORDERED: D5% in Water 1,000 ML IVC PRN (21:28)
[2018-06-15] MEDS ORDERED: *HR* Dextrose 50 % in Water (Syg) 50 ML SYRINGE IVP PRN (21:28)
[2018-06-15] MEDS ORDERED: Dextrose Gel 15 GM/37.5 ML TUBE PO PRN ×2 (21:28)
[2018-06-15] MEDS ORDERED: *HR* FentaNYL (PF) 100 MCG/2 ML VIAL IVP ONE (21:47)
[2018-06-15] MEDS: *HR* OxyCODONE/APAP 10/325 TABLET PO PRN (23:57)
[2018-06-16] MEDS: traMADol 50 MG TABLET PO PRN (03:08)
[2018-06-16 06:26] LABS: Basophils % 0.2 %; Eosinophils # 0.1 K/mcL (0.0-0.6); Eosinophils % 1.5 %; Hematocrit 26.2 % (35.3-44.9); Hemoglobin 8.7 g/dL (11.5-15.4); Immature Granulocytes % 0.2 % (0-4); Lymphocytes # 1.2 K/mcL (0.6-4.6); Lymphocytes % 17.7 %; Mean Corpuscular HGB Conc 33.2 g/dL (31.6-35.5); Mean Corpuscular Hemoglobin 30.4 pg (28.0-33.3); Mean Corpuscular Volume 91.6 fL (83.0-100.0); Mean Platelet Volume 10.6 fL (9.4-12.4); Monocytes # 0.9 K/mcL (0.0-1.3); Monocytes % 12.9 %; Neutrophils # 4.5 K/mcL (1.6-8.9); Platelet Count 155 K/mcL (140-400); Red Blood Count 2.86 M/mcL (3.82-4.97); Red Cell Distribution Width 15.9 % (11.5-14.5); Segmented Neutrophils % 67.5 %
[2018-06-16] MEDS: *HR* Heparin 5,000 UNIT/ML VIAL SQ SCH ×2 (06:45→17:44)
[2018-06-16] MEDS: Levothyroxine 25 MCG TABLET PO SCH (06:46)
[2018-06-16] MEDS: *HR* OxyCODONE/APAP 10/325 TABLET PO PRN ×3 (07:11→19:39)
[2018-06-16] MEDS: Metoprolol XL (24 HR) Succ 25 MG TAB.ER.24H PO SCH (07:49)
[2018-06-16] MEDS: Insulin LISPRO 300 UNITS/3 ML VIAL SQ SCH (07:50)
[2018-06-16 08:04] LABS: Calcium 8.1 mg/dL (8.6-10.3); Magnesium 1.9 mg/dL (1.6-2.6); Phosphorous 4.1 mg/dL (2.7-4.5); Potassium 4.6 mEq/L (3.5-5.1)
--- NOTE | 2018-06-16 10:29 | Orthopedic Consult Note ---
Date of Encounter: 06/16/18 Time of Encounter: 10:27 Assessment and Plan (1) Tibial fracture Current Visit: Yes Status: Acute Attempted to contact patient's daughter via listed phone number to discuss care but was unable to get into contact with her. Will continue with nonoperative management of the fracture. Continue splint with NWB of the LLE. Ok for diet. F/ u in 1-2 weeks with sports medicine for repeat xrays and likely cast placement. Qualifiers: Encounter type: initial encounter Tibia location: proximal Fracture type : closed Fracture morphology: other fracture Laterality: left Qualified Code(s): S82.192A - Other fracture of upper end of left tibia, initial encounter for closed fracture History of Present Illness HPI: Ms. Decker is a 68 year old female with pmh of dementia, diabetes, GERD, hypertension presenting with complaints of fall yesterday causing left leg pain. Patient has dementia and history was provided through medical record. Patient was ambulating to the car in her driveway with her walker when she noticed her knee buckle and she fell forward. She started complain of severe left knee pain and afterwards. No LOC, chest pain, SOB or prodromal symptoms were noted prior to the fall. No other complaints of pain in other extremities. Diagnosed with proximal tibia/fibula fx in the ED and ortho was consulted. Past Med Surg Social Fam HX - Past Medical History Medical history: aortic aneurysm, dementia, diabetes, GERD, hypertension, osteoporosis, other Psychiatric history: no psych history - Past Surgical History Surgical History: cholecystectomy Additional surgical history: PT CONFUSED UNABLE TO GET CURRENT INFORMATION, INFO GATHERED FROM PAST MEDICAL RECORDS. - Social History Smoking Status: Never smoker Smokeless Tobacco Status: No Alcohol use: none Drug use: none Medications and Allergies Aspirin 81 mg PO DAILY #90 tab.chew 07/31/16 [Rx] Atorvastatin [Lipitor] 40 mg PO HS #30 tablet 07/31/16 [Rx] Isosorbide MONOnitrate (24 HR) [Imdur] 60 mg PO DAILY #60 tab.er.24h 07/31/16 [ Rx] Metformin HCl [Metformin HCl ER] 500 mg PO DAILY #30 [id number] 07/31/16 [Rx] Nitroglycerin 0.4 mg SL Q5MIN PRN #15 tab.subl 07/31/16 [Rx] hydrALAZINE [HydrALAZINE] 25 mg PO Q6HR #90 tablet 07/31/16 [Rx] Clopidogrel [Plavix] 75 mg PO DAILY #30 tablet 12/14/17 [Rx] Furosemide [Lasix] 20 mg PO DAILY #30 tablet 12/14/17 [Rx] Lisinopril [Zestril] 5 mg PO DAILY #30 tablet 12/14/17 [Rx] Metoprolol XL (24 HR) Succ [Toprol Xl] 25 mg PO DAILY #30 tab.er.24h 12/14/17 [ Rx] Levothyroxine [Synthroid] 50 mcg PO 0630 #60 tablet 03/15/18 [Rx] 3 Allergy/AdvReac Type Severity Reaction Status Date / Time No Known Allergies Allergy Verified 03/05/18 16:07 ROS unobtainable: due to mental status Physical Exam - Constitutional Vitals: Temp Pulse Resp BP Pulse Ox 98.6 F 72 16 152/75 97 06/16/18 07:46 06/16/18 07:46 06/16/18 03:24 06/16/18 07:46 06/16/18 07:46 Exam: Consult Exam - exam limited by underlying dementia: Constitutional -Vitals reviewed -Mood is pleasant with underlying dementia. Psychiatric -The patient is AAOx0. Respiratory: -Respiratory effort normal Abdomen: -Soft abdomen -Non tender -Non distended: Left upper extremity: -No deformities. The overlying skin is intact. No obvious signs of acute trauma. -No tenderness to palpation throughout. -No significant pain with passive motion of the shoulder, elbow, wrist, and fingers within the limits of the bed. -Spontaneously moving extremity. -Radial pulse is present; Fingers have good capillary refill. Right upper extremity: -No deformities. The overlying skin is intact. No obvious signs of acute trauma. -No tenderness to palpation throughout. -No significant pain with passive motion of the shoulder, elbow, wrist, and fingers within the limits of the bed. -Spontaneously moving extremity. -Radial pulse is present; Fingers have good capillary refill. Left lower extremity: -Long leg splint is in place. -Tenderness to palpation proximal tibia, no other areas of tenderness. -No pain with passive motion of the hip within the limits of the bed. -No pain with axial loading of the thigh. -Able to wiggle toes. -Sensation is grossly intact to light touch over toes. -Toes have good capillary refill. Right lower extremity: -No deformities. The overlying skin is intact. No obvious signs of acute trauma. -No tenderness to palpation throughout. -No pain with passive motion of the hip, knee, ankle, and toes within the limits of the bed. -No pain with axial loading of the thigh. -Able to dorsiflex and plantarflex the ankle and toes. -Toes have good capillary refill. Results - Labs Result Diagrams: 06/16/18 06:13 06/16/18 06:13 Labs: Abnormal lab results RBC 2.86 M/mcL (3.82-4.97) L 06/16/18 06:13 Hgb 8.7 g/dL (11.5-15.4) L 06/16/18 06:13 Hct 26.2 % (35.3-44.9) L 06/16/18 06:13 RDW 15.9 % (11.5-14.5) H 06/16/18 06:13 Sodium 135 mEq/L (136-145) L 06/16/18 06:13 BUN 55 mg/dL (8-23) H 06/16/18 06:13 Creatinine 1.79 mg/dL (0.60-1.20) H 06/16/18 06:13 Est GFR ( Amer) 34 (> 60) L 06/16/18 06:13 Est GFR (Non-Af Amer) 28 (> 60) L 06/16/18 06:13 BUN/Creatinine Ratio 31 (6-26) H 06/16/18 06:13 Glucose 155 mg/dL (70-105) H 06/16/18 06:13 Calcium 8.1 mg/dL (8.6-10.3) L 06/16/18 06:13 H & H 06/16/18 Range/Units 06:13 Hgb 8.7 L (11.5-15.4) g/dL Hct 26.2 L (35.3-44.9) % All other labs normal. - Diagnostic results Knee x-ray: report reviewed, image reviewed (Minimally displaced transverse fracture of proximal tibia, proximal fibula) Consult Discharge Plan - Plan Referrals: Carol Odom [Primary Care Provider] -
[2018-06-16] MEDS: Furosemide 20 MG TABLET PO SCH (13:00)
[2018-06-16] MEDS: Isosorbide MONOnitrate (24 HR) 60 MG TAB.ER.24H PO SCH (13:00)
--- NOTE | 2018-06-16 13:59 | Internal Med Progress Note ---
Hospitalist Progress Note - Encounter Date of Encounter: 06/16/18 Time of Encounter: 10:00 - Subjective Interval History: 68 year old female with pmh of dementia, diabetes, GERD, hypertension presenting with complaints of fall. history was obtained from daughter at admission. patient is pleasantly demented and has no complaints now. is feeling "sleepy" and is asking if its ok to sleep. denies chest pain, leg pain, SOB, palpitations, N/V/D, fever or chills. - Exam Vitals: Temp Pulse Resp BP Pulse Ox 97.5 F L 82 16 162/87 96 06/16/18 12:44 06/16/18 12:44 06/16/18 12:44 06/16/18 12:44 06/16/18 12:44 Exam: General: Patient is alert, oriented, no acute distress, obese Head: atraumatic, normocephalic, Eye: normal appearance, PERRL, no scleral icterus, no conjunctival injection ENT: mucous membranes moist, normal external ear exam Neck: normal inspection, trachea midline, full ROM, no carotid bruits Chest: normal inspection, symmetric chest rise Respiratory: Good respiratory effort. Bilateral breath sounds are clear without wheezing, crackles, or rhonchi. Cardiovascular: Regular rate and rhythm. s1 and s2 No clicks, rubs, gallops, or murmors. Abdomen: Bowel sounds present normoactive x-4 quadrants. Abdomen is soft, nondistended. no Epigastric tenderness. No guarding or rebound. No organomegaly noted, obese musculoskeletal: Spontaneously moving all extremities. no edema, no calf tenderness left knee is wrapped Skin: warm, dry, intact. Neuro: Alert and oriented x4. Sensation light touch intact. Cranial nerves 2- 12 is intact. Not aphasic, gait is steady, rapid hand movements intact, finger- to-nose intact, Psych: Patient's affect is normal - Assessment and Plan (1) Tibial fracture Current Visit: Yes Status: Acute Assessment and Plan: orthopedics consulted - recs below continue with nonoperative management of the fracture. Continue splint with NWB of the LLE. F/u in 1-2 weeks with sports medicine for repeat xrays and likely cast placement. DVT prophylaxis (2) Dementia Current Visit: No Status: Chronic Assessment and Plan: demented at baseline sitter at bedside fall precautions aspiration precautions (3) Hypothyroidism (acquired) Current Visit: No Status: Acute Assessment and Plan: Continue levothyroxine (4) CKD (chronic kidney disease) Current Visit: No Status: Chronic Assessment and Plan: CKD stage 3, pt's creatinine is improved from last visit. Continue lasix (5) Diabetes mellitus Current Visit: Yes Status: Acute Assessment and Plan: On insulin sliding scale hold metformin (6) Hypertension Current Visit: Yes Status: Acute Assessment and Plan: on BB, ACEI and lasix increased lisinopril dosage for better BP control from 5 to 10. will continue to monitor vitals (7) Systolic CHF Current Visit: Yes Status: Acute Assessment and Plan: No acute exacerbation. TTE in showed EF of 20-25%. continue lasix, lisnopril and beta blockers (8) Acute on chronic anemia Current Visit: Yes Status: Acute Assessment and Plan: currently H/h above 8 hemoglobin in march was 11 type and cross guaiac will send iron panel (9) DVT prophylaxis Current Visit: Yes Status: Acute Assessment and Plan: heparin sc (10) Fall Current Visit: Yes Status: Acute Assessment and Plan: mechanical fall starte don vitamin D will follow vitamin D levels PT/OT CM and SW consult DVT Prophylaxis: as above - Time Spent with Patient Total time spent is greater than 50% in coordination of care (as documented) at patient's floor/unit and/or counseling patient: Plan of Care Discussed with: nurse Internal Medicine: Result - Labs CBC & Chem 7: 06/16/18 06:13 06/16/18 06:13 Labs: Short CBC 06/16/18 Range/Units 06:13 WBC 6.6 (4.3-11.1) K/mcL Hgb 8.7 L (11.5-15.4) g/dL Hct 26.2 L (35.3-44.9) % Plt Count 155 (140-400) K/mcL Neutrophils # 4.5 (1.6-8.9) K/mcL BMP 06/16/18 06:13 Sodium 135 L Potassium 4.6 Chloride 105 Carbon Dioxide 23 BUN 55 H Creatinine 1.79 H Glucose 155 H Calcium 8.1 L - ABG Interpretation ABG results: PT/INR, D-dimer PT 10.2 Seconds (9.4-12.1) 08/04/18 19:44 Consult Discharge Plan - Plan Referrals: Carol Odom [Primary Care Provider] - (1) Tibial fracture Qualifiers: Encounter type: initial encounter Tibia location: proximal Fracture type: closed Fracture morphology: other fracture Laterality: left Qualified Code(s) : S82.192A - Other fracture of upper end of left tibia, initial encounter for closed fracture (2) Dementia Qualifiers: Dementia type: Alzheimer's disease Alzheimer's disease onset: unspecified onset Dementia behavioral disturbance: without behavioral disturbance Qualified Code(s): G30.9 - Alzheimer's disease, unspecified; F02.80 - Dementia in other diseases classified elsewhere without behavioral disturbance (4) CKD (chronic kidney disease) Qualifiers: Chronic kidney disease stage: stage 3 (moderate) Qualified Code(s): N18.3 - Chronic kidney disease, stage 3 (moderate) (7) Systolic CHF Qualifiers: Heart failure chronicity: chronic Qualified Code(s): I50.22 - Chronic systolic (congestive) heart failure (10) Fall Qualifiers: Encounter type: initial encounter Qualified Code(s): W19.XXXA - Unspecified fall, initial encounter
[2018-06-16] MEDS ORDERED: Loratadine 10 MG TABLET PO ONE (17:15)
[2018-06-17 01:18] LABS: Basophils % 0.5 %; Eosinophils # 0.1 K/mcL (0.0-0.6); Hematocrit 27.6 % (35.3-44.9); Immature Granulocytes % 0.2 % (0-4); Lymphocytes # 1.4 K/mcL (0.6-4.6); Lymphocytes % 22.4 %; Mean Corpuscular HGB Conc 32.6 g/dL (31.6-35.5); Mean Platelet Volume 10.9 fL (9.4-12.4); Monocytes # 0.9 K/mcL (0.0-1.3); Neutrophils # 3.9 K/mcL (1.6-8.9); Platelet Count 163 K/mcL (140-400); Segmented Neutrophils % 60.9 %
[2018-06-17] MEDS: traMADol 50 MG TABLET PO PRN ×3 (01:25→19:07)
[2018-06-17 01:39] LABS: Calcium 8.4 mg/dL (8.6-10.3); Potassium 5.2 mEq/L (3.5-5.1)
[2018-06-17] MEDS: Levothyroxine 25 MCG TABLET PO SCH (06:25)
[2018-06-17] MEDS: *HR* Heparin 5,000 UNIT/ML VIAL SQ SCH ×2 (06:26→18:52)
[2018-06-17] MEDS: Cholecalciferol (D-3) 1,000 UNIT TABLET PO SCH (09:35)
[2018-06-17] MEDS: Isosorbide MONOnitrate (24 HR) 60 MG TAB.ER.24H PO SCH (09:35)
[2018-06-17] MEDS: Metoprolol XL (24 HR) Succ 25 MG TAB.ER.24H PO SCH (09:35)
[2018-06-17] MEDS: Furosemide 20 MG TABLET PO SCH (09:36)
[2018-06-17] MEDS: Folic Acid 1 MG TABLET PO SCH (09:36)
--- NOTE | 2018-06-17 14:40 | Internal Med Progress Note ---
Hospitalist Progress Note - Encounter Date of Encounter: 06/17/18 Time of Encounter: 14:36 - Subjective Interval History: Patient had no acute events overnight. Patient is pleasantly demented. Daughter is in room and provides most of interval history. She states that patient is eating/drinking well. She only participated minimally with PT/OT today. Nursing staff reports some intermittent itching, but daughter thinks this may be psychogenic. Patient denies fever, chills, chest pain, SOB, nausea , vomiting, or abdominal pain. She states that she is in no pain at this time. She has no complaints at this time. - Exam Vitals: Temp Pulse Resp BP Pulse Ox 99.8 F H 72 16 160/69 97 06/17/18 10:31 06/17/18 10:31 06/17/18 10:31 06/17/18 10:31 06/17/18 10:31 Exam: Gen - Awake, alert, pleasantly demented, no acute distress HEENT - NCAT, PERRLA, EOMI, hearing grossly intact, oropharynx benign CV - RRR, normal S1 and S2, no M/R/G, no BLE edema Resp - Normal WOB, CTAB, no W/R/R GI - Soft, NT/ND, no masses, normal bowel sounds, no HSP Skin - Warm, dry, no rashes/lesions/ulcers Ext - Left foot in splint with bandaging Psych - Normal mood and affect, no depression or anxiety - Assessment and Plan (1) Fall Current Visit: Yes Status: Acute Assessment and Plan: mechanical fall starte don vitamin D will follow vitamin D levels PT/OT CM and SW consult 06/17 - Continue fall precautions. Continue PT/OT. SW working on placement. (2) Tibial fracture Current Visit: Yes Status: Acute Assessment and Plan: orthopedics consulted - recs below continue with nonoperative management of the fracture. Continue splint with NWB of the LLE. F/u in 1-2 weeks with sports medicine for repeat xrays and likely cast placement. DVT prophylaxis 06/17 - Orthopedics consulted; appreciate input. No surgical intervention. Continue splint and non-weightbearing LLE. Continue PT/OT. SW working on placement. Follow up with sports medicine in 1-2 weeks with repeat x-rays and likely cast placement. (3) Dementia Current Visit: Yes Status: Chronic Assessment and Plan: demented at baseline sitter at bedside fall precautions aspiration precautions 06/17 - Pleasantly demented. Continue 1-on-1 sitter and fall precautions. (4) Hypothyroidism (acquired) Current Visit: Yes Status: Chronic Assessment and Plan: Continue home medications. (5) CKD (chronic kidney disease) Current Visit: Yes Status: Chronic Assessment and Plan: CKD stage 3, pt's creatinine is improved from last visit. Continue lasix. 06/17 - Creatinine trending up slowly, but still at baseline. Will defer IVF given history of CHF, and will encourage adequate PO hydration. May need to hold lasix temporarily if continues to worsen. Recheck BMP in AM. (6) Diabetes mellitus Current Visit: Yes Status: Chronic Assessment and Plan: On insulin sliding scale hold metformin 06/17 - Continue accuchecks and SSI QID AC/HS. (7) Hypertension Current Visit: Yes Status: Chronic Assessment and Plan: on BB, ACEI and lasix increased lisinopril dosage for better BP control from 5 to 10. will continue to monitor vitals 06/17 - Continue home medications. BP looks overall better; may need to continue to titrate up on lisinopril if elevated readings. Monitor vitals closely. (8) Systolic CHF Current Visit: Yes Status: Chronic Assessment and Plan: No acute exacerbation. TTE in showed EF of 20-25%. continue lasix, lisnopril and beta blockers 06/17 - Continue home medications. Monitor fluid balance. (9) Acute on chronic anemia Current Visit: Yes Status: Chronic Assessment and Plan: currently H/h above 8 hemoglobin in march was 11 type and [facility] will send iron panel 06/17 - Hgb stable. Low iron. Will start ferrous sulfate/vitamin C TID. Recheck CBC in AM. (10) DVT prophylaxis Current Visit: Yes Status: Acute Assessment and Plan: Continue SQ heparin. - Time Spent with Patient Total time spent is greater than 50% in coordination of care (as documented) at patient's floor/unit and/or counseling patient: less than 15 minutes Plan of Care Discussed with: patient (Family, Nurse) Internal Medicine: Result - Labs CBC & Chem 7: 06/17/18 00:54 06/17/18 00:54 Labs: Short CBC 06/17/18 Range/Units 00:54 WBC 6.4 (4.3-11.1) K/mcL Hgb 9.0 L (11.5-15.4) g/dL Hct 27.6 L (35.3-44.9) % Plt Count 163 (140-400) K/mcL Neutrophils # 3.9 (1.6-8.9) K/mcL BMP 06/17/18 00:54 Sodium 132 L Potassium 5.2 H Chloride 102 Carbon Dioxide 26 BUN 56 H Creatinine 2.11 H Glucose 163 H Calcium 8.4 L - ABG Interpretation ABG results: PT/INR, D-dimer PT 10.2 Seconds (9.4-12.1) 06/15/18 19:44 Consult Discharge Plan - Plan Additional Instructions: NON-WEIGHT BEARING TO LLE. Referrals: Carol Odom [Primary Care Provider] - Avery Kellogg MD [Partnered Physician] - 07/02/18 10:10 am (PER - F/U IN 1-2 WEEKS FOR REPEAT X-RAYS AND POSSIBLE CAST PLACEMENT) (1) Fall Qualifiers: Encounter type: initial encounter Qualified Code(s): W19.XXXA - Unspecified fall, initial encounter (2) Tibial fracture Qualifiers: Encounter type: initial encounter Tibia location: proximal Fracture type: closed Fracture morphology: other fracture Laterality: left Qualified Code(s) : S82.192A - Other fracture of upper end of left tibia, initial encounter for closed fracture (3) Dementia Qualifiers: Dementia type: Alzheimer's disease Alzheimer's disease onset: unspecified onset Dementia behavioral disturbance: without behavioral disturbance Qualified Code(s): G30.9 - Alzheimer's disease, unspecified; F02.80 - Dementia in other diseases classified elsewhere without behavioral disturbance (5) CKD (chronic kidney disease) Qualifiers: Chronic kidney disease stage: stage 3 (moderate) Qualified Code(s): N18.3 - Chronic kidney disease, stage 3 (moderate) (6) Diabetes mellitus Qualifiers: Diabetes mellitus type: type 2 Diabetes mellitus long-term insulin use: without long-term use Diabetes mellitus complication status: with kidney complications Diabetes mellitus complication detail: with chronic kidney disease Chronic kidney disease stage: stage 3 (moderate) Qualified Code(s): E11.22 - Type 2 diabetes mellitus with diabetic chronic kidney disease; N18.3 - Chronic kidney disease, stage 3 (moderate) (7) Hypertension Qualifiers: Hypertension type: essential hypertension Qualified Code(s): I10 - Essential (primary) hypertension (8) Systolic CHF Qualifiers: Heart failure chronicity: chronic Qualified Code(s): I50.22 - Chronic systolic (congestive) heart failure
[2018-06-17] MEDS: Ascorbic Acid 500 MG TABLET PO SCH (18:52)
[2018-06-18 01:44] LABS: Basophils % 0.5 %; Eosinophils # 0.1 K/mcL (0.0-0.6); Eosinophils % 1.6 %; Hemoglobin 8.7 g/dL (11.5-15.4); Immature Granulocytes % 0.2 % (0-4); Lymphocytes # 0.9 K/mcL (0.6-4.6); Lymphocytes % 15.7 %; Mean Corpuscular HGB Conc 33.5 g/dL (31.6-35.5); Mean Corpuscular Hemoglobin 30.7 pg (28.0-33.3); Mean Corpuscular Volume 91.9 fL (83.0-100.0); Mean Platelet Volume 11.1 fL (9.4-12.4); Monocytes # 0.9 K/mcL (0.0-1.3); Neutrophils # 3.7 K/mcL (1.6-8.9); Platelet Count 162 K/mcL (140-400); Red Blood Count 2.83 M/mcL (3.82-4.97); Red Cell Distribution Width 15.6 % (11.5-14.5)
[2018-06-18 02:06] LABS: Calcium 8.4 mg/dL (8.6-10.3); Potassium 4.7 mEq/L (3.5-5.1)
[2018-06-18] MEDS: traMADol 50 MG TABLET PO PRN ×3 (04:05→16:14)
[2018-06-18] MEDS: Levothyroxine 25 MCG TABLET PO SCH (05:48)
[2018-06-18] MEDS: *HR* Heparin 5,000 UNIT/ML VIAL SQ SCH ×2 (05:52→17:19)
[2018-06-18] MEDS: Ascorbic Acid 500 MG TABLET PO SCH ×4 (08:28→16:14)
[2018-06-18] MEDS: Folic Acid 1 MG TABLET PO SCH ×2 (08:28→08:37)
[2018-06-18] MEDS: Cholecalciferol (D-3) 1,000 UNIT TABLET PO SCH (08:37)
[2018-06-18] MEDS: Metoprolol XL (24 HR) Succ 25 MG TAB.ER.24H PO SCH (08:37)
[2018-06-18] MEDS: Isosorbide MONOnitrate (24 HR) 60 MG TAB.ER.24H PO SCH (08:37)
[2018-06-18] MEDS: Furosemide 20 MG TABLET PO SCH (08:37)
--- NOTE | 2018-06-18 13:19 | Internal Med Progress Note ---
Hospitalist Progress Note - Encounter Date of Encounter: 06/18/18 Time of Encounter: 13:17 - Subjective Interval History: Patient had no acute events overnight. She is pleasantly demented. She denies fever, chills, chest pain, SOB, nausea, vomiting, or abdominal pain. She states that she is in no pain at this time. She is without sitter today. She has no complaints at this time. - Exam Vitals: Temp Pulse Resp BP Pulse Ox 98.1 F 65 18 152/71 96 06/18/18 08:40 06/18/18 08:40 06/18/18 08:40 06/18/18 08:40 06/18/18 08:40 Exam: Gen - Awake, alert, pleasantly demented, no acute distress HEENT - NCAT, PERRLA, EOMI, hearing grossly intact, oropharynx benign CV - RRR, normal S1 and S2, no M/R/G, no BLE edema Resp - Normal WOB, CTAB, no W/R/R GI - Soft, NT/ND, no masses, normal bowel sounds, no HSP Skin - Warm, dry, no rashes/lesions/ulcers Ext - Left foot in splint with bandaging Psych - Normal mood and affect, no depression or anxiety - Assessment and Plan (1) Fall Current Visit: Yes Status: Acute Assessment and Plan: mechanical fall starte don vitamin D will follow vitamin D levels PT/OT CM and SW consult 06/17 - Continue fall precautions. Continue PT/OT. SW working on placement. 06/18 - Continue fall precautions. Continue PT/OT. SW working on placement. (2) Tibial fracture Current Visit: Yes Status: Acute Assessment and Plan: orthopedics consulted - recs below continue with nonoperative management of the fracture. Continue splint with NWB of the LLE. F/u in 1-2 weeks with sports medicine for repeat xrays and likely cast placement. DVT prophylaxis 06/17 - Orthopedics consulted; appreciate input. No surgical intervention. Continue splint and non-weightbearing LLE. Continue PT/OT. SW working on placement. Follow up with sports medicine in 1-2 weeks with repeat x-rays and likely cast placement. 06/18 - Orthopedics consulted; appreciate input. No surgical intervention. Continue splint and non-weightbearing LLE. Continue PT/OT. SW working on placement. Follow up with sports medicine in 1-2 weeks with repeat x-rays and likely cast placement. (3) Dementia Current Visit: Yes Status: Chronic Assessment and Plan: demented at baseline sitter at bedside fall precautions aspiration precautions 06/17 - Pleasantly demented. Continue 1-on-1 sitter and fall precautions. 06/18 - Pleasantly demented. Trial without sitter today; tolerating without issue so far. Continue fall precautions. (4) Hypothyroidism (acquired) Current Visit: Yes Status: Chronic Assessment and Plan: Continue home medications. (5) CKD (chronic kidney disease) Current Visit: Yes Status: Chronic Assessment and Plan: CKD stage 3, pt's creatinine is improved from last visit. Continue lasix. 06/17 - Creatinine trending up slowly, but still at baseline. Will defer IVF given history of CHF, and will encourage adequate PO hydration. May need to hold lasix temporarily if continues to worsen. Recheck BMP in AM. 06/18 - Creatinine continues to trend up, but still around baseline. Encourage adequate PO hydration. Will hold lasix for now. Recheck BMP in AM. (6) Diabetes mellitus Current Visit: Yes Status: Chronic Assessment and Plan: On insulin sliding scale hold metformin 06/17 - Continue accuchecks and SSI QID AC/HS. 06/18 - Continue accuchecks and SSI QID AC/HS. (7) Hypertension Current Visit: Yes Status: Chronic Assessment and Plan: on BB, ACEI and lasix increased lisinopril dosage for better BP control from 5 to 10. will continue to monitor vitals 06/17 - Continue home medications. BP looks overall better; may need to continue to titrate up on lisinopril if elevated readings. Monitor vitals closely. 06/18 - Some elevated readings overnight. Continue home medications. Increase lisinopril to 20 mg PO QD. Monitor vitals closely. (8) Systolic CHF Current Visit: Yes Status: Chronic Assessment and Plan: No acute exacerbation. TTE in showed EF of 20-25%. continue lasix, lisnopril and beta blockers 06/17 - Continue home medications. Monitor fluid balance. 06/18 - Continue home medications. Hold lasix as per above. Increasing lisinopril as per above. Monitor fluid balance. (9) Acute on chronic anemia Current Visit: Yes Status: Chronic Assessment and Plan: currently H/h above 8 hemoglobin in march was 11 type and [facility] will send iron panel 06/17 - Hgb stable. Low iron. Will start ferrous sulfate/vitamin C TID. Recheck CBC in AM. 8 - Hgb stable. Continue iron supplementation. Recheck CBC in AM. (10) DVT prophylaxis Current Visit: Yes Status: Acute Assessment and Plan: Continue SQ heparin. - Time Spent with Patient Total time spent is greater than 50% in coordination of care (as documented) at patient's floor/unit and/or counseling patient: less than 15 minutes Plan of Care Discussed with: patient (Nurse) Internal Medicine: Result - Labs CBC & Chem 7: 06/18/18 01:08 06/18/18 01:08 Labs: Short CBC 06/18/18 Range/Units 01:08 WBC 5.6 (4.3-11.1) K/mcL Hgb 8.7 L (11.5-15.4) g/dL Hct 26.0 L (35.3-44.9) % Plt Count 162 (140-400) K/mcL Neutrophils # 3.7 (1.6-8.9) K/mcL BMP 06/18/18 01:08 Sodium 135 L Potassium 4.7 Chloride 103 Carbon Dioxide 27 BUN 56 H Creatinine 2.25 H Glucose 226 H Calcium 8.4 L - ABG Interpretation ABG results: PT/INR, D-dimer PT 10.2 Seconds (9.4-12.1) 06/15/18 19:44 Consult Discharge Plan - Plan Additional Instructions: NON-WEIGHT BEARING TO LLE. Referrals: Carol Odom [Primary Care Provider] - Avery Kellogg MD [Partnered Physician] - 07/02/18 10:10 am (PER - F/U IN 1-2 WEEKS FOR REPEAT X-RAYS AND POSSIBLE CAST PLACEMENT) (1) Fall Qualifiers: Encounter type: initial encounter Qualified Code(s): W19.XXXA - Unspecified fall, initial encounter (2) Tibial fracture Qualifiers: Encounter type: initial encounter Tibia location: proximal Fracture type: closed Fracture morphology: other fracture Laterality: left Qualified Code(s) : S82.192A - Other fracture of upper end of left tibia, initial encounter for closed fracture (3) Dementia Qualifiers: Dementia type: Alzheimer's disease Alzheimer's disease onset: unspecified onset Dementia behavioral disturbance: without behavioral disturbance Qualified Code(s): G30.9 - Alzheimer's disease, unspecified; F02.80 - Dementia in other diseases classified elsewhere without behavioral disturbance (5) CKD (chronic kidney disease) Qualifiers: Chronic kidney disease stage: stage 3 (moderate) Qualified Code(s): N18.3 - Chronic kidney disease, stage 3 (moderate) (6) Diabetes mellitus Qualifiers: Diabetes mellitus type: type 2 Diabetes mellitus nursing home insulin use: without nursing home use Diabetes mellitus complication status: with kidney complications Diabetes mellitus complication detail: with chronic kidney disease Chronic kidney disease stage: stage 3 (moderate) Qualified Code(s): E11.22 - Type 2 diabetes mellitus with diabetic chronic kidney disease; N18.3 - Chronic kidney disease, stage 3 (moderate) (7) Hypertension Qualifiers: Hypertension type: essential hypertension Qualified Code(s): I10 - Essential (primary) hypertension (8) Systolic CHF Qualifiers: Heart failure chronicity: chronic Qualified Code(s): I50.22 - Chronic systolic (congestive) heart failure
[2018-06-19] MEDS: traMADol 50 MG TABLET PO PRN ×2 (01:02→10:51)
[2018-06-19 01:19] LABS: Basophils % 0.6 %; Eosinophils # 0.1 K/mcL (0.0-0.6); Hematocrit 29.9 % (35.3-44.9); Hemoglobin 9.9 g/dL (11.5-15.4); Immature Granulocytes % 0.3 % (0-4); Lymphocytes # 1.2 K/mcL (0.6-4.6); Lymphocytes % 17.4 %; Mean Corpuscular HGB Conc 33.1 g/dL (31.6-35.5); Mean Corpuscular Hemoglobin 30.8 pg (28.0-33.3); Mean Corpuscular Volume 93.1 fL (83.0-100.0); Mean Platelet Volume 10.2 fL (9.4-12.4); Monocytes # 0.9 K/mcL (0.0-1.3); Monocytes % 13.2 %; Neutrophils # 4.7 K/mcL (1.6-8.9); Platelet Count 189 K/mcL (140-400); Red Blood Count 3.21 M/mcL (3.82-4.97); Red Cell Distribution Width 15.5 % (11.5-14.5); Segmented Neutrophils % 66.5 %
[2018-06-19 01:37] LABS: Calcium 8.6 mg/dL (8.6-10.3)
[2018-06-19] MEDS: *HR* Heparin 5,000 UNIT/ML VIAL SQ SCH (06:49)
[2018-06-19] MEDS: Levothyroxine 25 MCG TABLET PO SCH (06:49)
[2018-06-19] MEDS: Cholecalciferol (D-3) 1,000 UNIT TABLET PO SCH (08:12)
[2018-06-19] MEDS: Isosorbide MONOnitrate (24 HR) 60 MG TAB.ER.24H PO SCH (08:13)
[2018-06-19] MEDS: Metoprolol XL (24 HR) Succ 25 MG TAB.ER.24H PO SCH (08:13)
[2018-06-19] MEDS: Folic Acid 1 MG TABLET PO SCH (08:13)
[2018-06-19] MEDS: Ascorbic Acid 500 MG TABLET PO SCH ×2 (08:13→12:35)
[2018-06-19] MEDS ORDERED: Lisinopril 20 MG TABLET PO SCH (09:00)
[2018-06-19] MEDS: Insulin LISPRO 300 UNITS/3 ML VIAL SQ SCH (11:59)
[2018-06-19] MEDS ORDERED: Acetaminophen 325 MG TABLET PO PRN (12:24)
[2018-06-19 16:59] VITALS: BP 149/73
--- NOTE | 2018-06-19 17:04 | Discharge Summary ---
- NOTES TO OUTPATIENT PROVIDER Notes to Outpatient Provider: Follow up with PCP in 2-3 days after discharge. Recheck BMP and CBC at that time. Follow up in sports medicine clinic in 1-2 weeks as directed. Date of Encounter: 06/19/18 Time of Encounter: 16:59 - Discharge Diagnosis (1) Fall Priority: Primary Status: Acute Qualifiers: Encounter type: initial encounter Qualified Code(s): W19.XXXA - Unspecified fall, initial encounter (2) Tibial fracture Priority: Secondary Status: Acute Qualifiers: Encounter type: initial encounter Tibia location: proximal Fracture type : closed Fracture morphology: other fracture Laterality: left Qualified Code(s): S82.192A - Other fracture of upper end of left tibia, initial encounter for closed fracture (3) Dementia Priority: Secondary Status: Chronic Qualifiers: Dementia type: Alzheimer's disease Alzheimer's disease onset: unspecified onset Dementia behavioral disturbance: without behavioral disturbance Qualified Code(s): G30.9 - Alzheimer's disease, unspecified; F02.80 - Dementia in other diseases classified elsewhere without behavioral disturbance (4) Hypothyroidism (acquired) Priority: Secondary Status: Chronic (5) CKD (chronic kidney disease) Priority: Secondary Status: Chronic Qualifiers: Chronic kidney disease stage: stage 3 (moderate) Qualified Code(s): N18.3 - Chronic kidney disease, stage 3 (moderate) (6) Diabetes mellitus Priority: Secondary Status: Chronic Qualifiers: Diabetes mellitus type: type 2 Diabetes mellitus penitentiary insulin use: without penitentiary use Diabetes mellitus complication status: with kidney complications Diabetes mellitus complication detail: with chronic kidney disease Chronic kidney disease stage: stage 3 (moderate) Qualified Code(s): E11.22 - Type 2 diabetes mellitus with diabetic chronic kidney disease; N18.3 - Chronic kidney disease, stage 3 (moderate) (7) Hypertension Priority: Secondary Status: Chronic Qualifiers: Hypertension type: essential hypertension Qualified Code(s): I10 - Essential (primary) hypertension (8) Systolic CHF Priority: Secondary Status: Chronic Qualifiers: Heart failure chronicity: chronic Qualified Code(s): I50.22 - Chronic systolic (congestive) heart failure (9) Acute on chronic anemia Priority: Secondary Status: Chronic (10) DVT prophylaxis Priority: Secondary Status: Acute Hospital course: Ms. Decker is a 68 year old female admitted for left tibial fracture s/p fall. She was admitted to orthopedic floor. Orthopedic surgery was consulted. They recommended non-operative management with splint and NWB LLE. They will have her follow up in sports medicine clinic in 1-2 weeks for repeat x-ray and possible casting. Patient had dementia and initially required a 1-on-1 sitter this hospitalization. Social work was consulted for SNF placement. However, they were unable to find placement due to observation status and no Medicare funds for rehabilitation. cleaner touch up worker recommended home health with home PT/OT /nursing/aide. Family is agreeable to this today. Patient will follow up with PCP in 2-3 days after discharge. She will follow up with sports medicine as directed. Patient has met maximum benefit of this hospitalization and will be discharged home with home health in stable condition. Discharge discussed with: patient, family, nurse, social work - Time Spent with Patient Total time spent providing and/or coordinating discharge services: Greater than 30 minutes - Discharge Medications Prescriptions: Acetaminophen [Tylenol] 650 mg PO Q6HR PRN 7 Days #56 tablet PRN Reason: Pain Ascorbic Acid [Vitamin C] 500 mg PO TIDWM 7 Days #21 tablet Cholecalciferol (D-3) [Vitamin D] 1,000 unit PO DAILY 7 Days #7 tablet Ferrous Sulfate 325 mg PO TIDWM 7 Days #21 tablet Folic Acid 1 mg PO DAILY 7 Days #7 tablet Lisinopril [Zestril] 20 mg PO DAILY 7 Days #7 tablet Home Medications: Aspirin 81 mg PO DAILY #90 tab.chew 07/31/16 [Rx] Atorvastatin [Lipitor] 40 mg PO HS #30 tablet 07/31/16 [Rx] Isosorbide MONOnitrate (24 HR) [Imdur] 60 mg PO DAILY #60 tab.er.24h 07/31/16 [ Rx] Nitroglycerin 0.4 mg SL Q5MIN PRN #15 tab.subl 07/31/16 [Rx] hydrALAZINE [HydrALAZINE] 25 mg PO Q6HR #90 tablet 07/31/16 [Rx] Clopidogrel [Plavix] 75 mg PO DAILY #30 tablet 12/14/17 [Rx] Furosemide [Lasix] 20 mg PO DAILY #30 tablet 12/14/17 [Rx] Metoprolol XL (24 HR) Succ [Toprol Xl] 25 mg PO DAILY #30 tab.er.24h 12/14/17 [ Rx] Levothyroxine [Synthroid] 50 mcg PO 0630 #60 tablet 03/15/18 [Rx] metFORMIN [Glucophage] 500 mg PO DAILY 06/17/18 [History] Acetaminophen [Tylenol] 650 mg PO Q6HR PRN 7 Days #56 tablet 06/19/18 [Rx] Ascorbic Acid [Vitamin C] 500 mg PO TIDWM 7 Days #21 tablet 06/19/18 [Rx] Cholecalciferol (D-3) [Vitamin D] 1,000 unit PO DAILY 7 Days #7 tablet 06/19/18 [Rx] Ferrous Sulfate 325 mg PO TIDWM 7 Days #21 tablet 06/19/18 [Rx] Folic Acid 1 mg PO DAILY 7 Days #7 tablet 06/19/18 [Rx] Lisinopril [Zestril] 20 mg PO DAILY 7 Days #7 tablet 06/19/18 [Rx] Allergies/Adverse Reactions: 3 Allergy/AdvReac Type Severity Reaction Status Date / Time No Known Allergies Allergy Verified 03/05/18 16:07 Date of admission: 06/15/18 21:54 Primary care physician: Carol Ely Consults: Orthopedic Surgery 06/16/18 14:18 Consult to Case Management [CONS] Routine Comment: Consult to Physical Therapy [CONS] Routine Comment: Evaluate, develop and implement POC Reason for Consult: dispostion Does patient have active BEDREST order?: No Is patient medically & hemodynamically stable?: Yes Patient assessed for mobility or mobilized this visit?: Yes OT [Consult to Occupational Therapy] [CONS] Routine Comment: Evaluate, develop and implement POC Reason for Consult: disposition Does patient have active BEDREST order?: No Is patient medically & hemodynamically stable?: Yes Patient assessed for mobility or mobilized this visit?: Yes 06/17/18 10:38 Consult to Coverstitch Elastic Attacher [CONS] Routine Reason for SW Consult: DISCHARGE PLANNING Discharging clinician: [place] Roberto Anticipated date of discharge: 06/19/18 - Constitutional Vitals: Temp Pulse Resp BP Pulse Ox 98.9 F 81 16 149/73 95 06/19/18 14:50 06/19/18 14:50 06/19/18 14:50 06/19/18 14:50 06/19/18 14:50 General appearance: Present: cooperative, A&O X 3, pleasant, no acute distress. Absent: answers questions appropriately (Pleasantly demented) - Respiratory Respiratory exam: Present: CTAB. Absent: accessory muscle use, rales, rhonchi, wheezes Additional comments: Normal WOB - Cardiovascular Cardiovascular exam: Present: RRR, +S1, +S2. Absent: diastolic murmur, gallop, rubs, systolic murmur Additional comments: No BLE edema - GI/Abdominal GI/Abdominal exam: Present: normal bowel sounds, soft. Absent: distended, hepatomegaly, mass, splenomegaly, tenderness - Extremities Exam Additional comments: Left leg/foot in splint with bandaging - Psychiatric Psychiatric exam: Present: normal affect, normal mood. Absent: agitated, anxious, depressed - Skin Skin exam: Present: dry, intact, warm. Absent: cyanosis, rash - Patient Status Disposition: Home Health Service Condition: Good Overall status at discharge: patient is progressing back to baseline - Discharge Instructions Follow Up With: Carol Odom [Primary Care Provider] - Avery eKllogg MD [Partnered Physician] - 07/02/18 10:10 am (PER - F/U IN 1-2 WEEKS FOR REPEAT X-RAYS AND POSSIBLE CAST PLACEMENT) Additional Instructions: NON-WEIGHT BEARING TO LLE. Follow up with PCP in 2-3 days after discharge. Recheck BMP and CBC at that time. Follow up in sports medicine clinic in 1-2 weeks as directed. - Diet and Activity Activity: as per physical therapy Diet: diabetic diet, low fat, low cholesterol, low salt diet, other (Cardiac Diet)
--- NOTE | 2018-06-19 17:26 | Physician Discharge Referral ---
Home Health/Hosp Referral Info Transfer to: Home Health Provider in Charge Post Discharge: PCP - Diagnosis (1) Fall Priority: Primary Status: Acute (2) Tibial fracture Priority: Secondary Status: Acute (3) Dementia Priority: Secondary Status: Chronic (4) Hypothyroidism (acquired) Priority: Secondary Status: Chronic (5) CKD (chronic kidney disease) Priority: Secondary Status: Chronic (6) Diabetes mellitus Priority: Secondary Status: Chronic (7) Hypertension Priority: Secondary Status: Chronic (8) Systolic CHF Priority: Secondary Status: Chronic (9) Acute on chronic anemia Priority: Secondary Status: Chronic (10) DVT prophylaxis Priority: Secondary Status: Acute - Respiratory Orders None Smoking Cessation: Smoking cessation has been advised. For more information, call the [place] Tobacco Quit Line at 0-020-MHMM-NOW. - Diet/Nutrition Diet/Nutrition Orders: No Added Salt (VIV), Cardiac, No Concentrated Sweets - Activity Activity: List: Per physical therapy. Non-weightbearing LLE. - Services Needed Following services are medically necessary services: Nursing, Home Health Aide, Physical Therapy, Occupational Therapy, Med Social Work - Transfer Medications Prescriptions: Acetaminophen [Tylenol] 650 mg PO Q6HR PRN 7 Days #56 tablet PRN Reason: Pain Ascorbic Acid [Vitamin C] 500 mg PO TIDWM 7 Days #21 tablet Cholecalciferol (D-3) [Vitamin D] 1,000 unit PO DAILY 7 Days #7 tablet Ferrous Sulfate 325 mg PO TIDWM 7 Days #21 tablet Folic Acid 1 mg PO DAILY 7 Days #7 tablet Lisinopril [Zestril] 20 mg PO DAILY 7 Days #7 tablet Home Medications: Aspirin 81 mg PO DAILY #90 tab.chew 07/31/16 [Rx] Atorvastatin [Lipitor] 40 mg PO HS #30 tablet 07/31/16 [Rx] Isosorbide MONOnitrate (24 HR) [Imdur] 60 mg PO DAILY #60 tab.er.24h 07/31/16 [ Rx] Nitroglycerin 0.4 mg SL Q5MIN PRN #15 tab.subl 07/31/16 [Rx] hydrALAZINE [HydrALAZINE] 25 mg PO Q6HR #90 tablet 07/31/16 [Rx] Clopidogrel [Plavix] 75 mg PO DAILY #30 tablet 12/14/17 [Rx] Furosemide [Lasix] 20 mg PO DAILY #30 tablet 12/14/17 [Rx] Metoprolol XL (24 HR) Succ [Toprol Xl] 25 mg PO DAILY #30 tab.er.24h 12/14/17 [ Rx] Levothyroxine [Synthroid] 50 mcg PO 30 #60 tablet 03/15/18 [Rx] metFORMIN [Glucophage] 500 mg PO DAILY 06/17/18 [History] Acetaminophen [Tylenol] 650 mg PO Q6HR PRN 7 Days #56 tablet 06/19/18 [Rx] Ascorbic Acid [Vitamin C] 500 mg PO TIDWM 7 Days #21 tablet 06/19/18 [Rx] Cholecalciferol (D-3) [Vitamin D] 1,000 unit PO DAILY 7 Days #7 tablet 06/19/18 [Rx] Ferrous Sulfate 325 mg PO TIDWM 7 Days #21 tablet 06/19/18 [Rx] Folic Acid 1 mg PO DAILY 7 Days #7 tablet 06/19/18 [Rx] Lisinopril [Zestril] 20 mg PO DAILY 7 Days #7 tablet 06/19/18 [Rx] Allergies/Adverse Reactions: 3 Allergy/AdvReac Type Severity Reaction Status Date / Time No Known Allergies Allergy Verified 03/05/18 16:07 Certification: Further, I certify that my clinical findings support that this patient is homebound (i.e. absences from home require considerable and taxing effort and are for medical reasons or hindu services or infrequently or short duration when for other reasons) because: left tibia fracture, dementia, chronic CHF, Type II DM, HTN, CKD, and anemia. Homebound Reason: Patient requires assistance of a person or device to safely leave home (Left Tibia Fracture), Leaving home requires considerable and taxing effort due to condition (Left Tibia Fracture), Altered mental status requiring supervision when leaving home (Dementia), Severity of cardiac or pulmonary status limits activity tolerance (Chronic CHF) Attestation: My signature below is to certify that this patient is under my care and that I, or nurse practitioner, or a physician's law office assistant working with me, has a face-to -face encounter with this patient.
== END 2018-06-19 18:29 | disposition home health service (06) ==
LOC: 3NENU 18:09 → EMEROO 18:09 → SUATTDRO 21:55 → 3NENU 22:22
PROVIDERS: ADMIT Internal Medicine; ATTEND Internal Medicine